=== PATIENT | female | born 1995 | race Two or more races ===

== ENCOUNTER 2025-01-10 20:08 | Emergency (ER) | payer MEDICAID, SELFPAY ==
[2025-01-10 20:09] VITALS: BMI 36.0
[2025-01-10 20:38] VITALS: BP 146/99; PULSE 91; RESP 18; TEMP 36.8; O2SAT 98
--- NOTE | 2025-01-10 20:55 | EDNOTE_ITS ---
ED Abdominal Pain RME/HPI General Chief Complaint: Abdominal Pain Stated complaint: abd pain 4 days Time seen by provider: 01/10/25 20:14 Arrival date/time: 01/10/25 20:08 Source: patient, RN notes reviewed and old records reviewed Mode of arrival: ambulatory Limitations: no limitations RME / HPI RME / HPI narrative: 29yof presents to ED for 4-day history of mid?pelvic pain. Patient reports nausea but no vomiting. No fever, diarrhea or urinary symptoms reported. No medications or treatments since onset. LMP 2 weeks ago. Related Data Home Medications ?Medication ?Instructions ?Recorded ?Confirmed empagliflozin 25 mg tablet 25 mg PO QAM 01/09/2301/09 (Jardiance) liraglutide 0.6 mg/0.1 mL (18 mg/3 1.2 mg subcut Q24H 01/09/23 01/09/23 mL) subcutaneous pen injector (Victoza 3-Earle) metformin 1,000 mg tablet 1,000 mg PO BIDWMEAL 3 01/09/23 Previous Rx's ?Medication ?Instructions ?Recorded ibuprofen 600 mg tablet 600 mg PO TID PRN pain #30 t abs 01/29/23 hydrocodone 5 mg-acetaminophen 325 1 tab PO Q8H PRN pa in #10 tabs 11/13/23 mg tablet ibuprofen 600 mg tablet 600 mg PO Q6H PRN pain #20 t abs 01/10/25 methocarbamol 500 mg tablet 1,000 mg (2 x 500 mg) PO Q 8H PRN 01/10/25 pain #20 tabs nitrofurantoin 100 mg PO BID 5 days #10 cap s 01/10/25 monohydrate/macrocrystals 100 mg capsule (Macrobid) ondansetron 4 mg disintegrating 4 mg PO Q6H PRN nausea and 01/10/25 tablet vomiting #10 tabs Allergies Allergy/AdvReac Type Severity Reaction Status Date / Time [place] And Derivatives Allergy Severe Rash Verified 01/10/25 20:15 Sulfa (Sulfonamide Allergy Severe Hives Verified 01/10/25 20:15 Antibiotics) Review of Systems Review of Systems Systems Reviewed: All systems reviewed, normal except as documented Constitutional Constitutional: Denies chills and Denies fever(s) Gastrointestinal Gastrointestinal: Reports abdominal pain, Denies loose stools, Reports nausea and Denies vomiting Genitourinary Genitourinary: Denies dysuria, Denies flank pain, Denies hematuria and Reports pelvic pain Past Medical History Past Medical History GASTROINTESTINAL: Positive Obesity ENDOCRINE: Positive Diabetes Mellitus Type 2 Surgical History SURGICAL: Positive Section Social History SMOKING STATUS: Never smoker SUBSTANCE USE: marijuana ALCOHOL: Current (Social) ED Exam General Limitations: Present no limitations General appearance: Present alert, in no apparent distress and obese Head Head exam: Present atraumatic and normocephalic Eye Eye exam: Present normal appearance, PERRL and EOMI ENT ENT exam: Present normal exam and mucous membranes moist Neck Neck exam: Present normal inspection and full ROM Chest Chest inspection: Present normal inspection and symmetric chest wall rise Respiratory Respiratory exam: Present normal lung sounds bilaterally; Absent respiratory distress Cardiovascular Cardiovascular exam: Present regular rate and normal rhythm Abdominal Exam Abdominal exam: Present soft and tenderness (Mild, suprapubic); Absent distention, guarding or rebound Extremities Exam Extremities exam: Present normal inspection and full ROM Back Exam Back exam: Absent CVA tenderness (R) or CVA tenderness (L) Neurological Exam Neurological exam: Present alert and oriented X3 Psychiatric Psychiatric exam: Present normal affect and normal mood Skin Skin exam: Present warm, dry, intact and normal color Course Quality Measures none Orders Category Date Time Status CBC Stat Lab 01/10/25 21:01 Completed CMP [Comprehensive Metabolic Panel] Stat Lab 01/10/25 21:01 Completed HCG Qualitative,Urine Stat Lab 01/10/25 22:02 Completed Lipase Stat Lab 01/10/25 21:01 Completed UA [Urinalysis] Stat Lab 01/10/25 22:02 Completed Acetaminophen Tab [Tylenol ES Tab] Med 01/10/25 21:04 Discontinued 1,000 mg PO X1 ONE CYCLObenzaPRINE [Flexeril] Med 01/10/25 21:04 Discontinued 5 mg PO X1 ONE Ondansetron Odt [Zofran Odt] Med 01/10/25 21:04 Discontinued 4 mg PO X1 ONE Vital Signs Vital signs: Vital Signs Temperature 98.3 F 01/10/25 20:38 Pulse Rate 91 01/10/25 20:38 Respiratory Rate 18 01/10/25 20:38 Blood Pressure 146/99 H 01/10/25 20:38 Pulse Oximetry (%) 98 01/10/25 20:38 Oxygen Delivery Method Room Air 01/10/25 20:38 Abdominal Pain MDM MDM Narrative MDM Narrative:: 29yof presents to ED for 4-day history of mid?pelvic pain. Patient reports nausea but no vomiting. No fever, diarrhea or urinary symptoms reported. No medications or treatments since onset. LMP 2 weeks ago. Patient reassessed. Symptoms improved after medications administered. Labs and exam reassuring. Will treat for UTI. Encourage adequate fluids, symptomatic treatment prn. Stable for dc, RTED precautions given. Patient data External records reviewed:: [facility] previous records (11/13/23 ED visit for cellulitis) Clinical information provided by:: patient Social determinants that could affect healthcare access:: other (specify) (poor access to healthcare) Patient has the following chronic illnesses:: DM, obesity How is presenting disease/condition affected by chronic disease/condition?: exacerbated by Evaluation data The following diagnostics were reviewed and interpreted by me:: lab results Lab and/or radiology exams considered but not ordered:: CT abd/pelvis: non-surgical abdomen on exam Interpretation Summary: wbc 13.3 hgb 13.8 lipase wnl UA +leuks Negative upreg Medications / Prescriptions Medications or Prescriptions considered but not ordered:: none Medication administrations:: Medication Administration History Discontinued Medications Acetaminophen (Acetaminophen 500 Mg Tablet) 1,000 mg PO X1 ONE Stop: 01/10/25 21:05 Last Admin: 01/10/25 21:17 Dose: 1,000 mg Documented By: CONNIE Cyclobenzaprine HCl (Cyclobenzaprine 5 Mg Tablet) 5 mg PO X1 ONE Stop: 01/10/25 21:05 Last Admin: 01/10/25 21:18 Dose: 5 mg Documented By: CONNIE Ondansetron HCl (Ondansetron Odt 4 Mg Tabrap) 4 mg PO X1 ONE; Protocol Stop: 01/10/25 21:05 Last Admin: 01/10/25 21:18 Dose: 4 mg Documented By: CONNIE Above medications administered in ED Consultations Consultation(s) initiated? (list below): No Diagnosis Differential diagnosis abdominal pain: abdominal pain, acute appendicitis, calculus of kidney and other (UTI, , ectopic ) Most likely diagnosis given after review of the tests above:: UTI Admission Indicated Admission indicated?: not indicated Admission Request Was there a request for admission?: No Disposition Plan Disposition Plan: Discharge Discharge Attestation Discharge Attestation: The patient and all family members were given an opportunity to ask questions and understood the discharge instructions. Discharge instructions specifically effects, indications for sooner follow up or return to the emergency department, and the expected course of current diagnosis. Patient condition: Stable Discharge Plan Plan Patient Disposition: HOME (Self Care) Patient condition on transfer: Stable Prescriptions/Referrals Prescriptions/Med Rec: New nitrofurantoin monohyd/m-cryst [Macrobid] 100 mg capsule 100 mg PO BID 5 Days Qty: 10 0RF Rx Instructions: must administer with a meal/food ibuprofen 600 mg tablet 600 mg PO Q6H PRN (Reason: pain) Qty: 20 0RF ondansetron 4 mg tablet,disintegrating 4 mg PO Q6H PRN (Reason: nausea and vomiting) Qty: 10 0RF methocarbamol 500 mg tablet 1,000 mg PO Q8H PRN (Reason: pain) Qty: 20 0RF No Action metformin 1,000 mg Tablet 1,000 mg PO BIDWMEAL Victoza 3-Earle 0.6 mg/0.1 mL (18 mg/3 mL) Pen Injector 1.2 mg SUBCUT Q24H Jardiance 25 mg Tablet 25 mg PO QAM ibuprofen 600 mg tablet 600 mg PO TID PRN (Reason: pain) Qty: 30 0RF hydrocodone-acetaminophen 5-325 mg tablet 1 tab PO Q8H MDD 3 tabs daily PRN (Reason: pain) Qty: 10 0RF Referrals: Xander Poe MD [Primary Care Provider] - In 1 week Problem List Clinical Impression: UTI (urinary tract infection), Nausea Patient/Caregiver Discharge Instructions Education Materials: ED CYSTITIS Female Adult Print Language: German Stand Alone Forms: Lynn Award Info., Patient Portal Info Letter PA/DIGITAL DESIGN ENGINEER Supervising Physician PA/DIGITAL DESIGN ENGINEER Supervising Physician: Debra
[2025-01-10] MEDS: ACETAMINOPHEN 500 MG TABLET 1000 MG PO (21:17)
[2025-01-10] MEDS: CYCLObenzaPRINE 5 MG TABLET PO (21:18)
[2025-01-10] MEDS: ONDANSETRON ODT 4 MG TABRAP PO (21:18)
[2025-01-10 21:37] LABS: Basophils # (Auto) 0.1 Thou/mm3 (0.0-0.2); Basophils % (Auto) 0 % (0-2.5); Eosinophils # (Auto) 0.2 Thou/mm3 (0.0-0.5); Eosinophils % (Auto) 1 % (0-10); Hematocrit 41.1 % (36.0-46.0); Hemoglobin 13.8 g/dL (12.0-16.0); Immature Granulocytes % (Auto) 0 % (0-0); Immature Granulocytes Auto 0.04 Thou/mm3 (0.00-0.00); Lymphocytes # (Auto) 4.2 Thou/mm3 (1.0-4.8); Lymphocytes % (Auto) 32 % (10-50); Mean Corpuscular HGB Conc 33.6 g/dl (31.0-37.0); Mean Corpuscular Hemoglobin 28.8 pg (25.0-35.0); Mean Corpuscular Volume 86 fL (80-100); Monocytes # (Auto) 0.9 Thou/mm3 (0.0-0.8); Monocytes % (Auto) 6 % (0-12); Neutrophils % (Auto) 60 % (37-80); Nucleated Red Blood Cell % 0 /100 WBC (0); Platelet Count 322 Thou/mm3 (140-440); RDW Standard Deviation 41.2 fL (36.4-46.3); Red Blood Count 4.79 Miln/mm3 (4.00-5.20); White Blood Count 13.3 Thou/mm3 (3.6-11.0)
[2025-01-10 21:51] LABS: Alanine Aminotransferase 37 U/L (10-49); Albumin, Serum 4.4 gm/dL (3.5-5.0); Albumin/Globulin Ratio 1.4 (1.2-2.2); Alkaline Phosphatase 128 U/L (46-116); Anion Gap 10 (7-16); Aspartate Amino Transferase 29 U/L (0-34); BUN/Creatinine Ratio 10 Ratio (12-20); Bilirubin,Total 0.4 mg/dL (0.3-1.2); Blood Urea Nitrogen 8 mg/dL (9-23); Calcium 10.1 mg/dL (8.3-10.6); Calcium (Corrected) 10.1 mg/dL (8.5-10.1); Carbon Dioxide 24.8 mMol/L (20.0-31.0); Chloride 101 mMol/L (98-107); Creatinine (Component) 0.8 mg/dL (0.6-1.3); Estimated Creatinine Clearance 130.1 mL/min (>60); Globulin 3.2 gm/dL (2.3-3.5); Glucose 96 mg/dL (74-106); Lipase 24 U/L (12-53); Osmolality,Calculated 270 (275-295); Sodium 136 mMol/L (136-145); Total Protein 7.6 gm/dL (5.7-8.2); eGFR > 60 See Note
[2025-01-10 22:32] LABS: Collection Type, Urine Clean Catch; RBC,Urine 0 /hpf (0-3)
[2025-01-10 23:00] LABS: Bacteria,Urine Rare; Bilirubin,Urine Negative (Negative); Blood,Urine Negative (Negative); Clarity,Urine Turbid (Clear/Hazy); Color,Urine Yellow (Lt Yel-Yel); Glucose, Urine Negative (Negative); Ketones,Urine Negative (Negative); Leukocyte Esterase,Urine Positive (Negative); Nitrite,Urine Negative (Negative); Protein,Urine Negative (Neg - Trace); Specific Gravity,Urine 1.023 (1.001-1.035); Squamous Epithelial Cell,Urine 47 /hpf (0-5); Urobilinogen,Urine Negative mg/dL (0.0-1.0); WBC,Urine 23 /hpf (0-5)
[2025-01-10 23:26] LABS: HCG Qualitative,Urine Negative
== END 2025-01-10 23:53 | disposition home or self-care (01) ==
PROVIDERS: Physician Assistant; Emergency Provider Emergency Medicine; PCP Family Medicine
DX: N39.0 Urinary tract infection, site not specified (principal); R11.0 Nausea
CPT/HCPCS: 36415; 80053; 81001; 81025; 83690; 85025; 99284; Q0162; A9270

== ENCOUNTER 2025-02-07 11:34 | Emergency (ER) | payer MEDICAID, SELFPAY ==
[2025-02-07 12:02] VITALS: BP 144/100; PULSE 75; RESP 18; TEMP 37.1; O2SAT 98; BMI 38.8
--- NOTE | 2025-02-07 12:14 | XR_ITS ---
Examination: Complete OB ultrasound, less than 14 weeks, transabdominal Date and time of exam: February 07, 2025 1350 hrs. Indications: Nausea and vaginal bleeding beginning one week ago Technique: Obstetrical ultrasound images less than 14 weeks performed via transabdominal imaging Findings: Uterus 8.5 cm intrauterine gestational sac 1.45 cm corresponding to 6 weeks 2 days gestational age No pole, no cardiac activity Right ovary 2.3 cm arterial flow Left ovary 3.5 cm arterial flow 19 mm follicular cyst Impression: Empty intrauterine gestational sac corresponding to 6 weeks 2 days gestational age Recommend short-term follow-up pelvic sonography to document viability
--- NOTE | 2025-02-07 12:15 | PD.EDABDPN ---
ED Abdominal Pain RME/HPI General Chief Complaint: Abdominal Pain Stated complaint: W/ABD PAIN Time seen by provider: 02/07/25 11:41 Arrival date/time: 02/07/25 11:34 RME / HPI RME / HPI narrative: 29-year-old female patient 4 para 3, came in for evaluation regarding pelvic pain. Patient just learned that she is few weeks ago and now coming here wants the baby check. Patient is complaining of pelvic discomfort, severity mild. Denies any vomiting denies any dysuria denies any vaginal bleeding or spotting. Patient is worried about her baby because she cannot see an SPEECH THERAPIST EARLY INTERVENTION pretty soon. Related Data Home Medications ?Medication ?Instructions ?Recorded ?Confirmed empagliflozin 25 mg tablet 25 mg PO QAM 01/09/23 01/09/23 (Jardiance) liraglutide 0.6 mg/0.1 mL (18 mg/3 1.2 mg subcut Q24H 01/09/23 01/09/23 mL) subcutaneous pen injector (Victoza 3-Earle) metformin 1,000 mg tablet 1,000 mg PO BIDWMEAL 01/09/23 01/09/23 Previous Rx's ?Medication ?Instructions ?Recorded ibuprofen 600 mg tablet 600 mg PO TID PRN pain #30 tabs 01/29/23 hydrocodone 5 mg-acetaminophen 325 1 tab PO Q8H PRN pain #10 tabs 11/13/23 mg tablet ibuprofen 600 mg tablet 600 mg PO Q6H PRN pain #20 tabs 01/10/25 methocarbamol 500 mg tablet 1,000 mg (2 x 500 mg) PO Q8H PRN 01/10/25 pain #20 tabs ondansetron 4 mg disintegrating 4 mg PO Q6H PRN nausea and 01/10/25 tablet vomiting #10 tabs Allergies Allergy/AdvReac Type Severity Reaction Status Date / Time [place] And Derivatives Allergy Severe Rash Verified 02/07/25 11:38 Sulfa (Sulfonamide Allergy Severe Hives Verified 02/07/25 11:38 Antibiotics) Review of Systems Review of Systems Narrative Review of Systems: Review of system reviewed and within normal limits except mentioned in HPI ED Exam Narrative Physical exam: VITAL SIGNS: Reviewed. GENERAL APPEARANCE: Alert and interactive, follows commands, no acute distress, HEAD AND FACE: Non-traumatic. ENT: PERRL, pink conjunctivitis, eyelid no trauma, Mucous membrane moist. NECK: Supple, nontender, no nuchal rigidity. CHEST: No tenderness, no crepitus, no paradoxical movement, no retractions. LUNGS: Clear, well ventilated, symmetric, no rales, no wheezing, no ronchi, no stridor, good breath sounds bilaterally. HEART: Regular rate, regular rhythm, no murmur, no gallops. ABDOMEN: Soft, positive bowel sounds, nondistended, no guarding, nontender, no rebound, no masses, RECTAL: Deferred. GENITAL: Deferred. NEUROLOGICAL: Gross motor function intact sensory function intact, Appropriate for age. MUSCULOSKELETAL: low back nontender, full range of motion. EXTREMITIES: Nontender, full range of motion. SKIN: Color pink, dry, no rash, no lacerations, no abrasions, no contusions. LYMPHATICS: Deferred. Course Quality Measures none Orders Category Date Time Status US OB <= 14 weeks fetus Stat Exams 02/07/25 12:14 Completed ABO/RH Type Stat Lab 02/07/25 12:34 Completed Basic Metabolic Panel Stat Lab 02/07/25 12:34 Completed Beta HCG,Quantitative Stat Lab 02/07/25 12:34 Completed CBC Stat Lab 02/07/25 12:34 Completed Urinalysis Stat Lab 02/07/25 12:27 Completed Vital Signs Vital signs: Vital Signs Temperature 98.7 F 02/07/25 12:02 Pulse Rate 75 02/07/25 12:02 Respiratory Rate 18 02/07/25 12:02 Blood Pressure 144/100 H 02/07/25 12:02 Pulse Oximetry (%) 98 02/07/25 12:02 Oxygen Delivery Method Room Air 02/07/25 12:02 Abdominal Pain MDM MDM Narrative MDM Narrative:: 29-year-old female patient 4 para 3, came in for evaluation regarding pelvic pain. Patient just learned that she is few weeks ago and now coming here wants the baby check. Patient is complaining of pelvic discomfort, severity mild. Denies any vomiting denies any dysuria denies any vaginal bleeding or spotting. Patient is worried about her baby because she cannot see an SPEECH THERAPIST EARLY INTERVENTION pretty soon. Laboratory workup all came back unremarkable. No UTI. No anemia noted. Ultrasound of shows gestational sac no pole or cardiac activity noted at this time could be too early . Patient results discussed with her. I asked her to follow-up closely with SPEECH THERAPIST EARLY INTERVENTION and or return to emergency room for worsening of symptoms vaginal bleeding or spotting. And worsening pelvic pain Patient data External records reviewed:: None Clinical information provided by:: patient Social determinants that could affect healthcare access:: none Patient has the following chronic illnesses:: None How is presenting disease/condition affected by chronic disease/condition?: exacerbated by Evaluation data The following diagnostics were reviewed and interpreted by me:: lab results and radiology exam(s) Lab and/or radiology exams considered but not ordered:: None Interpretation Summary: See results in MDM Medications / Prescriptions Medications or Prescriptions considered but not ordered:: None Medication administrations:: None Consultations Consultation(s) initiated? (list below): No Diagnosis Differential diagnosis abdominal pain: abdominal pain and other ( uti, pelvic pain, ) Most likely diagnosis given after review of the tests above:: Pelvic pain, Admission Indicated Admission indicated?: not indicated Admission Request Was there a request for admission?: No Disposition Plan Disposition Plan: Discharge Discharge Attestation Discharge Attestation: The patient was given an opportunity to ask questions and understood the discharge instructions. Discharge instructions specifically effects, indications for sooner follow up or return to the emergency department, and the expected course of current diagnosis. Patient condition: Stable Discharge Plan Plan Patient Disposition: HOME (Self Care) Discharge Disposition comment: Stable Prescriptions/Referrals Prescriptions/Med Rec: No Action ibuprofen 600 mg tablet 600 mg PO Q6H PRN (Reason: pain) Qty: 20 0RF ondansetron 4 mg tablet,disintegrating 4 mg PO Q6H PRN (Reason: nausea and vomiting) Qty: 10 0RF methocarbamol 500 mg tablet 1,000 mg PO Q8H PRN (Reason: pain) Qty: 20 0RF metformin 1,000 mg Tablet 1,000 mg PO BIDWMEAL Victoza 3-Earle 0.6 mg/0.1 mL (18 mg/3 mL) Pen Injector 1.2 mg SUBCUT Q24H Jardiance 25 mg Tablet 25 mg PO QAM ibuprofen 600 mg tablet 600 mg PO TID PRN (Reason: pain) Qty: 30 0RF hydrocodone-acetaminophen 5-325 mg tablet 1 tab PO Q8H MDD 3 tabs daily PRN (Reason: pain) Qty: 10 0RF Referrals: Diamond Stanford FNP-C [Primary Care Provider] - In 1 week Problem List Clinical Impression: Pelvic pain, Patient/Caregiver Discharge Instructions Discharge Activity: activity as tolerated Education Materials: First Trimester Additional Instructions: Thank you for the opportunity for serving you today. You are stable for discharged . You are advised to: Follow-up with your SPEECH THERAPIST EARLY INTERVENTION in 1 to 2 days Return to ED for worsening of symptoms Return to emergency room for evaluation for bleeding, worsening pelvic pain, or spotting. Print Language: Malay Stand Alone Forms: Lynn Award Info., Patient Portal Info Letter RADHA/GARETH Supervising Physician RADHA/GARETH Supervising Physician: MD Kelly
[2025-02-07 12:50] LABS: Basophils % (Auto) 0 % (0-2.5); Eosinophils # (Auto) 0.1 Thou/mm3 (0.0-0.5); Eosinophils % (Auto) 1 % (0-10); Hematocrit 40.2 % (36.0-46.0); Hemoglobin 14.1 g/dL (12.0-16.0); Immature Granulocytes % (Auto) 0 % (0-0); Immature Granulocytes Auto 0.04 Thou/mm3 (0.00-0.00); Lymphocytes # (Auto) 2.9 Thou/mm3 (1.0-4.8); Lymphocytes % (Auto) 27 % (10-50); Mean Corpuscular HGB Conc 35.1 g/dl (31.0-37.0); Mean Corpuscular Hemoglobin 29.1 pg (25.0-35.0); Mean Corpuscular Volume 83 fL (80-100); Monocytes # (Auto) 0.6 Thou/mm3 (0.0-0.8); Monocytes % (Auto) 6 % (0-12); Neutrophils # (Auto) 7.1 Thou/mm3 (1.8-7.7); Neutrophils % (Auto) 66 % (37-80); Nucleated Red Blood Cell % 0 /100 WBC (0); Platelet Count 270 Thou/mm3 (140-440); RDW Standard Deviation 40.2 fL (36.4-46.3); Red Blood Count 4.84 Miln/mm3 (4.00-5.20); White Blood Count 10.8 Thou/mm3 (3.6-11.0)
[2025-02-07 12:50] LABS: Collection Type, Urine Clean Catch; RBC,Urine 0 /hpf (0-3)
[2025-02-07 13:19] LABS: Amorphous Crystals,Urine Present (Absent); Bilirubin,Urine Negative (Negative); Blood,Urine Negative (Negative); Color,Urine Yellow (Lt Yel-Yel); Glucose, Urine Negative (Negative); Ketones,Urine 1+ (Negative); Leukocyte Esterase,Urine Positive (Negative); Nitrite,Urine Negative (Negative); Protein,Urine Trace (Neg - Trace); Specific Gravity,Urine 1.027 (1.001-1.035); Squamous Epithelial Cell,Urine 12 /hpf (0-5); Urobilinogen,Urine Negative mg/dL (0.0-1.0); WBC,Urine 5 /hpf (0-5)
[2025-02-07 13:21] LABS: Clarity,Urine Hazy (Clear/Hazy)
[2025-02-07 13:37] LABS: Anion Gap 12 (7-16); BUN/Creatinine Ratio 9 Ratio (12-20); Blood Urea Nitrogen 7 mg/dL (9-23); Calcium 9.6 mg/dL (8.3-10.6); Carbon Dioxide 23.5 mMol/L (20.0-31.0); Chloride 101 mMol/L (98-107); Creatinine (Component) 0.8 mg/dL (0.6-1.3); Estimated Creatinine Clearance 139.9 mL/min (>60); Glucose 142 mg/dL (74-106); Osmolality,Calculated 271 (275-295); Potassium 3.6 mMol/L (3.4-5.1); Sodium 136 mMol/L (136-145); eGFR > 60 See Note
[2025-02-07 13:45] LABS: Beta HCG,Quantitative 13895 mIU/mL (<5.0)
[2025-02-07 15:57] VITALS: BP 134/91; PULSE 70; RESP 18; TEMP 36.7; O2SAT 97
== END 2025-02-07 16:00 | disposition home or self-care (01) ==
PROVIDERS: Nurse Practitioner Family; Emergency Provider Family Medicine
DX: O26.891 Other specified pregnancy related conditions, first trimester (principal); Z3A.01 Less than 8 weeks gestation of pregnancy; R10.2 Pelvic and perineal pain
CPT/HCPCS: 36415; 76801; 80048; 81001; 84702; 85025; 86900; 86901; 99284

== ENCOUNTER 2025-02-14 12:33 | Emergency (ER) | payer MEDICAID, SELFPAY ==
[2025-02-14 13:27] VITALS: BP 143/89; PULSE 86; RESP 18; TEMP 36.8; O2SAT 99; BMI 37.6
--- NOTE | 2025-02-14 13:47 | XR_ITS ---
Examination: OB Transvaginal ultrasound of the pelvis, complete Technique: Transvaginal sonographic images pelvis performed using torre scale imaging Exam date and time: February 14, 2025 1358 hrs. Indications: Pelvic cramping beginning one week ago Findings: Uterus 9.2 cm, pole 0.8 cm corresponds to 6 weeks 5 day gestational age Cardiac motion 132 BPM Subchorionic hemorrhage 20 x 20 mm Right ovary 2.3 cm arterial flow small follicles Left ovary 3.4 cm arterial flow small follicles Impression: Viable intrauterine gestation 6 weeks 5 days Given the subchorionic hemorrhage, recommend short-term follow-up pelvic sonography.
--- NOTE | 2025-02-14 13:48 | PD.EDRME ---
Rapid Medical Screening Exam RME Arrival date/time: 02/14/25 12:33 This is a 29-year-old female that comes in with complaints of lower abdominal/pain Cramping and nausea. Patient states she is . Patient states her blood sugars are uncontrolled at home. Patient states it has been greater than 400. I have greeted and performed a focused initial assessment of this patient. Initial appropriate labs ordered at this time. A comprehensive ED assessment and evaluation of the patient and analysis of all test and completion of medical decision making process will be conducted by additional ED provider. Chief Complaint: General Adult/Misc Complain Time Seen by Provider: 02/14/25 12:47 Vital signs: Vital Signs Temperature 98.2 F 02/14/25 13:27 Pulse Rate 86 02/14/25 13:27 Respiratory Rate 18 02/14/25 13:27 Blood Pressure 143/89 H 02/14/25 13:27 Pulse Oximetry (%) 99 02/14/25 13:27 Oxygen Delivery Method Room Air 02/14/25 13:27
[2025-02-14 14:54] LABS: Basophils % (Auto) 0 % (0-2.5); Eosinophils # (Auto) 0.2 Thou/mm3 (0.0-0.5); Eosinophils % (Auto) 2 % (0-10); Hematocrit 40.1 % (36.0-46.0); Immature Granulocytes % (Auto) 0 % (0-0); Immature Granulocytes Auto 0.03 Thou/mm3 (0.00-0.00); Lymphocytes # (Auto) 3.6 Thou/mm3 (1.0-4.8); Lymphocytes % (Auto) 30 % (10-50); Mean Corpuscular HGB Conc 34.9 g/dl (31.0-37.0); Mean Corpuscular Hemoglobin 29.1 pg (25.0-35.0); Mean Corpuscular Volume 83 fL (80-100); Monocytes # (Auto) 0.7 Thou/mm3 (0.0-0.8); Monocytes % (Auto) 6 % (0-12); Neutrophils # (Auto) 7.5 Thou/mm3 (1.8-7.7); Neutrophils % (Auto) 62 % (37-80); Nucleated Red Blood Cell % 0 /100 WBC (0); Platelet Count 262 Thou/mm3 (140-440); RDW Standard Deviation 39.8 fL (36.4-46.3); Red Blood Count 4.81 Miln/mm3 (4.00-5.20)
[2025-02-14 15:15] LABS: Alanine Aminotransferase 32 U/L (10-49); Albumin, Serum 4.5 gm/dL (3.5-5.0); Albumin/Globulin Ratio 1.7 (1.2-2.2); Alkaline Phosphatase 101 U/L (46-116); Anion Gap 9 (7-16); Aspartate Amino Transferase 27 U/L (0-34); BUN/Creatinine Ratio 6 Ratio (12-20); Bilirubin,Total 0.3 mg/dL (0.3-1.2); Blood Urea Nitrogen 5 mg/dL (9-23); Calcium 9.3 mg/dL (8.3-10.6); Calcium (Corrected) 9.3 mg/dL (8.5-10.1); Carbon Dioxide 27.3 mMol/L (20.0-31.0); Chloride 104 mMol/L (98-107); Creatinine (Component) 0.8 mg/dL (0.6-1.3); Estimated Creatinine Clearance 142.1 mL/min (>60); Globulin 2.7 gm/dL (2.3-3.5); Glucose 100 mg/dL (74-106); Lipase 32 U/L (12-53); Osmolality,Calculated 276 (275-295); Potassium 4.6 mMol/L (3.4-5.1); Sodium 140 mMol/L (136-145); Total Protein 7.2 gm/dL (5.7-8.2); eGFR > 60 See Note
[2025-02-14 15:50] LABS: Beta HCG,Quantitative 47903 mIU/mL (<5.0)
[2025-02-14 17:35] VITALS: BP 153/100; PULSE 87; RESP 18; O2SAT 100
--- NOTE | 2025-02-14 17:39 | PC.NURSE ---
pt refusing to wait for urine results and wants to go home. Cindi n/p to discharge pt
--- NOTE | 2025-02-14 17:41 | EDNOTE_ITS ---
<Statement entered by Angelique Orlando MD - 02/24/25 00:59> As co-signing physician, I was present and available for consult prn. I concur with the plan and care as documented by the midlevel provider. ED OB Contraction Preg RMI/HPI General Chief complaint: General Adult/Misc Complain Stated complaint: High blood sugar (400s) Time Seen by Provider: 02/14/25 12:47 Arrival date/time: 02/14/25 12:33 RME / HPI RME / HPI Narrative: 29-year-old female that comes in with complaints of lower abdominal/pain. Onset of symptoms earlier today. Patient denies any spotting, bleeding, or other complaints. Except for blood sugar over greater than 400. Patient states she is . Patient states her blood sugars are uncontrolled at home. Patient is taking Jardiance., She also taking Victoza. Denies any vomiting denies any fever denies any other complaints. Related Data Home Medications ?Medication ?Instructions ?Recorded ?Confirmed empagliflozin 25 mg tablet 25 mg PO QAM 01/09/2301/09 (Jardiance) liraglutide 0.6 mg/0.1 mL (18 mg/3 1.2 mg subcut Q24H 01/09/23 01/09/23 mL) subcutaneous pen injector (Victoza 3-Earle) metformin 1,000 mg tablet 1,000 mg PO BIDWMEAL 3 01/09/23 Previous Rx's ?Medication ?Instructions ?Recorded ibuprofen 600 mg tablet 600 mg PO TID PRN pain #30 t abs 01/29/23 hydrocodone 5 mg-acetaminophen 325 1 tab PO Q8H PRN pa in #10 tabs 11/13/23 mg tablet ibuprofen 600 mg tablet 600 mg PO Q6H PRN pain #20 t abs 01/10/25 methocarbamol 500 mg tablet 1,000 mg (2 x 500 mg) PO Q 8H PRN 01/10/25 pain #20 tabs ondansetron 4 mg disintegrating 4 mg PO Q6H PRN nausea and 01/10/25 tablet vomiting #10 tabs Allergies Allergy/AdvReac Type Severity Reaction Status Date / Time [place] And Derivatives Allergy Severe Rash Verified 02/14/25 12:37 Sulfa (Sulfonamide Allergy Severe Hives Verified 02/14/25 12:37 Antibiotics) Review of Systems Review of Systems Narrative Review of Systems: Review of system reviewed and within normal limits except mentioned in HPI ED Exam Narrative Physical exam: VITAL SIGNS: Reviewed. GENERAL APPEARANCE: Alert and interactive, follows commands, no acute distress, HEAD AND FACE: Non-traumatic. ENT: PERRL, pink conjunctivitis, eyelid no trauma, Mucous membrane moist. NECK: Supple, nontender, no nuchal rigidity. CHEST: No tenderness, no crepitus, no paradoxical movement, no retractions. LUNGS: Clear, well ventilated, symmetric, no rales, no wheezing, no ronchi, no stridor, good breath sounds bilaterally. HEART: Regular rate, regular rhythm, no murmur, no gallops. ABDOMEN: Soft, positive bowel sounds, nondistended, no guarding, nontender, no rebound, no masses, RECTAL: Deferred. GENITAL: Deferred. NEUROLOGICAL: Gross motor function intact sensory function intact, Appropriate for age. MUSCULOSKELETAL: low back nontender, full range of motion. EXTREMITIES: Nontender, full range of motion. SKIN: Color pink, dry, no rash, no lacerations, no abrasions, no contusions. LYMPHATICS: Deferred. Course Quality Measures none Orders Category Date Time Status US OB transvaginal Stat Exams 02/14/25 13:47 Completed Beta HCG,Quantitative Stat Lab 02/14/25 14:16 Completed CBC Stat Lab 02/14/25 14:16 Completed Comprehensive Metabolic Panel Stat Lab 02/14/25 14:16 Completed Lipase Stat Lab 02/14/25 14:16 Completed Urinalysis, C/S if Indicated Stat Lab 02/14/25 13:47 Ordered Vital Signs Vital signs: Vital Signs Temperature 98.2 F 02/14/25 13:27 Pulse Rate 86 02/14/25 13:27 Respiratory Rate 18 02/14/25 13:27 Blood Pressure 143/89 H 02/14/25 13:27 Pulse Oximetry (%) 99 02/14/25 13:27 Oxygen Delivery Method Room Air 02/14/25 13:27 Vaginal Bleeding MDM Narrative MDM Narrative: 29-year-old female that comes in with complaints of lower abdominal/pain. Onset of symptoms earlier today. Patient denies any spotting, bleeding, or other complaints. Except for blood sugar over greater than 400. Patient states she is . Patient states her blood sugars are uncontrolled at home. Patient is taking Jardiance., She also taking Victoza. Denies any vomiting denies any fever denies any other complaints. Patient's workup today all came back unremarkable. Patient's blood sugar was noted to be 100 with no sign of diabetic ketoacidosis. Pelvic ultrasound showed single live intrauterine gestation about 6 weeks and 5 days old with small subchorionic hemorrhage. Results discussed with the patient. Patient is not giving me urine she does not want to wait any longer. She wants to go home. Patient data External records reviewed:: None Clinical information provided by:: patient Social determinants that could affect healthcare access:: none Patient has the following chronic illnesses:: Diabetes mellitus How is presenting disease/condition affected by chronic disease/condition?: exacerbated by Evaluation data The following diagnostics were reviewed and interpreted by me:: lab results and radiology exam(s) Lab and/or radiology exams considered but not ordered:: None Interpretation Summary: See results MDM Medications / Prescriptions Medications or Prescriptions considered but not ordered:: None Medication administrations:: None Consultations Consultation(s) initiated? (list below): No Diagnosis Vaginal Bleeding Differential Diagnosis: threatened , incomplete and other (Hyperglycemia) Most likely diagnosis given after review of the tests above:: History of diabetes mellitus, , subchorionic hemorrhage Admission Indicated Admission indicated?: not indicated Admission Request Was there a request for admission?: No Disposition Plan Disposition Plan: Discharge Discharge Attestation Discharge Attestation: The patient was given an opportunity to ask questions and understood the discharge instructions. Discharge instructions specifically effects, indications for sooner follow up or return to the emergency department, and the expected course of current diagnosis. Patient condition: Stable Discharge Plan Plan Patient Disposition: HOME (Self Care) Discharge Disposition comment: Stable Prescriptions/Referrals Prescriptions/Med Rec: No Action ibuprofen 600 mg tablet 600 mg PO Q6H PRN (Reason: pain) Qty: 20 0RF ondansetron 4 mg tablet,disintegrating 4 mg PO Q6H PRN (Reason: nausea and vomiting) Qty: 10 0RF methocarbamol 500 mg tablet 1,000 mg PO Q8H PRN (Reason: pain) Qty: 20 0RF metformin 1,000 mg Tablet 1,000 mg PO BIDWMEAL Victoza 3-Earle 0.6 mg/0.1 mL (18 mg/3 mL) Pen Injector 1.2 mg SUBCUT Q24H Jardiance 25 mg Tablet 25 mg PO QAM ibuprofen 600 mg tablet 600 mg PO TID PRN (Reason: pain) Qty: 30 0RF hydrocodone-acetaminophen 5-325 mg tablet 1 tab PO Q8H MDD 3 tabs daily PRN (Reason: pain) Qty: 10 0RF Referrals: No Primary/Family,Physician [Primary Care Provider] - In 1 week Problem List Clinical Impression: Hyperglycemia, , Subchorionic hemorrhage Patient/Caregiver Discharge Instructions Education Materials: First Trimester Additional Instructions: Thank you for the opportunity for serving you today. You are stable for discharged . You are advised to: Follow-up with your FIELD OPERATIONS SUPERVISOR in 1 to 2 days Return to ED for worsening of symptoms Increase oral fluids Pelvic rest no sex for 1 week currently cleared by FIELD OPERATIONS SUPERVISOR May take Tylenol as needed for pain Print Language: Iraqi Stand Alone Forms: Lynn Award Info., Patient Portal Info Letter PA/GARETH Supervising Physician PA/GARETH Supervising Physician: MD Kimberlyn
== END 2025-02-14 17:44 | disposition home or self-care (01) ==
PROVIDERS: Nurse Practitioner Family; Emergency Provider Emergency Medicine
DX: O20.8 Other hemorrhage in early pregnancy (principal); Z3A.01 Less than 8 weeks gestation of pregnancy; R73.9 Hyperglycemia, unspecified
CPT/HCPCS: 36415; 76817; 80053; 81001; 83690; 84702; 85025; 99284

== ENCOUNTER 2025-03-09 08:57 | Emergency (ER) | payer MEDICAID, SELFPAY ==
[2025-03-09 09:18] VITALS: BP 139/85; PULSE 87; RESP 18; TEMP 36.9; O2SAT 99; BMI 39.2
--- NOTE | 2025-03-09 09:28 | XR_ITS ---
Examination: Complete OB ultrasound, less than 14 weeks, transabdominal Date and time of exam: March 09, 2025 1020 hours INDICATIONS: Pelvic cramping beginning today Technique: Obstetrical ultrasound images less than 14 weeks performed via transabdominal imaging Findings: A normal shaped single intrauterine gestation is present in the uterus. CRL 3.4 cm corresponds to 10 weeks 2 days gestational age Cardiac motion 158 BPM Ultrasonographic survey of visible and placental structures unremarkable. Amniotic fluid volume appears appropriate for this estimated gestational age. Right ovary 2.2 cm arterial flow Left ovary 2.9 cm arterial flow 17 mm cyst IMPRESSION: Viable 8 uterine gestation 10 weeks 2 days.
--- NOTE | 2025-03-09 10:43 | PD.EDPREG ---
ED OB Contraction Preg RMI/HPI General Chief complaint: OB/Uterine Contractions Stated complaint: PREG 10 WKS, CRAMPING, DIABETIC MOM Time Seen by Provider: 03/09/25 09:10 Arrival date/time: 03/09/25 08:57 29-year-old diabetic female presents to the emergency department today stating she approximately 10 weeks she reports mild cramping without bleeding. Limitations: no limitations Related Data Home Medications ?Medication ?Instructions ?Recorded ?Confirmed empagliflozin 25 mg tablet 25 mg PO QAM 01/09/23 01/09/23 (Jardiance) liraglutide 0.6 mg/0.1 mL (18 mg/3 1.2 mg subcut Q24H 01/09/23 01/09/23 mL) subcutaneous pen injector (Victoza 3-Earle) metformin 1,000 mg tablet 1,000 mg PO BIDWMEAL 01/09/23 01/09/23 Previous Rx's ?Medication ?Instructions ?Recorded ibuprofen 600 mg tablet 600 mg PO TID PRN pain #30 tabs 01/29/23 hydrocodone 5 mg-acetaminophen 325 1 tab PO Q8H PRN pain #10 tabs 11/13/23 mg tablet ibuprofen 600 mg tablet 600 mg PO Q6H PRN pain #20 tabs 01/10/25 methocarbamol 500 mg tablet 1,000 mg (2 x 500 mg) PO Q8H PRN 01/10/25 pain #20 tabs ondansetron 4 mg disintegrating 4 mg PO Q6H PRN nausea and 01/10/25 tablet vomiting #10 tabs Allergies Allergy/AdvReac Type Severity Reaction Status Date / Time [place] And Derivatives Allergy Severe Rash Verified 03/09/25 09:02 Sulfa (Sulfonamide Allergy Severe Hives Verified 03/09/25 09:02 Antibiotics) Review of Systems Review of Systems Systems Reviewed: All systems reviewed, normal except as documented Constitutional Constitutional: Reports system reviewed and no additional complaints, except as documented, Denies fever(s) and Denies headache(s) Eyes Eyes: Reports system reviewed and no additional complaints, except as documented and Denies blurry vision ENT Ears, Nose, Mouth, and Throat: Reports system reviewed and no additional complaints, except as documented, Denies headache(s), Denies nasal congestion and Denies nasal discharge Cardiovascular Cardiovascular: Reports system reviewed and no additional complaints, except as documented, Denies chest pain and Denies dyspnea Respiratory Respiratory: Reports system reviewed and no additional complaints, except as documented, Denies chest congestion, Denies cough and Denies dyspnea Gastrointestinal Gastrointestinal: Reports system reviewed and no additional complaints, except as documented and Denies abdominal pain Genitourinary Genitourinary: Reports system reviewed and no additional complaints, except as documented, Denies abnormal vaginal bleeding, Denies light periods, Denies menorrhagia, Denies urinary hesitancy, Denies urinary urgency, Denies vaginal discharge and Denies vaginal dryness Integumentary/Breasts Skin/Breast: Reports system reviewed and no additional complaints, except as documented and Denies rash Neurologic Neurologic: Reports system reviewed and no additional complaints, except as documented, Reports as per HPI and Denies headache(s) Past Medical History Past Medical History NEUROLOGIC: Negative Neurological Disorders or Seizures CARDIAC: Negative Cardiac Disorders or Congestive Heart Failure RESPIRATORY: Positive Asthma; Negative Chronic Obstructive Pulmonary Disease (COPD) GASTROINTESTINAL: Positive Gastrointestinal Disorders, Gastrointestinal Bleed and Obesity; Negative Hepatitis or Colorectal Cancer GENITOURINARY: Negative Genitourinary Disorders or Renal Disease REPRODUCTIVE: Positive Previous Pregnancies; Negative Breast Cancer MUSCULOSKELETAL: Negative Musculoskeletal Disorders or Bone Cancer ENDOCRINE: Positive Endocrine Disorders and Diabetes Mellitus Type 2; Negative Diabetes Mellitus Type 1 HEMATOLOGIC: Negative Blood Disorders or Sickle Cell Disease PSYCHO/SOCIAL: Positive Depression and Anxiety OTHER HISTORY: Positive Hospitalization; Negative Autoimmune Disease, Down Syndrome, Developmental Delay, Falls, Blood Transfusions, Blood Transfusion Reaction, Anesthesia Reactions, Organ Transplant, Chemotherapy, Radiation Therapy, Hyperbaric Therapy, MRSA, Vancomycin-Resistant Enterococci, Human Immunodeficiency Virus (HIV), Chicken Pox, Measles, Mumps, Rubella ([place] Measles), Pertussis, Clostridium Difficile, Cancer, Breast Cancer, Cervical Cancer, Colorectal Cancer, Lung Cancer or Ovarian Cancer Family History FAMILY HISTORY: Positive Family Cardiac Disorders and Family Surgery; Negative Family Psychiatric Problems, Family Respiratory Disorders, Family Gastrointestinal Problems, Family Cancer or Family Anesthesia Reaction Surgical History SURGICAL: Positive Section; Negative Organ Transplant Social History SMOKING STATUS: Never smoker SUBSTANCE USE: marijuana ED Exam General Limitations: Present no limitations General appearance: Present alert and in no apparent distress Head Head exam: Present atraumatic, normocephalic and normal inspection Eye Eye exam: Present normal appearance, PERRL and EOMI; Absent conjunctival injection ENT ENT exam: Present normal exam, normal oropharynx and mucous membranes moist Neck Neck exam: Present normal inspection, full ROM and trachea midline Chest Chest inspection: Present normal inspection and symmetric chest wall rise Respiratory Respiratory exam: Present normal lung sounds bilaterally; Absent respiratory distress Cardiovascular Cardiovascular exam: Present regular rate, normal rhythm and normal heart sounds Abdominal Exam Abdominal exam: Present soft and normal bowel sounds; Absent distention, tenderness, guarding, rebound, rigidity or tenderness at McBurney's Point Abdominal tenderness: Absent RUQ or RLQ Extremities Exam Extremities exam: Present normal inspection and full ROM Back Exam Back exam: Present normal inspection and full ROM Neurological Exam Neurological exam: Present alert, oriented X3 and CN II-XII intact Psychiatric Psychiatric exam: Present normal affect and normal mood Skin Skin exam: Present warm, dry, intact and normal color Course Quality Measures none Orders Category Date Time Status US OB <= 14 weeks fetus Stat Exams 03/09/25 09:28 Completed Vital Signs Vital signs: Vital Signs Temperature 98.5 F 03/09/25 09:18 Pulse Rate 87 03/09/25 09:18 Respiratory Rate 18 03/09/25 09:18 Blood Pressure 139/85 H 03/09/25 09:18 Pulse Oximetry (%) 99 03/09/25 09:18 Oxygen Delivery Method Room Air 03/09/25 09:18 o2 sat 99% r.a wnl OB/Uterine Contractions MDM Narrative MDM Narrative:: 29-year-old diabetic female presents to the emergency department today stating she approximately 10 weeks she reports mild cramping without bleeding. Imaging obtained patient appears to have viable patient happy with her results Patient instructed to keep her appoint with her SURFACE HYDROLOGIST as discussed for worsening symptoms return immediately Patient data External records reviewed:: [facility] previous records Clinical information provided by:: patient Social determinants that could affect healthcare access:: none Patient has the following chronic illnesses:: See history How is presenting disease/condition affected by chronic disease/condition?: uneffected by Evaluation data The following diagnostics were reviewed and interpreted by me:: radiology exam(s) Lab and/or radiology exams considered but not ordered:: Radiology obtain Interpretation Summary: Reviewed by me Medications / Prescriptions Medications or Prescriptions considered but not ordered:: Given Medication administrations:: Given Consultations Consultation(s) initiated? (list below): No Diagnosis OB Contractions Differential Diagnosis: other (Pelvic pain ) Most likely diagnosis given after review of the tests above:: Viable Admission Indicated Admission indicated?: not indicated Explain why admission is indicated or not indicated:: No criteria Admission Request Was there a request for admission?: No Disposition Plan Disposition Plan: Discharge Discharge Attestation Discharge Attestation: The patient and all family members were given an opportunity to ask questions and understood the discharge instructions. Discharge instructions specifically effects, indications for sooner follow up or return to the emergency department, and the expected course of current diagnosis. Patient condition: Stable Discharge Plan Plan Patient Disposition: HOME (Self Care) Discharge Disposition comment: Stable Prescriptions/Referrals Prescriptions/Med Rec: No Action ibuprofen 600 mg tablet 600 mg PO Q6H PRN (Reason: pain) Qty: 20 0RF ondansetron 4 mg tablet,disintegrating 4 mg PO Q6H PRN (Reason: nausea and vomiting) Qty: 10 0RF methocarbamol 500 mg tablet 1,000 mg PO Q8H PRN (Reason: pain) Qty: 20 0RF metformin 1,000 mg Tablet 1,000 mg PO BIDWMEAL Victoza 3-Earle 0.6 mg/0.1 mL (18 mg/3 mL) Pen Injector 1.2 mg SUBCUT Q24H Jardiance 25 mg Tablet 25 mg PO QAM ibuprofen 600 mg tablet 600 mg PO TID PRN (Reason: pain) Qty: 30 0RF hydrocodone-acetaminophen 5-325 mg tablet 1 tab PO Q8H MDD 3 tabs daily PRN (Reason: pain) Qty: 10 0RF Referrals: Diamond Stanford FNP-C [Primary Care Provider] - In 1 week Problem List Clinical Impression: Abdominal cramping affecting Patient/Caregiver Discharge Instructions Education Materials: Measuring Your Pain Additional Instructions: Please follow up with your primary care doctor in the next 24-48hrs for any worsening symptoms return here immediately Print Language: Andorran Stand Alone Forms: Lynn Award Info., Patient Portal Info Letter PA/GARETH Supervising Physician RADHA/GARETH Supervising Physician: dr nichols
== END 2025-03-09 11:12 | disposition home or self-care (01) ==
PROVIDERS: Emergency Provider Family Medicine
DX: O99.891 Other specified diseases and conditions complicating pregnancy (principal); R10.2 Pelvic and perineal pain; Z3A.10 10 weeks gestation of pregnancy
CPT/HCPCS: 76801; 99284

== ENCOUNTER 2025-03-13 13:02 | Outpatient (AMB) | payer MEDICAID, SELFPAY ==
[2025-03-13 13:25] VITALS: BP 122/72; PULSE 84; RESP 17; TEMP 36.9; O2SAT 98; BMI 39.8
--- NOTE | 2025-03-13 13:25 | OBCLNT_ITS ---
Vital Signs 03/13/25 13:25 Height 1.68 m Height Method Stated Weight 112.491 kg Weight Measurement Method Standing Scale BMI 39.8 BP 122/72 Blood Pressure Source Automatic Cuff Blood Pressure Location Right Upper Arm Position Sitting Respiration 17 Pulse 84 Pulse Source Monitor Temp 98.5 F Temp Source Temporal Artery Scan Pulse Oximetry (%) 98 Oxygen Delivery Method Room Air Allergies/Home Meds Allergies & Medications Allergies [place] And Derivatives Allergy (Severe, Verified 03/13/25 13:26) Rash Sulfa (Sulfonamide Antibiotics) Allergy (Severe, Verified 03/13/25 13:26) Hives Medication Reconciliation ondansetron 4 mg disintegrating tablet 4 mg PO Q6H PRN nausea and vomiting #10 tabs 01/10/25 [Rx Confirmed 03/13/25] blood sugar diagnostic (Blood Glucose Test strips) #100 ea 03/13/25 [Rx] insulin glargine 100 unit/mL (3 mL) subcutaneous pen 40 unit (0.4 mL) subcut QPM 30 days #12 mL 03/13/25 [Rx] insulin lispro 100 unit/mL subcutaneous pen (Humalog KwikPen (U-100) Insulin) 8 unit (0.08 mL) subcut TID 30 days #7.2 mL 03/13/25 [Rx] lancets 21 gauge #100 ea 03/13/25 [Rx] pen needle, diabetic 29 gauge x 1/2 #100 ea 03/13/25 [Rx] vitamin with calcium no.72-iron 27 mg-folic acid 1 mg tablet ( Vitamins Plus Low Iron) 1 tab PO QDAY 90 days #90 tabs 03/13/25 [Rx] Intake Visit Data Collection New Patient or Established: Established Patient (seen at [facility] within 3 years) Reason for Visit:: OBI TRANSFER Seen by Clinical Staff ONLY (RN/MA): No Culture Media Laboratory Assistant Required: No Do You Feel Safe at Home: Yes Authorities Contacted: N/A PCP or OBGYN visit in last 3 months: Yes Date of Last PCP or OBGYN visit: 03/09/25 Hx Now: Yes Are you currently on any form of Control: No Pain Present Currently: Yes Pain Location: Head Pain scale:: 8 Smoking Status Smoking Status: Never smoker Questionnaires Covid-19 Vaccine Questionnaire Has patient been vacinated for Covid-19 Have you been vacinated for Covid-19: No PHQ-9 PHQ-2 Over the last 2 weeks, how often have you been bothered by any of the following problems? 1. Little interest or pleasure in doing things: not at all 2. Feeling down, depressed, or hopeless: not at all Total score: 0 PHQ-9 3. Trouble falling or staying asleep, or sleeping too much: Not at all 4. Feeling tired or having little energy: Not at all 5. Poor appetite or overeating: Not at all 6. Feeling bad about yourself - or that you are a failure or have let yourself or your family down: Not at all 7. Trouble concentrating on things, such as reading the newspaper or watching television: Not at all 8. Moving or speaking so slowly that other people could have noticed? - Or the opposite - being so fidgety or restless that you have been moving around a lot more than usual: not at all 9. Thoughts that you would be better off or of hurting yourself in some way: Not at all Total score: 0 If you checked off any problems, how difficult have these problems made it for you to do your work, take care of things at home, or get along with other people?: not difficult at all Source: Developed by Drs. Omer Forbes, Edith Quintanilla, Bharat Mantilla and colleagues, with an educational ferny from [employer]. Depression screen completed yes Social History Living Situation History Marital Status: Lives With: Family Housing: House Tobacco History Smoking Status: Never smoker Alcohol History Alcohol Intake: Current (Social) Domestic Abuse History Do You Feel Safe at Home: Yes History of Present Illness HPI Narrative Juana Lindsey is a 29-year-old female presenting for an initial visit with a history of type 2 diabetes mellitus, hyperglycemia, and infertility. She is currently experiencing a headache and has a history of recent cramping. The patient was seen in the ER on 03/09/2025 with an estimated gestational age of 10 weeks and 2 days. She reported cramping at that time, which has since improved. However, she has been experiencing a headache for the past 4 days. Juana's blood sugar levels have been high, reaching up to 330-340. She is currently taking metformin 500 mg twice a day for her diabetes, which was diagnosed after her first . Juana's obstetrical history includes two previous pregnancies. Her first son was born vaginally at 35 weeks and 4 days. Her second son was delivered via C- section at 35 weeks, weighing 8 pounds 14.5 ounces. The patient reports a history of infertility, though no specific details were provided about its duration or any previous treatments. Obstetric History - GTPAL: L2 - Current : - Gestational age: 11 weeks - Estimated due date: October 01, 2025 (calculated based on current date and gestational age) - history: - Second : Delivered a male at 35 weeks via . weight 8 pounds 14.5 ounces. - First : Delivered a male at 35 weeks and 4 days via sp ontaneous vaginal delivery. Medical History - Type 2 diabetes mellitus with hyperglycemia - History of infertility - Emergency room visit on 03/09/2025 Surgical History - section for second child at 35 weeks gestation Medications and Supplements - Metformin 500 mg by mouth twice daily - Blood sugar levels have been high, reaching up to 330-340 - Tylenol - Can take for headaches Social History - Children: Has two sons Immunizations - Rubella: Patient is non-immune Review of Systems General: Negative for fever, chills, fatigue, muscle aches, appetite or weight change. HEENT: Positive for headache. Gastrointestinal: Positive for cramping (improved). Laboratory, Imaging, and Diagnostic Test Results - Date: 03/04/2025 (Sara) - Hemoglobin: 12.7 - Platelets: 287 - Random urine protein creatinine ratio: 193 - Blood group: O-positive - RPR: Non-reactive - Hemoglobin A1C: 7.0 - Rubella: Non-immune - HIV: Negative - Antibody screen: Negative - Hepatitis B surface antigen: Negative - Urine culture: <10,000 cfu of bacteria - Date: 03/09/2025 (ER visit) - Ultrasound: Cardiac motion 158 bpm, estimated gestational age 10 weeks and 2 days - Date: 03/13/2025 (Current visit) - Ultrasound: Heartbeat 159 bpm, measuring [address] APPRAISER: Past Medical History Past Medical History: No Hx Neurological Disorders, No Hx Breast Cancer, No Hx Cardiac Disorders, No Hx Cancer, No Hx Blood Disorders, Yes Hx Gastrointestinal Disorders, No Hx Renal Disease, No Hx Diabetes Mellitus Type 1 and Yes Hx Joie betes Mellitus Type 2 OB Initial Visit Menstrual History Menstrual reliability: definite Flow: normal Menstrual regularity: regular Monthly: Yes Age at menarche: 12 On control pills at conception: No OB History : 3 Para: 2 Hx # Pregnancies: 2 Hx Total # of Abortions (Spontaneous & Elective): 0 # of Living Children: 0 Delivery History 1st : Child's name: YAN CAMACHO date: 12/10/16 sex: male Gestational age at delivery (weeks): 35 Delivery type: vaginal weight (lbs): 2267.962 g weight (oz): 396.893 g History of depression before or after : No 2nd : date: 01/20/21 sex: male Gestational age at delivery (weeks): 35 Delivery type: weight (lbs): 3628.739 g weight (oz): 396.893 g History of depression before or after : Yes Infection History & Risk Evaluation History of STDs: none HIV risk evaluation: low risk Hepatitis B risk evaluation: low risk Patient or partner has history of Genital Herpes: No Varicella/chicken pox status: unknown Genetic Screening & History Genetic Screening/Teratology Counseling - Includes patient, baby's father, or anyone in either family with: 1. Patient's age 35 years or older as of estimated date of delivery: No 2. Thalassemia (M[place], Citizen Of [place], Mediterranean, or Background); MCV less than 80: No 3. Neural Tube Defect (Meningomyelocele, Spina Bifida, or Anencephaly): No 4. Congenital Heart Defect: No 5. Down Syndrome: No 6. Redd-Sachs (Ashkenazi Zoroastrian, Cajun, Pashto [place]): No 7. Gautam Disease (Ashkenazi Zoroastrian): No 8. Familial Dysautonomia (Ashkenazi Zoroastrian): No 9. Sickle Cell Disease or Trait (): No 10. Hemophilia or other blood disorders: No 11. Muscular Dystrophy: No 12. Cystic Fibrosis: No 13. Christopher's Chorea: No 14. Mental Retardation/Autism: No 15. Other inherited genetic or chromosomal disorder: No 16. Maternal Metabolic Disorder (EG,TYPE 1 Diabetes, PKU): No 17. Patient or baby's father had a child with defects not listed above: No 18. Recurrent loss or a stillbirth: No 19. Medications (including supplements, vitamins, herbs or otc drugs)/illicit /recreational drugs/alcohol since last menstrual period: No 20. Any other: No Infection History 1. Live with someone with TB or exposed to TB: No 2. Rash or viral illness since last menstrual period: No 3. Hepatitis B,C: No Other (see comments) Source: [employer] Exam General General Appearance: alert, in no apparent distress and healthy appearing Head Head exam: atraumatic Neck Neck exam: Present normal inspection and trachea midline Chest Chest inspection: Present normal inspection and symmetric chest wall rise External exam: Present normal external exam; Absent tenderness Neuro Neurological exam: Present oriented X3 Psych Psychiatric exam: Present normal affect and normal mood Office Procedures OB Clinic LOC & Office Proc's Nursing/Assessment Patient Status: Established Patient OB Clinic Nursing Assessment: Medication Reconciliation, Update PMH in EMR and Vital Signs OB Clinic Coordination of Care: Complex Care and Chronic Disease 1-5, Consent,records obtained, informed consent, Education Simp Pt/Fam and Staff clarify orders Special Needs: Heart tones Established Patient Charge Established Patient Point Assignment: 115 Established Patient Point Charge: EP Level 3 (80-115) Assessment & Plan Diagnosis / Problem List (1) Gestational diabetes mellitus, class A2: Status: Acute (2) Chronic hypertension: Status: Acute (3) Supervision of high risk , unspecified, first trimester: Status: Acute Plan Juana Lindsey, 29-year-old female, , with type 2 diabetes mellitus and history of infertility, presenting for initial visit at 11 weeks gestation with recent cramping and ongoing headache. Assessment: Intrauterine at 11 weeks gestation confirmed by ultrasound today showing cardiac activity at 159 bpm. Patient was initially seen in the ER on 03/09/2025 at estimated gestational age of 10 weeks and 2 days with cardiac motion at 158 bpm. Current is complicated by type 2 diabetes mellitus and history of infertility. Plan: - Genetic testing to be performed - Consult with high-[facility] OB doctors at [facility] - Weekly appointments for blood sugar monitoring and adjustment - Follow-up ultrasound as clinically indicated Type 2 Diabetes Mellitus with Hyperglycemia Assessment: Patient has poorly controlled type 2 diabetes mellitus, diagnosed after her first . Currently on metformin 500 mg twice daily, with recent blood glucose readings up to 330-340 mg/dL. Recent hemoglobin A1C of 7.0% indicates suboptimal glycemic control. Plan: - Discontinue metformin - Initiate insulin therapy based on body weight (112 kg): - Total Daily Insulin: 56-67 units - Conservative Starting Dose: * Lantus (basal insulin): 37 units at bedtime * Humalog (bolus insulin): 6 units three times daily with meals - Titration approach: * Adjust insulin dosage weekly based on glucose monitoring * 2/3 basal (Lantus) and 1/3 bolus (Humalog) insulin split - Provide prescription for blood glucose test strips and lancets - Weekly follow-up appointments for blood sugar monitoring and insulin adjustment - Laboratory tests to be performed at [facility] Headache Assessment: Patient reports headache for the past 4 days. No red flag symptoms mentioned. Plan: - Recommend Tylenol for headache management History of Delivery Assessment: Patient has a history of two deliveries at 35 weeks gestation. The second delivery was via with a weight of 8 pounds 14.5 ounces, suggesting possible macrosomia. Plan: - Monitor growth closely throughout - Discuss potential risks and management strategies for labor Rubella Non-immunity Assessment: Recent laboratory results indicate patient is non-immune to rubella. Plan: - Educate patient on importance of avoiding exposure to rubella during - Plan for rubella vaccination
== END 2025-03-13 14:13 | disposition home or self-care (01) ==
LOC: HODSOBC 13:02
PROVIDERS: Supervising Provider Obstetrics & Gynecology; Visit Provider Obstetrics & Gynecology
DX: O09.891 Supervision of other high risk pregnancies, first trimester (principal); O09.01 Supervision of pregnancy with history of infertility, first trimester; O24.414 Gestational diabetes mellitus in pregnancy, insulin controlled; O09.211 Supervision of pregnancy with history of pre-term labor, first trimester; O09.291 Supervision of pregnancy with other poor reproductive or obstetric history, first trimester; O10.911 Unspecified pre-existing hypertension complicating pregnancy, first trimester; O34.219 Maternal care for unspecified type scar from previous cesarean delivery; O99.891 Other specified diseases and conditions complicating pregnancy; R51.9 Headache, unspecified; Z3A.11 11 weeks gestation of pregnancy; Z78.9 Other specified health status
CPT/HCPCS: 99213; G0463

== ENCOUNTER 2025-03-18 13:09 | Outpatient (AMB) | payer MEDICAID, SELFPAY ==
[2025-03-18 13:11] VITALS: BP 132/87; PULSE 95; RESP 18; TEMP 36.5; O2SAT 98; BMI 41.0
--- NOTE | 2025-03-18 13:11 | AMB.OBVISIT ---
Vital Signs 03/18/25 13:11 Height 1.68 m Height Method Stated Weight 115.779 kg Weight Measurement Method Standing Scale BMI 41.0 BP 132/87 H Blood Pressure Source Automatic Cuff Blood Pressure Location Right Upper Arm Position Sitting Respiration 18 Pulse 95 Pulse Source Monitor Temp 97.7 F Temp Source Oral Pulse Oximetry (%) 98 Oxygen Delivery Method Room Air Allergies/Home Meds Allergies & Medications Allergies [place]rill And Derivatives Allergy (Severe, Verified 04/08/25 13:31) Rash Sulfa (Sulfonamide Antibiotics) Allergy (Severe, Verified 04/08/25 13:31) Hives Medication Reconciliation blood sugar diagnostic (Blood Glucose Test strips) #100 ea 03/25/25 [Rx Confirmed 04/08/25] flash glucose sensor (FreeStyle Elbert 2 Sensor kit) #2 ea 03/25/25 [Rx Confirmed 04/08/25] lancets 21 gauge #100 ea 03/25/25 [Rx Confirmed 04/08/25] ondansetron 4 mg disintegrating tablet 4 mg PO Q6H PRN nausea and vomiting #10 tabs 03/25/25 [Rx Confirmed 04/08/25] pen needle, diabetic 29 gauge x 1/2 #100 ea 03/25/25 [Rx Confirmed 04/08/25] vitamins with calcium no.72-iron 27 mg-folic acid 1 mg tablet ( Vitamins Plus Low Iron) 1 tab PO QDAY 90 days #90 tabs 03/25/25 [Rx Confirmed 04/08/25] insulin glargine 100 unit/mL (3 mL) subcutaneous pen 30 unit (0.3 mL) subcut BID 30 days #18 mL 04/06/25 [Rx Confirmed 04/08/25] insulin lispro 100 unit/mL subcutaneous pen (Humalog KwikPen (U-100) Insulin) 16 unit (0.16 mL) subcut TID 30 days #15 mL 04/06/25 [Rx Confirmed 04/08/25] Intake Visit Data Collection New Patient or Established: Established Patient (seen at [facility] within 3 years) Reason for Visit:: CARE Seen by Clinical Staff ONLY (RN/MA): No Medical Device Assembler Required: No Do You Feel Safe at Home: Yes Authorities Contacted: N/A PCP or OBGYN visit in last 3 months: Yes Hx Now: Yes Are you currently on any form of Control: No Pain Present Currently: No Pain Scale Used: Hodgson-Kc/Numerical Pain scale:: 0 Smoking Status Smoking Status: Never smoker Questionnaires Covid-19 Vaccine Questionnaire Has patient been vacinated for Covid-19 Have you been vacinated for Covid-19: Yes PHQ-9 PHQ-2 Over the last 2 weeks, how often have you been bothered by any of the following problems? 1. Little interest or pleasure in doing things: not at all 2. Feeling down, depressed, or hopeless: not at all Total score: 0 PHQ-9 3. Trouble falling or staying asleep, or sleeping too much: Not at all 4. Feeling tired or having little energy: Not at all 5. Poor appetite or overeating: Not at all 6. Feeling bad about yourself - or that you are a failure or have let yourself or your family down: Not at all 7. Trouble concentrating on things, such as reading the newspaper or watching television: Not at all 8. Moving or speaking so slowly that other people could have noticed? - Or the opposite - being so fidgety or restless that you have been moving around a lot more than usual: not at all 9. Thoughts that you would be better off or of hurting yourself in some way: Not at all Total score: 0 Source: Developed by Drs. Omer Forbes, Edith Quintanilla, Bharat Mantilla and colleagues, with an educational ferny from [employer]. 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 Initial visit. Cramping improved, WHALEN x4 days. T2DM poorly controlled (A1C 7.0, BG up to 330-340). Hx infertility, deliveries at 35w (both sons). FHR 159. Rubella non-immune. Plan: D/C metformin, start insulin (Lantus 37u qhs, Humalog 6u TID), weekly visits for BG monitoring, genetics, MFM consult at [facility], Tylenol for WHALEN, rubella vaccine. 03/18/25 <del>?</del> 11w 4d 115.779 kg 132/87 165 at 11w4d with GDM on Lantus 40u qAM and rapid-acting insulin 8u TID (? to 10u for high-carb meals); improved BG 80?90 fasting, peak 234. Plan: Continue insulin, educate on site rotation, order CGM to [facility], log BGs, f/u in 4w; NIPT negative, routine care continues. RUDY Calculator Estimated Delivery Date Method Current WG Current Estimate 10/03/25 Ultrasound #1 15w 2d Other Estimates 10/03/25 LMP (Certain) 15w 2d Specific Issue/Plans D/C metformin, start insulin (Lantus 37u qhs, Humalog 6u TID), weekly visits for BG monitoring, genetics, MFM consult at [facility], Tylenol for WHALEN, rubella vaccine. Office Procedures OB Clinic LOC & Office Proc's Nursing/Assessment Patient Status: Established Patient OB Clinic Nursing Assessment: Medication Reconciliation, Update PMH in EMR and Vital Signs OB Clinic Coordination of Care: Complex Care and Chronic Disease 1-5, Consent,records obtained, informed consent, Education Simp Pt/Fam, Lab and Imaging orders, Results/Orders obtained and Staff clarify orders Special Needs: Heart tones Established Patient Charge Established Patient Point Assignment: 135 Established Patient Point Charge: EP Level 4 (120-155) Assessment & Plan Diagnosis / Problem List (1) Supervision of high risk , unspecified, first trimester: Status: Acute (2) Insulin dependent type 2 diabetes mellitus: Status: Acute (3) Type 2 diabetes mellitus with unspecified complications: Status: Acute
== END 2025-03-18 14:03 | disposition home or self-care (01) ==
PROVIDERS: Supervising Provider Obstetrics & Gynecology; Visit Provider Obstetrics & Gynecology
DX: O09.891 Supervision of other high risk pregnancies, first trimester (principal); O24.111 Pre-existing type 2 diabetes mellitus, in pregnancy, first trimester; Z3A.11 11 weeks gestation of pregnancy; O09.01 Supervision of pregnancy with history of infertility, first trimester; O09.211 Supervision of pregnancy with history of pre-term labor, first trimester; Z79.4 Long term (current) use of insulin; Z78.9 Other specified health status; Z88.2 Allergy status to sulfonamides; Z91.018 Allergy to other foods
CPT/HCPCS: 99214; G0463

== ENCOUNTER 2025-03-23 20:53 | Emergency (ER) | payer MEDICAID, SELFPAY ==
[2025-03-23 21:39] VITALS: BP 142/88; PULSE 97; RESP 19; TEMP 36.9; O2SAT 98
--- NOTE | 2025-03-23 21:50 | PD.EDRME ---
Rapid Medical Screening Exam RME Arrival date/time: 03/23/25 20:53 This is a case of 39-year-old female who came into the emergency room due to high blood sugar nausea vomiting abdominal pain patient is 12 weeks no vaginal bleeding Chief Complaint: General Adult/Misc Complain Time Seen by Provider: 03/23/25 21:09 Vital signs: Vital Signs Temperature 98.4 F 03/23/25 21:39 Pulse Rate 97 03/23/25 21:39 Respiratory Rate 19 03/23/25 21:39 Blood Pressure 142/88 H 03/23/25 21:39 Pulse Oximetry (%) 98 03/23/25 21:39 Oxygen Delivery Method Room Air 03/23/25 21:39
--- NOTE | 2025-03-23 22:24 | PD.EDADDENDU ---
Emergency Room Addendum Addendum Narrative: When I looked for the patient to start my evaluation, I was told the patient eloped. Angel Sofia MD
== END 2025-03-23 22:20 | disposition left against medical advice (07) ==
PROVIDERS: Emergency Provider Emergency Medicine
DX: O99.891 Other specified diseases and conditions complicating pregnancy (principal); R73.9 Hyperglycemia, unspecified; R11.2 Nausea with vomiting, unspecified; R10.9 Unspecified abdominal pain; Z3A.12 12 weeks gestation of pregnancy
CPT/HCPCS: 99281

== ENCOUNTER 2025-03-25 08:13 | Outpatient (AMB) | payer MEDICAID, SELFPAY ==
[2025-03-25 08:19] VITALS: BP 125/81; PULSE 78; RESP 17; TEMP 36.7; O2SAT 97; BMI 41.0
--- NOTE | 2025-03-25 08:19 | OBCLNT_ITS ---
Vital Signs 03/25/25 08:19 Height 1.68 m Height Method Measured Weight 115.836 kg Weight Measurement Method Standing Scale BMI 41.0 BP 125/81 Blood Pressure Source Automatic Cuff Blood Pressure Location Right Upper Arm Position Sitting Respiration 17 Pulse 78 Pulse Source Monitor Temp 98.0 F Temp Source Temporal Artery Scan Pulse Oximetry (%) 97 Oxygen Delivery Method Room Air Allergies/Home Meds Allergies & Medications Allergies [place] And Derivatives Allergy (Severe, Verified 04/15/25 08:26) Rash Sulfa (Sulfonamide Antibiotics) Allergy (Severe, Verified 04/15/25 08:26) Hives Medication Reconciliation blood sugar diagnostic (Blood Glucose Test strips) #100 ea 03/25/25 [Rx Confirmed 04/15/25] flash glucose sensor (FreeStyle Elbert 2 Sensor kit) #2 ea 03/25/25 [Rx Confirmed 04/15/25] lancets 21 gauge #100 ea 03/25/25 [Rx Confirmed 04/15/25] ondansetron 4 mg disintegrating tablet 4 mg PO Q6H PRN nausea and vomiting #10 tabs 03/25/25 [Rx Confirmed 04/15/25] pen needle, diabetic 29 gauge x 1/2 #100 ea 03/25/25 [Rx Confirmed 04/15/25] vitamins with calcium no.72-iron 27 mg-folic acid 1 mg tablet ( Vitamins Plus Low Iron) 1 tab PO QDAY 90 days #90 tabs 03/25/25 [Rx Confirmed 04/15/25] insulin glargine 100 unit/mL (3 mL) subcutaneous pen 30 unit (0.3 mL) subcut BID 30 days #18 mL 04/06/25 [Rx Confirmed 04/15/25] insulin lispro 100 unit/mL subcutaneous pen (Humalog KwikPen (U-100) Insulin) 16 unit (0.16 mL) subcut TID 30 days #15 mL 04/06/25 [Rx Confirmed 04/15/25] Intake Visit Data Collection New Patient or Established: Established Patient (seen at [facility] within 3 years) Reason for Visit:: OBC-DM Consent obtained for Telemed Visit: No Seen by Clinical Staff ONLY (RN/MA): No Pl 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 1. Little interest or pleasure in doing things: not at all PHQ-9 8. Moving or speaking so slowly that other people could have noticed? - Or the opposite - being so fidgety or restless that you have been moving around a lot more than usual: not at all Source: Developed by Drs. Omer Forbes, Edith Quintanilla, Bharat Mantilla and colleagues, with an educational ferny from [employer]. 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 She reports that her blood sugar levels have been spiking to as high as 350 despite being prescribed insulin based on weight-based doses. The patient was advised to increase her insulin doses at the last visit to 30 units of Lantus twice daily and 16 units three times a day before meals. However, she has not been checking her fasting glucose levels as recommended. She mentions experiencing bruising at her insulin injection sites, which may be due to her injection technique. Juana has been having difficulties obtaining her prescribed medications and glucose monitoring supplies from her current pharmacy. She was given a printout of her prescriptions to show the pharmacy, as there seem to be issues with the electronic transmission of her prescriptions. The patient's genetic screening results have returned and are reported as normal. The gender of the fetus was revealed to be female, which Juana had already seen through her patient portal. She is a female patient with gestational diabetes, currently being managed with insulin. Her current is at 12 weeks and 4 days gestation, and the fetus is female. Her medications include Insulin Lantus 30 units subcutaneously twice daily and an unspecified type of insulin 16 units subcutaneously three times daily before meals. The patient uses [email or web address] at [facility]. Reports blood sugar spikes up to 350 and bruising at insulin injection sites. Physical Examination: - Abdomen: Fetus noted to be larger than previous examination. - Skin: Bruising observed, likely from insulin injections. Diagnostic Test Results and Labs: - Ultrasound (SunMar 25 2025): - Gestational age: 12 weeks and 5 days - heart rate: 153 bpm (normal) - sex: Female - Genetic screening (Date N/A): All results normal - Blood glucose (Date N/A): Reported spike up to 350 mg/dL Care OB Visit Log OB Flowsheet Initial Weight: Not Recorded Date -?-?-?-?-?-?-?-?-?-?-?-?- EGA Weight BP Alb Glu CTX Pres Fundal ht FHR Mov Dilation Station Effacement Hx Notes Visit Note 03/13/25 -?-?-?-?-?-?-?-?-?-?-?-?- 10w 6d 112.491 kg 122/72 159 at 11w, RUDY 10/01/25. Initial visit. Cramping improved, WHALEN x4 days. T2DM poorly controlled (A1C 7.0, BG up to 330-340). Hx infertility, deliveries at 35w (both sons). FHR 159. Rubella non-immune. Plan: D/C metformin, start insulin (Lantus 37u qhs, Humalog 6u TID), weekly visits for BG monitoring, genetics, [facility], rubella vaccine. 03/18/25 -?-?-?-?-?-?-?-?-?-?-?-?- 11w 4d 115.779 kg 132/87 165 at 11w4d with GDM on Lantus 40u qAM and rapid-acting insulin 8u TID (? to 10u for high-carb meals); improved BG 80?90 fasting, peak 234. Plan: C ontinue insulin, educate on site rotation, order CGM to [facility], log BGs, f/u in 4w; NIPT negative, routine care continues. 03/25/25 -?-?-?-?-?-?-?-?-?-?-?-?- 12w 4d 115.836 kg 125/81 absent 165 Patient presents for a routine visit at 12 weeks and 4 days gestation. She reports that her blood sugar levels have been spiking to as high as 350 despite being prescribed insulin based on weight-based doses. - Increase insulin doses: ? Lantus: 30 units subcutaneously twic e daily ? Rapid-acting insulin: 16 units subcu taneously three times daily before meals - Provide patient education on proper in sulin injection technique to minimize bruising. - Dispense continuous glucose monitor (C GM) and new glucometer. - Review glucose logs at next visit. RUDY Calculator Estimated Delivery Date Method Current WG Current Estimate 10/03/25 Ultrasound #1 15w 4d Other Estimates 10/03/25 LMP (Certain) 15w 4d Specific Issue/Plans D/C metformin, start insulin (Lantus 37u qhs, Humalog 6u TID), weekly visits for BG monitoring, genetics, MFM consult at [facility], Tylenol for WHALEN, rubella vaccine. Exam General General Appearance: alert, in no apparent distress and healthy appearing Head Head exam: atraumatic Neck Neck exam: Present normal inspection and trachea midline Chest Chest inspection: Present normal inspection and symmetric chest wall rise External exam: Present normal external exam; Absent tenderness Neuro Neurological exam: Present oriented X3 Psych Psychiatric exam: Present normal affect and normal mood Office Procedures OB Clinic LOC & Office Proc's Nursing/Assessment Patient Status: Established Patient OB Clinic Nursing Assessment: Medication Reconciliation, Update PMH in EMR and Vital Signs OB Clinic Coordination of Care: Complex Care and Chronic Disease 1-5, Consent,records obtained, informed consent, Education Simp Pt/Fam, 4+ Authorizations needed and Staff clarify orders Special Needs: Heart tones Established Patient Charge Established Patient Point Assignment: 140 Established Patient Point Charge: EP Level 4 (120-155) Assessment & Plan Diagnosis / Problem List (1) Insulin dependent type 2 diabetes mellitus: Status: Acute (2) Type 2 diabetes mellitus with unspecified complications: Status: Acute (3) Supervision of high risk , unspecified, first trimester: Status: Acute Plan Gestational Diabetes Mellitus - Insulin dose adjustment necessary due to blood glucose spikes up to 350 mg/dL. - Increase insulin doses: ? Lantus: 30 units subcutaneously twice daily ? Rapid-acting insulin: 16 units subcutaneously three times daily before meals - Provide patient education on proper insulin injection technique to minimize bruising. - Dispense continuous glucose monitor (CGM) and new glucometer. - Review glucose logs at next visit. - Follow up in 4 weeks. - Specialist consult at [facility] in approximately 1-1.5 months. Routine Care - Continue routine care. - Next visit scheduled for April 15. - ultrasound shows appropriate growth for gestational age with normal heart rate of 153 bpm. - Genetic screening results are normal. - sex is female. Patient Education - Proper insulin injection technique to minimize bruising. - Use of continuous glucose monitor (CGM) and new glucometer.
== END 2025-03-25 08:42 | disposition home or self-care (01) ==
LOC: HODSOBC 08:13
PROVIDERS: Supervising Provider Obstetrics & Gynecology; Visit Provider Obstetrics & Gynecology
DX: O09.891 Supervision of other high risk pregnancies, first trimester (principal); O24.111 Pre-existing type 2 diabetes mellitus, in pregnancy, first trimester; Z3A.12 12 weeks gestation of pregnancy; Z79.4 Long term (current) use of insulin; Z88.2 Allergy status to sulfonamides; Z91.018 Allergy to other foods
CPT/HCPCS: 99214; G0463

== ENCOUNTER 2025-03-31 10:50 | Emergency (ER) | payer MEDICAID, SELFPAY ==
[2025-03-31 10:51] VITALS: BMI 39.9
[2025-03-31 11:12] VITALS: BP 150/91; PULSE 90; RESP 18; TEMP 36.9; O2SAT 98
--- NOTE | 2025-03-31 11:18 | XR_ITS ---
Examination: Abdomen sonogram, Limited Date and time of exam: March 31, 2025 1248 hours INDICATIONS: Abdominal pain today Technique: Real-time torre scale transabdominal sonographic images of the upper abdomen obtained. Findings: Bladder. Normal common bile duct 0.4 cm Pancreatic head 3.1 cm Liver 18.5 cm fatty infiltration Normal hepatopedal portal venous flow Patent IVC IMPRESSION: Normal gallbladder Moderate hepatomegaly fatty infiltration no focal liver lesions
--- NOTE | 2025-03-31 11:18 | XR_ITS ---
Examination: Complete OB ultrasound, less than 14 weeks, transabdominal Date and time of exam: March 31, 2025 1233 hours INDICATIONS: Diagnosis preeclampsia of during the last Technique: Obstetrical ultrasound images less than 14 weeks performed via transabdominal imaging Findings: A normal shaped single intrauterine gestation is present in the uterus. CRL 7.0 cm corresponds to 13 weeks 1 day gestational age Cardiac motion 155 BPM Uterine area of fibroid degeneration 5.5 x 3.8 x 4.1 cm Ultrasonographic survey of visible and placental structures unremarkable. Amniotic fluid volume appears appropriate for this estimated gestational age. Right ovary 2.1 cm arterial flow Left ovary 2.7 cm arterial flow IMPRESSION: Viable intrauterine gestation 13 weeks 1 day.
--- NOTE | 2025-03-31 11:18 | XR_ITS ---
Examination: Duplex scan of the lower extremity, unilateral left Date and time of exam: March 31, 2025 1139 hours INDICATIONS: Left leg swelling 1 week Technique: Duplex scan of the extremity veins using B-mode/grayscale imaging and Doppler spectral analysis and color flow Attention is directed to internal echogenicity, compression and augmentation involving these veins, color flow assessment, spectral analysis Findings: Major deep venous structures in the extremity demonstrate normal course and caliber. There is no evidence of deep vein thrombosis. Normal color flow and spectral analysis Impression: Negative for DVT..
--- NOTE | 2025-03-31 11:19 | EDRME_ITS ---
Rapid Medical Screening Exam [facility] Arrival date/time: 03/31/25 10:50 29-year-old female approximate 13 weeks with history of hypertension, diabetes presents to the emergency department today for complaints of abdominal pain, headache and leg pain. Chief Complaint: Headache Vital signs: Vital Signs Temperature 98.5 F 03/31/25 11:12 Pulse Rate 90 03/31/25 11:12 Respiratory Rate 18 03/31/25 11:12 Blood Pressure 150/91 H 03/31/25 11:12 Pulse Oximetry (%) 98 03/31/25 11:12 Oxygen Delivery Method Room Air 03/31/25 11:12
[2025-03-31 11:23] VITALS: BP 133/84; BP 136/83; PULSE 100; RESP 19; TEMP 37; O2SAT 100
[2025-03-31 11:48] LABS: Basophils # (Auto) 0.0 Thou/mm3 (0.0-0.2); Basophils % (Auto) 0 % (0-2.5); Eosinophils # (Auto) 0.1 Thou/mm3 (0.0-0.5); Eosinophils % (Auto) 1 % (0-10); Hematocrit 33.2 % (36.0-46.0); Hemoglobin 11.5 g/dL (12.0-16.0); Immature Granulocytes Auto 0.10 Thou/mm3 (0.00-0.00); Lymphocytes # (Auto) 1.6 Thou/mm3 (1.0-4.8); Lymphocytes % (Auto) 19 % (10-50); Mean Corpuscular HGB Conc 34.6 g/dl (31.0-37.0); Mean Corpuscular Hemoglobin 28.7 pg (25.0-35.0); Mean Corpuscular Volume 83 fL (80-100); Monocytes # (Auto) 0.5 Thou/mm3 (0.0-0.8); Monocytes % (Auto) 6 % (0-12); Neutrophils # (Auto) 6.1 Thou/mm3 (1.8-7.7); Neutrophils % (Auto) 73 % (37-80); Nucleated Red Blood Cell # 0.00 Thou/mm3 (0.00-0.00); Nucleated Red Blood Cell % 0 /100 WBC (0); Platelet Count 241 Thou/mm3 (140-440); RDW Standard Deviation 37.2 fL (36.4-46.3); Red Blood Count 4.01 Miln/mm3 (4.00-5.20); White Blood Count 8.3 Thou/mm3 (3.6-11.0)
[2025-03-31 12:02] LABS: INR 1.0 (0.9-1.3); Partial Thromboplastin Time 26.3 Seconds (22.0-36.0); Prothrombin Time 10.9 Seconds (9.0-12.2)
[2025-03-31 12:12] LABS: Alanine Aminotransferase 24 U/L (10-49); Albumin, Serum 3.8 gm/dL (3.5-5.0); Albumin/Globulin Ratio 1.4 (1.2-2.2); Alkaline Phosphatase 70 U/L (46-116); Anion Gap 11 (7-16); Aspartate Amino Transferase 31 U/L (0-34); BUN/Creatinine Ratio 9 Ratio (12-20); Bilirubin,Total 0.3 mg/dL (0.3-1.2); Blood Urea Nitrogen 6 mg/dL (9-23); Calcium 8.9 mg/dL (8.3-10.6); Calcium (Corrected) 9.1 mg/dL (8.5-10.1); Carbon Dioxide 22.2 mMol/L (20.0-31.0); Chloride 104 mMol/L (98-107); Creatinine (Component) 0.7 mg/dL (0.6-1.3); Estimated Creatinine Clearance 157.2 mL/min (>60); Globulin 2.8 gm/dL (2.3-3.5); Glucose 160 mg/dL (74-106); Magnesium 1.3 mg/dL (1.6-2.6); Osmolality,Calculated 274 (275-295); Potassium 3.4 mMol/L (3.4-5.1); Sodium 137 mMol/L (136-145); Total Protein 6.6 gm/dL (5.7-8.2); eGFR > 60 See Note
[2025-03-31 12:42] LABS: Beta HCG,Quantitative 33146 mIU/mL (<5.0)
[2025-03-31 15:11] VITALS: BP 134/85; PULSE 87; RESP 17; TEMP 36.8; O2SAT 99
--- NOTE | 2025-03-31 15:14 | PD.EDHA ---
ED Headache RME/HPI General Chief Complaint: Headache Stated Complaint: PAIN IN ABD, HEADACHE X 2 DAYS, PREG 12W5D Arrival date/time: 03/31/25 10:50 RME / HPI RME / HPI Narrative: 03/31/25 10:50 29-year-old female approximate 13 weeks with history of hypertension, diabetes presents to the emergency department today for complaints of abdominal pain, headache and leg pain. Related Data Previous Rx's ?Medication ?Instructions ?Recorded insulin glargine 100 unit/mL (3 30 unit (0.3 mL) subcut BID 30 03/24/25 mL) subcutaneous pen days #18 mL insulin lispro 100 unit/mL 16 unit (0.16 mL) subcut TID 30 03/24/25 subcutaneous pen (Humalog KwikPen days #15 mL (U-100) Insulin) blood sugar diagnostic (Blood #100 ea 03/25/25 Glucose Test strips) flash glucose sensor (FreeStyle #2 ea 03/25/25 Elbert 2 Sensor kit) lancets 21 gauge #100 ea 03/25/25 ondansetron 4 mg disintegrating 4 mg PO Q6H PRN nausea and 03/25/25 tablet vomiting #10 tabs pen needle, diabetic 29 gauge x #100 ea 03/25/25 1/2 vitamin with calcium 1 tab PO QDAY 90 days #90 tabs 03/25/25 no.72-iron 27 mg-folic acid 1 mg tablet ( Vitamins Plus Low Iron) Allergies Allergy/AdvReac Type Severity Reaction Status Date / Time [place] And Derivatives Allergy Severe Rash Verified 03/31/25 10:54 Sulfa (Sulfonamide Allergy Severe Hives Verified 03/31/25 10:54 Antibiotics) Course Orders Category Date Time Status US OB <= 14 weeks fetus Stat Exams 03/31/25 11:18 Completed US gall bladder Stat Exams 03/31/25 11:18 Completed US venous doppler LE LT Stat Exams 03/31/25 11:18 Completed Beta HCG,Quantitative Stat Lab 03/31/25 11:26 Completed CBC Stat Lab 03/31/25 11:26 Completed Comprehensive Metabolic Panel Stat Lab 03/31/25 11:26 Completed Mag [Magnesium] Stat Lab 03/31/25 11:26 Completed Partial Thromboplastin Time Stat Lab 03/31/25 11:26 Completed Prothrombin Time with INR Stat Lab 03/31/25 11:26 Completed Vital Signs Vital signs: Vital Signs Temperature 98.5 F 03/31/25 11:12 Pulse Rate 90 03/31/25 11:12 Respiratory Rate 18 03/31/25 11:12 Blood Pressure 150/91 H 03/31/25 11:12 Pulse Oximetry (%) 98 03/31/25 11:12 Oxygen Delivery Method Room Air 03/31/25 11:12 Discharge Plan Prescriptions/Referrals Prescriptions/Med Rec: No Action (DME) Blood Glucose Test Strip See Rx Instructions .MEDSUPPLY Qty: 100 0RF Rx Instructions: As directed, 4 times a day (DME) FreeStyle Elbert 2 Sensor Kit See Rx Instructions .Route Qty: 2 6RF Rx Instructions: As directed, use for 14 days and replace (DME) lancets 21 gauge misc See Rx Instructions .MEDSUPPLY Qty: 100 0RF Rx Instructions: As directed, 4 times a day ondansetron 4 mg tablet,disintegrating 4 mg PO Q6H PRN (Reason: nausea and vomiting) Qty: 10 0RF (DME) pen needle, diabetic 29 gauge x 1/2 needle See Rx Instructions .MEDSUPPLY Qty: 100 2RF Rx Instructions: As directed, four times a day Vitamin Plus Low Iron 27 mg iron- 1 mg tablet 1 tab PO QDAY 90 Days Qty: 90 6RF insulin glargine 100 unit/mL (3 mL) insulin pen 30 unit subcut BID 30 Days Qty: 18 2RF insulin lispro [Humalog KwikPen Insulin] 100 unit/mL insulin pen 16 unit subcut TID 30 Days Qty: 15 0RF Referrals: Diamond Stanford, GARETH-C [Primary Care Provider] - In 1 week Patient/Caregiver Discharge Instructions Print Language: Hebrew
--- NOTE | 2025-03-31 15:19 | PD.EDABDPN ---
ED Abdominal Pain RME/HPI General Chief Complaint: Headache Stated complaint: PAIN IN ABD, HEADACHE X 2 DAYS, PREG 12W5D Arrival date/time: 03/31/25 10:50 RME / HPI RME / HPI narrative: 03/31/25 10:50 29-year-old female approximate 13 weeks with history of hypertension, diabetes presents to the emergency department today for complaints of abdominal pain, headache and leg pain. Patient denies any vaginal bleeding. She is 3 para 2. She did have preeclampsia with her second . She denies lower extremity swelling. No chest pain or shortness of breath. Patient's headache is bilateral frontal. Related Data Previous Rx's ?Medication ?Instructions ?Recorded insulin glargine 100 unit/mL (3 30 unit (0.3 mL) subcut BID 30 03/24/25 mL) subcutaneous pen days #18 mL insulin lispro 100 unit/mL 16 unit (0.16 mL) subcut TID 30 03/24/25 subcutaneous pen (Humalog KwikPen days #15 mL (U-100) Insulin) blood sugar diagnostic (Blood #100 ea 03/25/25 Glucose Test strips) flash glucose sensor (FreeStyle #2 ea 03/25/25 Elbert 2 Sensor kit) lancets 21 gauge #100 ea 03/25/25 ondansetron 4 mg disintegrating 4 mg PO Q6H PRN nausea and 03/25/25 tablet vomiting #10 tabs pen needle, diabetic 29 gauge x #100 ea 03/25/25 1/2 vitamin with calcium 1 tab PO QDAY 90 days #90 tabs 03/25/25 no.72-iron 27 mg-folic acid 1 mg tablet ( Vitamins Plus Low Iron) Allergies Allergy/AdvReac Type Severity Reaction Status Date / Time [place] And Derivatives Allergy Severe Rash Verified 03/31/25 10:54 Sulfa (Sulfonamide Allergy Severe Hives Verified 03/31/25 10:54 Antibiotics) Review of Systems Review of Systems Systems Reviewed: All systems reviewed, normal except as documented Past Medical History Past Medical History NEUROLOGIC: Negative Neurological Disorders or Seizures CARDIAC: Negative Cardiac Disorders or Congestive Heart Failure RESPIRATORY: Positive Asthma; Negative Chronic Obstructive Pulmonary Disease (COPD) GASTROINTESTINAL: Positive Gastrointestinal Disorders, Gastrointestinal Bleed and Obesity; Negative Hepatitis or Colorectal Cancer GENITOURINARY: Negative Genitourinary Disorders or Renal Disease REPRODUCTIVE: Positive Previous Pregnancies; Negative Breast Cancer MUSCULOSKELETAL: Negative Musculoskeletal Disorders or Bone Cancer ENDOCRINE: Positive Endocrine Disorders and Diabetes Mellitus Type 2; Negative Diabetes Mellitus Type 1 HEMATOLOGIC: Negative Blood Disorders or Sickle Cell Disease PSYCHO/SOCIAL: Positive Depression and Anxiety OTHER HISTORY: Positive Hospitalization; Negative Autoimmune Disease, Down Syndrome, Developmental Delay, Falls, Blood Transfusions, Blood Transfusion Reaction, Anesthesia Reactions, Organ Transplant, Chemotherapy, Radiation Therapy, Hyperbaric Therapy, MRSA, Vancomycin-Resistant Enterococci, Human Immunodeficiency Virus (HIV), Chicken Pox, Measles, Mumps, Rubella (Vietnamese Measles), Pertussis, Clostridium Difficile, Cancer, Breast Cancer, Cervical Cancer, Colorectal Cancer, Lung Cancer or Ovarian Cancer Family History FAMILY HISTORY: Positive Family Cardiac Disorders and Family Surgery; Negative Family Psychiatric Problems, Family Respiratory Disorders, Family Gastrointestinal Problems, Family Cancer or Family Anesthesia Reaction Surgical History SURGICAL: Positive Section; Negative Organ Transplant Social History SMOKING STATUS: Never smoker SUBSTANCE USE: marijuana ED Exam Narrative Physical exam: Generally patient is alert oriented x 3 in no obvious distress. Lower extremity showed no evidence of swelling or edema. Abdomen soft bowel sounds present nondistended nontender. Neurologic exam showed no focal motor or sensory deficits cranial nerves II through XII grossly intact without ataxia. Course Quality Measures none Orders Category Date Time Status US OB <= 14 weeks fetus Stat Exams 03/31/25 11:18 Completed US gall bladder Stat Exams 03/31/25 11:18 Completed US venous doppler LE LT Stat Exams 03/31/25 11:18 Completed Beta HCG,Quantitative Stat Lab 03/31/25 11:26 Completed CBC Stat Lab 03/31/25 11:26 Completed Comprehensive Metabolic Panel Stat Lab 03/31/25 11:26 Completed Mag [Magnesium] Stat Lab 03/31/25 11:26 Completed Partial Thromboplastin Time Stat Lab 03/31/25 11:26 Completed Prothrombin Time with INR Stat Lab 03/31/25 11:26 Completed Vital Signs Vital signs: Vital Signs Temperature 98.5 F 03/31/25 11:12 Pulse Rate 90 03/31/25 11:12 Respiratory Rate 18 03/31/25 11:12 Blood Pressure 150/91 H 03/31/25 11:12 Pulse Oximetry (%) 98 03/31/25 11:12 Oxygen Delivery Method Room Air 03/31/25 11:12 Abdominal Pain MDM MDM Narrative MDM Narrative:: Patient had workup originated in [facility]. Ultrasound of the left lower extremity showed no DVT. Ultrasound of the abdomen showed normal gallbladder. Pelvic ultrasound showed a live intrauterine fetus of 13 weeks and 1 day. I reviewed and interpreted all labs. I do not believe this patient to be suffering from a central venous sinus thrombosis. She is in no acute distress. She was worried that she may be in preeclampsia or have preeclampsia like she did with her second . Highest blood pressure here in the emergency room was 134/84. There is no reason to initiate treatment at this time. She may follow-up with her [facility] physician for further monitoring. Return to ER as needed or if condition worsens. Patient data External records reviewed:: [facility] previous records Clinical information provided by:: patient Social determinants that could affect healthcare access:: none Patient has the following chronic illnesses:: None How is presenting disease/condition affected by chronic disease/condition?: no chronic disease Evaluation data The following diagnostics were reviewed and interpreted by me:: other (specify) Lab and/or radiology exams considered but not ordered:: None Interpretation Summary: None Medications / Prescriptions Medications or Prescriptions considered but not ordered:: None Medication administrations:: None Consultations Consultation(s) initiated? (list below): No Diagnosis Differential diagnosis abdominal pain: other Most likely diagnosis given after review of the tests above:: None Admission Indicated Admission indicated?: not indicated Admission Request Was there a request for admission?: No Disposition Plan Disposition Plan: Discharge Discharge Attestation Discharge Attestation: The patient and all family members were given an opportunity to ask questions and understood the discharge instructions. Discharge instructions specifically effects, indications for sooner follow up or return to the emergency department, and the expected course of current diagnosis. Patient condition: Stable Discharge Plan Plan Patient Disposition: HOME (Self Care) Prescriptions/Referrals Prescriptions/Med Rec: No Action (DME) Blood Glucose Test Strip See Rx Instructions .MEDSUPPLY Qty: 100 0RF Rx Instructions: As directed, 4 times a day (DME) FreeStyle Elbert 2 Sensor Kit See Rx Instructions .Route Qty: 2 6RF Rx Instructions: As directed, use for 14 days and replace (DME) lancets 21 gauge misc See Rx Instructions .MEDSUPPLY Qty: 100 0RF Rx Instructions: As directed, 4 times a day ondansetron 4 mg tablet,disintegrating 4 mg PO Q6H PRN (Reason: nausea and vomiting) Qty: 10 0RF (DME) pen needle, diabetic 29 gauge x 1/2 needle See Rx Instructions .MEDSUPPLY Qty: 100 2RF Rx Instructions: As directed, four times a day Vitamin Plus Low Iron 27 mg iron- 1 mg tablet 1 tab PO QDAY 90 Days Qty: 90 6RF insulin glargine 100 unit/mL (3 mL) insulin pen 30 unit subcut BID 30 Days Qty: 18 2RF insulin lispro [Humalog KwikPen Insulin] 100 unit/mL insulin pen 16 unit subcut TID 30 Days Qty: 15 0RF Referrals: Diamond Stanford, GARETH-C [Primary Care Provider] - In 1 week Problem List Clinical Impression: Cephalalgia, Abdominal pain, Patient/Caregiver Discharge Instructions Additional Instructions: You may use Tylenol for pain. Follow-up with your [facility] physician. Return to ER as needed or if condition worsens. Print Language: Mongolian Stand Alone Forms: Lynn Award Info., Patient Portal Info Letter
== END 2025-03-31 15:30 | disposition home or self-care (01) ==
PROVIDERS: Nurse Practitioner Primary Care; Emergency Provider Emergency Medicine
DX: O26.891 Other specified pregnancy related conditions, first trimester (principal); R10.9 Unspecified abdominal pain; R51.9 Headache, unspecified; K76.0 Fatty (change of) liver, not elsewhere classified; M79.89 Other specified soft tissue disorders; Z3A.13 13 weeks gestation of pregnancy; O10.911 Unspecified pre-existing hypertension complicating pregnancy, first trimester; O24.111 Pre-existing type 2 diabetes mellitus, in pregnancy, first trimester
CPT/HCPCS: 36415; 76705; 76801; 80053; 83735; 84702; 85025; 85610; 85730; 93971; 99283

== ENCOUNTER 2025-04-08 13:19 | Outpatient (AMB) | payer MEDICAID, SELFPAY ==
[2025-04-08 13:30] VITALS: BP 127/77; PULSE 84; RESP 17; TEMP 37.2; O2SAT 97; BMI 40.5
--- NOTE | 2025-04-08 13:30 | OBCLNT_ITS ---
Vital Signs 04/08/25 13:30 Height 1.7 m Height Method Stated Weight 117.084 kg Weight Measurement Method Standing Scale BMI 40.5 BP 127/77 Blood Pressure Source Automatic Cuff Blood Pressure Location Right Upper Arm Position Sitting Respiration 17 Pulse 84 Pulse Source Monitor Temp 99.0 F Temp Source Temporal Artery Scan Pulse Oximetry (%) 97 Oxygen Delivery Method Room Air Allergies/Home Meds Allergies & Medications Allergies [place] And Derivatives Allergy (Severe, Verified 04/15/25 08:26) Rash Sulfa (Sulfonamide Antibiotics) Allergy (Severe, Verified 04/15/25 08:26) Hives Medication Reconciliation blood sugar diagnostic (Blood Glucose Test strips) #100 ea 03/25/25 [Rx Confirmed 04/15/25] flash glucose sensor (FreeStyle Elbert 2 Sensor kit) #2 ea 03/25/25 [Rx Confirmed 04/15/25] lancets 21 gauge #100 ea 03/25/25 [Rx Confirmed 04/15/25] ondansetron 4 mg disintegrating tablet 4 mg PO Q6H PRN nausea and vomiting #10 tabs 03/25/25 [Rx Confirmed 04/15/25] pen needle, diabetic 29 gauge x 1/2 #100 ea 03/25/25 [Rx Confirmed 04/15/25] vitamins with calcium no.72-iron 27 mg-folic acid 1 mg tablet ( Vitamins Plus Low Iron) 1 tab PO QDAY 90 days #90 tabs 03/25/25 [Rx Confirmed 04/15/25] insulin glargine 100 unit/mL (3 mL) subcutaneous pen 30 unit (0.3 mL) subcut BID 30 days #18 mL 04/06/25 [Rx Confirmed 04/15/25] insulin lispro 100 unit/mL subcutaneous pen (Humalog KwikPen (U-100) Insulin) 16 unit (0.16 mL) subcut TID 30 days #15 mL 04/06/25 [Rx Confirmed 04/15/25] Intake Visit Data Collection New Patient or Established: Established Patient (seen at [facility] within 3 years) Reason for Visit:: OBC / BLOOD SUGAR CONCERNS Seen by Clinical Staff ONLY (RN/MA): No Sticker Machine Operator Required: No Do You Feel Safe at Home: Yes Authorities Contacted: N/A PCP or OBGYN visit in last 3 months: Yes Date of Last PCP or OBGYN visit: 03/31/25 Hx Now: Yes Are you currently on any form of Control: No Pain Present Currently: Yes Pain Location: Abdomen (CRAMPING) Pain Scale Used: Hodgson-Kc/Numerical Pain scale:: 4 Smoking Status Smoking Status: Never smoker Questionnaires Covid-19 Vaccine Questionnaire Has patient been vacinated for Covid-19 Have you been vacinated for Covid-19: No PHQ-9 PHQ-2 Over the last 2 weeks, how often have you been bothered by any of the following problems? 1. Little interest or pleasure in doing things: not at all 2. Feeling down, depressed, or hopeless: not at all Total score: 0 PHQ-9 3. Trouble falling or staying asleep, or sleeping too much: Not at all 4. Feeling tired or having little energy: Not at all 5. Poor appetite or overeating: Not at all 6. Feeling bad about yourself - or that you are a failure or have let yourself or your family down: Not at all 7. Trouble concentrating on things, such as reading the newspaper or watching television: Not at all 8. Moving or speaking so slowly that other people could have noticed? - Or the opposite - being so fidgety or restless that you have been moving around a lot more than usual: not at all 9. Thoughts that you would be better off or of hurting yourself in some way: Not at all Total score: 0 If you checked off any problems, how difficult have these problems made it for you to do your work, take care of things at home, or get along with other people?: not difficult at all Source: Developed by Drs. Omer Forbes, Edith Quintanilla, Bharat Mantilla and colleagues, with an educational ferny from [employer]. 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 Initial visit. Cramping improved, WHALEN x4 days. T2DM poorly controlled (A1C 7.0, BG up to 330-340). Hx infertility, deliveries at 35w (both sons). FHR 159. Rubella non-immune. Plan: D/C metformin, start insulin (Lantus 37u qhs, Humalog 6u TID), weekly visits for BG monitoring, genetics, MFM consult at [facility], [place] for WHALEN, rubella vaccine. 03/18/25 -?-?-?-?-?-?-?-?-?-?-?-?- 11w 4d 115.779 kg 132/87 165 at 11w4d with GDM on Lantus 40u qAM and rapid-acting insulin 8u TID (? to 10u for high-carb meals); improved BG 80 ?90 fasting, peak 234. Plan: Con tinue insulin, educate on site rotation, order CGM to [facility], log BGs, f/u in 4w; NIPT negative, routine care continues. 03/25/25 -?--?-?-?-?-?-?-?-?-?-?-?- 12w 4d 115.836 kg 125/81 absent 165 Patient presents for a routine visit at 12 weeks and 4 days gestation. She reports that her blood sugar levels have been spiking to as high as 350 despite being prescribed insulin based on weight-based doses. - Increase insulin doses: ? Lantus: 30 units subcutaneously twic e daily ? Rapid-acting insulin: 16 units subcu taneously three times daily before meals - Provide patient education on proper in sulin injection technique to minimize bruising. - Dispense continuous glucose monitor (C GM) and new glucometer. - Review glucose logs at next visit. 04/08/25 -?-?-?-?-?-?-?-?-?-?-?-?- 14w 4d 117.084 kg 127/77 145 absent No VB or LOF. No cramping Not reliable with checking sugars 04/15/25 -?-?-?-?-?-?-?-?-?-?-?-?- 15w 4d 117.594 kg 119/77 absent 168 - Patient reports her blood sugar control has been pretty good recently: - Denies dry mouth, which she associat es with high blood sugar - Reports constant urination, which sh e attributes to - Patient is experiencing difficulty obt aining diabetic supplies: - Using her diabetic father's supplies sparingly - Awaiting a call from a service to as sist with obtaining supplies - movement: - Patient inquires about not feeling f etal movement yet - Denies cramping, nausea, or vomiting - Await call from diabetes management service on (tomorrow) for assistance with supplies and potential insulin adjustments - Continue current diabetes management r alan RUDY Calculator Estimated Delivery Date Method Current WG Current Estimate 10/03/25 Ultrasound #1 16w 3d Other Estimates 10/03/25 LMP (Certain) 16w 3d Expected Delivery Route/Plan Hx CS x 1, hx PTVD at 35-36 weeks first Macrosomic with last delivery (CS at 35 weeks 8 lbs 14 oz) Poorly controlled diabetes on oral meds prior to with frequent trips into the ER HgBA1C 7.0 first trimester Morbid Obesity Starting BMI 41: Baby ASA Needs Level II US/ echo/ and co-management with M PN labs: 0+/Ab-/Rubella Nonimmune/RPR NR/HIV-/HepBSag-/ Specific Issue/Plans For Repeat CS D/C metformin, start insulin (Lantus 37u qhs, Humalog 6u TID), weekly visits for BG monitoring, genetics, MFM consult at [facility], Tylen[place] for WHALEN, rubella vaccine. Notes Visit Date: 04/08/25 Last Updated by: Fabby Moya (OB Clinic), Pt states she sometimes checks her sugars on her dad's machine and her insurance will not cover one for her. She states if she doesn't feel right she goes to the ER where her BS can be as high as the 300s. Will authorize for diabetic management and counseling. Surprisingly, her first trimester HgB A1c is only 7. Stressed tight glycemic control during and afterwars to avoid care home complications of DM including loss of limbs and blindness. Office Procedures OB Clinic LOC & Office Proc's Nursing/Assessment Patient Status: Established Patient OB Clinic Nursing Assessment: Medication Reconciliation, Update PMH in EMR and Vital Signs OB Clinic Coordination of Care: Complex Care and Chronic Disease 1-5, Consent,records obtained, informed consent, Education Simp Pt/Fam and Staff clarify orders Special Needs: Heart tones Established Patient Charge Established Patient Point Assignment: 115 Established Patient Point Charge: EP Level 3 (80-115) Assessment & Plan Diagnosis / Problem List (1) Supervision of high risk , unspecified, first trimester: Status: Acute (2) Insulin dependent type 2 diabetes mellitus: Status: Acute (3) Previous delivery affecting : Status: Acute Assessment and Plan: For repeat CS at 38-39 weeks (4) Morbid obesity with BMI of 40.0-44.9, adult: Status: Acute
== END 2025-04-08 14:15 | disposition home or self-care (01) ==
LOC: HODSOBC 13:19
PROVIDERS: Supervising Provider Obstetrics & Gynecology; Visit Provider Obstetrics & Gynecology
DX: O09.892 Supervision of other high risk pregnancies, second trimester (principal); O24.112 Pre-existing type 2 diabetes mellitus, in pregnancy, second trimester; E11.65 Type 2 diabetes mellitus with hyperglycemia; O09.292 Supervision of pregnancy with other poor reproductive or obstetric history, second trimester; O34.219 Maternal care for unspecified type scar from previous cesarean delivery; O99.212 Obesity complicating pregnancy, second trimester; E66.01 Morbid (severe) obesity due to excess calories; Z87.59 Personal history of other complications of pregnancy, childbirth and the puerperium; Z79.4 Long term (current) use of insulin; Z3A.14 14 weeks gestation of pregnancy; Z88.2 Allergy status to sulfonamides; Z91.018 Allergy to other foods
CPT/HCPCS: 99213; G0463

== ENCOUNTER 2025-04-15 08:13 | Outpatient (AMB) | payer MEDICAID, SELFPAY ==
[2025-04-15 08:25] VITALS: BP 119/77; PULSE 85; RESP 16; TEMP 36.4; O2SAT 98; BMI 40.6
--- NOTE | 2025-04-15 08:25 | OBCLNT_ITS ---
Vital Signs 04/15/25 08:25 Height 1.7 m Height Method Stated Weight 117.594 kg Weight Measurement Method Standing Scale BMI 40.6 BP 119/77 Blood Pressure Source Automatic Cuff Blood Pressure Location Left Upper Arm Position Sitting Respiration 16 Pulse 85 Pulse Source Monitor Temp 97.6 F Temp Source Oral Pulse Oximetry (%) 98 Oxygen Delivery Method Room Air Allergies/Home Meds Allergies & Medications Allergies [place] And Derivatives Allergy (Severe, Verified 04/15/25 08:26) Rash Sulfa (Sulfonamide Antibiotics) Allergy (Severe, Verified 04/15/25 08:26) Hives Medication Reconciliation blood sugar diagnostic (Blood Glucose Test strips) #100 ea 03/25/25 [Rx Confirmed 04/15/25] flash glucose sensor (FreeStyle Elbert 2 Sensor kit) #2 ea 03/25/25 [Rx Confirmed 04/15/25] lancets 21 gauge #100 ea 03/25/25 [Rx Confirmed 04/15/25] ondansetron 4 mg disintegrating tablet 4 mg PO Q6H PRN nausea and vomiting #10 tabs 03/25/25 [Rx Confirmed 04/15/25] pen needle, diabetic 29 gauge x 1/2 #100 ea 03/25/25 [Rx Confirmed 04/15/25] vitamins with calcium no.72-iron 27 mg-folic acid 1 mg tablet ( Vitamins Plus Low Iron) 1 tab PO QDAY 90 days #90 tabs 03/25/25 [Rx Confirmed ] insulin glargine 100 unit/mL (3 mL) subcutaneous pen 30 unit (0.3 mL) subcut BID 30 days #18 mL 04/06/25 [Rx Confirmed 04/15/25] insulin lispro 100 unit/mL subcutaneous pen (Humalog KwikPen (U-100) Insulin) 16 unit (0.16 mL) subcut TID 30 days #15 mL 04/06/25 [Rx Confirmed 04/15/25] Intake Visit Data Collection New Patient or Established: Established Patient (seen at [facility] within 3 years) Reason for Visit:: CARE Seen by Clinical Staff ONLY (RN/MA): No Eating Disorder Specialist Required: No Do You Feel Safe at Home: Yes Authorities Contacted: N/A PCP or OBGYN visit in last 3 months: Yes Hx Now: Yes Are you currently on any form of Control: No Pain Present Currently: No Pain Scale Used: Hodgson-Kc/Numerical Pain scale:: 0 Smoking Status Smoking Status: Never smoker Questionnaires Covid-19 Vaccine Questionnaire Has patient been vacinated for Covid-19 Have you been vacinated for Covid-19: Yes PHQ-9 PHQ-2 Over the last 2 weeks, how often have you been bothered by any of the following problems? 1. Little interest or pleasure in doing things: not at all 2. Feeling down, depressed, or hopeless: not at all Total score: 0 PHQ-9 3. Trouble falling or staying asleep, or sleeping too much: Not at all 4. Feeling tired or having little energy: Not at all 5. Poor appetite or overeating: Not at all 6. Feeling bad about yourself - or that you are a failure or have let yourself or your family down: Not at all 7. Trouble concentrating on things, such as reading the newspaper or watching television: Not at all 8. Moving or speaking so slowly that other people could have noticed? - Or the opposite - being so fidgety or restless that you have been moving around a lot more than usual: not at all 9. Thoughts that you would be better off or of hurting yourself in some way: Not at all Total score: 0 Source: Developed by Drs. Omer Forbes, Edith Quintanilla, Bharat Mantilla and colleagues, with an educational fenry from [employer]. Depression screen completed yes Social History Living Situation History Lives With: Family Housing: House Tobacco History Smoking Status: Never smoker Second Hand Smoke Exposure: No Alcohol History Alcohol Intake: Current (Social) Alcohol Intake Frequency: holidays/special occasions only Domestic Abuse History Do You Feel Safe at Home: Yes [employer]: Past Medical History Past Medical History: No Hx Neurological Disorders, No Hx Breast Cancer, No Hx Cardiac Disorders, No Hx Cancer, No Hx Blood Disorders, Yes Hx Gastrointestinal Disorders, No Hx Renal Disease, No Hx Diabetes Mellitus Type 1 and Yes Hx Diabetes Mellitus Type 2 Care OB Visit Log OB Flowsheet Initial Weight: Not Recorded Date -?-?-?-?-?-?-?-?-?-?-?-?- EGA Weight BP Alb Glu CTX Pres Fundal ht FHR Mov Dilation Station Effacement Hx Notes Visit Note 03/13/25 -?-?-?-?-?-?-?-?-?-?-?-?- 10w 6d 112.491 kg 122/72 159 at 11w, RUDY 10/01/25. Initial visit. Cramping improved, WHALEN x4 days. T2DM poorly controlled (A1C 7.0, BG up to 330-340). Hx infertility, deliveries at 35w (both sons). FHR 159. Rubella non-immune. Plan: D/C metformin, start insulin (Lantus 37u qhs, Humalog 6u TID), weekly visits for BG monitoring, genetics, MFM consult at [facility], [place] for WHALEN, rubella vaccine. 03/18/25 -?-?-?-?-?-?-?-?-?-?-?-?- 11w 4d 115.779 kg 132/87 165 at 11w4d with GDM on Lantus 40u qAM and rapid-acting insulin 8u TID (? to 10u for high-carb meals); improved BG 80?90 fasting, peak 234. Plan: C ontinue insulin, educate on site rotation, order CGM to [facility], log BGs, f/u in 4w; NIPT negative, routine care continues. 03/25/25 -?-?-?-?-?-?-?-?-?-?-?-?- 12w 4d 115.836 kg 125/81 absent 165 Patient presents for a routine visit at 12 weeks and 4 days gestation. She reports that her blood suga r levels have been spiking to as high as 350 despite being prescribed insulin based on weight-based doses. - I ncrease insulin doses: ? Lantus: 30 units subcutaneously twic e daily ? Rapid-acting insulin: 16 units subcu taneously three times daily before meals - Provide patient education on proper in sulin injection technique to minimize bruising. - Dispense continuous glucose monitor (C GM) and new glucometer. - Review glucose logs at next visit. 04/15/25 -?-?-?-?-?-?-?-?-?-?-?-?- 15w 4d 117.594 kg 119/77 absent 168 - Patient reports her blood sugar control has been pretty good recently: - Denies dry mouth, which she associat es with high blood sugar - Reports constant urination, which sh e attributes to - Patient is experiencing difficulty obt aining diabetic supplies: - Using her diabetic father's supplies sparingly - Awaiting a call from a service to as sist with obtaining supplies - movement: - Patient inquires about not feeling f etal movement yet - Denies cramping, nausea, or vomiting - Await call from diabetes management service on (tomorrow) for assistance with supplies and potential insulin adjustments - Continue current diabetes management r egimen RUDY Calculator Estimated Delivery Date Method Current WG Current Estimate 10/03/25 Ultrasound #1 15w 4d Other Estimates 10/03/25 LMP (Certain) 15w 4d Specific Issue/Plans D/C metformin, start insulin (Lantus 37u qhs, Humalog 6u TID), weekly visits for BG monitoring, genetics, MFM consult at [facility], Tylenol for WHALEN, rubella vaccine. Office Procedures OB Clinic LOC & Office Proc's Nursing/Assessment Patient Status: Established Patient OB Clinic Nursing Assessment: Medication Reconciliation, Update PMH in EMR and Vital Signs OB Clinic Coordination of Care: Complex Care and Chronic Disease 1-5, Consent,records obtained, informed consent, Education Simp Pt/Fam, Lab and Imaging orders, Results/Orders obtained and Staff clarify orders Special Needs: Heart tones Established Patient Charge Established Patient Point Assignment: 135 Established Patient Point Charge: EP Level 4 (120-155) Assessment & Plan Diagnosis / Problem List (1) Insulin dependent type 2 diabetes mellitus: Status: Acute (2) Type 2 diabetes mellitus with unspecified complications: Status: Acute (3) Supervision of high risk , unspecified, first trimester: Status: Acute
== END 2025-04-15 08:44 | disposition home or self-care (01) ==
LOC: HODSOBC 08:13
PROVIDERS: Supervising Provider Internal Medicine; Visit Provider Obstetrics & Gynecology
DX: O09.892 Supervision of other high risk pregnancies, second trimester (principal); O24.112 Pre-existing type 2 diabetes mellitus, in pregnancy, second trimester; Z3A.15 15 weeks gestation of pregnancy; Z79.4 Long term (current) use of insulin; Z88.2 Allergy status to sulfonamides; Z91.018 Allergy to other foods
CPT/HCPCS: 99214; G0463

== ENCOUNTER 2025-04-24 11:17 | Emergency (ER) | payer MEDICAID, SELFPAY ==
[2025-04-24 11:30] VITALS: BP 133/85; PULSE 98; RESP 18; TEMP 37.2; O2SAT 98; BMI 39.9
--- NOTE | 2025-04-24 11:41 | EDNOTE_ITS ---
<Statement entered by Angelique Orlando MD - 04/24/25 15:15> As co-signing physician, I was present and available for consult prn. I concur with the plan and care as documented by the midlevel provider. ED OB Contraction Preg RMI/HPI General Chief complaint: OB/Uterine Contractions Stated complaint: 17 weeks OB, no movement, heart burn Time Seen by Provider: 04/24/25 11:25 Source: patient Arrival date/time: 04/24/25 11:17 29-year-old female with history of type 2 diabetes presents to the emergency room with a chief complaint of abdominal cramping, heartburn, and now feeling any movement. Patient is currently 17 weeks . She is a G3, P2. Mode of arrival: ambulatory Limitations: no limitations Related Data Previous Rx's ?Medication ?Instructions ?Recorded blood sugar diagnostic (Blood #100 ea 03/25/25 Glucose Test strips) flash glucose sensor (FreeStyle #2 ea 03/25/25 Elbert 2 Sensor kit) lancets 21 gauge #100 ea 03/25/25 ondansetron 4 mg disintegrating 4 mg PO Q6H PRN nausea and 03/25/25 tablet vomiting #10 tabs pen needle, diabetic 29 gauge x #100 ea 03/25/25 1/2 vitamins with calcium 1 tab PO QDAY 90 days # 90 tabs 03/25/25 no.72-iron 27 mg-folic acid 1 mg tablet ( Vitamins Plus Low Iron) insulin glargine 100 unit/mL (3 30 unit (0.3 mL) subcu t BID 04/06/25 mL) subcutaneous pen days #18 mL insulin lispro 100 unit/mL 16 unit (0.16 mL) subcut TI D 30 04/06/25 subcutaneous pen (Humalog KwikPen days #15 mL (U-100) Insulin) Allergies Allergy/AdvReac Type Severity Reaction Status Date / Time [place] And Derivatives Allergy Severe Rash Verified 04/24/25 11:24 Sulfa (Sulfonamide Allergy Severe Hives Verified 04/24/25 11:24 Antibiotics) Review of Systems Review of Systems Systems Reviewed: All systems reviewed, normal except as documented Constitutional Constitutional: Reports system reviewed and no additional complaints, except as documented, Denies fatigue, Denies fever(s), Denies headache(s) and Denies weakness Eyes Eyes: Reports system reviewed and no additional complaints, except as documen lia, Denies blurry vision and Denies change in vision ENT Ears, Nose, Mouth, and Throat: Reports system reviewed and no additional complaints, except as documented, Denies otalgia, Denies headache(s), Denies nasal congestion, Denies throat swelling and Denies vertigo Cardiovascular Cardiovascular: Reports system reviewed and no additional complaints, except as documented, Denies chest pain, Denies dyspnea and Denies dyspnea on exertion Respiratory Respiratory: Reports system reviewed and no additional complaints, except as documented, Denies chest congestion, Denies cough, Denies dyspnea, Denies dyspnea on exertion and Denies wheezing Gastrointestinal Gastrointestinal: Reports system reviewed and no additional complaints, except as documented, Denies abdominal pain, Denies cramping, Denies nausea and Denies vomiting Genitourinary Genitourinary: Reports system reviewed and no additional complaints, except as documented, Reports abnormal menses and Reports pelvic pain Musculoskeletal Musculoskeletal: Reports system reviewed and no additional complaints, except as documented and Denies back pain Integumentary/Breasts Skin/Breast: Reports system reviewed and no additional complaints, except as documented and Denies wounds Neurologic Neurologic: Reports system reviewed and no additional complaints, except as documented, Denies confusion, Denies headache(s), Denies lack of coordination, Denies vertigo and Denies weakness Psychiatric Psychiatric: Reports system reviewed and no additional complaints, except as documented, Denies anxiety, Denies confusion, Denies depression, Denies paranoia, Denies suicidal ideation and Denies tactile hallucinations Endocrine Endocrine: Reports system reviewed and no additional complaints, except as documented and Denies fatigue Hematologic/Lymphatic Hematologic/Lymphatic: Reports system reviewed and no additional complaints, except as documented and Denies lymphadenopathy Allergic/Immunologic Allergic/Immunologic: Reports system reviewed and no additional complaints, except as documented, Denies throat swelling, Denies urticaria and Denies wheezing Past Medical History Past Medical History NEUROLOGIC: Negative Neurological Disorders or Seizures CARDIAC: Negative Cardiac Disorders or Congestive Heart Failure RESPIRATORY: Positive Asthma; Negative Chronic Obstructive Pulmonary Disease (COPD) GASTROINTESTINAL: Positive Gastrointestinal Disorders, Gastrointestinal Bleed and Obesity; Negative Hepatitis or Colorectal Cancer GENITOURINARY: Negative Genitourinary Disorders or Renal Disease REPRODUCTIVE: Positive Previous Pregnancies; Negative Breast Cancer MUSCULOSKELETAL: Negative Musculoskeletal Disorders or Bone Cancer ENDOCRINE: Positive Endocrine Disorders and Diabetes Mellitus Type 2; Negative Diabetes Mellitus Type 1 HEMATOLOGIC: Negative Blood Disorders or Sickle Cell Disease PSYCHO/SOCIAL: Positive Depression and Anxiety OTHER HISTORY: Positive Hospitalization; Negative Autoimmune Disease, Down Syndrome, Developmental Delay, Falls, Blood Transfusions, Blood Transfusion Reaction, Anesthesia Reactions, Organ Transplant, Chemotherapy, Radiation Therapy, Hyperbaric Therapy, MRSA, Vancomycin-Resistant Enterococci, Human Immunodeficiency Virus (HIV), Chicken Pox, Measles, Mumps, Rubella ([place] Measles), Pertussis, Clostridium Difficile, Cancer, Breast Cancer, Cervical Cancer, Colorectal Cancer, Lung Cancer or Ovarian Cancer Family History FAMILY HISTORY: Positive Family Cardiac Disorders and Family Surgery; Negative Family Psychiatric Problems, Family Respiratory Disorders, Family Gastrointestinal Problems, Family Cancer or Family Anesthesia Reaction Surgical History SURGICAL: Positive Section; Negative Organ Transplant Social History SMOKING STATUS: Never smoker SECOND HAND EXPOSURE: No SUBSTANCE USE: marijuana ED Exam General Limitations: Present no limitations General appearance: Present alert and in no apparent distress Head Head exam: Present atraumatic Eye Eye exam: Present normal appearance, PERRL and EOMI ENT ENT exam: Present normal exam, normal oropharynx and mucous membranes moist Neck Neck exam: Present normal inspection, full ROM and trachea midline Chest Chest inspection: Present normal inspection and symmetric chest wall rise Respiratory Respiratory exam: Present normal lung sounds bilaterally Cardiovascular Cardiovascular exam: Present regular rate, normal rhythm and normal heart sounds Abdominal Exam Abdominal exam: Present soft, tenderness and normal bowel sounds; Absent tenderness at McBurney's Point Abdominal tenderness: Present suprapubic and mild; Absent RUQ or RLQ Extremities Exam Extremities exam: Present normal inspection and full ROM Back Exam Back exam: Present normal inspection and full ROM Neurological Exam Neurological exam: Present alert, oriented X3 and CN II-XII intact Psychiatric Psychiatric exam: Present normal affect and normal mood Skin Skin exam: Present warm, dry, intact and normal color Course Quality Measures none Orders Category Date Time Status US OB >= 14 weeks Fetus Stat Exams 04/24/25 11:41 Completed ABO/RH Type Stat Lab 04/24/25 11:56 Completed Beta HCG,Quantitative Stat Lab 04/24/25 11:56 Completed CBC Stat Lab 04/24/25 11:56 Completed CMP [Comprehensive Metabolic Panel] Stat Lab 04/24/25 11:56 Completed Magnesium Stat Lab 04/24/25 11:56 Completed UA [Urinalysis] Stat Lab 04/24/25 11:47 Completed Vital Signs Vital signs: Vital Signs Temperature 99.0 F 04/24/25 11:30 Pulse Rate 98 04/24/25 11:30 Respiratory Rate 18 04/24/25 11:30 Blood Pressure 133/85 H 04/24/25 11:30 Pulse Oximetry (%) 98 04/24/25 11:30 Oxygen Delivery Method Room Air 04/24/25 11:30 OB/Uterine Contractions MDM Narrative MDM Narrative:: 29-year-old female with history of type 2 diabetes presents to the emergency room with a chief complaint of abdominal cramping, heartburn, and now feeling any movement. Patient is currently 17 weeks . She is a G3, P2. Patient is hemodynamically stable and in no apparent distress Physical examination shows some bilateral lower pelvic cramping. Patient states she has been unable to feel any movement all morning. An ultrasound OB was completed and shows a in good standing at 16 weeks and 2 days. The ultrasound shows cardiac motion at 138 bpm and a viable intrauterine gestation with cephalic presentation. hCG levels are at 13,379. CBC CMP and urinalysis were all within normal limits. Patient has an appointment with her DEPOT AGENT this Sunday. Patient was discharged and educated to follow-up with primary care provider in the next 24 to 48 hours and return to the emergency room for any evidence of worsening signs or symptoms Patient data External records reviewed:: [facility] previous records Clinical information provided by:: patient Social determinants that could affect healthcare access:: none Patient has the following chronic illnesses:: No chronic illness How is presenting disease/condition affected by chronic disease/condition?: no chronic disease Evaluation data The following diagnostics were reviewed and interpreted by me:: lab results and radiology exam(s) Lab and/or radiology exams considered but not ordered:: Labs and radiology exams considered in order Interpretation Summary: OB ultrasound-Findings: Viable intrauterine single fetus with single amniotic sac presentation cephalic Cardiac motion 138 BPM Placenta anterior grade 0 Umbilical cord insertion 3 vessel seen Amniotic fluid index 7.4 cm Cervix 3.7 cm. Composite estimated gestational age based on BPD, head circumference, abdominal circumference, femur length is 16 weeks 2 days Estimated weight 148.4 g Ovaries obscured by bowel gas. Survey of intracranial anatomy, spinal anatomy, abdominal anatomy, four-chamber heart performed with no abnormalities identified. Impression: Viable intrauterine gestation cephalic presentation. Medications / Prescriptions Medications or Prescriptions considered but not ordered:: No medication given Medication administrations:: No medication given Consultations Consultation(s) initiated? (list below): No Diagnosis OB Contractions Differential Diagnosis: pre-eclampsia, eclampsia and other (Pelvic pain/ demise/threatened /) Most likely diagnosis given after review of the tests above:: Pelvic pain Admission Indicated Admission indicated?: not indicated Explain why admission is indicated or not indicated:: N/A Admission Request Was there a request for admission?: No Disposition Plan Disposition Plan: Discharge Discharge Attestation Discharge Attestation: The patient and all family members were given an opportunity to ask questions and understood the discharge instructions. Discharge instructions specifically effects, indications for sooner follow up or return to the emergency department, and the expected course of current diagnosis. Patient condition: Stable Discharge Plan Plan Patient Disposition: HOME (Self Care) Discharge Disposition comment: Stable Prescriptions/Referrals Prescriptions/Med Rec: No Action (DME) Blood Glucose Test Strip See Rx Instructions .MEDSUPPLY Qty: 100 0RF Rx Instructions: As directed, 4 times a day (DME) FreeStyle Elbert 2 Sensor Kit See Rx Instructions .Route Qty: 2 6RF Rx Instructions: As directed, use for 14 days and replace (DME) lancets 21 gauge misc See Rx Instructions .MEDSUPPLY Qty: 100 0RF Rx Instructions: As directed, 4 times a day ondansetron 4 mg tablet,disintegrating 4 mg PO Q6H PRN (Reason: nausea and vomiting) Qty: 10 0RF (DME) pen needle, diabetic 29 gauge x 1/2 needle See Rx Instructions .MEDSUPPLY Qty: 100 2RF Rx Instructions: As directed, four times a day Vitamin Plus Low Iron 27 mg iron- 1 mg tablet 1 tab PO QDAY 90 Days Qty: 90 6RF insulin glargine 100 unit/mL (3 mL) insulin pen 30 unit subcut BID 30 Days Qty: 18 2RF insulin lispro [Humalog KwikPen Insulin] 100 unit/mL insulin pen 16 unit subcut TID 30 Days Qty: 15 0RF Referrals: Diamond Stanford FNP-C [Primary Care Provider] - In 1 week Problem List Clinical Impression: Pelvic pain during Patient/Caregiver Discharge Instructions Discharge Activity: activity as tolerated Education Materials: ED Abdominal Pain, Early Additional Instructions: Please follow-up with your DEPOT AGENT in the next 24 to 48 hours At this point your is in good standing at 16 weeks and 2 days. You cardiac motion is 138 bpm. Your hCG levels are at 13,379 Please follow-up with your DEPOT AGENT. For any evidence of worsening signs or symptoms return to the emergency room immediately Print Language: B[place]udian Stand Alone Forms: Lynn Award Info., Work/School Release, Patient Portal Info Letter PA/GARETH Supervising Physician PA/GARETH Supervising Physician: Dr. ORLANDO
--- NOTE | 2025-04-24 11:41 | XR_ITS ---
Examination: Complete OB ultrasound greater than 14 weeks Date and time of exam: April 24, 2025 1203 hours INDICATIONS: Decreased movement pelvic pain beginning 2 days ago Findings: Viable intrauterine single fetus with single amniotic sac presentation cephalic Cardiac motion 138 BPM Placenta anterior grade 0 Umbilical cord insertion 3 vessel seen Amniotic fluid index 7.4 cm Cervix 3.7 cm. Composite estimated gestational age based on BPD, head circumference, abdominal circumference, femur length is 16 weeks 2 days Estimated weight 148.4 g Ovaries obscured by bowel gas. Survey of intracranial anatomy, spinal anatomy, abdominal anatomy, four-chamber heart performed with no abnormalities identified. Impression: Viable intrauterine gestation cephalic presentation.
[2025-04-24 11:51] LABS: Collection Type, Urine Clean Catch
[2025-04-24 12:01] LABS: Bacteria,Urine Rare; Bilirubin,Urine Negative (Negative); Blood,Urine Negative (Negative); Color,Urine Lt-Yellow (Lt Yel-Yel); Glucose, Urine 3+ (Negative); Ketones,Urine Negative (Negative); Leukocyte Esterase,Urine Positive (Negative); Nitrite,Urine Negative (Negative); PH,Urine 7.0 (5.0-7.0); Protein,Urine Negative (Neg - Trace); RBC,Urine 2 /hpf (0-3); Specific Gravity,Urine 1.019 (1.001-1.035); Squamous Epithelial Cell,Urine 13 /hpf (0-5); Urobilinogen,Urine Negative mg/dL (0.0-1.0); WBC,Urine 6 /hpf (0-5)
[2025-04-24 12:04] LABS: Clarity,Urine Hazy (Clear/Hazy)
[2025-04-24 12:23] LABS: Basophils # (Auto) 0.0 Thou/mm3 (0.0-0.2); Basophils % (Auto) 0 % (0-2.5); Eosinophils # (Auto) 0.1 Thou/mm3 (0.0-0.5); Eosinophils % (Auto) 1 % (0-10); Hematocrit 33.9 % (36.0-46.0); Hemoglobin 11.3 g/dL (12.0-16.0); Immature Granulocytes Auto 0.11 Thou/mm3 (0.00-0.00); Lymphocytes # (Auto) 2.3 Thou/mm3 (1.0-4.8); Lymphocytes % (Auto) 21 % (10-50); Mean Corpuscular HGB Conc 33.3 g/dl (31.0-37.0); Mean Corpuscular Hemoglobin 28.1 pg (25.0-35.0); Mean Corpuscular Volume 84 fL (80-100); Monocytes # (Auto) 0.6 Thou/mm3 (0.0-0.8); Monocytes % (Auto) 5 % (0-12); Neutrophils # (Auto) 8.0 Thou/mm3 (1.8-7.7); Neutrophils % (Auto) 72 % (37-80); Nucleated Red Blood Cell # 0.00 Thou/mm3 (0.00-0.00); Nucleated Red Blood Cell % 0 /100 WBC (0); Platelet Count 256 Thou/mm3 (140-440); RDW Standard Deviation 39.4 fL (36.4-46.3); Red Blood Count 4.02 Miln/mm3 (4.00-5.20); White Blood Count 11.2 Thou/mm3 (3.6-11.0)
[2025-04-24 13:05] LABS: Alanine Aminotransferase 17 U/L (10-49); Albumin, Serum 3.7 gm/dL (3.5-5.0); Albumin/Globulin Ratio 1.5 (1.2-2.2); Alkaline Phosphatase 75 U/L (46-116); Anion Gap 11 (7-16); Aspartate Amino Transferase 18 U/L (0-34); BUN/Creatinine Ratio 12 Ratio (12-20); Bilirubin,Total 0.2 mg/dL (0.3-1.2); Blood Urea Nitrogen 7 mg/dL (9-23); Calcium 8.6 mg/dL (8.3-10.6); Calcium (Corrected) 8.8 mg/dL (8.5-10.1); Carbon Dioxide 21.9 mMol/L (20.0-31.0); Chloride 106 mMol/L (98-107); Creatinine (Component) 0.6 mg/dL (0.6-1.3); Estimated Creatinine Clearance 183.4 mL/min (>60); Globulin 2.4 gm/dL (2.3-3.5); Glucose 138 mg/dL (74-106); Magnesium 1.7 mg/dL (1.6-2.6); Osmolality,Calculated 277 (275-295); Potassium 3.8 mMol/L (3.4-5.1); Sodium 139 mMol/L (136-145); Total Protein 6.1 gm/dL (5.7-8.2); eGFR > 60 See Note
[2025-04-24 13:20] LABS: Beta HCG,Quantitative 13379 mIU/mL (<5.0)
== END 2025-04-24 15:00 | disposition home or self-care (01) ==
PROVIDERS: Emergency Provider Nurse Practitioner Family
DX: O99.891 Other specified diseases and conditions complicating pregnancy (principal); R10.2 Pelvic and perineal pain; Z3A.16 16 weeks gestation of pregnancy
CPT/HCPCS: 36415; 76805; 80053; 81001; 83735; 84702; 85025; 86900; 86901; 99283

== ENCOUNTER 2025-04-27 11:01 | Outpatient (AMB) | payer MEDICAID, SELFPAY ==
[2025-04-27 11:33] VITALS: BP 130/80; PULSE 90; RESP 17; TEMP 36.9; O2SAT 97; BMI 41.8
--- NOTE | 2025-04-27 11:33 | OBCLNT_ITS ---
Vital Signs 04/27/25 11:33 Height 1.7 m Height Method Measured Weight 120.882 kg Weight Measurement Method Standing Scale BMI 41.8 BP 130/80 Blood Pressure Source Automatic Cuff Blood Pressure Location Right Upper Arm Position Sitting Respiration 17 Pulse 90 Pulse Source Monitor Temp 98.5 F Temp Source Temporal Artery Scan Pulse Oximetry (%) 97 Oxygen Delivery Method Room Air Allergies/Home Meds Allergies & Medications Allergies [place] And Derivatives Allergy (Severe, Verified 04/27/25 11:34) Rash Sulfa (Sulfonamide Antibiotics) Allergy (Severe, Verified 04/27/25 11:34) Hives Medication Reconciliation blood sugar diagnostic (Blood Glucose Test strips) #100 ea 03/25/25 [Rx Confirmed 04/27/25] flash glucose sensor (FreeStyle Elbert 2 Sensor kit) #2 ea 03/25/25 [Rx Confirmed 04/27/25] lancets 21 gauge #100 ea 03/25/25 [Rx Confirmed 04/27/25] ondansetron 4 mg disintegrating tablet 4 mg PO Q6H PRN nausea and vomiting #10 tabs 03/25/25 [Rx Confirmed 04/27/25] pen needle, diabetic 29 gauge x 1/2 #100 ea 03/25/25 [Rx Confirmed 04/27/25] vitamins with calcium no.72-iron 27 mg-folic acid 1 mg tablet ( Vitamins Plus Low Iron) 1 tab PO QDAY 90 days #90 tabs 03/25/25 [Rx Confirmed 04/27/25] insulin glargine U-300 conc 300 unit/mL (1.5 mL) subcutaneous pen 35 unit (0.1167 mL) subcut BID 30 days #7.5 mL 04/27/25 [Rx] insulin lispro 100 unit/mL subcutaneous pen (Humalog KwikPen (U-100) Insulin) 18 unit (0.18 mL) subcut TID 30 days #16.2 mL 04/27/25 [Rx] Intake Visit Data Collection New Patient or Established: Established Patient (seen at [facility] within 3 years) Reason for Visit:: OBC Consent obtained for Telemed Visit: No Seen by Clinical Staff ONLY (RN/MA): No Fuel Cell Technician Required: No Do You Feel Safe at Home: Yes Authorities Contacted: N/A PCP or OBGYN visit in last 3 months: Yes Date of Last PCP or OBGYN visit: 04/24/25 Hx Now: Yes Are you currently on any form of Control: No Pain Present Currently: Yes Pain Location: Head Pain scale:: 7 Smoking Status Smoking Status: Never smoker Questionnaires Covid-19 Vaccine Questionnaire Has patient been vacinated for Covid-19 Have you been vacinated for Covid-19: Yes PHQ-9 PHQ-2 Over the last 2 weeks, how often have you been bothered by any of the following problems? 1. Little interest or pleasure in doing things: not at all PHQ-9 8. Moving or speaking so slowly that other people could have noticed? - Or the opposite - being so fidgety or restless that you have been moving around a lot more than usual: not at all Source: Developed by Drs. Omer Forbes, Edith Quintanilla, Bharat Mantilla and colleagues, with an educational ferny from [employer]. 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 Initial visit. Cramping improved, WHALEN x4 days. T2DM poorly controlled (A1C 7.0, BG up to 330-340). Hx infertility, deliveries at 35w (both sons). FHR 159. Rubella non-immune. Plan: D/C metformin, start insulin (Lantus 37u qhs, Humalog 6u TID), weekly visits for BG monitoring, genetics, MFM consult at [facility], [place] for WHALEN, rubella vaccine. 03/18/25 -?-?-?-?-?-?-?-?-?-?-?-?- 11w 4d 115.779 kg 132/87 165 at 11w4d with GDM on Lantus 40u qAM and rapid-acting insulin 8u TID (? to 10u for high-carb meals); improved BG 80?90 fasting, peak 234. Plan: C ontinue insulin, educate on site rotation, order CGM to [facility], log BGs, f/u in 4w; NIPT negative, routine care continues. 03/25/25 -?-?-?-?-?-?-?-?-?-?-?-?- 12w 4d 115.836 kg 125/81 absent 165 [facility] at 12 weeks and 4 days gestation. She reports that her blood sugar levels have been spiking to as high as 350 despite being prescribed insulin based on weight-based doses. - I ncrease insulin doses: ? Lantus: 30 units subcutaneously twic e daily ? Rapid-acting insulin: 16 units subcu taneously three times daily before meals - Provide patient education on proper in sulin injection technique to minimize bruising. - Dispense continuous glucose monitor (C GM) and new glucometer. - Review glucose logs at next visit. 04/08/25 -?-?-?-?-?-?-?-?-?-?-?-?- 14w 4d 117.084 kg 127/77 145 absent No VB or LOF. No cramping Not reliable with checking sugars 04/15/25 -?-?-?-?-?-?-?-?-?-?-?-?- 15w 4d 117.594 kg 119/77 absent 168 - Patient reports her blood sugar control has been pretty good recently: - Denies dry mouth, which she associat es with high blood sugar - Reports constant urination, which sh e attributes to - Patient is experiencing difficulty obt aining diabetic supplies: - Using her diabetic father's supplies sparingly - Awaiting a call from a service to as sist with obtaining supplies - movement: - Patient inquires about not feeling f etal movement yet - Denies cramping, nausea, or vomiting - Await call from diabetes management service on (tomorrow) for assistance with supplies and potential insulin adjustments - Continue current diabetes management r alan 04/27/25 -?-?-?-?-?-?-?-?-?-?-?-?- 17w 2d 120.882 kg 130/80 absent 147 acti ve 23-year-old at 17 weeks and 2 days gestation with poorly controlled gestational diabetes mellitus. Blood glucose readings range from 90-240 mg/dL, with most readings between 180-230 mg/dL. Current insulin regimen includes NPH 30 units in the morning and evening, with 16 units of rapid-acting insulin with meals. Plan - Increase morning insulin dose from 30 units to 35 units - Increase mealtime insulin dose from 16 units to 18 units - Continue evening insulin dose at 30 un its - Follow up in two weeks - Awaiting insurance approval for specia list ultrasound at [facility] - Resend insulin prescription RUDY Calculator Estimated Delivery Date Method Current WG Current Estimate 10/03/25 Ultrasound #1 17w 2d Other Estimates 10/03/25 LMP (Certain) 17w 2d Expected Delivery Route/Plan Hx CS x 1, hx PTVD at 35-36 weeks first Macrosomic with last delivery (CS at 35 weeks 8 lbs 14 oz) Poorly controlled diabetes on oral meds prior to with frequent trips into the ER HgBA1C 7.0 first trimester Morbid Obesity Starting BMI 41: Baby ASA Needs Level II US/ echo/ and co-management with M PNC labs: 0+/Ab-/Rubella Nonimmune/RPR NR/HIV-/HepBSag-/ Specific Issue/Plans For Repeat CS D/C metformin, start insulin (Lantus 37u qhs, Humalog 6u TID), weekly visits for BG monitoring, genetics, MFM consult at [facility], Tylenol for WHALEN, rubella vaccine. Notes Visit Date: 04/08/25 Last Updated by: Fabby Moya (OB Clinic), Pt states she sometimes checks her sugars on her dad's machine and her insurance will not cover one for her. She states if she doesn't feel right she goes to the ER where her BS can be as high as the 300s. Will authorize for diabetic management and counseling. Surprisingly, her first trimester HgB A1c is only 7. 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 Office Procedures OB Clinic LOC & Office Proc's Nursing/Assessment Patient Status: Established Patient OB Clinic Nursing Assessment: Medication Reconciliation, Update PMH in EMR and Vital Signs OB Clinic Coordination of Care: Complex Care and Chronic Disease 1-5, Consent,records obtained, informed consent, Education Simp Pt/Fam, 4+ Authorizations needed and Lab and Imaging orders Special Needs: Heart tones Established Patient Charge Established Patient Point Assignment: 145 Established Patient Point Charge: EP Level 4 (120-155) Assessment & Plan Diagnosis / Problem List (1) Type 2 diabetes mellitus with unspecified complications: Status: Acute (2) Insulin dependent type 2 diabetes mellitus: Status: Acute
== END 2025-04-27 12:02 | disposition home or self-care (01) ==
PROVIDERS: Supervising Provider Obstetrics & Gynecology; Visit Provider Obstetrics & Gynecology
DX: O09.892 Supervision of other high risk pregnancies, second trimester (principal); O24.112 Pre-existing type 2 diabetes mellitus, in pregnancy, second trimester; O99.212 Obesity complicating pregnancy, second trimester; E66.01 Morbid (severe) obesity due to excess calories; E11.65 Type 2 diabetes mellitus with hyperglycemia; O09.292 Supervision of pregnancy with other poor reproductive or obstetric history, second trimester; O34.219 Maternal care for unspecified type scar from previous cesarean delivery; Z79.4 Long term (current) use of insulin; Z3A.17 17 weeks gestation of pregnancy; Z87.59 Personal history of other complications of pregnancy, childbirth and the puerperium; Z88.2 Allergy status to sulfonamides; Z91.018 Allergy to other foods
CPT/HCPCS: 99213; 99214; G0463

== ENCOUNTER 2025-05-13 09:01 | Outpatient (AMB) | payer MEDICAID, SELFPAY ==
[2025-05-13 09:26] VITALS: BP 130/83; PULSE 90; RESP 18; TEMP 36.8; O2SAT 98; BMI 42.5
--- NOTE | 2025-05-13 09:26 | AMB.OBVISIT ---
Vital Signs 05/13/25 09:26 Height 1.7 m Height Method Stated Weight 123.037 kg Weight Measurement Method Standing Scale BMI 42.5 BP 130/83 Blood Pressure Source Automatic Cuff Blood Pressure Location Left Upper Arm Position Sitting Respiration 18 Pulse 90 Pulse Source Monitor Temp 98.2 F Temp Source Oral Pulse Oximetry (%) 98 Oxygen Delivery Method Room Air Allergies/Home Meds Allergies & Medications Allergies [facility] Derivatives Allergy (Severe, Verified 05/13/25 09:27) Rash Sulfa (Sulfonamide Antibiotics) Allergy (Severe, Verified 05/13/25 09:27) Hives Medication Reconciliation blood sugar diagnostic (Blood Glucose Test strips) #100 ea 03/25/25 [Rx Confirmed 05/13/25] flash glucose sensor (FreeStyle Elbert 2 Sensor kit) #2 ea 03/25/25 [Rx Confirmed 05/13/25] lancets 21 gauge #100 ea 03/25/25 [Rx Confirmed 05/13/25] ondansetron 4 mg disintegrating tablet 4 mg PO Q6H PRN nausea and vomiting #10 tabs 03/25/25 [Rx Confirmed 05/13/25] pen needle, diabetic 29 gauge x 1/2 #100 ea 03/25/25 [Rx Confirmed 05/13/25] vitamins with calcium no.72-iron 27 mg-folic acid 1 mg tablet ( Vitamins Plus Low Iron) 1 tab PO QDAY 90 days #90 tabs 03/25/25 [Rx Confirmed 05/13/25] insulin glargine U-300 conc 300 unit/mL (1.5 mL) subcutaneous pen 35 unit (0.1167 mL) subcut BID 30 days #7.5 mL 04/27/25 [Rx Confirmed 05/13/25] insulin lispro 100 unit/mL subcutaneous pen (Humalog KwikPen (U-100) Insulin) 18 unit (0.18 mL) subcut TID 30 days #16.2 mL 04/27/25 [Rx Confirmed 05/13/25] Intake Visit Data Collection New Patient or Established: Established Patient (seen at [facility] within 3 years) Reason for Visit:: CARE Seen by Clinical Staff ONLY (RN/MA): No Preschool Paraprofessional Required: No Do You Feel Safe at Home: Yes Authorities Contacted: N/A PCP or OBGYN visit in last 3 months: Yes Hx Now: Yes Are you currently on any form of Control: No Pain Present Currently: No Pain Scale Used: Hodgson-Kc/Numerical Pain scale:: 0 Smoking Status Smoking Status: Never smoker Questionnaires Covid-19 Vaccine Questionnaire Has patient been vacinated for Covid-19 Have you been vacinated for Covid-19: Yes PHQ-9 PHQ-2 Over the last 2 weeks, how often have you been bothered by any of the following problems? 1. Little interest or pleasure in doing things: not at all 2. Feeling down, depressed, or hopeless: not at all Total score: 0 PHQ-9 3. Trouble falling or staying asleep, or sleeping too much: Not at all 4. Feeling tired or having little energy: Not at all 5. Poor appetite or overeating: Not at all 6. Feeling bad about yourself - or that you are a failure or have let yourself or your family down: Not at all 7. Trouble concentrating on things, such as reading the newspaper or watching television: Not at all 8. Moving or speaking so slowly that other people could have noticed? - Or the opposite - being so fidgety or restless that you have been moving around a lot more than usual: not at all 9. Thoughts that you would be better off or of hurting yourself in some way: Not at all Total score: 0 Source: Developed by Drs. Omer Forbes, Edith Quintanilla, Bharat Mantilla and colleagues, with an educational ferny from [employer]. 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 Initial visit. Cramping improved, WHALEN x4 days. T2DM poorly controlled (A1C 7.0, BG up to 330-340). Hx infertility, deliveries at 35w (both sons). FHR 159. Rubella non-immune. Plan: D/C metformin, start insulin (Lantus 37u qhs, Humalog 6u TID), weekly visits for BG monitoring, genetics, MFM consult at [facility], Tylenol for WHALEN, rubella vaccine. 03/18/25 <del>?</del> 11w 4d 115.779 kg 132/87 165 at 11w4d with GDM on Lantus 40u qAM and rapid-acting insulin 8u TID (? to 10u for high-carb meals); improved BG 80?90 fasting, peak 234. Plan: Continue insulin, educate on site rotation, order CGM to [facility], log BGs, f/u in 4w; NIPT negative, routine care continues. 03/25/25 <del>?</del> 12w 4d 115.836 kg 125/81 absent 165 Patient presents for a routine visit at 12 weeks and 4 days gestation. She reports that her blood sugar levels have been spiking to as high as 350 despite being prescribed insulin based on weight-based doses. - Increase insulin doses: ? Lantus: 30 units subcutaneously twice daily ? Rapid-acting insulin: 16 units subcutaneously three times daily before meals - Provide patient education on proper insulin injection technique to minimize bruising. - Dispense continuous glucose monitor (CGM) and new glucometer. - Review glucose logs at next visit. 04/08/25 <del>?</del> 14w 4d 117.084 kg 127/77 145 absent No VB or LOF. No cramping Not reliable with checking sugars 04/15/25 <del>?</del> 15w 4d 117.594 kg 119/77 absent 168 - Patient reports her blood sugar control has been pretty good recently: - Denies dry mouth, which she associates with high blood sugar - Reports constant urination, which she attributes to - Patient is experiencing difficulty obtaining diabetic supplies: - Using her diabetic father's supplies sparingly - Awaiting a call from a service to assist with obtaining supplies - movement: - Patient inquires about not feeling movement yet - Denies cramping, nausea, or vomiting - Await call from diabetes management service on (tomorrow) for assistance with supplies and potential insulin adjustments - Continue current diabetes management regimen 04/27/25 <del>?</del> 17w 2d 120.882 kg 130/80 absent 147 active 23-year-old at 17 weeks and 2 days gestation with poorly controlled gestational diabetes mellitus. Blood glucose readings range from 90-240 mg/dL, with most readings between 180-230 mg/dL. Current insulin regimen includes NPH 30 units in the morning and evening, with 16 units of rapid-acting insulin with meals. Plan - Increase morning insulin dose from 30 units to 35 units - Increase mealtime insulin dose from 16 units to 18 units - Continue evening insulin dose at 30 units - Follow up in two weeks - Awaiting insurance approval for specialist ultrasound at [facility] - Resend insulin prescription 05/13/25 <del>?</del> 19w 4d 123.037 kg 130/83 absent 150 active 19w4d with poorly controlled T2DM on insulin; FBG 130?140, occasional PPG up to 180. No FM yet. FHR 150 bpm, limited facial views on US, otherwise normal anatomy. Plan: Continue glucose monitoring, repeat anatomy US =24wks, follow up next visit, verify referral and [employer] coverage for [facility] specialty scan. RUDY Calculator Estimated Delivery Date Method Current WG Current Estimate 10/03/25 Ultrasound #1 19w 4d Other Estimates 10/03/25 LMP (Certain) 19w 4d Expected Delivery Route/Plan Hx CS x 1, hx PTVD at 35-36 weeks first Macrosomic with last delivery (CS at 35 weeks 8 lbs 14 oz) Poorly controlled diabetes on oral meds prior to with frequent trips into the ER HgBA1C 7.0 first trimester Morbid Obesity Starting BMI 41: Baby ASA Needs Level II US/ echo/ and co-management with MFM PNC labs: 0+/Ab-/Rubella Nonimmune/RPR NR/HIV-/HepBSag-/ Specific Issue/Plans For Repeat CS D/C metformin, start insulin (Lantus 37u qhs, Humalog 6u TID), weekly visits for BG monitoring, genetics, MFM consult at [facility], Tylenol for WHALEN, rubella vaccine. Notes Visit Date: 04/08/25 Last Updated by: Fabby Moya (OB Clinic)MD Pt states she sometimes checks her sugars on her dad's machine and her insurance will not cover one for her. She states if she doesn't feel right she goes to the ER where her BS can be as high as the 300s. Will authorize for diabetic management and counseling. Surprisingly, her first trimester HgB A1c is only 7. Stressed tight glycemic control during and afterwars to avoid joint terminal attack controller complications of DM including loss of limbs and blindness. Office Procedures OB Clinic LOC & Office Proc's Nursing/Assessment Patient Status: Established Patient OB Clinic Nursing Assessment: Medication Reconciliation, Update PMH in EMR and Vital Signs OB Clinic Coordination of Care: Complex Care and Chronic Disease 1-5, Consent,records obtained, informed consent, Education Simp Pt/Fam, 1 Ins Authorization, Lab and Imaging orders, Results/Orders obtained and Staff clarify orders Special Needs: Heart tones Established Patient Charge Established Patient Point Assignment: 150 Established Patient Point Charge: EP Level 4 (120-155) Assessment & Plan Diagnosis / Problem List (1) Uterine size date discrepancy: Status: Acute (2) Morbid obesity with BMI of 40.0-44.9, adult: Status: Acute (3) Insulin dependent type 2 diabetes mellitus: Status: Acute
== END 2025-05-13 09:57 | disposition home or self-care (01) ==
LOC: HODSOBC 09:01
PROVIDERS: Supervising Provider Obstetrics & Gynecology; Visit Provider Obstetrics & Gynecology
DX: O09.892 Supervision of other high risk pregnancies, second trimester (principal); O26.842 Uterine size-date discrepancy, second trimester; O99.212 Obesity complicating pregnancy, second trimester; E66.01 Morbid (severe) obesity due to excess calories; O24.112 Pre-existing type 2 diabetes mellitus, in pregnancy, second trimester; E11.65 Type 2 diabetes mellitus with hyperglycemia; O09.292 Supervision of pregnancy with other poor reproductive or obstetric history, second trimester; O34.219 Maternal care for unspecified type scar from previous cesarean delivery; Z3A.19 19 weeks gestation of pregnancy; Z79.4 Long term (current) use of insulin; Z88.2 Allergy status to sulfonamides; Z91.018 Allergy to other foods
CPT/HCPCS: 99214; G0463

== ENCOUNTER 2025-05-25 15:15 | Outpatient (CLI) | payer MEDICAID, SELFPAY ==
[2025-05-25 15:20] VITALS: BP 121/59; PULSE 106; RESP 18; RESP 97; TEMP 37; BMI 43.1
[2025-05-25 15:24] VITALS: BP 121/59; PULSE 106
--- NOTE | 2025-05-25 15:51 | XR_ITS ---
Examination: Complete OB ultrasound greater than 14 weeks Date and time of exam: May 25, 2025, 1556 hrs. Indications: Decreased movement today Findings: Viable intrauterine single fetus with single amniotic sac presentation cephalic. Cardiac motion 147 BPM. Placenta anterior grade 2. Umbilical cord insertion seen. Amniotic fluid adequate. spine maternal right. Cervix 4.1 cm Right ovary 2.4 cm arterial flow. Left ovary 2.3 cm arterial flow. Composite estimated gestational age based on BPD, head circumference, abdominal circumference, femur length is 20 weeks 4 days gestational age Estimated weight 369 g. Survey of intracranial anatomy, spinal anatomy, abdominal anatomy, four-chamber heart performed with no abnormalities identified. Impression: Viable intrauterine gestation cephalic presentation.
== END 2025-05-25 17:25 | disposition home or self-care (01) ==
LOC: S4S1 15:18 → S4SX 15:18
PROVIDERS: Referring Provider Obstetrics & Gynecology; Visit Provider Obstetrics & Gynecology
DX: O36.8120 Decreased fetal movements, second trimester, not applicable or unspecified (principal); O26.892 Other specified pregnancy related conditions, second trimester; R51.9 Headache, unspecified; R25.2 Cramp and spasm; Z3A.20 20 weeks gestation of pregnancy
CPT/HCPCS: 76805

== ENCOUNTER → 2025-05-26 | Outpatient (CLI) | payer MEDICAID, SELFPAY ==
--- NOTE | 2025-05-26 11:57 | XR_ITS ---
Examination: Complete OB ultrasound greater than 14 weeks Date and time of exam: May 26, 2025 1202 hours INDICATIONS: Diagnosis diabetes, diagnosis of morbid obesity Findings: Viable intrauterine single fetus with single amniotic sac presentation breech Cardiac motion 158 BPM Placenta anterior grade 1 Umbilical cord insertion seen. Amniotic fluid index 9.3 cm Cervix 5 cm Right ovary obscured by bowel gas Left ovary 2.7 cm arterial flow. Composite estimated gestational age based on BPD, head circumference, abdominal circumference, femur length is 21 weeks 0 days Estimated weight 412.5 g. Survey of intracranial anatomy, spinal anatomy, abdominal anatomy, four-chamber heart performed with no abnormalities identified. Impression: Viable intrauterine gestation breech presentation.
== END | disposition home or self-care (01) ==
PROVIDERS: Referring Provider Obstetrics & Gynecology; Visit Provider Obstetrics & Gynecology
DX: O32.1XX0 Maternal care for breech presentation, not applicable or unspecified (principal); Z3A.21 21 weeks gestation of pregnancy
CPT/HCPCS: 76805

== ENCOUNTER 2025-06-09 08:11 | Outpatient (AMB) | payer MEDICAID, SELFPAY ==
[2025-06-09 08:22] VITALS: BP 99/63; PULSE 90; RESP 16; TEMP 36.2; O2SAT 98; BMI 43.9
--- NOTE | 2025-06-09 08:22 | OBCLNT_ITS ---
Vital Signs 06/09/25 08:22 Height 1.7 m Height Method Stated Weight 127.063 kg Weight Measurement Method Standing Scale BMI 43.9 BP 99/63 Blood Pressure Source Automatic Cuff Blood Pressure Location Left Upper Arm Position Sitting Respiration 16 Pulse 90 Pulse Source Monitor Temp 97.2 F Temp Source Oral Pulse Oximetry (%) 98 Oxygen Delivery Method Room Air Allergies/Home Meds Allergies & Medications Allergies Sonterra And Derivatives Allergy (Severe, Verified 06/09/25 08:23) Rash Sulfa (Sulfonamide Antibiotics) Allergy (Severe, Verified 06/09/25 08:23) Hives Medication Reconciliation blood sugar diagnostic (Blood Glucose Test strips) #100 ea 03/25/25 [Rx Confirmed 06/09/25] flash glucose sensor (FreeStyle Elbert 2 Sensor kit) #2 ea 03/25/25 [Rx Confirmed 06/09/25] lancets 21 gauge #100 ea 03/25/25 [Rx Confirmed 06/09/25] ondansetron 4 mg disintegrating tablet 4 mg PO Q6H PRN nausea and vomiting #10 tabs 03/25/25 [Rx Confirmed 06/09/25] pen needle, diabetic 29 gauge x 1/2 #100 ea 03/25/25 [Rx Confirmed 06/09/25] vitamins with calcium no.72-iron 27 mg-folic acid 1 mg tablet ( Vitamins Plus Low Iron) 1 tab PO QDAY 90 days #90 tabs 03/25/25 [Rx Confirmed 06/09/25] insulin glargine U-300 conc 300 unit/mL (1.5 mL) subcutaneous pen 35 unit (0.1167 mL) subcut BID 30 days #7.5 mL 04/27/25 [Rx Confirmed 06/09/25] cetirizine 10 mg tablet 10 mg PO QDAY PRN allergy symptoms 30 days #30 tabs 05/19/25 [Rx Confirmed 06/09/25] Intake Visit Data Collection New Patient or Established: Established Patient (seen at [facility] within 3 years) Reason for Visit:: OBC Seen by Clinical Staff ONLY (RN/MA): No Meat Scrubber Required: No Do You Feel Safe at Home: Yes Authorities Contacted: N/A PCP or OBGYN visit in last 3 months: Yes Date of Last PCP or OBGYN visit: 05/25/25 Hx Now: Yes Are you currently on any form of Control: No Pain Present Currently: No Pain Scale Used: Hodgson-Kc/Numerical Pain scale:: 0 Smoking Status Smoking Status: Never smoker Questionnaires Covid-19 Vaccine Questionnaire Has patient been vacinated for Covid-19 Have you been vacinated for Covid-19: No PHQ-9 PHQ-2 Over the last 2 weeks, how often have you been bothered by any of the following problems? 1. Little interest or pleasure in doing things: not at all 2. Feeling down, depressed, or hopeless: not at all Total score: 0 PHQ-9 3. Trouble falling or staying asleep, or sleeping too much: Not at all 4. Feeling tired or having little energy: Not at all 5. Poor appetite or overeating: Not at all 6. Feeling bad about yourself - or that you are a failure or have let yourself or your family down: Not at all 7. Trouble concentrating on things, such as reading the newspaper or watching television: Not at all 8. Moving or speaking so slowly that other people could have noticed? - Or the opposite - being so fidgety or restless that you have been moving around a lot more than usual: not at all 9. Thoughts that you would be better off or of hurting yourself in some way: Not at all Total score: 0 If you checked off any problems, how difficult have these problems made it for you to do your work, take care of things at home, or get along with other people?: not difficult at all Source: Developed by Drs. Omer Forbes, Edith Quintanilla, Bharat Mantilla and colleagues, with an educational ferny from [employer]. 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 Initial visit. Cramping improved, WHALEN x4 days. T2DM poorly controlled (A1C 7.0, BG up to 330-340). Hx infertility, deliveries at 35w (both sons). FHR 159. Rubella non-immune. Plan: D/C metformin, start insulin (Lantus 37u qhs, Humalog 6u TID), weekly visits for BG monitoring, genetics, MFM consult at [facility], [place] for WHALEN, rubella vaccine. 03/18/25 -?-?-?-?-?-?-?-?-?-?-?-?- 11w 4d 115.779 kg 132/87 165 at 11w4d with GDM on Lantus 40u qAM and rapid-acting insulin 8u TID (? to 10u for high-carb meals); improved BG 80?90 fasting, peak 234. Plan: C ontinue insulin, educate on site rotation, order CGM to [facility], log BGs, f/u in 4w; NIPT negative, routine care continues. 03/25/25 -?-?-?-?-?-?-?-?-?-?-?-?- 12w 4d 115.836 kg 125/81 absent 165 Patient presents for a routine visit at 12 weeks and 4 days gestation. She reports that her blood sugar levels have been spiking to as high as 350 despite being prescribed insulin based on weight-based doses. - Increase insulin doses: ? Lantus: 30 units subcutaneously twic e daily ? Rapid-acting insulin: 16 units subcu taneously three times daily before meals - Provide patient education on proper in sulin injection technique to minimize bruising. - Dispense continuous glucose monitor (C GM) and new glucometer. - Review glucose logs at next visit. 04/08/25 -?-?-?-?-?-?-?-?-?-?-?-?- 14w 4d 117.084 kg 127/77 145 absent No VB or LOF. No cramping Not reliable with checking sugars 04/15/25 -?-?-?-?-?-?-?-?-?-?-?-?- 15w 4d 117.594 kg 119/77 absent 168 - Patient reports her blood sugar control has been pretty good recently: - Denies dry mouth, which she associat es with high blood sugar - Reports constant urination, which sh e attributes to - Patient is experiencing difficulty obt aining diabetic supplies: - Using her diabetic father's supplies sparingly - Awaiting a call from a service to as sist with obtaining supplies - movement: - Patient inquires about not feeling f etal movement yet - Denies cramping, nausea, or vomiting - Await call from diabetes management service on (tomorrow) for assistance with supplies and potential insulin adjustments - Continue current diabetes management r egimen 04/27/25 -?-?-?-?-?-?-?-?-?-?-?-?- 17w 2d 120.882 kg 130/80 absent 147 acti ve 23-year-old at 17 weeks and 2 days gestation with poorly controlled gestational diabetes mellitus. Blood glucose readings range from 90-240 mg/dL, with most readings between 180-230 mg/dL. Current insulin regimen includes NPH 30 units in the morning and evening, with 16 units of rapid-acting insulin with meals. Plan - Increase morning insulin dose from 30 units to 35 units - Increase mealtime insulin dose from 16 units to 18 units - Continue evening insulin dose at 30 un its - Follow up in two weeks - Awaiting insurance approval for [employer] list ultrasound at [facility] - Resend insulin prescription 05/13/25 -?-?-?-?-?-?-?-?-?-?-?-?- 19w 4d 123.037 kg 130/83 absent 150 acti ve 19w4d with poorly controlled T2DM on insulin; FBG 130?140, occasional PPG up to 180. No FM yet. FHR 150 bpm, limited facial views on US, otherwise normal anatomy. Plan: Continue glucose monitoring, repeat anatomy US =24wks, follow up next visit, verify referral and [employer] coverage for [facility] specialty scan. 06/09/25 -?-?-?-?-?-?-?-?-?-?-?-?- 23w 3d 127.063 kg 99/63 absent 169 activ e - She reports her blood sugars are doing well with diabetes management. - Patient continues to experience carpal tunnel symptoms in her hand. - She denies contractions, cramping, or other -related problems. - Patient reports feeling movement well, which is appropriate for her gestational age. - She is adherent to insulin therapy and will continue working with home health services for diabetes management. - Patient denies wanting to use an insul in pump, preferring to continue with pen/syringe method. - Continue c urrent insulin regimen; home health service to assist with insulin management - Schedule at 37 weeks (tomas fitzgerald around September 14-) - Follow up with [facility] o n June 17 for echocardiogram and growth scan - Return for visit in 4 weeks - Monitor for signs of preeclampsia (bernardo vated blood pressure with headache, visual disturbances, right upper quadrant pain) - Transition to biweekly visits after next appointment RUDY Calculator Estimated Delivery Date Method Current WG Current Estimate 10/03/25 Ultrasound #1 23w 3d Other Estimates 10/03/25 LMP (Certain) 23w 3d Expected Delivery Route/Plan Hx CS x 1, hx PTVD at 35-36 weeks first Macrosomic infant with last delivery (CS at 35 weeks 8 lbs 14 oz) Poorly controlled diabetes on oral meds prior to with frequent trips into the ER HgBA1C 7.0 first trimester Morbid Obesity Starting BMI 41: Baby ASA Needs Level II US/ echo/ and co-management with [facility] PN labs: 0+/Ab-/Rubella Nonimmune/RPR NR/HIV-/HepBSag-/ Specific Issue/Plans For Repeat CS D/C metformin, start insulin (Lantus 37u qhs, Humalog 6u TID), weekly visits for BG monitoring, genetics, MFM consult at [facility], Tylenol for WHALEN, rubella vaccine. Notes Visit Date: 06/09/25 Last Updated by: Fabian Ramos MD [facility] ultrasound report: - Single live fetus - Clinical gestational age: 22 weeks 4 days (consistent with LMP dates) - Composite age: 21 weeks 6 days - Estimated weight: 530 grams - Amniotic fluid: Normal - anatomy: Normal - Placenta: Anterior, no previa, no ultrasound evidence of accreta - Cervical length: 4.5 cm, closed cervix - No funneling Visit Date: 04/08/25 Last Updated by: Fabby Moya (OB Clinic)MD Pt states she sometimes checks her sugars on her dad's machine and her insurance will not cover one for her. She states if she doesn't feel right she goes to the ER where her BS can be as high as the 300s. Will authorize for diabetic management and counseling. Surprisingly, her first trimester HgB A1c is only 7. Stressed tight glycemic control during and afterwars to avoid long term care administrator complications of DM including loss of limbs and blindness. Office Procedures OB Clinic LOC & Office Proc's Nursing/Assessment Patient Status: Established Patient OB Clinic Nursing Assessment: Medication Reconciliation, Update PMH in EMR and Vital Signs OB Clinic Coordination of Care: Education Complex Pt/Fam, Consent,records obtained, informed consent, Lab and Imaging orders and Staff clarify orders Special Needs: Heart tones Established Patient Charge Established Patient Point Assignment: 110 Established Patient Point Charge: EP Level 3 (80-115) Assessment & Plan Diagnosis / Problem List (1) Uterine size date discrepancy: Status: Acute (2) Morbid obesity with BMI of 40.0-44.9, adult: Status: Acute (3) Previous delivery affecting : Status: Acute (4) Insulin dependent type 2 diabetes mellitus: Status: Acute (5) Type 2 diabetes mellitus with unspecified complications: Status: Acute Plan Problem List - Gestational diabetes mellitus - Carpal tunnel syndrome - High risk Assessment 3 para 2 at 23 weeks and 3 days gestation with mi . ultrasound shows normal growth parameters, normal amniotic fluid, and normal anatomy. Anterior placenta without previa or evidence of accreta. Cervical length 4.5 cm with closed cervix. Patient has gestational diabetes, currently managed with insulin. Reports carpal tunnel symptoms. History of preeclampsia in previous , but currently normotensive without signs of preeclampsia. heart rate 169 bpm, within normal range. Patient reports good movement. Plan - Continue current insulin regimen; home health service to assist with insulin management - Schedule at 37 weeks (estimated around September 14-) - Follow up with [facility] on June 17 for echocardiogram and growth scan - Return for visit in 4 weeks - Monitor for signs of preeclampsia (elevated blood pressure with headache, visual disturbances, right upper quadrant pain) - Transition to biweekly visits after next appointment 1. Progress Reviewed gestational age (23 weeks 3 days), growth (consistent with dates, estimated weight 530 grams), and heart rate (169 bpm, normal). Planned frequent visits (every 4 weeks, then every 2 weeks after next appointment). 2. Instructed patient to monitor movements and report decreases immediately. 3. Testing Counseled on routine third-trimester labs per guidelines. Discussed potential need for ultrasound or monitoring based on risk factors ( echocardiogram scheduled for June 17 due to cardiac concerns). 4. Preeclampsia Precaution Educated on preeclampsia signs: severe headache that doesn't resolve, vision changes (flashes, floaters), right upper quadrant pain, sudden swelling. Advised urgent reporting of symptoms and discussed blood pressure monitoring if high risk (patient has history of preeclampsia requiring early delivery at 35 weeks). 5. Labor Precautions Reviewed labor signs: regular contractions, pelvic pressure, back pain, bleeding, or fluid leakage. Instructed to seek immediate care for these symptoms. 6. Lifestyle and Delivery Preparation Reinforced vitamins, nutrition, and safe activity. Discussed plan (planned section at 37 weeks), pain management, and . Advised on labor preparation (e.g., hospital bag) and expectations. 7. Psychosocial Support Assessed emotional well-being and offered resources for mental health or parenting support.
== END 2025-06-09 10:02 | disposition home or self-care (01) ==
LOC: HODSOBC 08:11
PROVIDERS: PCP Obstetrics & Gynecology; Referring Provider Obstetrics & Gynecology; Supervising Provider Obstetrics & Gynecology; Visit Provider Obstetrics & Gynecology
DX: O09.292 Supervision of pregnancy with other poor reproductive or obstetric history, second trimester (principal); O34.219 Maternal care for unspecified type scar from previous cesarean delivery; O09.892 Supervision of other high risk pregnancies, second trimester; O26.842 Uterine size-date discrepancy, second trimester; O99.212 Obesity complicating pregnancy, second trimester; E66.01 Morbid (severe) obesity due to excess calories; O24.112 Pre-existing type 2 diabetes mellitus, in pregnancy, second trimester; Z3A.23 23 weeks gestation of pregnancy; O99.352 Diseases of the nervous system complicating pregnancy, second trimester; G56.00 Carpal tunnel syndrome, unspecified upper limb; Z87.59 Personal history of other complications of pregnancy, childbirth and the puerperium; Z79.4 Long term (current) use of insulin; Z88.2 Allergy status to sulfonamides
CPT/HCPCS: 99213; G0463

== ENCOUNTER 2025-06-11 16:58 | Observation (INO) | payer MEDICAID, SELFPAY ==
[2025-06-11] VITALS (11 sets, daily range): BP systolic 131–176; BP diastolic 66–84; PULSE 93–98; RESP 18–98; TEMP 36.7; BMI 44.3
[2025-06-11 18:38] LABS: Collection Type, Urine Clean Catch
[2025-06-11 18:51] LABS: Basophils # (Auto) 0.0 Thou/mm3 (0.0-0.2); Basophils % (Auto) 0 % (0-2.5); Eosinophils # (Auto) 0.2 Thou/mm3 (0.0-0.5); Eosinophils % (Auto) 1 % (0-10); Hematocrit 30.3 % (36.0-46.0); Hemoglobin 10.0 g/dL (12.0-16.0); Immature Granulocytes Auto 0.11 Thou/mm3 (0.00-0.00); Lymphocytes # (Auto) 2.1 Thou/mm3 (1.0-4.8); Lymphocytes % (Auto) 20 % (10-50); Mean Corpuscular HGB Conc 33.0 g/dl (31.0-37.0); Mean Corpuscular Hemoglobin 27.2 pg (25.0-35.0); Mean Corpuscular Volume 83 fL (80-100); Monocytes # (Auto) 0.6 Thou/mm3 (0.0-0.8); Monocytes % (Auto) 5 % (0-12); Neutrophils # (Auto) 7.7 Thou/mm3 (1.8-7.7); Neutrophils % (Auto) 72 % (37-80); Nucleated Red Blood Cell # 0.00 Thou/mm3 (0.00-0.00); Nucleated Red Blood Cell % 0 /100 WBC (0); Platelet Count 204 Thou/mm3 (140-440); RDW Standard Deviation 41.4 fL (36.4-46.3); Red Blood Count 3.67 Miln/mm3 (4.00-5.20); White Blood Count 10.6 Thou/mm3 (3.6-11.0)
[2025-06-11 18:59] LABS: Bacteria,Urine 1+; Bilirubin,Urine Negative (Negative); Blood,Urine Negative (Negative); Clarity,Urine Turbid (Clear/Hazy); Color,Urine Yellow (Lt Yel-Yel); Glucose, Urine Trace (Negative); Ketones,Urine Negative (Negative); Leukocyte Esterase,Urine Positive (Negative); Nitrite,Urine Negative (Negative); PH,Urine 5.5 (5.0-7.0); Protein,Urine Negative (Neg - Trace); RBC,Urine 6 /hpf (0-3); Specific Gravity,Urine 1.028 (1.001-1.035); Squamous Epithelial Cell,Urine 14 /hpf (0-5); Urobilinogen,Urine Negative mg/dL (0.0-1.0); WBC,Urine 10 /hpf (0-5)
[2025-06-11 19:01] LABS: Fibrinogen 568 mg/dL (175-375); INR 1.0 (0.9-1.3); Partial Thromboplastin Time 25.4 Seconds (22.0-36.0); Prothrombin Time 10.8 Seconds (9.0-12.2)
[2025-06-11 19:02] LABS: Creatinine,Random Urine 176 mg/dL (30-125); Protein Total, Random Urine 26 mg/dL (1-14)
[2025-06-11 19:06] LABS: Alanine Aminotransferase 12 U/L (10-49); Albumin, Serum 3.4 gm/dL (3.5-5.0); Albumin/Globulin Ratio 1.6 (1.2-2.2); Alkaline Phosphatase 72 U/L (46-116); Anion Gap 11 (7-16); Aspartate Amino Transferase < 8 U/L (0-34); BUN/Creatinine Ratio 10 Ratio (12-20); Bilirubin,Total 0.2 mg/dL (0.3-1.2); Blood Urea Nitrogen 6 mg/dL (9-23); Calcium 8.4 mg/dL (8.3-10.6); Calcium (Corrected) 8.9 mg/dL (8.5-10.1); Carbon Dioxide 23.8 mMol/L (20.0-31.0); Chloride 105 mMol/L (98-107); Creatinine (Component) 0.6 mg/dL (0.6-1.3); Estimated Creatinine Clearance 194.6 mL/min (>60); Globulin 2.1 gm/dL (2.3-3.5); Glucose 237 mg/dL (74-106); LDH (Lactate Dehydrogenase) 116 U/L (120-246); Osmolality,Calculated 285 (275-295); Potassium 3.4 mMol/L (3.4-5.1); Sodium 140 mMol/L (136-145); Total Protein 5.5 gm/dL (5.7-8.2); Uric Acid 3.4 mg/dL (3.1-7.8); eGFR > 60 See Note
== END 2025-06-11 19:42 | disposition home or self-care (01) ==
PROVIDERS: Admitting Provider Obstetrics & Gynecology; Visit Provider Obstetrics & Gynecology
DX: Z34.82 Encounter for supervision of other normal pregnancy, second trimester (principal); Z3A.23 23 weeks gestation of pregnancy
CPT/HCPCS: 36415; 59899; 80053; 81001; 82570; 83615; 84156; 84550; 85025; 85384; 85610; 85730

== ENCOUNTER 2025-06-23 12:02 | Observation (INO) | payer MEDICAID, SELFPAY ==
[2025-06-23] VITALS (10 sets, daily range): BP systolic 105–121; BP diastolic 50–73; PULSE 96–107; RESP 16–98; TEMP 36.9; BMI 44.3
--- NOTE | 2025-06-23 12:39 | XR_ITS ---
Examination: Complete OB ultrasound greater than 14 weeks Date and time of exam: June 23, 2025, 12:55 p.m. INDICATIONS: Decreased movement today, headaches beginning 2 days ago Findings: Viable intrauterine single fetus with single amniotic sac presentation breech Cardiac motion 160 bpm Placenta anterior grade 2 Medical cord insertion and 3 vessel seen. Amniotic fluid adequate spine maternal left Cervix 3.6 cm Ovaries obscured by bowel gas. Composite estimated gestational age based on BPD, head circumference, abdominal circumference, femur length is 25 weeks 2 days Estimated weight 816 g. Survey of intracranial anatomy, spinal anatomy, abdominal anatomy, four-chamber heart performed with no abnormalities identified. Impression: Viable intrauterine gestation in breech presentation.
[2025-06-23 13:23] LABS: Collection Type, Urine Clean Catch
[2025-06-23 13:24] LABS: Basophils # (Auto) 0.0 Thou/mm3 (0.0-0.2); Basophils % (Auto) 0 % (0-2.5); Eosinophils # (Auto) 0.1 Thou/mm3 (0.0-0.5); Eosinophils % (Auto) 1 % (0-10); Hematocrit 30.5 % (36.0-46.0); Hemoglobin 10.1 g/dL (12.0-16.0); Immature Granulocytes Auto 0.08 Thou/mm3 (0.00-0.00); Lymphocytes # (Auto) 2.1 Thou/mm3 (1.0-4.8); Lymphocytes % (Auto) 20 % (10-50); Mean Corpuscular HGB Conc 33.1 g/dl (31.0-37.0); Mean Corpuscular Hemoglobin 26.9 pg (25.0-35.0); Mean Corpuscular Volume 81 fL (80-100); Monocytes # (Auto) 0.6 Thou/mm3 (0.0-0.8); Monocytes % (Auto) 6 % (0-12); Neutrophils # (Auto) 7.3 Thou/mm3 (1.8-7.7); Neutrophils % (Auto) 72 % (37-80); Nucleated Red Blood Cell # 0.00 Thou/mm3 (0.00-0.00); Nucleated Red Blood Cell % 0 /100 WBC (0); Platelet Count 226 Thou/mm3 (140-440); RDW Standard Deviation 40.5 fL (36.4-46.3); Red Blood Count 3.75 Miln/mm3 (4.00-5.20); White Blood Count 10.2 Thou/mm3 (3.6-11.0)
[2025-06-23 13:43] LABS: Bilirubin,Urine Negative (Negative); Blood,Urine Negative (Negative); Clarity,Urine Clear (Clear/Hazy); Color,Urine Lt-Yellow (Lt Yel-Yel); Glucose, Urine 4+ (Negative); Ketones,Urine Negative (Negative); Leukocyte Esterase,Urine Negative (Negative); Nitrite,Urine Negative (Negative); PH,Urine 7.0 (5.0-7.0); Protein,Urine Negative (Neg - Trace); RBC,Urine < 1 /hpf (0-3); Specific Gravity,Urine 1.017 (1.001-1.035); Squamous Epithelial Cell,Urine 9 /hpf (0-5); Urobilinogen,Urine Negative mg/dL (0.0-1.0); WBC,Urine 1 /hpf (0-5)
[2025-06-23 13:44] LABS: Fibrinogen 560 mg/dL (175-375); INR 1.0 (0.9-1.3); Partial Thromboplastin Time 24.8 Seconds (22.0-36.0); Prothrombin Time 10.3 Seconds (9.0-12.2)
[2025-06-23 13:52] LABS: Alanine Aminotransferase 13 U/L (10-49); Albumin, Serum 3.3 gm/dL (3.5-5.0); Albumin/Globulin Ratio 1.4 (1.2-2.2); Alkaline Phosphatase 73 U/L (46-116); Anion Gap 8 (7-16); Aspartate Amino Transferase 19 U/L (0-34); BUN/Creatinine Ratio 8 Ratio (12-20); Bilirubin,Total 0.2 mg/dL (0.3-1.2); Blood Urea Nitrogen 5 mg/dL (9-23); Calcium 8.5 mg/dL (8.3-10.6); Calcium (Corrected) 9.1 mg/dL (8.5-10.1); Carbon Dioxide 22.7 mMol/L (20.0-31.0); Chloride 106 mMol/L (98-107); Creatinine (Component) 0.6 mg/dL (0.6-1.3); Estimated Creatinine Clearance 194.6 mL/min (>60); Globulin 2.4 gm/dL (2.3-3.5); Glucose 212 mg/dL (74-106); LDH (Lactate Dehydrogenase) 128 U/L (120-246); Osmolality,Calculated 277 (275-295); Potassium 3.7 mMol/L (3.4-5.1); Sodium 137 mMol/L (136-145); Total Protein 5.7 gm/dL (5.7-8.2); Uric Acid 3.1 mg/dL (3.1-7.8); eGFR > 60 See Note
[2025-06-23 13:54] LABS: Creatinine,Random Urine 61 mg/dL (30-125); Protein Total, Random Urine 11 mg/dL (1-14)
== END 2025-06-23 14:40 | disposition home or self-care (01) ==
PROVIDERS: Admitting Provider Obstetrics & Gynecology; Visit Provider Obstetrics & Gynecology
DX: O36.8120 Decreased fetal movements, second trimester, not applicable or unspecified (principal); Z3A.25 25 weeks gestation of pregnancy; O26.892 Other specified pregnancy related conditions, second trimester; R51.9 Headache, unspecified; R22.41 Localized swelling, mass and lump, right lower limb; O32.1XX0 Maternal care for breech presentation, not applicable or unspecified
CPT/HCPCS: 36415; 59025; 59899; 76805; 80053; 81001; 82570; 83615; 84156; 84550; 85025; 85384; 85610; 85730

== ENCOUNTER 2025-06-26 08:12 | Outpatient (AMB) | payer MEDICAID, SELFPAY ==
--- NOTE | 2025-06-26 08:17 | AMB.OBVISIT ---
Vital Signs 06/26/25 08:18 Height 1.7 m Height Method Stated Weight 128.083 kg Weight Measurement Method Standing Scale BMI 44.2 BP 134/83 H Blood Pressure Source Automatic Cuff Blood Pressure Location Right Upper Arm Position Sitting Respiration 17 Pulse 91 Pulse Source Monitor Temp 98.6 F Temp Source Temporal Artery Scan Pulse Oximetry (%) 98 Oxygen Delivery Method Room Air Allergies/Home Meds Allergies & Medications Allergies Tompkins And Derivatives Allergy (Severe, Verified 07/30/25 13:15) Rash Sulfa (Sulfonamide Antibiotics) Allergy (Severe, Verified 07/30/25 13:15) Hives Medication Reconciliation blood sugar diagnostic (Blood Glucose Test strips) #100 ea 03/25/25 [Rx Confirmed 07/30/25] lancets 21 gauge #100 ea 03/25/25 [Rx Confirmed 07/30/25] ondansetron 4 mg disintegrating tablet 4 mg PO Q6H PRN nausea and vomiting #10 tabs 03/25/25 [Rx Confirmed 07/30/25] pen needle, diabetic 29 gauge x 1/2 #100 ea 03/25/25 [Rx Confirmed 07/30/25] vitamins with calcium no.72-iron 27 mg-folic acid 1 mg tablet ( Vitamins Plus Low Iron) 1 tab PO QDAY 90 days #90 tabs 03/25/25 [Rx Confirmed 07/30/25] folic acid 1 mg tablet 4 mg (4 x 1 mg) PO QDAY 90 days #360 tabs 06/15/25 [Rx Confirmed 07/30/25] insulin glargine 100 unit/mL (3 mL) subcutaneous pen (Lantus Solostar U-100 Insulin) See Rx Instructions subcut BID 30 days #30 mL 07/29/25 [Rx Confirmed 07/30/25] insulin lispro 100 unit/mL subcutaneous pen (Humalog KwikPen (U-100) Insulin) See Rx Instructions subcut TID #41 mL 07/29/25 [Rx Confirmed 07/30/25] sfgqfowywg-mpoaxdvjttpsu-gugirzsc 50 mg-300 mg-40 mg capsule (Fioricet) 1 cap PO Q6H PRN pain 5 days #10 caps 07/30/25 [Rx] Intake Visit Data Collection New Patient or Established: Established Patient (seen at [facility] within 3 years) Reason for Visit:: OBC / HEADACHES Seen by Clinical Staff ONLY (RN/MA): No Mobile Sales Technician Required: No Do You Feel Safe at Home: Yes Authorities Contacted: N/A PCP or OBGYN visit in last 3 months: Yes Date of Last PCP or OBGYN visit: 06/23/25 Hx Now: Yes Are you currently on any form of Control: No Pain Present Currently: No Pain Scale Used: Hodgson-Kc/Numerical Pain scale:: 0 Smoking Status Smoking Status: Never smoker Questionnaires Covid-19 Vaccine Questionnaire Has patient been vacinated for Covid-19 Have you been vacinated for Covid-19: No PHQ-9 PHQ-2 Over the last 2 weeks, how often have you been bothered by any of the following problems? 1. Little interest or pleasure in doing things: not at all 2. Feeling down, depressed, or hopeless: not at all Total score: 0 PHQ-9 3. Trouble falling or staying asleep, or sleeping too much: Not at all 4. Feeling tired or having little energy: Not at all 5. Poor appetite or overeating: Not at all 6. Feeling bad about yourself - or that you are a failure or have let yourself or your family down: Not at all 7. Trouble concentrating on things, such as reading the newspaper or watching television: Not at all 8. Moving or speaking so slowly that other people could have noticed? - Or the opposite - being so fidgety or restless that you have been moving around a lot more than usual: not at all 9. Thoughts that you would be better off or of hurting yourself in some way: Not at all Total score: 0 If you checked off any problems, how difficult have these problems made it for you to do your work, take care of things at home, or get along with other people?: not difficult at all Source: Developed by Drs. Omer Forbes, Edith Quintanilla, Bharat Mantilla and colleagues, with an educational ferny from [employer]. 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 Initial visit. Cramping improved, WHALEN x4 days. T2DM poorly controlled (A1C 7.0, BG up to 330-340). Hx infertility, deliveries at 35w (both sons). FHR 159. Rubella non-immune. Plan: D/C metformin, start insulin (Lantus 37u qhs, Humalog 6u TID), weekly visits for BG monitoring, genetics, MFM consult at [facility], Tylenol for WHALEN, rubella vaccine. 03/18/25 <del>?</del> 11w 4d 115.779 kg 132/87 165 at 11w4d with GDM on Lantus 40u qAM and rapid-acting insulin 8u TID (? to 10u for high-carb meals); improved BG 80?90 fasting, peak 234. Plan: Continue insulin, educate on site rotation, order CGM to [facility], log BGs, f/u in 4w; NIPT negative, routine care continues. 03/25/25 <del>?</del> 12w 4d 115.836 kg 125/81 absent 165 Patient presents for a routine visit at 12 weeks and 4 days gestation. She reports that her blood sugar levels have been spiking to as high as 350 despite being prescribed insulin based on weight-based doses. - Increase insulin doses: ? Lantus: 30 units subcutaneously twice daily ? Rapid-acting insulin: 16 units subcutaneously three times daily before meals - Provide patient education on proper insulin injection technique to minimize bruising. - Dispense continuous glucose monitor (CGM) and new glucometer. - Review glucose logs at next visit. 04/08/25 <del>?</del> 14w 4d 117.084 kg 127/77 145 absent No VB or LOF. No cramping Not reliable with checking sugars 04/15/25 <del>?</del> 15w 4d 117.594 kg 119/77 absent 168 - Patient reports her blood sugar control has been pretty good recently: - Denies dry mouth, which she associates with high blood sugar - Reports constant urination, which she attributes to - Patient is experiencing difficulty obtaining diabetic supplies: - Using her diabetic father's supplies sparingly - Awaiting a call from a service to assist with obtaining supplies - movement: - Patient inquires about not feeling movement yet - Denies cramping, nausea, or vomiting - Await call from diabetes management service on (tomorrow) for assistance with supplies and potential insulin adjustments - Continue current diabetes management regimen 04/27/25 <del>?</del> 17w 2d 120.882 kg 130/80 absent 147 active 23-year-old at 17 weeks and 2 days gestation with poorly controlled gestational diabetes mellitus. Blood glucose readings range from 90-240 mg/dL, with most readings between 180-230 mg/dL. Current insulin regimen includes NPH 30 units in the morning and evening, with 16 units of rapid-acting insulin with meals. Plan - Increase morning insulin dose from 30 units to 35 units - Increase mealtime insulin dose from 16 units to 18 units - Continue evening insulin dose at 30 units - Follow up in two weeks - Awaiting insurance approval for specialist ultrasound at [facility] - Resend insulin prescription 05/13/25 <del>?</del> 19w 4d 123.037 kg 130/83 absent 150 active 19w4d with poorly controlled T2DM on insulin; FBG 130?140, occasional PPG up to 180. No FM yet. FHR 150 bpm, limited facial views on US, otherwise normal anatomy. Plan: Continue glucose monitoring, repeat anatomy US =24wks, follow up next visit, verify referral and [employer] coverage for [facility] specialty scan. 06/09/25 <del>?</del> 23w 3d 127.063 kg 99/63 absent 169 active - She reports her blood sugars are doing well with diabetes management. - Patient continues to experience carpal tunnel symptoms in her hand. - She denies contractions, cramping, or other -related problems. - Patient reports feeling movement well, which is appropriate for her gestational age. - She is adherent to insulin therapy and will continue working with home health services for diabetes management. - Patient denies wanting to use an insulin pump, preferring to continue with pen/syringe method. - Continue current insulin regimen; home health service to assist with insulin management - Schedule at 37 weeks (estimated around September 14-) - Follow up with [facility] on June 17 for echocardiogram and growth scan - Return for visit in 4 weeks - Monitor for signs of preeclampsia (elevated blood pressure with headache, visual disturbances, right upper quadrant pain) - Transition to biweekly visits after next appointment 06/26/25 <del>?</del> 25w 6d 128.083 kg 134/83 absent unknown 145 active - She has poorly controlled gestational diabetes requiring insulin management. - Lantus was recently increased to 35 units twice daily - Humalog was increased to 18 units before meals - Blood sugars have been elevated with readings nothing more than 180, 200 - She uses a continuous glucose monitor (CGM) - She declined an insulin pump - Patient reports developing early carpal tunnel syndrome. - She was recently hospitalized for ankle swelling. - Laboratory studies were performed and came back normal - This ruled out pre-eclampsia - Patient reports the baby is active and positioned riding high up here. - She may be developing cold symptoms as there is a flu going around. - She is taking aspirin as prescribed. - Patient has upcoming appointments at [facility] or [place] for both ultrasound and echocardiogram this coming week. 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 - She is currently managed on Lantus 35 units twice daily and Humalog insulin, with insulin management provided by the nursing team from [facility]. - Her continuous glucose monitor shows good numbers indicating improved glycemic control. - She reports the baby is active. - She experienced a pharmacy issue where only short-acting insulin was provided instead of the prescribed long-acting insulin. - Send prescription for long-acting insulin (Lantus); provide printout to patient to resolve pharmacy dispensing issue - Perform blood work including CBC, RPR, and A1c - Schedule for Sunday, September 14 at 12:30 p.m. - Prepare tubal ligation papers in early August, one month before - Begin monitoring at 30 weeks; patient will be contacted for appointment - Follow-up appointment in 2 weeks - Continue current insulin regimen with Lantus 35 BID and Humalog managed by [facility] nursing team - Next ultrasound scheduled at [facility] on August 17 07/30/25 <del>?</del> 30w 5d 130.408 kg 134/89 absent cephalic 31 145 active Reports WHALEN for 3 days, denies VC, and epigastric pain. - She is currently managed by a home healthcare service for diabetes monitoring via telephone consultations. - New insulin prescriptions with higher doses were sent yesterday due to poor glycemic control. - She reports headache for 3 days duration. - Has not tried Tylenol or other oyoc-hip-fgmcezo pain relievers. - She confirms movement and reports the baby is active. - She went to Labor and Delivery today for evaluation. - She continues home blood pressure monitoring as previously established. - Monitoring appointments are scheduled for Mondays and . - New insulin prescriptions sent yesterday with higher doses for poorly controlled gestational diabetes - Prescribe Fioricet for headache management - Continue home blood pressure monitoring - Schedule weekly visits going forward - Monitoring appointments on Mondays and - Plan delivery at 36-37 weeks depending on sugar control, not at 35 weeks unless preeclampsia develops RUDY Calculator Estimated Delivery Date Method Current WG Current Estimate 10/03/25 Ultrasound #1 31w 0d Other Estimates 10/03/25 LMP (Certain) 31w 0d Expected Delivery Route/Plan Hx CS x 1, hx PTVD at 35-36 weeks first Macrosomic with last delivery (CS at 35 weeks 8 lbs 14 oz) Poorly controlled diabetes on oral meds prior to with frequent trips into the ER HgBA1C 7.0 first trimester Morbid Obesity Starting BMI 41: Baby ASA Needs Level II US/ echo/ and co-management with [facility] labs: 0+/Ab-/Rubella Nonimmune/RPR NR/HIV-/HepBSag-/ Specific Issue/Plans For Repeat CS D/C metformin, start insulin (Lantus 37u qhs, Humalog 6u TID), weekly visits for BG monitoring, genetics, MFM consult at [facility], Tylenol for WHALEN, rubella vaccine. Notes Visit Date: 06/09/25 Last Updated by: Fabian Ramos MD [facility] ultrasound report: - Single live fetus - Clinical gestational age: 22 weeks 4 days (consistent with LMP dates) - Composite age: 21 weeks 6 days - Estimated weight: 530 grams - Amniotic fluid: Normal - anatomy: Normal - Placenta: Anterior, no previa, no ultrasound evidence of accreta - Cervical length: 4.5 cm, closed cervix - No funneling Visit Date: 04/08/25 Last Updated by: Fabby Moya (OB Clinic)MD Pt states she sometimes checks her sugars on her dad's machine and her insurance will not cover one for her. She states if she doesn't feel right she goes to the ER where her BS can be as high as the 300s. Will authorize for diabetic management and counseling. Surprisingly, her first trimester HgB A1c is only 7. 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 Office Procedures OBC Clinic LOC & Office Proc's Nursing/Assessment Patient Status: Established Patient OB Clinic Nursing Assessment: Medication Reconciliation, Update PMH in EMR and Vital Signs OB Clinic Coordination of Care: Complex Care and Chronic Disease 1-5, Education Complex Pt/Fam, Consent,records obtained, informed consent, Lab and Imaging orders and Staff clarify orders Special Needs: Heart tones Established Patient Charge Established Patient Point Assignment: 135 Established Patient Point Charge: EP Level 4 (120-155) Assessment & Plan Diagnosis / Problem List (1) Headache: Status: Acute (2) Uterine size date discrepancy: Status: Acute (3) Previous delivery affecting : Status: Acute (4) Insulin dependent type 2 diabetes mellitus: Status: Acute Plan Problem List - Gestational diabetes mellitus - Carpal tunnel syndrome - Ankylosing spondylitis Assessment 3 para 2 at 25 weeks and 6 days gestation with poorly controlled gestational diabetes mellitus. Patient is on insulin therapy with recent adjustments: Lantus increased to 35 units BID and Humalog increased to 18 units AC. Patient uses continuous glucose monitoring but declined insulin pump. Patient reports blood glucose levels not exceeding 180-200 mg/dL. Early carpal tunnel syndrome noted. Recent hospitalization for ankylosoline (likely anasarca) with normal lab results, ruling out preeclampsia. heart rate auscultated at 160 bpm, within normal limits. Patient reports active movement. 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 Progress Reviewed gestational age (25 weeks 6 days), growth, and heart rate (160 bpm, normal). Patient reports baby is active and riding high. Planned frequent visits (every 2 weeks until 36 weeks, then weekly). 2. Instructed patient to monitor movements and report decreases immediately. 3. Testing Counseled on routine third-trimester labs per guidelines. Discussed potential need for ultrasound or monitoring based on risk factors. Patient scheduled for ultrasound and echo this coming week at [facility]. 4. Preeclampsia Precaution Educated on preeclampsia signs: severe headache, vision changes, right upper quadrant pain, sudden swelling. Advised urgent reporting of symptoms and discussed blood pressure monitoring if high risk. Recent hospitalization ruled out preeclampsia with normal labs; current swelling attributed to insulin-related or fluid retention. 5. Labor Precautions Reviewed labor signs: regular contractions, pelvic pressure, back pain, bleeding, or fluid leakage. Instructed to seek immediate care for these symptoms. 6. Lifestyle and Delivery Preparation Reinforced vitamins, nutrition, and safe activity. Continue aspirin as prescribed. Discussed plan, pain management, and . Advised on labor preparation (e.g., hospital bag) and expectations. Consent form for delivery to be signed at 32 weeks (within 30 days of surgery). 7. Psychosocial Support Assessed emotional well-being and offered resources for mental health or parenting support.
[2025-06-26 08:18] VITALS: BP 134/83; PULSE 91; RESP 17; TEMP 37; O2SAT 98; BMI 44.2
== END 2025-06-26 10:09 | disposition home or self-care (01) ==
LOC: HODSOBC 08:12
PROVIDERS: Supervising Provider Obstetrics & Gynecology; Visit Provider Obstetrics & Gynecology
DX: O09.892 Supervision of other high risk pregnancies, second trimester (principal); O24.112 Pre-existing type 2 diabetes mellitus, in pregnancy, second trimester; O26.842 Uterine size-date discrepancy, second trimester; O09.292 Supervision of pregnancy with other poor reproductive or obstetric history, second trimester; O34.219 Maternal care for unspecified type scar from previous cesarean delivery; R51.9 Headache, unspecified; O99.891 Other specified diseases and conditions complicating pregnancy; Z3A.25 25 weeks gestation of pregnancy; O99.212 Obesity complicating pregnancy, second trimester; E66.01 Morbid (severe) obesity due to excess calories; O99.352 Diseases of the nervous system complicating pregnancy, second trimester; G56.00 Carpal tunnel syndrome, unspecified upper limb; Z87.59 Personal history of other complications of pregnancy, childbirth and the puerperium; Z79.4 Long term (current) use of insulin
CPT/HCPCS: 99214; G0463

== ENCOUNTER 2025-07-13 08:17 | Outpatient (AMB) | payer MEDICAID, SELFPAY ==
[2025-07-13 08:35] VITALS: BP 126/82; PULSE 95; RESP 18; TEMP 36.3; O2SAT 98; BMI 45.2
--- NOTE | 2025-07-13 08:35 | OBCLNT_ITS ---
Vital Signs 07/13/25 08:35 Height 1.7 m Height Method Stated Weight 130.748 kg Weight Measurement Method Standing Scale BMI 45.2 BP 126/82 Blood Pressure Source Automatic Cuff Blood Pressure Location Left Upper Arm Position Sitting Respiration 18 Pulse 95 Pulse Source Monitor Temp 97.4 F Temp Source Oral Pulse Oximetry (%) 98 Oxygen Delivery Method Room Air Allergies/Home Meds Allergies & Medications Allergies [place] And Derivatives Allergy (Severe, Verified 07/13/25 08:36) Rash Sulfa (Sulfonamide Antibiotics) Allergy (Severe, Verified 07/13/25 08:36) Hives Medication Reconciliation blood sugar diagnostic (Blood Glucose Test strips) #100 ea 03/25/25 [Rx Confirmed 07/13/25] flash glucose sensor (FreeStyle Elbert 2 Sensor kit) #2 ea 03/25/25 [Rx Confirmed 07/13/25] lancets 21 gauge #100 ea 03/25/25 [Rx Confirmed 07/13/25] ondansetron 4 mg disintegrating tablet 4 mg PO Q6H PRN nausea and vomiting #10 tabs 03/25/25 [Rx Confirmed 07/13/25] pen needle, diabetic 29 gauge x 1/2 #100 ea 03/25/25 [Rx Confirmed 07/13/25] vitamins with calcium no.72-iron 27 mg-folic acid 1 mg tablet ( Vitamins Plus Low Iron) 1 tab PO QDAY 90 days #90 tabs 03/25/25 [Rx Confirmed ] insulin glargine U-300 conc 300 unit/mL (1.5 mL) subcutaneous pen 35 unit (0.1167 mL) subcut BID 30 days #7.5 mL 04/27/25 [Rx Confirmed 07/13/25] cetirizine 10 mg tablet 10 mg PO QDAY PRN allergy symptoms 30 days #30 tabs 05/19/25 [Rx Confirmed 07/13/25] folic acid 1 mg tablet 4 mg (4 x 1 mg) PO QDAY 90 days #360 tabs 06/15/25 [Rx Confirmed 07/13/25] insulin lispro 100 unit/mL subcutaneous pen (Humalog KwikPen (U-100) Insulin) 18 unit (0.18 mL) subcut TID 30 days #16.2 mL 06/25/25 [Rx Confirmed 07/13/25] insulin glargine 100 unit/mL (3 mL) subcutaneous pen (Lantus Solostar U-100 Insulin) See Rx Instructions subcut BID 30 days #30 mL 07/09/25 [Rx Confirmed 07/13/25] insulin lispro 100 unit/mL subcutaneous pen (Humalog KwikPen (U-100) Insulin) See Rx Instructions subcut TID #36 mL 07/09/25 [Rx Confirmed 07/13/25] Intake Visit Data Collection New Patient or Established: Established Patient (seen at [facility] within 3 years) Reason for Visit:: CARE Seen by Clinical Staff ONLY (RN/MA): No Auto Body Technician Required: No Do You Feel Safe at Home: Yes Authorities Contacted: N/A PCP or OBGYN visit in last 3 months: Yes Hx Now: Yes Are you currently on any form of Control: No Pain Present Currently: No Pain Scale Used: Hodgson-Kc/Numerical Pain scale:: 0 Smoking Status Smoking Status: Never smoker Immunizations Flu Vaccine in the Last 12 Months: Yes Flu Vaccine Exclusion Criteria: Already Received Questionnaires Covid-19 Vaccine Questionnaire Has patient been vacinated for Covid-19 Have you been vacinated for Covid-19: Yes PHQ-9 PHQ-2 Over the last 2 weeks, how often have you been bothered by any of the following problems? 1. Little interest or pleasure in doing things: not at all 2. Feeling down, depressed, or hopeless: not at all Total score: 0 PHQ-9 3. Trouble falling or staying asleep, or sleeping too much: Not at all 4. Feeling tired or having little energy: Not at all 5. Poor appetite or overeating: Not at all 6. Feeling bad about yourself - or that you are a failure or have let yourself or your family down: Not at all 7. Trouble concentrating on things, such as reading the newspaper or watching television: Not at all 8. Moving or speaking so slowly that other people could have noticed? - Or the opposite - being so fidgety or restless that you have been moving around a lot more than usual: not at all 9. Thoughts that you would be better off or of hurting yourself in some way: Not at all Total score: 0 Source: Developed by Drs. Omer L. LeidyEdith elizondo, Bharat Mantilla and colleagues, with an educational ferny from [employer]. 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 Initial visit. Cramping improved, WHALEN x4 days. T2DM poorly controlled (A1C 7.0, BG up to 330-340). Hx infertility, deliveries at 35w (both sons). FHR 159. Rubella non-immune. Plan: D/C metformin, start insulin (Lantus 37u qhs, Humalog 6u TID), weekly visits for BG monitoring, genetics, [facility], rubella vaccine. 03/18/25 -?-?-?-?-?-?-?-?-?-?-?-?- 11w 4d 115.779 kg 132/87 165 at 11w4d with GDM on Lantus 40u qAM and rapid-acting insulin 8u TID (? to 10u for high-carb meals); improved BG 80?90 fasting, peak 234. Plan: C ontinue insulin, educate on site rotation, order CGM to [facility], log BGs, f/u in 4w; NIPT negative, routine care continues. 03/25/25 -?-?-?-?-?-?-?-?-?-?-?-?- 12w 4d 115.836 kg 125/81 absent 165 Patient presents for a routine visit at 12 weeks and 4 days gestation. She reports that her blood sugar levels have been spiking to as high as 350 despite being prescribed insulin based on weight-based doses. - Increase insulin doses: ? Lantus: 30 units subcutaneously twic e daily ? Rapid-acting insulin: 16 units subcu taneously three times daily before meals - Provide patient education on proper in sulin injection technique to minimize bruising. - Dispense continuous glucose monitor (C GM) and new glucometer. - Review glucose logs at next visit. 04/08/25 -?-?-?-?-?-?-?-?-?-?-?-?- 14w 4d 117.084 kg 127/77 145 absent No VB or LOF. No cramping Not reliable with checking sugars 04/15/25 -?-?-?-?-?-?--?-?-?-?-?-?- 15w 4d 117.594 kg 119/77 absent 168 - Patient reports her blood sugar control has been pretty good recently: - Denies dry mouth, which she associat es with high blood sugar - Reports constant urination, which sh e attributes to - Patient is experiencing difficulty obt aining diabetic supplies: - Using her diabetic father's supplies sparingly - Awaiting a call from a service to as sist with obtaining supplies - movement: - Patient inquires about not feeling f etal movement yet - Denies cramping, nausea, or vomiting - Await call from diabetes management service on (tomorrow) for assistance with supplies and potential insulin adjustments - Continue current diabetes management r alan 04/27/25 -?-?-?-?-?-?-?-?-?-?-?-?- 17w 2d 120.882 kg 130/80 absent 147 acti ve 23-year-old at 17 weeks and 2 days gestation with poorly controlled gestational diabetes mellitus. Blood glucose readings range from 90-240 mg/dL, with most readings between 180-230 mg/dL. Current insulin regimen includes NPH 30 units in the morning and evening, with 16 units of rapid-acting insulin with meals. Plan - Increase morning insulin dose from 30 units to 35 units - Increase mealtime insulin dose from 16 units to 18 units - Continue evening insulin dose at 30 un its - Follow up in two weeks - Awaiting insurance approval for specia list ultrasound at [facility] - Resend insulin prescription 05/13/25 -?-?-?-?-?-?--?-?-?-?-?-?- 19w 4d 123.037 kg 130/83 absent 150 acti ve 19w4d with poorly controlled T2DM on insulin; FBG 130?140, occasional PPG up to 180. No FM yet. FHR 150 bpm, limited facial views on US, otherwise normal anatomy. Plan: Continue glucose monitoring, repeat anatomy US =24wks, follow up next visit, verify referral and [employer] coverage for [facility] specialty scan. 06/09/25 -?-?-?-?-?-?-?-?-?-?-?-?- 23w 3d 127.063 kg 99/63 absent 169 activ e - She reports her blood sugars are doing well with diabetes management. - Patient continues to experience carpal tunnel symptoms in her hand. - She denies contractions, cramping, or other -related problems. - Patient reports feeling movement well, which is appropriate for her gestational age. - She is adherent to insulin therapy and will continue working with home health services for diabetes management. - Patient denies wanting to use an insul in pump, preferring to continue with pen/syringe method. - Continue c urrent insulin regimen; home health service to assist with insulin management - Schedule at 37 weeks (tomas fitzgerald around September 14-) - Follow up with [facility] o n June 17 for echocardiogram and growth scan - Return for visit in 4 weeks - Monitor for signs of preeclampsia (bernardo vated blood pressure with headache, visual disturbances, right upper quadrant pain) - Transition to biweekly visits after next appointment 07/13/25 -?-?-?-?-?-?-?-?-?-?-?-?- 28w 2d 130.748 kg 126/82 absent 155 acti ve presenting for routine visit with a history of poorly controlled gestational diabetes mellitus. - She is currently managed on Lantus 35 units twice daily and Humalog insulin, with insulin management provided by the nursing team from [facility]. - Her continuous glucose monitor shows g ood numbers indicating improved glycemic control. - She reports the baby is active. - She experienced a pharmacy issue where only short-acting insulin was provided instead of the prescribed long-acting insulin. - Send prescription for long- acting insulin (Lantus); provide printout to patient to resolve pharmacy dispensing issue - Perform blood work including CBC, RPR, and A1c - Schedule for at 12:30 p.m. - Prepare tubal ligation papers in early August, one month before - Begin monitoring at 30 weeks; annette amaro will be contacted for appointment - Follow-up appointment in 2 weeks - Continue current insulin regimen with Lantus 35 BID and Humalog managed by [facility] nursing team - Next ultrasound scheduled at [facility] on August 17 RUDY Calculator Estimated Delivery Date Method Current WG Current Estimate 10/03/25 Ultrasound #1 28w 2d Other Estimates 10/03/25 LMP (Certain) 28w 2d Expected Delivery Route/Plan Hx CS x 1, hx PTVD at 35-36 weeks first Macrosomic with last delivery (CS at 35 weeks 8 lbs 14 oz) Poorly controlled diabetes on oral meds prior to with frequent trips into the ER HgBA1C 7.0 first trimester Morbid Obesity Starting BMI 41: Baby ASA Needs Level II US/ echo/ and co-management with [facility] PN labs: 0+/Ab-/Rubella Nonimmune/RPR NR/HIV-/HepBSag-/ Specific Issue/Plans For Repeat CS D/C metformin, start insulin (Lantus 37u qhs, Humalog 6u TID), weekly visits for BG monitoring, genetics, MFM consult at [facility], Tylenol for WHALEN, rubella vaccine. Notes Visit Date: 06/09/25 Last Updated by: Fabian Ramos MD [facility] ultrasound report: - Single live fetus - Clinical gestational age: 22 weeks 4 days (consistent with LMP dates) - Composite age: 21 weeks 6 days - Estimated weight: 530 grams - Amniotic fluid: Normal - anatomy: Normal - Placenta: Anterior, no previa, no ultrasound evidence of accreta - Cervical length: 4.5 cm, closed cervix - No funneling Visit Date: 04/08/25 Last Updated by: Fabby Moya (OB Clinic), Pt states she sometimes checks her sugars on her dad's machine and her insurance will not cover one for her. She states if she doesn't feel right she goes to the ER where her BS can be as high as the 300s. Will authorize for diabetic management and counseling. Surprisingly, her first trimester HgB A1c is only 7. Stressed tight glycemic control during and afterwars to avoid senior living complications of DM including loss of limbs and blindness. Office Procedures [facility] LOC & Office Proc's Nursing/Assessment Patient Status: Established Patient OB Clinic Nursing Assessment: Medication Reconciliation, Update PMH in EMR and Vital Signs OB Clinic Coordination of Care: Complex Care and Chronic Disease 1-5, Consent,records obtained, informed consent, Education Simp Pt/Fam, 1 Ins Authorization, Lab and Imaging orders, Results/Orders obtained and Staff clarify orders Special Needs: Heart tones Established Patient Charge Established Patient Point Assignment: 150 Established Patient Point Charge: EP Level 4 (120-155) Assessment & Plan Diagnosis / Problem List (1) Uterine size date discrepancy: Status: Acute (2) Morbid obesity with BMI of 40.0-44.9, adult: Status: Acute (3) Previous delivery affecting : Status: Acute (4) Insulin dependent type 2 diabetes mellitus: Status: Acute Plan Problem List - Gestational diabetes mellitus - at 28 weeks and 2 days gestation Assessment 29-year-old 3 para 2 female at 28 weeks 2 days gestation with poorly controlled gestational diabetes mellitus currently managed on Lantus 35 units BID and Humalog with insulin management by [facility] nursing team. Troy nuous glucose monitor demonstrates good glycemic control. activity is reported as normal. Patient requires new prescription for long-acting insulin due to pharmacy dispensing error providing only short-acting insulin. Plan - Send prescription for long-acting insulin (Lantus); provide printout to patient to resolve pharmacy dispensing issue - Perform blood work including CBC, RPR, and A1c - Schedule for Sunday, September 14 at 12:30 p.m. - Prepare tubal ligation papers in early August, one month before - Begin monitoring at 30 weeks; patient will be contacted for appointment - Follow-up appointment in 2 weeks - Continue current insulin regimen with Lantus 35 BID and Humalog managed by [facility] nursing team - Next ultrasound scheduled at [facility] on August 17 1. Progress Reviewed gestational age (28 weeks 2 days), growth, and heart rate. Baby is active. Planned frequent visits (every 2 weeks until 36 weeks, then weekly). Patient will return in 2 weeks. 2. Instructed patient to monitor movements and report decreases immediately. 3. Testing Counseled on routine third-trimester labs per guidelines. CBC, RPR, and A1c ordered. Discussed potential need for ultrasound or monitoring based on risk factors. Next ultrasound scheduled at [facility] on August 17. Baby monitoring will start at 30-31 weeks. 4. Preeclampsia Precaution Educated on preeclampsia signs: severe headache, vision changes, right upper quadrant pain, sudden swelling. Advised urgent reporting of symptoms and discussed blood pressure monitoring if high risk. 5. Labor Precautions Reviewed labor signs: regular contractions, pelvic pressure, back pain, bleeding, or fluid leakage. Instructed to seek immediate care for these symptoms. 6. Lifestyle and Delivery Preparation Reinforced vitamins, nutrition, and safe activity. Discussed plan, pain management, and . scheduled for September 14 at 12:30 p.m. Advised on labor preparation (e.g., hospital bag) and expectations. Papers for tubal ligation will be prepared in early August. 7. Psychosocial Support Assessed emotional well-being and offered resources for mental health or parenting support.
== END 2025-07-13 09:34 | disposition home or self-care (01) ==
LOC: HODSOBC 08:17
PROVIDERS: Supervising Provider Obstetrics & Gynecology; Visit Provider Obstetrics & Gynecology
DX: O09.893 Supervision of other high risk pregnancies, third trimester (principal); O26.843 Uterine size-date discrepancy, third trimester; O99.213 Obesity complicating pregnancy, third trimester; E66.01 Morbid (severe) obesity due to excess calories; O24.113 Pre-existing type 2 diabetes mellitus, in pregnancy, third trimester; E11.65 Type 2 diabetes mellitus with hyperglycemia; O09.293 Supervision of pregnancy with other poor reproductive or obstetric history, third trimester; O34.219 Maternal care for unspecified type scar from previous cesarean delivery; Z79.4 Long term (current) use of insulin; Z3A.28 28 weeks gestation of pregnancy; Z88.2 Allergy status to sulfonamides; Z91.018 Allergy to other foods
CPT/HCPCS: 99214; G0463

== ENCOUNTER 2025-07-17 09:54 | Observation (INO) | payer MEDICAID, SELFPAY ==
[2025-07-17] VITALS (12 sets, daily range): BP systolic 138; BP diastolic 86; PULSE 90–102; RESP 18–97; TEMP 36.7; O2SAT 98–99; BMI 43.8
== END 2025-07-17 11:09 | disposition home or self-care (01) ==
PROVIDERS: Admitting Provider Obstetrics & Gynecology; Visit Provider Obstetrics & Gynecology
DX: O36.8130 Decreased fetal movements, third trimester, not applicable or unspecified (principal); Z3A.29 29 weeks gestation of pregnancy
CPT/HCPCS: 59899

== ENCOUNTER 2025-07-27 12:31 | Observation (INO) | payer MEDICAID, SELFPAY ==
[2025-07-27 12:40] VITALS: BP 129/60; PULSE 102; RESP 16; RESP 98; TEMP 36.9; BMI 45.3
[2025-07-27 12:45] VITALS: BP 129/60; PULSE 102
--- NOTE | 2025-07-27 12:50 | XR_ITS ---
EXAMINATION: age Limited TECHNIQUE: Limited transabdominal sonographic images pelvis Date and time: July 27, 2025, 1329 hours INDICATIONS: Onset vaginal bleeding today. FINDINGS: Placenta anterior grade 2, no abruption Cardiac motion 145 bpm IMPRESSION: Placenta anterior grade 2 no abruption
--- NOTE | 2025-07-27 12:51 | XR_ITS ---
Examination: OB Transvaginal ultrasound of the pelvis, limited Technique: Transvaginal sonographic images pelvis performed using torre scale imaging Exam date and time: July 27, 2025, 1333 hours INDICATIONS: Vaginal bleeding onset today. FINDINGS: Cervix 4.6 cm closed IMPRESSION: Cervix 4.6 cm closed.
== END 2025-07-27 14:10 | disposition home or self-care (01) ==
PROVIDERS: Admitting Provider Obstetrics & Gynecology; Visit Provider Obstetrics & Gynecology
DX: O46.93 Antepartum hemorrhage, unspecified, third trimester (principal); Z3A.30 30 weeks gestation of pregnancy
CPT/HCPCS: 59025; 59899; 76815; 76817

== ENCOUNTER 2025-07-30 13:03 | Outpatient (AMB) | payer MEDICAID, SELFPAY ==
--- NOTE | 2025-07-30 13:13 | OBCLNT_ITS ---
Vital Signs 07/30/25 13:14 Height 1.7 m Height Method Stated Weight 130.408 kg Weight Measurement Method Standing Scale BMI 45.1 BP 134/89 H Blood Pressure Source Automatic Cuff Blood Pressure Location Left Upper Arm Position Standing Respiration 18 Pulse 113 H Pulse Source Monitor Temp 97.2 F Temp Source Oral Pulse Oximetry (%) 98 Oxygen Delivery Method Room Air Allergies/Home Meds Allergies & Medications Allergies [place] And Derivatives Allergy (Severe, Verified 07/30/25 13:15) Rash Sulfa (Sulfonamide Antibiotics) Allergy (Severe, Verified 07/30/25 13:15) Hives Medication Reconciliation blood sugar diagnostic (Blood Glucose Test strips) #100 ea 03/25/25 [Rx Confirmed 07/30/25] lancets 21 gauge #100 ea 03/25/25 [Rx Confirmed 07/30/25] ondansetron 4 mg disintegrating tablet 4 mg PO Q6H PRN nausea and vomiting #10 tabs 03/25/25 [Rx Confirmed 07/30/25] pen needle, diabetic 29 gauge x 1/2 #100 ea 03/25/25 [Rx Confirmed 07/30/25] vitamins with calcium no.72-iron 27 mg-folic acid 1 mg tablet ( Vitamins Plus Low Iron) 1 tab PO QDAY 90 days #90 tabs 03/25/25 [Rx Confirmed 07/30/25] folic acid 1 mg tablet 4 mg (4 x 1 mg) PO QDAY 90 days #360 tabs 06/15/25 [Rx Confirmed 07/30/25] insulin glargine 100 unit/mL (3 mL) subcutaneous pen (Lantus Solostar U-100 Insulin) See Rx Instructions subcut BID 30 days #30 mL 07/29/25 [Rx Confirmed 07/30/25] insulin lispro 100 unit/mL subcutaneous pen (Humalog KwikPen (U-100) Insulin) See Rx Instructions subcut TID #41 mL 07/29/25 [Rx Confirmed 07/30/25] rqxxuinoyc-vrgfisdcesgtx-jgbbqypd 50 mg-300 mg-40 mg capsule (Fioricet) 1 cap PO Q6H PRN pain 5 days #10 caps 07/30/25 [Rx] Intake Visit Data Collection New Patient or Established: Established Patient (seen at [facility] within 3 years) Reason for Visit:: OBC Seen by Clinical Staff ONLY (RN/MA): No Activity Aide Required: No Do You Feel Safe at Home: Yes Authorities Contacted: N/A PCP or OBGYN visit in last 3 months: Yes Hx Now: Yes Are you currently on any form of Control: No Pain Present Currently: No Pain Scale Used: Hodgson-Kc/Numerical Pain scale:: 0 Smoking Status Smoking Status: Never smoker Immunizations Flu Vaccine in the Last 12 Months: No Flu Vaccine Exclusion Criteria: No Exclusion Criteria Questionnaires Covid-19 Vaccine Questionnaire Has patient been vacinated for Covid-19 Have you been vacinated for Covid-19: No PHQ-9 PHQ-2 Over the last 2 weeks, how often have you been bothered by any of the following problems? 1. Little interest or pleasure in doing things: not at all 2. Feeling down, depressed, or hopeless: not at all Total score: 0 PHQ-9 3. Trouble falling or staying asleep, or sleeping too much: Not at all 4. Feeling tired or having little energy: Not at all 5. Poor appetite or overeating: Not at all 6. Feeling bad about yourself - or that you are a failure or have let yourself or your family down: Not at all 7. Trouble concentrating on things, such as reading the newspaper or watching television: Not at all 8. Moving or speaking so slowly that other people could have noticed? - Or the opposite - being so fidgety or restless that you have been moving around a lot more than usual: not at all 9. Thoughts that you would be better off or of hurting yourself in some way: Not at all Total score: 0 If you checked off any problems, how difficult have these problems made it for you to do your work, take care of things at home, or get along with other people?: not difficult at all Source: Developed by Drs. Omer Forbes, Edith Quintanilla, Bharat Mantilla and colleagues, with an educational ferny from [employer]. 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 Initial visit. Cramping improved, WHALEN x4 days. T2DM poorly controlled (A1C 7.0, BG up to 330-340). Hx infertility, deliveries at 35w (both sons). FHR 159. Rubella non-immune. Plan: D/C metformin, start insulin (Lantus 37u qhs, Humalog 6u TID), weekly visits for BG monitoring, genetics, [facility], rubella vaccine. 03/18/25 -?-?-?-?-?-?-?-?-?-?-?-?- 11w 4d 115.779 kg 132/87 165 at 11w4d with GDM on Lantus 40u qAM and rapid-acting insulin 8u TID (? to 10u for high-carb meals); improved BG 80?90 fasting, peak 234. Plan: C ontinue insulin, educate on site rotation, order CGM to [facility], log BGs, f/u in 4w; NIPT negative, routine care continues. 03/25/25 -?-?-?-?-?-?-?-?-?-?-?-?- 12w 4d 115.836 kg 125/81 absent 165 Patient presents for a routine visit at 12 weeks and 4 days gestation. She reports that her blood sugar levels have been spiking to as high as 350 despite being prescribed insulin based on weight-based doses. - Increase insulin doses: ? Lantus: 30 units subcutaneously twic e daily ? Rapid-acting insulin: 16 units subcu taneously three times daily before meals - Provide patient education on proper in sulin injection technique to minimize bruising. - Dispense continuous glucose monitor (C GM) and new glucometer. - Review glucose logs at next visit. 04/08/25 -?-?-?-?-?-?-?-?-?-?-?-?- 14w 4d 117.084 kg 127/77 145 absent No VB or LOF. No cramping Not reliable with checking sugars 04/15/25 -?-?-?-?-?-?-?-?-?-?-?-?- 15w 4d 117.594 kg 119/77 absent 168 - Patient reports her blood sugar control has been pretty good recently: - Denies dry mouth, which she associat es with high blood sugar - Reports constant urination, which sh e attributes to - Patient is experiencing difficulty obt aining diabetic supplies: - Using her diabetic father's supplies sparingly - Awaiting a call from a service to as sist with obtaining supplies - movement: - Patient inquires about not feeling f etal movement yet - Denies cramping, nausea, or vomiting - Await call from diabetes management service on (tomorrow) for assistance with supplies and potential insulin adjustments - Continue current diabetes management r alan 04/27/25 -?-?-?-?-?-?-?-?-?-?-?-?- 17w 2d 120.882 kg 130/80 absent 147 acti ve 23-year-old at 17 weeks and 2 days gestation with poorly controlled gestational diabetes mellitus. Blood glucose readings range from 90-240 mg/dL, with most readings between 180-230 mg/dL. Current insulin regimen includes NPH 30 units in the morning and evening, with 16 units of rapid-acting insulin with meals. Plan - Increase morning insulin dose from 30 units to 35 units - Increase mealtime insulin dose from 16 units to 18 units - Continue evening insulin dose at 30 un its - Follow up in two weeks - Awaiting insurance approval for specia list ultrasound at [facility] - Resend insulin prescription 05/13/25 -?-?-?-?-?-?-?-?-?-?-?-?- 19w 4d 123.037 kg 130/83 absent 150 acti ve 19w4d with poorly controlled T2DM on insulin; FBG 130?140, occasional PPG up to 180. No FM yet. FHR 150 bpm, limited facial views on US, otherwise normal anatomy. Plan: Continue glucose monitoring, repeat anatomy US =24wks, follow up next visit, verify referral and [employer] coverage for [facility] specialty scan. 06/09/25 -?-?-?-?-?-?-?-?-?-?-?-?- 23w 3d 127.063 kg 99/63 absent 169 activ e - She reports her blood sugars are doing well with diabetes management. - Patient continues to experience carpal tunnel symptoms in her hand. - She denies contractions, cramping, or other -related problems. - Patient reports feeling movement well, which is appropriate for her gestational age. - She is adherent to insulin therapy and will continue working with home health services for diabetes management. - Patient denies wanting to use an insul in pump, preferring to continue with pen/syringe method. - Continue c urrent insulin regimen; home health service to assist with insulin management - Schedule at 37 weeks (tomas fitzgerald around September 14-) - Follow up with [facility] o n June 17 for echocardiogram and growth scan - Return for visit in 4 weeks - Monitor for signs of preeclampsia (bernardo vated blood pressure with headache, visual disturbances, right upper quadrant pain) - Transition to biweekly visits after next appointment 07/13/25 -?-?-?-?-?-?-?-?-?-?-?-?- 28w 2d 130.748 kg 126/82 absent 155 acti ve presenting for routine visit with a history of poorly controlled gestational diabetes mellitus. - She is currently managed on Lantus 35 units twice daily and Humalog insulin, with insulin management provided by the nursing team from [facility]. - Her continuous glucose monitor shows g ood numbers indicating improved glycemic control. - She reports the baby is active. - She experienced a pharmacy issue where only short-acting insulin was provided instead of the prescribed long-acting insulin. - Send prescription for long- acting insulin (Lantus); provide printout to patient to resolve pharmacy dispensing issue - Perform blood work including CBC, RPR, and A1c - Schedule for at 12:30 p.m. - Prepare tubal ligation papers in early August, one month before - Begin monitoring at 30 weeks; annette amaro will be contacted for appointment - Follow-up appointment in 2 weeks - Continue current insulin regimen with Lantus 35 BID and Humalog managed by [facility] nursing team - Next ultrasound scheduled at [facility] on August 17 07/30/25 -?-?-?-?-?-?-?-?-?-?-?-?- 30w 5d 130.408 kg 134/89 absent cephalic 31 14 5 active Reports WHALEN for 3 days, denies VC, and epigastric pain. - She is currently managed by a [facility] service for diabetes monitoring via telephone consultations. - New insulin prescriptions with higher doses were sent yesterday due to poor glycemic control. - She reports headache for 3 days durati on. - Has not tried Tylenol or other over- the-counter pain relievers. - She confirms movement and report s the baby is active. - She went to Labor and Delivery today f or evaluation. - She continues home blood pressure as previously established. - Monitoring appointments are scheduled for Mondays and . - New insulin prescriptions sent yesterday with higher doses for poorly controlled gestational diabetes - Prescribe Fioricet for headache manage ment - Continue home blood pressure monitorin g - Schedule weekly visits going forward - Monitoring appointments on Mondays and - Plan delivery at 36-37 weeks depending on sugar control, not at 35 weeks unless preeclampsia develops RUDY Calculator Estimated Delivery Date Method Current WG Current Estimate 10/03/25 Ultrasound #1 30w 6d Other Estimates 10/03/25 LMP (Certain) 30w 6d Expected Delivery Route/Plan Hx CS x 1, hx PTVD at 35-36 weeks first Macrosomic with last delivery (CS at 35 weeks 8 lbs 14 oz) Poorly controlled diabetes on oral meds prior to with frequent trips into the ER HgBA1C 7.0 first trimester Morbid Obesity Starting BMI 41: Baby ASA Needs Level II US/ echo/ and co-management with MFM PNC labs: 0+/Ab-/Rubella Nonimmune/RPR NR/HIV-/HepBSag-/ Specific Issue/Plans For Repeat CS D/C metformin, start insulin (Lantus 37u qhs, Humalog 6u TID), weekly visits for BG monitoring, genetics, MFM consult at [facility], Tylenol for WHALEN, rubella vaccine. Notes Visit Date: 06/09/25 Last Updated by: Fabian Ramos MD [facility] ultrasound report: - Single live fetus - Clinical gestational age: 22 weeks 4 days (consistent with LMP dates) - Composite age: 21 weeks 6 days - Estimated weight: 530 grams - Amniotic fluid: Normal - anatomy: Normal - Placenta: Anterior, no previa, no ultrasound evidence of accreta - Cervical length: 4.5 cm, closed cervix - No funneling Visit Date: 04/08/25 Last Updated by: Fabby Moya (OB Clinic)MD Pt states she sometimes checks her sugars on her dad's machine and her insurance will not cover one for her. She states if she doesn't feel right she goes to the ER where her BS can be as high as the 300s. Will authorize for diabetic management and counseling. Surprisingly, her first trimester HgB A1c is only 7. 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 Office Procedures OBC Clinic LOC & Office Proc's Nursing/Assessment Patient Status: Established Patient OB Clinic Nursing Assessment: Medication Reconciliation, Update PMH in EMR and Vital Signs OB Clinic Coordination of Care: Consent,records obtained, informed consent, Education Simp Pt/Fam, Lab and Imaging orders, Results/Orders obtained and Staff clarify orders Special Needs: Heart tones Established Patient Charge Established Patient Point Assignment: 110 Established Patient Point Charge: EP Level 3 (80-115) Assessment & Plan Diagnosis / Problem List (1) Headache: Status: Acute (2) Uterine size date discrepancy: Status: Acute (3) Previous delivery affecting : Status: Acute Plan Problem List - Gestational diabetes mellitus - Chronic hypertension - Headache Assessment 30-week 5-day patient with poorly controlled gestational diabetes requiring insulin management with home healthcare monitoring, chronic hypertension with current normal blood pressure readings, and 3-day history of headache. Patient reports blood sugar levels within acceptable range with recent insulin dose adjustments. heart rate is normal at 154 bpm with active movement. Blood pressure appears well-controlled at current visit. Plan - New insulin prescriptions sent yesterday with higher doses for poorly controlled gestational diabetes - Prescribe Fioricet for headache management - Continue home blood pressure monitoring - Schedule weekly visits going forward - Monitoring appointments on Mondays and - Plan delivery at 36-37 weeks depending on sugar control, not at 35 weeks unles s preeclampsia develops 1. Progress Reviewed gestational age (30 weeks 5 days), growth, and heart rate (154 bpm, normal). Planned frequent visits (weekly from now onwards). 2. Instructed patient to monitor movements and report decreases immediately. 3. Testing Counseled on routine third-trimester labs per guidelines. Discussed potential need for ultrasound or monitoring based on risk factors. 4. Preeclampsia Precaution Educated on preeclampsia signs: severe headache, vision changes, right upper quadrant pain, sudden swelling. Advised urgent reporting of symptoms and discussed blood pressure monitoring if high risk. 5. Labor Precautions Reviewed labor signs: regular contractions, pelvic pressure, back pain, bleeding, or fluid leakage. Instructed to seek immediate care for these symptoms. 6. Lifestyle and Delivery Preparation Reinforced vitamins, nutrition, and safe activity. Discussed plan, pain management, and . Advised on labor preparation (e.g., hospital bag) and expectations. 7. Psychosocial Support Assessed emotional well-being and offered resources for mental health or parenting support.
[2025-07-30 13:14] VITALS: BP 134/89; PULSE 113; RESP 18; TEMP 36.2; O2SAT 98; BMI 45.1
== END 2025-07-30 13:22 | disposition home or self-care (01) ==
LOC: HODSOBC 13:03
PROVIDERS: Supervising Provider Obstetrics & Gynecology; Visit Provider Obstetrics & Gynecology
DX: O09.893 Supervision of other high risk pregnancies, third trimester (principal); O26.843 Uterine size-date discrepancy, third trimester; O24.414 Gestational diabetes mellitus in pregnancy, insulin controlled; O99.891 Other specified diseases and conditions complicating pregnancy; R51.9 Headache, unspecified; O09.293 Supervision of pregnancy with other poor reproductive or obstetric history, third trimester; O34.219 Maternal care for unspecified type scar from previous cesarean delivery; O10.913 Unspecified pre-existing hypertension complicating pregnancy, third trimester; Z3A.30 30 weeks gestation of pregnancy; Z88.2 Allergy status to sulfonamides; Z91.018 Allergy to other foods
CPT/HCPCS: 99213; G0463

== ENCOUNTER 2025-08-02 13:39 | Observation (INO) | payer MEDICAID, SELFPAY ==
[2025-08-02] VITALS (15 sets, daily range): BP systolic 108–145; BP diastolic 55–75; PULSE 93–109; RESP 16–97; TEMP 36.8–37; BMI 47.3
--- NOTE | 2025-08-02 14:32 | XR_ITS ---
Examination: Biophysical profile, ultrasound Date and time of exam: August 02, 2025, 1517 hours INDICATIONS: Diagnosis high risk , diagnosis diabetes, decreased movement today Technique: Multiple transabdominal sonographic images of the pelvis abdomen obtained. Attention is directed to the breathing movement, gross body movement, amniotic fluid volume and tone. Findings: Amniotic fluid 17.7 cm Total biophysical profile is 8 of 8. breathing movement is 2. Gross body movement is 2. tone is 2. Qualitative amniotic fluid volume is 2 Impression: Biophysical profile is 8 of 8.
[2025-08-02] MEDS: SODIUM CHLORIDE 0.9% 1000 ML 1,000 ML 999 ML IV (15:25)
[2025-08-02 16:05] LABS: Beta Hydroxybutyrate 0.0 mmol/L (<0.6)
[2025-08-02 16:29] LABS: Alanine Aminotransferase 9 U/L (10-49); Albumin, Serum 3.6 gm/dL (3.5-5.0); Albumin/Globulin Ratio 1.7 (1.2-2.2); Alkaline Phosphatase 90 U/L (46-116); Anion Gap 11 (7-16); Aspartate Amino Transferase 13 U/L (0-34); BUN/Creatinine Ratio 10 Ratio (12-20); Bilirubin,Total 0.2 mg/dL (0.3-1.2); Blood Urea Nitrogen 6 mg/dL (9-23); Calcium 8.6 mg/dL (8.3-10.6); Calcium (Corrected) 8.9 mg/dL (8.5-10.1); Carbon Dioxide 20.0 mMol/L (20.0-31.0); Chloride 108 mMol/L (98-107); Creatinine (Component) 0.6 mg/dL (0.6-1.3); Estimated Creatinine Clearance 193.9 mL/min (>60); Globulin 2.1 gm/dL (2.3-3.5); Glucose 205 mg/dL (74-106); Osmolality,Calculated 281 (275-295); Potassium 3.8 mMol/L (3.4-5.1); Sodium 139 mMol/L (136-145); Total Protein 5.7 gm/dL (5.7-8.2); eGFR > 60 See Note
[2025-08-02 17:49] LABS: Basophils # (Auto) 0.0 Thou/mm3 (0.0-0.2); Basophils % (Auto) 0 % (0-2.5); Eosinophils # (Auto) 0.1 Thou/mm3 (0.0-0.5); Eosinophils % (Auto) 1 % (0-10); Hematocrit 30.3 % (36.0-46.0); Hemoglobin 9.9 g/dL (12.0-16.0); Immature Granulocytes Auto 0.09 Thou/mm3 (0.00-0.00); Lymphocytes # (Auto) 1.9 Thou/mm3 (1.0-4.8); Lymphocytes % (Auto) 21 % (10-50); Mean Corpuscular HGB Conc 32.7 g/dl (31.0-37.0); Mean Corpuscular Hemoglobin 26.6 pg (25.0-35.0); Mean Corpuscular Volume 82 fL (80-100); Monocytes # (Auto) 0.7 Thou/mm3 (0.0-0.8); Monocytes % (Auto) 7 % (0-12); Neutrophils # (Auto) 6.2 Thou/mm3 (1.8-7.7); Neutrophils % (Auto) 69 % (37-80); Nucleated Red Blood Cell # 0.00 Thou/mm3 (0.00-0.00); Nucleated Red Blood Cell % 0 /100 WBC (0); Platelet Count 232 Thou/mm3 (140-440); RDW Standard Deviation 42.7 fL (36.4-46.3); Red Blood Count 3.72 Miln/mm3 (4.00-5.20); White Blood Count 9.0 Thou/mm3 (3.6-11.0)
[2025-08-02] MEDS: INSULIN LISPRO (AdmeLOG) 1 UNIT/0.01 ML UNIT 60 UNIT SC (18:02)
[2025-08-02] MEDS: SODIUM CHLORIDE 0.9% 1000 ML 1,000 ML 125 ML IV (19:43)
[2025-08-02] MEDS: ACETAMINOPHEN IVPB 1,000 MG/100 ML VIAL 250 MG IV (19:44)
[2025-08-02] MEDS: INSULIN DEGLUDEC 5 UNIT/0.05 ML (PER 5 UNITS) 50 UNIT SC (21:25)
[2025-08-03 02:00] VITALS: RESP 16; TEMP 36.7
[2025-08-03 02:05] VITALS: BP 135/64; PULSE 84
--- NOTE | 2025-08-03 03:57 | PD.LDANTE ---
Documentation for date of: 08/03/25 OB Labor/Induct. HPI History of Present Illness Chief complaint: Headache, hyperglycemia : 3 Para: 2 Term pregnancies: 2 pregnancies: 0 Living children: 2 History of Abortions: Spontaneous and Elective: 0 History of Vaginal deliveries: 1 History of sections: Yes History of : No RUDY: 10/02/25 History of present illness: Jessica is a 30-year-old 3 para 2 at 31 weeks and 2 days with estimated due date of 10/03/2025 who has very poorly controlled type II DM and presented to labor and delivery triage with headache as well as persistent hyperglycemia at home and and decreased movements. On presentation patient denied any contractions, leakage of fluid or vaginal bleeding. She reported that she had persistent high blood glucose of 250 or above. Patient is on very high dose insulin and she is assisted by [facility] for diabetic management. History of Present Adequate Care: Yes Past Medical History Surgical History SURGICAL: Positive Section Meds Home Medications and Allergies Allergies Allergy/AdvReac Type Severity Reaction Status Date / Time [place] And Derivatives Allergy Severe Rash Verified 08/02/25 15:26 Sulfa (Sulfonamide Allergy Severe Hives Verified 08/02/25 15:26 Antibiotics) OB Exam Physical Exam Vital signs: Temp Pulse Resp BP O2 Del Method 98.2 F 84 16 135/64 H Room Air 08/02/25 19:20 08/03/25 02:05 08/02/25 19:20 08/03/25 02:05 08/02/25 16:30 Constitutional Constitutional: no acute distress Routine HEENT Exam Head: Present normocephalic and atraumatic Eye: Present EOMI and PERRL ENT: Present mucous membranes moist Routine Neck Exam Neck: Present supple and trachea midline Routine Cardiovascular Exam Cardiovascular: Present RRR Routine Abdominal Exam Abdominal: Present soft and normoactive bowel sounds Detailed Labor and Delivery Exam Baseline heart rate: 140 monitor accelerations: 15x15 monitor decelerations: None Routine Extremities Exam Extremities: Present full ROM Routine Skin Exam Skin: Present intact, dry and warm Routine Neurological Exam Neurological: Present alert, oriented X3 and CN II-XII intact Routine Psychiatric Exam Psychiatric: Present normal affect and normal thought process OB Results Labs 08/02/25 15:20 08/02/25 15:44 Labs: Short CBC 08/02/25 Range/Units 15:20 WBC 9.0 (3.6-11.0) Thou/mm3 Hgb 9.9 L (12.0-16.0) g/dL Hct 30.3 L (36.0-46.0) % Plt Count 232 (140-440) Thou/mm3 BMP 08/02/25 15:44 Sodium 139 Potassium 3.8 Chloride 108 H Carbon Dioxide 20.0 BUN 6 L Creatinine 0.6 Glucose 205 H Calcium 8.6 Liver Function 08/02/25 Range/Units 15:44 Total Bilirubin 0.2 L (0.3-1.2) mg/dL AST 13 (0-34) U/L ALT 9 L (10-49) U/L Alkaline Phosphatase 90 (46-116) U/L Albumin 3.6 (3.5-5.0) gm/dL OB Assessment & Plan Assessment and Plan (1) Previous delivery affecting : Status: Acute (2) Insulin dependent type 2 diabetes mellitus: Status: Acute Assessment and plan: Admit to observation status for prolonged monitoring as well as glycemic control Resume home insulin dose, I highly suspect the patient is either not administering the insulin properly or she is misrepresenting information. Fingerstick blood glucose 1 hour post meals Monitor blood glucose trends and possible discharge home tomorrow. Diabetic ketoacidosis panel is negative Headache resolved after IV Tylenol (3) Chronic hypertension: Status: Acute (4) Headache: Status: Acute (5) Decreased movements: Status: Acute
[2025-08-03 05:27] LABS: Basophils # (Auto) 0.0 Thou/mm3 (0.0-0.2); Basophils % (Auto) 0 % (0-2.5); Eosinophils # (Auto) 0.1 Thou/mm3 (0.0-0.5); Eosinophils % (Auto) 1 % (0-10); Hematocrit 29.9 % (36.0-46.0); Hemoglobin 9.8 g/dL (12.0-16.0); Immature Granulocytes Auto 0.08 Thou/mm3 (0.00-0.00); Lymphocytes # (Auto) 2.4 Thou/mm3 (1.0-4.8); Lymphocytes % (Auto) 23 % (10-50); Mean Corpuscular HGB Conc 32.8 g/dl (31.0-37.0); Mean Corpuscular Hemoglobin 26.8 pg (25.0-35.0); Mean Corpuscular Volume 82 fL (80-100); Monocytes # (Auto) 0.6 Thou/mm3 (0.0-0.8); Monocytes % (Auto) 6 % (0-12); Neutrophils # (Auto) 7.4 Thou/mm3 (1.8-7.7); Neutrophils % (Auto) 69 % (37-80); Nucleated Red Blood Cell # 0.00 Thou/mm3 (0.00-0.00); Nucleated Red Blood Cell % 0 /100 WBC (0); Platelet Count 224 Thou/mm3 (140-440); RDW Standard Deviation 43.7 fL (36.4-46.3); Red Blood Count 3.65 Miln/mm3 (4.00-5.20); White Blood Count 10.6 Thou/mm3 (3.6-11.0)
[2025-08-03 05:46] LABS: Glucose Estimated Average 131 mg/dL (80-131); Hemoglobin A1C 6.2 % Hgb (4.8-6.0)
[2025-08-03 06:03] LABS: Alanine Aminotransferase 8 U/L (10-49); Albumin, Serum 3.5 gm/dL (3.5-5.0); Albumin/Globulin Ratio 1.7 (1.2-2.2); Alkaline Phosphatase 80 U/L (46-116); Anion Gap 10 (7-16); Aspartate Amino Transferase 15 U/L (0-34); BUN/Creatinine Ratio 10 Ratio (12-20); Bilirubin,Total 0.3 mg/dL (0.3-1.2); Blood Urea Nitrogen 5 mg/dL (9-23); Calcium 8.7 mg/dL (8.3-10.6); Calcium (Corrected) 9.1 mg/dL (8.5-10.1); Carbon Dioxide 20.4 mMol/L (20.0-31.0); Chloride 108 mMol/L (98-107); Creatinine (Component) 0.5 mg/dL (0.6-1.3); Estimated Creatinine Clearance 232.7 mL/min (>60); Globulin 2.1 gm/dL (2.3-3.5); Glucose 101 mg/dL (74-106); Osmolality,Calculated 272 (275-295); Potassium 3.7 mMol/L (3.4-5.1); Sodium 138 mMol/L (136-145); Total Protein 5.6 gm/dL (5.7-8.2); eGFR > 60 See Note
[2025-08-03 06:37] VITALS: BP 132/64; PULSE 87
[2025-08-03 06:44] VITALS: RESP 14; TEMP 36.7
[2025-08-03] MEDS: INSULIN LISPRO (AdmeLOG) 1 UNIT/0.01 ML UNIT 34 UNIT SC (07:30)
[2025-08-03] MEDS: INSULIN DEGLUDEC 5 UNIT/0.05 ML (PER 5 UNITS) 48 UNIT SC (08:53)
--- NOTE | 2025-08-03 09:51 | XR_ITS ---
Examination: Complete OB ultrasound greater than 14 weeks Date and time of exam: July, 1211 hours INDICATIONS: Labor evaluation, diagnosis insulin dependent diabetic, history labor Findings: Viable intrauterine single fetus with single amniotic sac presentation cephalic spine maternal left Cardiac motion 147 bpm Placenta anterior grade 2 Medical cord insertion 3 vessel seen Amniotic fluid index 11.7 cm Cervix 3.4 cm Ovaries obscured by bowel gas. Composite estimated gestational age based on BPD, head circumference, abdominal circumference, femur length is 31 weeks 2 days Estimated weight 1725 g. Survey of intracranial anatomy, spinal anatomy, abdominal anatomy, four-chamber heart performed with no abnormalities identified. Impression: Viable intrauterine gestation in cephalic presentation.
--- NOTE | 2025-08-03 09:52 | ESPR_ITS ---
Subjective Subjective Interval history: The patient is a 30-year-old 3 para 0202 at 31 weeks and 2 days with estimated due date of 10/03/2025 who has very poorly controlled type II DM and presented to labor and delivery triage with headache as well as persistent hyperglycemia at home and and decreased movements. On presentation, the patient denied any contractions, leakage of fluid or vaginal bleeding. She reported that she had persistent high blood glucose of 250 or above. Patient is on a very high dose of insulin and she is assisted by [facility] for diabetic management. The patient was admitted by Dr. Ramos. Today, the patient is resting comfortably in bed. She still has a nagging headache for the last 4 days not relieved by Tylenol. She states her last eye exam was around a year ago. She does wear glasses. Patient is on large amounts of insulin: currently 48 units of Lantus in the morning and 50 units of Lantus at night. She is on 34 units of lispro at breakfast, 40 units of lispro at lunch, and 60 units of lispro at dinner. Patient has [facility] managing her blood sugars. Her hemoglobin A1c today is 6.2. The plan will be to give BMTZ as patient has delivered both her babies at 34 to 35 weeks. We will check an ultrasound for size and check a urine protein/creatinine ratio. Give IV iron as patient is anemic. Upon discussion with the patient, who has a scheduled C- section 09/14/[address] Ramos, she would like permanent sterilization. She states that she is at 100% sure. She is ready to sign tubal ligation papers now. Plan will be to sign tubal ligation papers, keep a copy here give a copy to the patient and also send one to medical records so scanned in the chart. Today the patient reports good movement. Her blood sugars are under good control here in the hospital. Exam Vital Signs Temp Pulse Resp BP O2 Del Method 98.0 F 87 14 132/64 H Room Air 08/03/25 06:44 08/03/25 06:37 08/03/25 06:44 08/03/25 06:37 08/02/25 16:30 Narrative Exam Patient is alert and oriented x 3 in no apparent distress Routine Abdominal Exam Abdominal: Present soft Comments: Abdomen obese fundus nontender Urinary Catheter Management Cath placed during this visit: no Assessment & Plan Problems (1) Previous delivery affecting : Problem details: Patient has scheduled repeat at approximately 36 to 37 weeks. She signed tubal ligation papers today. Status: Acute (2) Insulin dependent type 2 diabetes mellitus: Problem details: Hemoglobin A1c currently 6.2. Dietary consult ordered. BMTZ ordered repeat in 24 hours Status: Acute (3) Chronic hypertension: Problem details: Blood pressures under good control Status: Acute (4) Headache: Status: Acute (5) Decreased movements: Status: Acute Time Spent With Patient Time with patient: less than 15 minutes Objective Labs 08/03/25 05:00 08/03/25 05:00 Labs: Laboratory Results - last 24 hr 08/02/25 08/02/25 08/03/25 15:20 15:44 05:00 WBC 9.0 10.6 RBC 3.72 L 3.65 L Hgb 9.9 L 9.8 L Hct 30.3 L 29.9 L MCV 82 82 MCH 26.6 26.8 MCHC 32.7 32.8 RDW Std Deviation 42.7 43.7 Plt Count 232 224 Neut % (Auto) 69 69 Lymph % (Auto) 21 23 [place] % (Auto) 7 6 Eos % (Auto) 1 1 Baso % (Auto) 0 0 Neut # (Auto) 6.2 7.4 Lymph # (Auto) 1.9 2.4 [place] # (Auto) 0.7 0.6 Eos # (Auto) 0.1 0.1 Baso # (Auto) 0.0 0.0 Immature Gran # (Auto) 0.09 H 0.08 H Absolute Nucleated RBC 0.00 0.00 Immature Gran % 1 H 1 H Nucleated RBC % 0 0 Sodium 139 138 Potassium 3.8 3.7 Chloride 108 H 108 H Carbon Dioxide 20.0 20.4 Anion Gap 11 10 BUN 6 L 5 L Creatinine 0.6 0.5 L Estim Creat Clear Calc 193.9 232.7 eGFR > 60 > 60 BUN/Creatinine Ratio 10 L 10 L Glucose [address] Glu mg/dL 131 Hemoglobin A1c 6.2 H Calculated Osmolality 281 272 L Calcium 8.6 8.7 Corrected Calcium 8.9 9.1 Total Bilirubin 0.2 L 0.3 AST 13 15 ALT 9 L 8 L Alkaline Phosphatase 90 80 Total Protein 5.7 5.6 L Albumin 3.6 3.5 Globulin 2.1 L 2.1 L Albumin/Globulin Ratio 1.7 1.7 Beta-Hydroxybutyrate/Acetoacetate 0.0
[2025-08-03] MEDS: FERRIC SOD GLUC INJ 125 MG in SODIUM CHLORIDE 0.9% 100 ML 110 MG IV (10:17)
[2025-08-03] MEDS: BETAMET ACET/BETAMET NA PH (Celestone) 6 MG/ML VIAL 12 MG IM (10:26)
[2025-08-03] MEDS: HYDROcodone/APAP 5/325 TABLET 1 TAB PO (10:30)
[2025-08-03 10:42] LABS: Creatinine,Random Urine 40 mg/dL (30-125); Protein Total, Random Urine 9 mg/dL (1-14)
[2025-08-03 11:43] VITALS: BP 125/66; PULSE 87; RESP 17; TEMP 36.6
[2025-08-03] MEDS: INSULIN LISPRO (AdmeLOG) 1 UNIT/0.01 ML UNIT 40 UNIT SC (12:28)
--- NOTE | 2025-08-03 14:13 | ESDS_ITS ---
Planned Discharge Date 08/03/25 Antepartum Hosp Course Hospital Course : 3 Para: 2 Term pregnancies: 2 pregnancies: 0 Living children: 2 History of Abortions: Spontaneous and Elective: 0 History of Vaginal deliveries: 1 History of sections: Yes History of : No RUDY: 10/02/25 Visit History: The patient is a 30-year-old 3 para 0202 at 31 weeks and 2 days with estimated due date of 10/03/2025 who has very poorly controlled type II DM and presented to labor and delivery triage with headache as well as persistent hyperglycemia at home and and decreased movements. On presentation, the patient denied any contractions, leakage of fluid or vaginal bleeding. She reported that she had persistent high blood glucose of 250 or above. Patient is on a very high dose of insulin and she is assisted by [facility] for diabetic management. The patient was admitted by Dr. Ramos. Today, the patient is resting comfortably in bed. She still has a nagging headache for the last 4 days not relieved by Tylenol. She states her last eye exam was around a year ago. She does wear glasses. Patient is on large amounts of insulin: currently 48 units of Lantus in the morning and 50 units of Lantus at night. She is on 34 units of lispro at breakfast, 40 units of lispro at lunch, and 60 units of lispro at dinner. Patient has [facility] managing her blood sugars. Her hemoglobin A1c today is 6.2. The plan will be to give BMTZ as patient has delivered both her babies at 34 to 35 weeks. We will check an ultrasound for size and check a urine protein/creatinine ratio. Give IV iron as patient is anemic. Upon discussion with the patient, who has a scheduled C- section 09/14/[address] Ramos, she would like permanent sterilization. She states that she is at 100% sure. She is ready to sign tubal ligation papers now. Plan will be to sign tubal ligation papers, keep a copy here give a copy to the patient and also send one to medical records so scanned in the chart. Today the patient reports good movement. Her blood sugars are under good control here in the hospital. Her ultrasound was performed showing EFW within normal limits BREANNE within normal limits. Blood sugars were under much better control patient was discharged home after approximately 23 hours observation to follow-up close with NSTs clinic visits and biophysical profiles. She will follow-up with [facility] for her blood sugar control. History of Present Adequate Care: Yes Ultrasounds: normal mid trimester US Obstetrical complications: gestational diabetes Medical complications: other (Maternal morbid obesity) Labs Maternal Blood Type: O Pos Labs: Negative: RPR, Hepatitis B, Rubella Titre, HIV, Chlamydia and Gonorrhea and Unknown: Herpes Type 1, Herpes Type 2, Group Beta Strep and Covid- 19 Assessment EFM, activity, etc.: NST reactive for 31 weeks. Biophysical profile 8 out of 8. BREANNE 11.7. EFW within normal limits. Maternal Assessment Status at discharge: Stable Additional Discharge comments Follow-up in 24 hours for second betamethasone shot. Bring tubal ligation papers with you when you come in to deliver. Follow-up for weekly appointments at the clinic with Dr. Ramos. Follow-up for NSTs and biophysical profiles. Follow-up with [facility] for blood sugar control. Discharge Plan Plan Patient Disposition: HOME (Self Care) Patient condition on transfer: Stable Prescriptions/Referrals Prescriptions/Med Rec: No Action (DME) Blood Glucose Test Strip See Rx Instructions .MEDSUPPLY Qty: 100 0RF Rx Instructions: As directed, 4 times a day (DME) lancets 21 gauge misc See Rx Instructions .MEDSUPPLY Qty: 100 0RF Rx Instructions: As directed, 4 times a day (DME) pen needle, diabetic 29 gauge x 1/2 needle See Rx Instructions .MEDSUPPLY Qty: 100 2RF Rx Instructions: As directed, four times a day Vitamin Plus Low Iron 27 mg iron- 1 mg tablet 1 tab PO QDAY 90 Days Qty: 90 6RF folic acid 1 mg tablet 4 mg PO QDAY 90 Days Qty: 360 8RF insulin glargine [Lantus Solostar U-100 Insulin] 100 unit/mL (3 mL) insulin pen See Rx Instructions subcut BID 30 Days Qty: 30 4RF Rx Instructions: 48 units AM and 50 units PM subcutaneously twice a day; insulin lispro [Humalog KwikPen Insulin] 100 unit/mL insulin pen See Rx Instructions subcut TID Qty: 41 2RF Rx Instructions: 34 unirs BF 40 units lunch 63 units dinner subcutaneously three times a day; Referrals: No Primary/Family,Physician [Primary Care Provider] Patient/Caregiver Discharge Instructions Discharge Activity: activity as tolerated Other Discharge Diet Instructions: Diabetic diet Education Materials: Kick Counts, Antepartum Discharge, Blood Glucose Screening During ..., Anemia During , Diabetes Carbs Fats Protein Print Language: Sami Activity Restrictions/Additional Instructions: Moderate ambulation and exercise as tolerated Stand Alone Forms: Lynn Award Info., Patient Portal Info Letter, Work/Release Restrictions Providers Provider Date of admission: 08/02/25 13:39 Primary care physician: Physician No Primary/Family Admitting Provider: Fabian Ramos MD Attending Provider on Admission: Fabian Ramos MD Attending Provider on DC: [facility] ([facility]) Discharging Provider: Fabby Moya MD ([facility]) Anticipated date of discharge: 08/03/25 Diagnosis Discharge Diagnosis (1) Decreased movements: Status: Acute Qualifiers: Fetus number: single or unspecified fetus Trimester: third trimester Qualified Code(s): O36.8130 - Decreased movements, third trimester, not applicable or unspecified Assessment & Plan: NST reactive. Biophysical profile within normal limits. Complete OB ultrasound reviewed and within normal limits. BREANNE 11. (2) Morbid obesity with BMI of 40.0-44.9, adult: Status: Acute Assessment & Plan: Increase ambulation. (3) Previous delivery affecting : Status: Acute Assessment & Plan: Patient is scheduled September 14 for repeat . She signed tubal ligation papers today. She has a copy and 1 is placed in the scheduling folder and one will be scanned into the computer. (4) Insulin dependent type 2 diabetes mellitus: Status: Acute Assessment & Plan: Continue home insulin dosing.
[2025-08-03 16:17] VITALS: BMI 47.1
== END 2025-08-03 14:23 | disposition home or self-care (01) ==
PROVIDERS: Obstetrics & Gynecology; Admitting Provider Obstetrics & Gynecology; Visit Provider Obstetrics & Gynecology
DX: O36.8130 Decreased fetal movements, third trimester, not applicable or unspecified (principal); O24.113 Pre-existing type 2 diabetes mellitus, in pregnancy, third trimester; E11.65 Type 2 diabetes mellitus with hyperglycemia; O10.913 Unspecified pre-existing hypertension complicating pregnancy, third trimester; O34.219 Maternal care for unspecified type scar from previous cesarean delivery; Z79.4 Long term (current) use of insulin; Z3A.31 31 weeks gestation of pregnancy; O99.213 Obesity complicating pregnancy, third trimester; E66.01 Morbid (severe) obesity due to excess calories
CPT/HCPCS: 36415; 59025; 59899; 76805; 76819; 80053; 82010; 82570; 83036; 84156; 85025; 96372; J0131; J0702; J1815; J2916; J7030; J7050; A9270

== ENCOUNTER 2025-08-04 10:19 | Observation (INO) | payer MEDICAID, SELFPAY ==
[2025-08-04 10:17] VITALS: BP 108/53; PULSE 108
[2025-08-04 10:21] VITALS: BP 105/53; PULSE 100; RESP 18; RESP 99; TEMP 36.8; BMI 45.6
--- NOTE | 2025-08-04 10:21 | XR_ITS ---
Examination: Biophysical profile, ultrasound Date and time of exam: August 04, 2025, 1037 hours INDICATIONS: Labor evaluation, history of labor, insulin requiring diabetes diagnosis Technique: Multiple transabdominal sonographic images of the pelvis abdomen obtained. Attention is directed to the breathing movement, gross body movement, amniotic fluid volume and tone. Findings: Amniotic fluid index 10.4 cm Total biophysical profile is 8 of 8. breathing movement is 2. Gross body movement is 2. tone is 2. Qualitative amniotic fluid volume is 2 Impression: Biophysical profile is 8 of 8.
[2025-08-04] MEDS: BETAMET ACET/BETAMET NA PH (Celestone) 6 MG/ML VIAL 12 MG IM (11:43)
== END 2025-08-04 11:45 | disposition home or self-care (01) ==
LOC: S4S1 10:19 → S4SX 11:42
PROVIDERS: Admitting Provider Obstetrics & Gynecology; Referring Provider Obstetrics & Gynecology; Visit Provider Obstetrics & Gynecology
DX: O24.414 Gestational diabetes mellitus in pregnancy, insulin controlled (principal); Z3A.31 31 weeks gestation of pregnancy
CPT/HCPCS: 59025; 59899; 76819; 96372; G0378; J0702

== ENCOUNTER 2025-08-04 14:14 | Outpatient (AMB) | payer MEDICAID, SELFPAY ==
[2025-08-04 14:32] VITALS: BP 124/64; PULSE 115; RESP 18; TEMP 36.7; O2SAT 97; BMI 46.9
--- NOTE | 2025-08-04 14:32 | OBCLNT_ITS ---
Vital Signs 08/04/25 14:32 Height 1.68 m Height Method Stated Weight 132.449 kg Weight Measurement Method Standing Scale BMI 46.9 BP 124/64 Blood Pressure Source Automatic Cuff Blood Pressure Location Right Upper Arm Position Sitting Respiration 18 Pulse 115 H Pulse Source Monitor Temp 98.0 F Temp Source Temporal Artery Scan Pulse Oximetry (%) 97 Oxygen Delivery Method Room Air Allergies/Home Meds Allergies & Medications Allergies [place] And Derivatives Allergy (Severe, Verified 09/02/25 19:15) Rash Sulfa (Sulfonamide Antibiotics) Allergy (Severe, Verified 09/02/25 19:15) Hives Medication Reconciliation pen needle, diabetic 29 gauge x 1/2 #100 ea 03/25/25 [Rx Confirmed 08/31/25] vitamins with calcium no.72-iron 27 mg-folic acid 1 mg tablet ( Vitamins Plus Low Iron) 1 tab PO QDAY 90 days #90 tabs 03/25/25 [Rx Confirmed 08/31/25] blood sugar diagnostic (Blood Glucose Test strips) #100 ea 08/07/25 [Rx Confirmed 08/31/25] lancets 21 gauge #100 ea 08/07/25 [Rx Confirmed 08/31/25] sumatriptan succinate 50 mg tablet (Imitrex) See Rx Instructions PO .COMPLEX 7 days #20 tabs 08/07/25 [Rx Confirmed 08/31/25] docusate sodium 100 mg capsule (Stool Softener) 100 mg PO QDAY 30 days #30 caps 09/05/25 [Rx] hydralazine 10 mg tablet 10 mg PO BID 30 days #60 tabs 09/05/25 [Rx] ibuprofen 600 mg tablet 600 mg PO Q6H PRN fever or pain 10 days #40 tabs 09/05/25 [Rx] insulin glargine 100 unit/mL (3 mL) subcutaneous pen (Lantus Solostar U-100 Insulin) 25 unit (0.25 mL) subcut BID 30 days #15 mL 09/05/25 [Rx] insulin lispro 100 unit/mL subcutaneous pen (Humalog KwikPen (U-100) Insulin) 10 unit (0.1 mL) subcut TID 30 days #9 mL 09/05/25 [Rx] semaglutide 0.25 mg or 0.5 mg (2 mg/3 mL) subcutaneous pen injector (Ozempic) 0.5 mg (0.736 mL) subcut QWEEK 30 days #3 mL 09/05/25 [Rx] Immunizations Immunizations Flu Vaccine in the Last 12 Months: No Flu Vaccine Exclusion Criteria: No Exclusion Criteria Care OB Visit Log OB Flowsheet Initial Weight: Not Recorded Date -?-?-?-?-?-?-?-?-?-?-?-?- EGA Weight BP Alb Glu CTX Pres Fundal ht FHR Mov Dilation Station Effacement Hx Notes Visit Note 03/13/25 -?-?-?-?-?-?-?-?-?-?-?-?- 10w 6d 112.491 kg 122/72 159 at 11w, RUDY 10/01/25. Initial visit. Cramping improved, WHALEN x4 days. T2DM poorly controlled (A1C 7.0, BG up to 330-340). Hx infertility, deliveries at 35w (both sons). FHR 159. Rubella non-immune. Plan: D/C metformin, start insulin (Lantus 37u qhs, Humalog 6u TID), weekly visits for BG monitoring, genetics, [facility], rubella vaccine. 03/18/25 -?-?-?-?-?-?-?-?-?-?-?-?- 11w 4d 115.779 kg 132/87 165 at 11w4d with GDM on Lantus 40u qAM and rapid-acting insulin 8u TID (? to 10u for high-carb meals); improved BG 80?90 fasting, peak 234. Plan: C ontinue insulin, educate on site rotation, order CGM to [facility], log BGs, f/u in 4w; NIPT negative, routine care continues. 03/25/25 -?-?-?-?-?-?-?-?-?-?-?-?- 12w 4d 115.836 kg 125/81 absent 165 Patient presents for a routine visit at 12 weeks and 4 days gestation. She reports that her blood sugar levels have been spiking to as high as 350 despite being prescribed insulin based on weight-based doses. - Increase insulin doses: ? Lantus: 30 units subcutaneously twic e daily ? Rapid-acting insulin: 16 units subcu taneously three times daily before meals - Provide patient education on proper in sulin injection technique to minimize bruising. - Dispense continuous glucose monitor (C GM) and new glucometer. - Review glucose logs at next visit. 04/08/25 -?-?-?-?-?-?-?-?-?-?-?-?- 14w 4d 117.084 kg 127/77 145 absent No VB or LOF. No cramping Not reliable with checking sugars 04/15/25 -?-?-?-?-?-?-?-?-?-?-?-?- 15w 4d 117.594 kg 119/77 absent 168 - Patient reports her blood sugar control has been pretty good recently: - Denies dry mouth, which she associat es with high blood sugar - Reports constant urination, which sh e attributes to - Patient is experiencing difficulty obt aining diabetic supplies: - Using her diabetic father's supplies sparingly - Awaiting a call from a service to as sist with obtaining supplies - movement: - Patient inquires about not feeling f etal movement yet - Denies cramping, nausea, or vomiting - Await call from diabetes management service on (tomorrow) for assistance with supplies and potential insulin adjustments - Continue current diabetes management r alan 04/27/25 -?-?-?-?-?-?-?-?-?-?-?-?- 17w 2d 120.882 kg 130/80 absent 147 acti ve 23-year-old at 17 weeks and 2 days gestation with poorly controlled gestational diabetes mellitus. Blood glucose readings range from 90-240 mg/dL, with most readings between 180-230 mg/dL. Current insulin regimen includes NPH 30 units in the morning and evening, with 16 units of rapid-acting insulin with meals. Plan - Increase morning insulin dose from 30 units to 35 units - Increase mealtime insulin dose from 16 units to 18 units - Continue evening insulin dose at 30 un its - Follow up in two weeks - Awaiting insurance approval for specia list ultrasound at [facility] - Resend insulin prescription 05/13/25 -?-?-?-?-?-?-?-?-?-?-?-?- 19w 4d 123.037 kg 130/83 absent 150 acti ve 19w4d with poorly controlled T2DM on insulin; FBG 130?140, occasional PPG up to 180. No FM yet. FHR 150 bpm, limited facial views on US, otherwise normal anatomy. Plan: Continue glucose monitoring, repeat anatomy US =24wks, follow up next visit, verify referral and [employer] coverage for [facility] specialty scan. 06/09/25 -?-?-?-?-?-?-?-?-?-?-?-?- 23w 3d 127.063 kg 99/63 absent 169 activ e - She reports her blood sugars are doing well with diabetes management. - Patient continues to experience carpal tunnel symptoms in her hand. - She denies contractions, cramping, or other -related problems. - Patient reports feeling movement well, which is appropriate for her gestational age. - She is adherent to insulin therapy and will continue working with home health services for diabetes management. - Patient denies wanting to use an insul in pump, preferring to continue with pen/syringe method. - Continue c urrent insulin regimen; home health service to a [facility] with insulin management - Schedule at 37 weeks (estima lia around September 14-) - Follow up with [facility] o n June 17 for echocardiogram and growth scan - Return for visit in 4 weeks - Monitor for signs of preeclampsia (bernardo vated blood pressure with headache, visual disturbances, right upper quadrant pain) - Transition to biweekly visits after next appointment 06/26/25 -?-?-?-?-?-?-?-?-?-?-?-?- w 6d 128.083 kg 134/83 absent unknown 145 active - She has poorly controlled gestational diabetes requiring insulin management. - Lantus was recently increased to 35 units twice daily - Humalog was increased to 18 units be fore meals - Blood sugars have been elevated with readings nothing more than 180, 200 - She uses a continuous glucose monito r (CGM) - She declined an insulin pump - Patient reports developing early carpa l tunnel syndrome. - She was recently hospitalized for ankl e swelling. - Laboratory studies were performed an d came back normal - This ruled out pre-eclampsia - Patient reports the baby is active and positioned riding high up here. - She may be developing cold symptoms as there is a flu going around. - She is taking aspirin as prescribed. - Patient has upcoming appointments at [facility] or [place] for both ul trasound and echocardiogram this coming week. - Continue current insulin regimen: Lantus 35 units BID, Humalog 18 units AC - Continue aspirin - vp software support new insulin prescription from pharmacy - Attend upcoming ultrasound and e chocardiogram appointments - Follow up in 3-4 weeks to review ultra sound reports - Remind clinician at 32 weeks gestation to sign consent form for planned section 07/13/25 -?-?-?-?-?-?-?-?-?-?-?-?- 28w 2d 130.748 kg 126/82 absent 155 acti ve presenting for routine visit with a history of poorly controlled gestational diabetes mellitus. - She is currently managed on Lantus 35 units twice daily and Humalog insulin, with insulin management provided by the nursing team from [facility]. - Her continuous glucose monitor shows g ood numbers indicating improved glycemic control. - She reports the baby is active. - She experienced a pharmacy issue where only short-acting insulin was provided instead of the prescribed long-acting insulin. - Send prescription for long- acting insulin (Lantus); provide printout to patient to resolve pharmacy dispensing issue - Perform blood work including CBC, RPR, and A1c - Schedule for at 12:30 p.m. - Prepare tubal ligation papers in early August, one month before - Begin monitoring at 30 weeks; annette amaro will be contacted for appointment - Follow-up appointment in 2 weeks - Continue current insulin regimen with Lantus 35 BID and Humalog managed by [facility] nursing team - Next ultrasound scheduled at [facility] on August 17 07/30/25 -?-?-?-?-?-?-?-?-?-?-?-?- 30w 5d 130.408 kg 134/89 absent cephalic 31 14 5 active Reports WHALEN for 3 days, denies VC, and epigastric pain. - She is currently managed by a [facility] service for diabetes monitoring via telephone consultations. - New insulin prescriptions with higher doses were sent yesterday due to poor glycemic control. - She reports headache for 3 days durati on. - Has not tried Tylenol or other over- the-counter pain relievers. - She confirms movement and report s the baby is active. - She went to Labor and Delivery today f or evaluation. - She continues home blood pressure as previously established. - Monitoring appointments are scheduled for Mondays and . - New insulin prescriptions sent yesterday with higher doses for poorly controlled gestational diabetes - Prescribe Fioricet for headache manage ment - Continue home blood pressure monitorin g - Schedule weekly visits going forward - Monitoring appointments on Mondays and - Plan delivery at 36-37 weeks depending on sugar control, not at 35 weeks unless preeclampsia develops 08/04/25 -?-?-?-?-?-?-?-?-?-?-?-?- 31w 3d 132.449 kg 124/64 absent cephalic 32 17 0 active - She was recently hospitalized from Sunday to Sunday where her blood sugars were well-controlled in the 80s using the same insulin doses she takes at home. - At home, she has been experiencing con cerning blood sugar fluctuations with doses that appear too high. - Recent doses included 66, 58, 46, 34 , and 48 units, which resulted in dangerously low blood sugars dropping to 48 or 30 at night. - High doses of short-acting insulin ( 66 units of Humalog) and long-acting insulin (58 units) have been problematic. - Her blood sugar was 170 today, which m ay be related to recent steroid administration. - She reports previous insulin doses of 30, 40, and 60 units that worked better for her control. - A recent biophysical profile showed baby looks good, though the heart rate was initially in the 170s but improved with IV fluids. - She has been experiencing headaches an d was prescribed medication to take before bed. - Discontinue cu rrent high insulin doses (66, 58, 46, 34, and 48 units) and return to previous doses of 30, 40, and 60 units - Home nurse visits to be cancelled per patient preference - Follow-up visits every 3 days for gluc ose monitoring, starting Sunday and next Sunday - Patient to bring all insulin medicatio ns to Sunday appointment - Patient to record blood glucose values and bring log to next Sunday visit - Continue current delivery date of the th - Patient to take prescribed headache me dication before bedtime - If glucose control does not improve wi th outpatient management, consider inpatient admission for insulin management under nursing supervision 08/21/25 -?-?-?-?-?-?-?-?-?-?-?-?- 33w 6d 131.258 kg 138/89 absent cephalic 34 16 1 active - She reports elevated blood pressure with today's reading of 138/89 mmHg. - Blood pressures were similarly eleva lia yesterday at the hospital. - Current insulin regimen includes 60 un its in the morning, 55 units at night, and 45 units three times daily with meals. - Post-meal blood glucose levels rise to 200 mg/dL. - Fasting blood glucose ranges between 84-90 mg/dL. - Post-breakfast and post-lunch glucos e levels sometimes exceed 150-160 mg/dL depending on food intake. - She reports new onset blurry vision th at she has never experienced before. - She noticed blood when wiping after ur ination today. - She denies UTI symptoms but reports fe eling pressure. - She recently completed a course of ant ibiotics. - She had a recent hospital visit yester day where no laboratory tests were performed. - Send patient t o labor and delivery for immediate preeclampsia panel and UTI panel workup - Increase morning insulin from 60 units to 70 units - Increase mealtime insulin (breakfast, lunch, dinner) from 45 units to 48 units three times daily - Continue nighttime insulin at 55 units - Schedule follow-up appointment in one week 08/28/25 -?-?-?-?-?-?-?-?-?-?-?-?- 34w 6d 133.583 kg 128/86 absent cephalic 35 14 5 active - She reports ongoing bright red vaginal bleeding that began recently. - Initially noticed bleeding and took a picture of it - When she wiped, there was significan tly more blood present - Describes the blood as bright red in color - Patient reports feeling like she needs to urinate but is unable to void. - Returned to restroom due to urge to urinate but did not produce urine - When wiping, noted blood instead of urine - Complete ultrasound to rule out placental abruption - Possible 24-hour observation for monit oring - Potential delivery depending on findin gs 08/31/25 -?-?-?-?-?-?-?-?-?-?-?-?- 35w 2d 133.526 kg 130/75 absent cephalic 36 15 5 active - Juana Lindsey is a 35-year-old at 35 weeks and 2 days gestation with poorly controlled gestational diabetes mellitus, chronic hypertension, and history of prior sections presenting for follow-up after recent hospitalization for vaginal bleeding. - She recently presented with bright red vaginal bleeding and was kept for post- bleeding observation for 12 hours at the hospital. - The bleeding has resolved and has no t recurred since discharge last Sunday. - Patient reports significant difficulty with glycemic control at home despite being on very high dose insulin. - Blood sugars spike to the 300s, whic h she attempts to manage by drinking large amounts of water and not eating for periods of time. - Sugars come down to 280-260 range wi th these measures. - Notes that when hospitalized, the sa me insulin dose maintains better glucose control. - Admits to continuing to eat pasta an d rice at home despite dietary restrictions. - Reports proper insulin injection oumar hnique including pinching stomach, holding injection until medication is fully administered. - Has been experiencing easy bruising at injection sites. - Patient has chronic hypertension but i s not currently on medications with wide fluctuations in blood pressure. - She has not been compliant with diabet es management recommendations. - Scheduled for repeat section, initially planned for September 09 but confirmed for September 08 at 7:30 AM with 5:30 AM check-in. Plan - section scheduled for at 7:30 AM, check-in at 5:30 AM - NPO after 10 PM the night before surge ry (no food, drink, or insulin) - Change insulin injection sites from ab domen to thigh or back of arm to improve absorption - Continue NST monitoring with next appo intment on - If nausea or illness occurs night befo re surgery, present to hospital for IV fluids - Follow-up appointment scheduled for mn xt Sunday RUDY Calculator Estimated Delivery Date Method Current WG Current Estimate 10/03/25 LMP (Certain) 36w 5d Other Estimates 10/03/25 Ultrasound #1 36w 5d 10/05/25 Ultrasound #2 36w 3d Expected Delivery Route/Plan Hx CS x 1, hx PTVD at 35-36 weeks first Macrosomic infant with last delivery (CS at 35 weeks 8 lbs 14 oz) Poorly controlled diabetes on oral meds prior to with frequent trips into the ER HgBA1C 7.0 first trimester Morbid Obesity Starting BMI 41: Baby ASA Needs Level II US/ echo/ and co-management with MFM PNC labs: 0+/Ab-/Rubella Nonimmune/RPR NR/HIV-/HepBSag-/ Specific Issue/Plans For Repeat CS D/C metformin, start insulin (Lantus 37u qhs, Humalog 6u TID), weekly visits for BG monitoring, genetics, MFM consult at [facility], Tylenol for WHALEN, rubella vaccine. Notes Visit Date: 08/04/25 Last Updated by: Fabian Ramos MD - Hospital admission (Sunday to Sunday): Blood glucose levels in the 80s - Today: Blood glucose 170 mg/dL - Biophysical profile: Baby appears normal - heart rate: Initially in the 170s, decreased with IV fluid administration Visit Date: 06/09/25 Last Updated by: Fabian Ramos MD [facility] ultrasound report: - Single live fetus - Clinical gestational age: 22 weeks 4 days (consistent with LMP dates) - Composite age: 21 weeks 6 days - Estimated weight: 530 grams - Amniotic fluid: Normal - anatomy: Normal - Placenta: Anterior, no previa, no ultrasound evidence of accreta - Cervical length: 4.5 cm, closed cervix - No funneling Visit Date: 04/08/25 Last Updated by: Fabby Moya ([facility] Clinic)MD Pt states she sometimes checks her sugars on her dad's machine and her insurance will not cover one for her. She states if she doesn't feel right she goes to the ER where her BS can be as high as the 300s. Will authorize for diabetic management and counseling. Surprisingly, her first trimester HgB A1c is only 7. Stressed tight glycemic control during and afterwars to avoid lobsterman complications of DM including loss of limbs and blindness. Office Procedures [facility] LOC & Office Proc's Nursing/Assessment Patient Status: Established Patient OB Clinic Nursing Assessment: Medication Reconciliation, Update PMH in EMR and Vital Signs OB Clinic Coordination of Care: Complex Care and Chronic Disease 1-5, Education Complex Pt/Fam, Consent,records obtained, informed consent, Lab and Imaging orders, Results/Orders obtained and Staff clarify orders Special Needs: Heart tones Established Patient Charge Established Patient Point Assignment: 140 Established Patient Point Charge: EP Level 4 (120-155) Assessment & Plan Diagnosis / Problem List (1) Previous delivery affecting : Status: Acute (2) Insulin dependent type 2 diabetes mellitus: Status: Acute (3) Type 2 diabetes mellitus with unspecified complications: Status: Acute Plan Problem List - Diabetes Mellitus in - - tachycardia - Headache Assessment The patient presents with poorly controlled gestational diabetes with concerning insulin dosing issues, as evidenced by recent hospitalization where blood glucose levels were well-controlled in the 80s with home insulin regimen, but subsequent home management resulted in dangerously high insulin doses (66, 58, 46, 34, and 48 units) causing hypoglycemic episodes with blood glucose dropping to 48 and 30 mg/dL at night. Current blood glucose is elevated at 170 mg/dL, likely secondary to steroid administration. assessment via biophysical profile shows reassuring results with good appearance, though initial heart rate was elevated in the 170s but normalized with IV fluid administration. The patient is at 34 weeks gestation with delivery currently scheduled for the , though there is consideration for earlier delivery at 36 weeks pending glucose stabilization. Plan - Discontinue current high insulin doses (66, 58, 46, 34, and 48 units) and return to previous doses of 30, 40, and 60 units - Home nurse visits to be cancelled per patient preference - Follow-up visits every 3 days for glucose monitoring, starting Sunday and sunday - Patient to bring all insulin medications to Sunday appointment - Patient to record blood glucose values and bring log to next Sunday visit - Continue current delivery date of the - Patient to take prescribed headache medication before bedtime - If glucose control does not improve with outpatient management, consider inpatient admission for insulin management under nursing supervision 1. Progress Reviewed gestational age, growth, and heart rate. Biophysical profile performed showing baby looks good. heart rate was initially in the 170s but normalized with IV fluids. Planned frequent visits (Sunday and next Sunday visits until stable, then every 3 days for monitoring). 2. Instructed patient to monitor movements and report decreases immediately. 3. Testing Counseled on routine third-trimester labs per guidelines. Discussed potential need for ultrasound or monitoring based on risk factors. 4. Preeclampsia Precaution Educated on preeclampsia signs: severe headache, vision changes, right upper quadrant pain, sudden swelling. Advised urgent reporting of symptoms and discussed blood pressure monitoring if high risk. 5. Labor Precautions Reviewed labor signs: regular contractions, pelvic pressure, back pain, bleeding, or fluid leakage. Patient counseled that labor might occur but not before 34 weeks. If labor occurs after 34 weeks, delivery will be allowed to proceed. Delivery currently planned for the , with possible consideration of delivery at 36 weeks pending glucose control stabilization. Instructed to seek immediate care for these symptoms. 6. Lifestyle and Delivery Preparation Reinforced vitamins, nutrition, and safe activity. Discussed plan, pain management, and . Advised on labor preparation (e.g., hospital bag) and expectations. 7. Psychosocial Support Assessed emotional well-being and offered resources for mental health or parenting support.
== END 2025-08-04 14:55 | disposition home or self-care (01) ==
LOC: HODSOBC 14:14
PROVIDERS: Supervising Provider Obstetrics & Gynecology; Visit Provider Obstetrics & Gynecology
DX: O09.293 Supervision of pregnancy with other poor reproductive or obstetric history, third trimester (principal); O34.219 Maternal care for unspecified type scar from previous cesarean delivery; O09.893 Supervision of other high risk pregnancies, third trimester; O24.113 Pre-existing type 2 diabetes mellitus, in pregnancy, third trimester; E11.65 Type 2 diabetes mellitus with hyperglycemia; Z79.4 Long term (current) use of insulin; O99.213 Obesity complicating pregnancy, third trimester; E66.01 Morbid (severe) obesity due to excess calories; O76 Abnormality in fetal heart rate and rhythm complicating labor and delivery; O99.891 Other specified diseases and conditions complicating pregnancy; R51.9 Headache, unspecified; Z3A.31 31 weeks gestation of pregnancy; Z88.2 Allergy status to sulfonamides; Z91.018 Allergy to other foods
CPT/HCPCS: 99214; G0463

== ENCOUNTER 2025-08-05 15:38 | Observation (INO) | payer MEDICAID, SELFPAY ==
[2025-08-05] VITALS (12 sets, daily range): BP systolic 131–143; BP diastolic 62–87; PULSE 88–102; RESP 16–97; TEMP 36.9; O2SAT 98–100; BMI 20.6
--- NOTE | 2025-08-05 16:18 | XR_ITS ---
Examination: Biophysical profile, ultrasound Date and time of exam: August 05, 2025, 1604 hours INDICATIONS: Decreased movement beginning 3 days ago Technique: Multiple transabdominal sonographic images of the pelvis abdomen obtained. Attention is directed to the breathing movement, gross body movement, amniotic fluid volume and tone. Findings: Amniotic fluid index 11.3 cm Total biophysical profile is 8 of 8. breathing movement is 2. Gross body movement is 2. tone is 2. Qualitative amniotic fluid volume is 2 Impression: Biophysical profile is 8 of 8.
== END 2025-08-05 17:38 | disposition home or self-care (01) ==
PROVIDERS: Admitting Provider Obstetrics & Gynecology; Visit Provider Obstetrics & Gynecology
DX: O36.8130 Decreased fetal movements, third trimester, not applicable or unspecified (principal); Z3A.31 31 weeks gestation of pregnancy
CPT/HCPCS: 59025; 59899; 76819

== ENCOUNTER 2025-08-06 15:39 | Observation (INO) | payer MEDICAID, SELFPAY ==
[2025-08-06] MEDS: SODIUM CHLORIDE 0.9% 1000 ML 1,000 ML 999 ML IV (16:00)
[2025-08-06 16:06] VITALS: BP 116/57; PULSE 102; RESP 16; RESP 99; TEMP 36.7; O2SAT 99; BMI 45.6
[2025-08-06 17:10] LABS: Bacteria,Urine Rare; Bilirubin,Urine Negative (Negative); Blood,Urine Negative (Negative); Clarity,Urine Clear (Clear/Hazy); Collection Type, Urine Clean Catch; Color,Urine Lt-Yellow (Lt Yel-Yel); Glucose, Urine 4+ (Negative); Ketones,Urine Negative (Negative); Leukocyte Esterase,Urine Positive (Negative); Nitrite,Urine Negative (Negative); PH,Urine 6.5 (5.0-7.0); Protein,Urine Negative (Neg - Trace); RBC,Urine 2 /hpf (0-3); Specific Gravity,Urine 1.031 (1.001-1.035); Squamous Epithelial Cell,Urine 6 /hpf (0-5); Urobilinogen,Urine Negative mg/dL (0.0-1.0); WBC,Urine 9 /hpf (0-5)
[2025-08-06 17:11] LABS: Alanine Aminotransferase 10 U/L (10-49); Albumin, Serum 4.1 gm/dL (3.5-5.0); Albumin/Globulin Ratio 1.9 (1.2-2.2); Alkaline Phosphatase 92 U/L (46-116); Anion Gap 11 (7-16); Aspartate Amino Transferase 21 U/L (0-34); BUN/Creatinine Ratio 16 Ratio (12-20); Bilirubin,Total 0.2 mg/dL (0.3-1.2); Blood Urea Nitrogen 13 mg/dL (9-23); Calcium 8.8 mg/dL (8.3-10.6); Calcium (Corrected) 8.8 mg/dL (8.5-10.1); Carbon Dioxide 22.5 mMol/L (20.0-31.0); Chloride 105 mMol/L (98-107); Creatinine (Component) 0.8 mg/dL (0.6-1.3); Globulin 2.2 gm/dL (2.3-3.5); Glucose 303 mg/dL (74-106); Osmolality,Calculated 286 (275-295); Potassium 4.0 mMol/L (3.4-5.1); Sodium 138 mMol/L (136-145); Total Protein 6.3 gm/dL (5.7-8.2); eGFR > 60 See Note
[2025-08-06] MEDS: INSULIN HUM REGULAR 1 UNIT/0.01 ML (PER UNIT) 6 UNIT SC (17:56)
== END 2025-08-06 19:15 | disposition home or self-care (01) ==
PROVIDERS: Admitting Provider Obstetrics & Gynecology; Visit Provider Obstetrics & Gynecology
DX: Z34.90 Encounter for supervision of normal pregnancy, unspecified, unspecified trimester (principal); Z3A.00 Weeks of gestation of pregnancy not specified
CPT/HCPCS: 36415; 59025; 59899; 80053; 81001; 87086; J1815; J7030

== ENCOUNTER 2025-08-07 09:05 | Outpatient (AMB) | payer MEDICAID, SELFPAY ==
[2025-08-07 09:30] VITALS: BP 128/81; PULSE 93; RESP 18; TEMP 36.6; O2SAT 96; BMI 45.1
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
== END 2025-08-07 09:47 | disposition home or self-care (01) ==
LOC: HODSOBC 09:05
PROVIDERS: Supervising Provider Obstetrics & Gynecology; Visit Provider Obstetrics & Gynecology
DX: O09.893 Supervision of other high risk pregnancies, third trimester (principal); O99.213 Obesity complicating pregnancy, third trimester; E66.01 Morbid (severe) obesity due to excess calories; O24.113 Pre-existing type 2 diabetes mellitus, in pregnancy, third trimester; O09.293 Supervision of pregnancy with other poor reproductive or obstetric history, third trimester; O34.219 Maternal care for unspecified type scar from previous cesarean delivery; O99.891 Other specified diseases and conditions complicating pregnancy; R51.9 Headache, unspecified; Z3A.31 31 weeks gestation of pregnancy; Z23 Encounter for immunization; Z79.4 Long term (current) use of insulin
CPT/HCPCS: 90471; 90686; 96372; 99214; G0463; J9060

== ENCOUNTER 2025-08-08 17:41 | Observation (INO) | payer MEDICAID, SELFPAY ==
[2025-08-08] VITALS (23 sets, daily range): BP systolic 118; BP diastolic 64; PULSE 109–126; RESP 18–97; TEMP 36.6; O2SAT 96–98; BMI 44.6
--- NOTE | 2025-08-08 17:57 | XR_ITS ---
Examination: Complete OB ultrasound greater than 14 weeks Date and time of exam: August 08, 2025, 1821 hours INDICATIONS: Vaginal bleeding today, comparison August 05, 2025 Findings: Viable intrauterine single fetus with single amniotic sac presentation cephalic Cardiac motion 153 bpm Placenta anterior grade 2 Umbilical cord insertion 3 vessel seen Amniotic fluid index 14.4 cm Umbilical cord insertion seen Cervix 3.9 cm Ovaries obscured by the fetus. Composite estimated gestational age based on BPD, head circumference, abdominal circumference, femur length is 31 weeks 0 days Estimated weight 1658.6 g. Survey of intracranial anatomy, spinal anatomy, abdominal anatomy, four-chamber heart performed with no abnormalities identified. Impression: Viable intrauterine gestation cephalic presentation.
--- NOTE | 2025-08-08 17:58 | XR_ITS ---
Examination: Biophysical profile, ultrasound Date and time of exam: August 08, 2025, 1829 hours INDICATIONS: Vaginal bleeding today Technique: Multiple transabdominal sonographic images of the pelvis abdomen obtained. Attention is directed to the breathing movement, gross body movement, amniotic fluid volume and tone. Findings: Amniotic fluid index 14.2 cm Total biophysical profile is 8 of 8. breathing movement is 2. Gross body movement is 2. tone is 2. Qualitative amniotic fluid volume is 2 Impression: Biophysical profile is 8 of 8.
[2025-08-08 18:22] LABS: Collection Type, Urine Clean Catch
[2025-08-08 18:33] LABS: Bacteria,Urine Rare; Bilirubin,Urine Negative (Negative); Blood,Urine 2+ (Negative); Clarity,Urine Turbid (Clear/Hazy); Color,Urine Yellow (Lt Yel-Yel); Glucose, Urine 4+ (Negative); Ketones,Urine Trace (Negative); Leukocyte Esterase,Urine Positive (Negative); Nitrite,Urine Negative (Negative); PH,Urine 5.5 (5.0-7.0); Protein,Urine 1+ (Neg - Trace); RBC,Urine 170 /hpf (0-3); Specific Gravity,Urine 1.036 (1.001-1.035); Squamous Epithelial Cell,Urine 37 /hpf (0-5); Urobilinogen,Urine Negative mg/dL (0.0-1.0); WBC,Urine 208 /hpf (0-5)
--- NOTE | 2025-08-08 20:02 | EVENTNT_ITS ---
Documentation for date of: 08/08/25 Event Note Event Note: The patient is a 30-year-old -2-0-2 at 32 weeks who presented to triage reporting some spotting and pressure. There were no contractions on the monitor. The ultrasound was normal biophysical 8 out of 8 baby is measuring ab out 32-1/2 weeks. NST reactive. She is a scheduled repeat with tubal ligation with Dr. Ramos 09/08/2025. Her urinalysis revealed a large amount of white cells, leukocyte esterase and red blood cells. The urine will be cultured. The patient states one of her deliveries was after a bladder or kidney infection. Her she is diabetic on large amounts of insulin and her blood sugars are not well-controlled. I will err on the side of caution and treat her with Keflex now and Keflex 500mg 3 times daily for 7 days. He will follow-up with her urine culture. This was called into the patient's pharmacy. If patient develops fevers, chills , or back pain she needs to come back immediately and be admitted for a possible kidney infection. This was explained to the patient in detail. Also she has a copy of her tubal ligation papers and desires tubal ligation during her section. She will follow-up in the clinic in 1 week and here for NSTs/BPPS as scheduled.
== END 2025-08-08 20:18 | disposition home or self-care (01) ==
PROVIDERS: Admitting Provider Obstetrics & Gynecology; Visit Provider Obstetrics & Gynecology
DX: O46.93 Antepartum hemorrhage, unspecified, third trimester (principal); Z3A.32 32 weeks gestation of pregnancy; O24.313 Unspecified pre-existing diabetes mellitus in pregnancy, third trimester; E11.9 Type 2 diabetes mellitus without complications; Z79.4 Long term (current) use of insulin
CPT/HCPCS: 59025; 59899; 76805; 76819; 81001; 87086; A9270

== ENCOUNTER 2025-08-11 09:05 | Outpatient (AMB) | payer MEDICAID, SELFPAY ==
[2025-08-11 09:49] VITALS: BP 135/83; PULSE 90; RESP 18; TEMP 36.7; O2SAT 97; BMI 45.2
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
== END 2025-08-11 09:56 | disposition home or self-care (01) ==
LOC: HODSOBC 09:05
PROVIDERS: Supervising Provider Obstetrics & Gynecology; Visit Provider Obstetrics & Gynecology
DX: O09.893 Supervision of other high risk pregnancies, third trimester (principal); O24.113 Pre-existing type 2 diabetes mellitus, in pregnancy, third trimester; O99.213 Obesity complicating pregnancy, third trimester; E66.01 Morbid (severe) obesity due to excess calories; O09.293 Supervision of pregnancy with other poor reproductive or obstetric history, third trimester; O34.219 Maternal care for unspecified type scar from previous cesarean delivery; Z3A.32 32 weeks gestation of pregnancy; Z79.4 Long term (current) use of insulin; Z88.2 Allergy status to sulfonamides; Z91.018 Allergy to other foods
CPT/HCPCS: 99214; G0463

== ENCOUNTER 2025-08-14 09:38 | Outpatient (CLI) | payer MEDICAID, SELFPAY ==
[2025-08-14 09:55] VITALS: BMI 45.6
--- NOTE | 2025-08-14 09:57 | XR_ITS ---
Examination: Biophysical profile, ultrasound Date and time of exam: August 06, 2025, 1004 hours INDICATION: Epigastric pressure 3 days, diagnosis uncontrolled diabetes Technique: Multiple transabdominal sonographic images of the pelvis abdomen obtained. Attention is directed to the breathing movement, gross body movement, amniotic fluid volume and tone. Findings: Amniotic fluid index 8.3 cm Total biophysical profile is 8 of 8. breathing movement is 2. Gross body movement is 2. tone is 2. Qualitative amniotic fluid volume is 2 Impression: Biophysical profile is 8 of 8.
[2025-08-14 10:25] VITALS: BP 134/60; PULSE 110
[2025-08-14 10:28] VITALS: BP 134/60; PULSE 110; RESP 18; RESP 98; TEMP 36.9
== END 2025-08-14 11:10 | disposition home or self-care (01) ==
LOC: CNST 09:42 → S4SX 09:55
PROVIDERS: Referring Provider Obstetrics & Gynecology; Visit Provider Obstetrics & Gynecology
DX: O24.913 Unspecified diabetes mellitus in pregnancy, third trimester (principal); Z3A.33 33 weeks gestation of pregnancy
CPT/HCPCS: 59025; 76819

== ENCOUNTER 2025-08-18 11:39 | Observation (INO) | payer MEDICAID, SELFPAY ==
[2025-08-18] VITALS (19 sets, daily range): BP systolic 120; BP diastolic 77; PULSE 92–101; RESP 18–99; TEMP 36.8; O2SAT 98–99
--- NOTE | 2025-08-18 11:55 | XR_ITS ---
Examination: Biophysical profile, ultrasound Date and time of exam: August 18, 2025, 12:16 p.m. INDICATIONS: Pelvic pressure today Technique: Multiple transabdominal sonographic images of the pelvis abdomen obtained. Attention is directed to the breathing movement, gross body movement, amniotic fluid volume and tone. Findings: Amniotic fluid index 9.5 cm Total biophysical profile is 8 of 8. breathing movement is 2. Gross body movement is 2. tone is 2. Qualitative amniotic fluid volume is 2 Impression: Biophysical profile is 8 of 8.
[2025-08-18 12:25] LABS: Collection Type, Urine Clean Catch
[2025-08-18 12:37] LABS: Bacteria,Urine Rare; Bilirubin,Urine Negative (Negative); Blood,Urine Negative (Negative); Clarity,Urine Clear (Clear/Hazy); Color,Urine Lt-Yellow (Lt Yel-Yel); Culture Indicated,Urine Not Indicated; Glucose, Urine 4+ (Negative); Ketones,Urine Trace (Negative); Leukocyte Esterase,Urine Positive (Negative); Nitrite,Urine Negative (Negative); PH,Urine 7.0 (5.0-7.0); Protein,Urine Negative (Neg - Trace); RBC,Urine 4 /hpf (0-3); Specific Gravity,Urine 1.034 (1.001-1.035); Squamous Epithelial Cell,Urine 10 /hpf (0-5); Urobilinogen,Urine Negative mg/dL (0.0-1.0); WBC,Urine 2 /hpf (0-5)
--- NOTE | 2025-08-18 13:28 | PD.LDPN ---
Documentation for date of: 08/18/25 OB Labor Progress Note Contractions Monitor mode: External Contraction frequency: none Status status: Category l Assessment and Plan Comments: Triage Note Juana is a 30yo with SIUP at 33&3wk presenting to L&D for decreased movement and right back pain. She notes no ctx, no lof, no vaginal bleeding. No fevers/chills. No urinary frequency/dysuria/urgency. Of note, she was seen in triage on 08/08 and diagnosed with possible UTI based on UA, treated with course of keflex. Urine cx showed 30k mixed kevin, likely contamination. PMhx/PNC significant for: Hx CS x 1, hx PTVD at 35-36 weeks first . Has scheduled RLTCS with Dr. Ramos. Macrosomic with last delivery (CS at 35 weeks 8 lbs 14 oz) Poorly controlled diabetes on oral meds prior to with frequent trips into the ER, managed now with insulin HgbA1c 7.0 first trimester Morbid Obesity, starting BMI 41, taking Baby ASA ROS negative other than what was described above. Vitals wnl, afebrile General: well developed, well nourished, no acute distress, conversant Cardiac: normal heart rate Lungs: breathing without distress Abdomen: soft, obese, gravid, non-tender, no rebound or guarding Extremities: trace edema BLE SCE per RN: closed/thick/high NST: Reactive with 15x15 accels, no decels, mod medardo [place]: no ctx pattern Labs: UA: 10 squam, 2 WBC, 4 RBC, 4+ glucose Radiology: Examination: Biophysical profile, ultrasound Date and time of exam: August 18, 2025, 12:16 p.m. INDICATIONS: Pelvic pressure today Technique: Multiple transabdominal sonographic images of the pelvis abdomen obtained. Attention is directed to the breathing movement, gross body movement, amniotic fluid volume and tone. Findings: Amniotic fluid index 9.5 cm Total biophysical profile is 8 of 8. breathing movement is 2. Gross body movement is 2. tone is 2. Qualitative amniotic fluid volume is 2 Impression: Biophysical profile is 8 of 8. Assessment: Juana is a 30yo with SIUP at 33&3wk with reassuring status based on NST and BPP. No evidence of UTI or pyelo. Likely back discomfort related to musculoskeletal etiology. Vitals wnl, benign exam. Plan: -Provided reassurance regarding findings -Tylenol and warm compress vs warm bath prn discomfort -Continue routine follow up with OBGYN -Return precautions discussed Dr. Felix
== END 2025-08-18 13:26 | disposition home or self-care (01) ==
PROVIDERS: Admitting Provider Obstetrics & Gynecology; Visit Provider Obstetrics & Gynecology
DX: O36.8130 Decreased fetal movements, third trimester, not applicable or unspecified (principal); Z3A.33 33 weeks gestation of pregnancy; O26.893 Other specified pregnancy related conditions, third trimester; M54.9 Dorsalgia, unspecified; R06.02 Shortness of breath
CPT/HCPCS: 59025; 59899; 76819; 81001

== ENCOUNTER 2025-08-21 08:45 | Outpatient (AMB) | payer MEDICAID, SELFPAY ==
[2025-08-21 08:56] VITALS: BP 138/89; PULSE 103; RESP 20; TEMP 36.6; O2SAT 97; BMI 45.3
--- NOTE | 2025-08-21 08:56 | OBCLNT_ITS ---
Vital Signs 08/21/25 08:56 Height 1.7 m Height Method Stated Weight 131.258 kg Weight Measurement Method Standing Scale BMI 45.3 BP 138/89 H Blood Pressure Source Automatic Cuff Blood Pressure Location Left Upper Arm Position Sitting Respiration 20 Pulse 103 H Pulse Source Monitor Temp 97.8 F Temp Source Oral Pulse Oximetry (%) 97 Oxygen Delivery Method Room Air Allergies/Home Meds Allergies & Medications Allergies [place] And Derivatives Allergy (Severe, Verified 08/21/25 11:09) Rash Sulfa (Sulfonamide Antibiotics) Allergy (Severe, Verified 08/21/25 11:09) Hives Medication Reconciliation pen needle, diabetic 29 gauge x 1/2 #100 ea 03/25/25 [Rx Confirmed 08/21/25] vitamins with calcium no.72-iron 27 mg-folic acid 1 mg tablet ( Vitamins Plus Low Iron) 1 tab PO QDAY 90 days #90 tabs 03/25/25 [Rx Confirmed 08/21/25] blood sugar diagnostic (Blood Glucose Test strips) #100 ea 08/07/25 [Rx Confirmed 08/21/25] folic acid 1 mg tablet 4 mg (4 x 1 mg) PO QDAY 90 days #360 tabs 08/07/25 [Rx Confirmed 08/21/25] lancets 21 gauge #100 ea 08/07/25 [Rx Confirmed 08/21/25] sumatriptan succinate 50 mg tablet (Imitrex) See Rx Instructions PO .COMPLEX 7 days #20 tabs 08/07/25 [Rx Confirmed 08/21/25] insulin glargine 100 unit/mL (3 mL) subcutaneous pen (Lantus Solostar U-100 Insulin) 70 unit subcut .am 08/08/25 [History Confirmed 08/21/25] insulin lispro 100 unit/mL subcutaneous pen (Humalog KwikPen (U-100) Insulin) 55 unit subcut .pm 08/08/25 [History Confirmed 08/21/25] amoxicillin 500 mg capsule 500 mg PO TID 7 days #21 caps 08/21/25 [Rx] cephalexin 500 mg capsule 500 mg PO TID 08/21/25 [History Confirmed 08/21/25] Immunizations Immunizations Flu Vaccine in the Last 12 Months: Yes Flu Vaccine Exclusion Criteria: Already Received Care OB Visit Log OB Flowsheet Initial Weight: Not Recorded Date -?-?-?-?-?-?-?-?-?-?-?-?- EGA Weight BP Alb Glu CTX Pres Fundal ht FHR Mov Dilation Station Effacement Hx Notes Visit Note 03/13/25 -?-?-?-?-?-?-?-?-?-?-?-?- 10w 6d 112.491 kg 122/72 159 at 11w, RUDY 10/01/25. Initial visit. Cramping improved, WHALEN x4 days. T2DM poorly controlled (A1C 7.0, BG up to 330-340). Hx infertility, deliveries at 35w (both sons). FHR 159. Rubella non-immune. Plan: D/C metformin, start insulin (Lantus 37u qhs, Humalog 6u TID), weekly visits for BG monitoring, genetics, MFM consult at [facility], [place] for WHALEN, rubella vaccine. 03/18/25 -?-?-?-?-?-?-?-?-?-?-?-?- 11w 4d 115.779 kg 132/87 165 at 11w4d with GDM on Lantus 40u qAM and rapid-acting insulin 8u TID (? to 10u for high-carb meals); improved BG 80?90 fasting, peak 234. Plan: C ontinue insulin, educate on site rotation, order CGM to [facility], log BGs, f/u in 4w; NIPT negative, routine care continues. 03/25/25 -?-?-?-?-?-?-?-?--?-?-?-?- 12w 4d 115.836 kg 125/81 absent 165 Patient presents for a routine visit at 12 weeks and 4 days gestation. She reports that her blood sugar levels have been spiking to as high as 350 despite being prescribed insulin based on weight-based doses. - Increase insulin doses: ? Lantus: 30 units subcutaneously twic e daily ? Rapid-acting insulin: 16 units subcu taneously three times daily before meals - Provide patient education on proper in sulin injection technique to minimize bruising. - Dispense continuous glucose monitor (C GM) and new glucometer. - Review glucose logs at next visit. 04/08/25 -?-?-?-?-?-?-?-?-?-?-?-?- 14w 4d 117.084 kg 127/77 145 absent No VB or LOF. No cramping Not reliable with checking sugars 04/15/25 -?-?-?-?-?-?-?-?-?-?-?-?- 15w 4d 117.594 kg 119/77 absent 168 - Patient reports her blood sugar control has been pretty good recently: - Denies dry mouth, which she associat es with high blood sugar - Reports constant urination, which sh e attributes to - Patient is experiencing difficulty obt aining diabetic supplies: - Using her diabetic father's supplies sparingly - Awaiting a call from a service to as sist with obtaining supplies - movement: - Patient inquires about not feeling f etal movement yet - Denies cramping, nausea, or vomiting - Await call from diabetes management service on (tomorrow) for assistance with supplies and potential insulin adjustments - Continue current diabetes management r egimen 04/27/25 -?-?-?-?-?-?-?-?-?-?-?-?- 17w 2d 120.882 kg 130/80 absent 147 acti ve 23-year-old at 17 weeks and 2 days gestation with poorly controlled gestational diabetes mellitus. Blood glucose readings range from 90-240 mg/dL, with most readings between 180-230 mg/dL. Current insulin regimen includes NPH 30 units in the morning and evening, with 16 units of rapid-acting insulin with meals. Plan - Increase morning insulin dose from 30 units to 35 units - Increase mealtime insulin dose from 16 units to 18 units - Continue evening insulin dose at 30 un its - Follow up in two weeks - Awaiting insurance approval for specia list ultrasound at [facility] - Resend insulin prescription 05/13/25 -?-?-?-?-?-?-?-?-?-?-?-?- 19w 4d 123.037 kg 130/83 absent 150 acti ve 19w4d with poorly controlled T2DM on insulin; FBG 130?140, occasional PPG up to 180. No FM yet. FHR 150 bpm, limited facial views on US, otherwise normal anatomy. Plan: Continue glucose monitoring, repeat anatomy US =24wks, follow up next visit, verify referral and [employer] coverage for [facility] specialty scan. 06/09/25 -?-?-?-?-?-?-?-?-?-?-?-?- 23w 3d 127.063 kg 99/63 absent 169 activ e - She reports her blood sugars are doing well with diabetes management. - Patient continues to experience carpal tunnel symptoms in her hand. - She denies contractions, cramping, or other -related problems. - Patient reports feeling movement well, which is appropriate for her gestational age. - She is adherent to insulin therapy and will continue working with home health services for diabetes management. - Patient denies wanting to use an insul in pump, preferring to continue with pen/syringe method. - Continue c urrent insulin regimen; home health service to assist with insulin management - Schedule at 37 weeks (tomas fitzgerald around September 14-) - Follow up with [facility] o n June 17 for echocardiogram and growth scan - Return for visit in 4 weeks - Monitor for signs of preeclampsia (bernardo vated blood pressure with headache, visual disturbances, right upper quadrant pain) - Transition to biweekly visits after next appointment 06/26/25 -?-?-?-?-?-?-?-?-?-?-?-?- 25w 6d 128.083 kg 134/83 absent unknown 145 active - She has poorly controlled gestational diabetes requiring insulin management. - Lantus was recently increased to 35 units twice daily - Humalog was increased to 18 units be fore meals - Blood sugars have been elevated with readings nothing more than 180, 200 - She uses a continuous glucose monito r (CGM) - She declined an insulin pump - Patient reports developing early carpa l tunnel syndrome. - She was recently hospitalized for ankl e swelling. - Laboratory studies were performed an d came back normal - This ruled out pre-eclampsia - Patient reports the baby is active and positioned riding high up here. - She may be developing cold symptoms as there is a flu going around. - She is taking aspirin as prescribed. - Patient has upcoming appointments at [facility] or [place] for both ultrasound and echocardiogram this coming week. 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 - She is currently managed on Lantus 35 units twice daily and Humalog insulin, with insulin management provided by the nursing team from [facility]. - Her continuous glucose monitor shows g ood numbers indicating improved glycemic control. - She reports the baby is active. - She experienced a pharmacy issue where only short-acting insulin was provided instead of the prescribed long-acting insulin. - Send prescription for long- acting insulin (Lantus); provide printout to patient to resolve pharmacy dispensing issue - Perform blood work including CBC, RPR, and A1c - Schedule for at 12:30 p.m. - Prepare tubal ligation papers in early August, one month before - Begin monitoring at 30 weeks; annette amaro will be contacted for appointment - Follow-up appointment in 2 weeks - Continue current insulin regimen with Lantus 35 BID and Humalog managed by [facility] nursing team - Next ultrasound scheduled at [facility] on August 17 07/30/25 -?-?-?-?-?-?-?-?-?-?-?-?- 30w 5d 130.408 kg 134/89 absent cephalic 31 14 5 active Reports WHALEN for 3 days, denies VC, and epigastric pain. - She is currently managed by a [facility] service for diabetes monitoring via telephone consultations. - New insulin prescriptions with higher doses were sent yesterday due to poor glycemic control. - She reports headache for 3 days durati on. - Has not tried Tylenol or other over- the-counter pain relievers. - She confirms movement and report s the baby is active. - She went to Labor and Delivery today f or evaluation. - She continues home blood pressure ing as previously established. - Monitoring appointments are scheduled for Mondays and . - New insulin prescriptions sent yesterday with higher doses for poorly controlled gestational diabetes - Prescribe Fioricet for headache manage ment - Continue home blood pressure monitorin g - Schedule weekly visits going forward - Monitoring appointments on Mondays and - Plan delivery at 36-37 weeks depending on sugar control, not at 35 weeks unless preeclampsia develops 08/21/25 -?-?-?-?-?-?-?-?-?-?-?-?- 33w 6d 131.258 kg 138/89 absent cephalic 34 16 1 active - She reports elevated blood pressure with today's reading of 138/89 mmHg. - Blood pressures were similarly eleva lia yesterday at the hospital. - Current insulin regimen includes 60 un its in the morning, 55 units at night, and 45 units three times daily with meals. - Post-meal blood glucose levels rise to 200 mg/dL. - Fasting blood glucose ranges between 84-90 mg/dL. - Post-breakfast and post-lunch glucos e levels sometimes exceed 150-160 mg/dL depending on food intake. - She reports new onset blurry vision th at she has never experienced before. - She noticed blood when wiping after ur ination today. - She denies UTI symptoms but reports fe eling pressure. - She recently completed a course of ant ibiotics. - She had a recent hospital visit yester day where no laboratory tests were performed. - Send patient t o labor and delivery for immediate preeclampsia panel and UTI panel workup - Increase morning insulin from 60 units to 70 units - Increase mealtime insulin (breakfast, lunch, dinner) from 45 units to 48 units three times daily - Continue nighttime insulin at 55 units - Schedule follow-up appointment in one week RUDY Calculator Estimated Delivery Date Method Current WG Current Estimate 10/03/25 LMP (Certain) 34w 1d Other Estimates 10/03/25 Ultrasound #1 34w 1d 10/05/25 Ultrasound #2 33w 6d Expected Delivery Route/Plan Hx CS x 1, hx PTVD at 35-36 weeks first Macrosomic with last delivery (CS at 35 weeks 8 lbs 14 oz) Poorly controlled diabetes on oral meds prior to with frequent trips into the ER HgBA1C 7.0 first trimester Morbid Obesity Starting BMI 41: Baby ASA Needs Level II US/ echo/ and co-management with [facility] PN labs: 0+/Ab-/Rubella Nonimmune/RPR NR/HIV-/HepBSag-/ Specific Issue/Plans For Repeat CS D/C metformin, start insulin (Lantus 37u qhs, Humalog 6u TID), weekly visits for BG monitoring, genetics, [facility] consult at [facility], Tylenol for WHALEN, rubella vaccine. Notes Visit Date: 06/09/25 Last Updated by: Fabian Ramos MD [facility] ultrasound report: - Single live fetus - Clinical gestational age: 22 weeks 4 days (consistent with LMP dates) - Composite age: 21 weeks 6 days - Estimated weight: 530 grams - Amniotic fluid: Normal - anatomy: Normal - Placenta: Anterior, no previa, no ultrasound evidence of accreta - Cervical length: 4.5 cm, closed cervix - No funneling Visit Date: 04/08/25 Last Updated by: Fabby Moya (OB Clinic)MD Pt states she sometimes checks her sugars on her dad's machine and her insurance will not cover one for her. She states if she doesn't feel right she goes to the ER where her BS can be as high as the 300s. Will authorize for diabetic management and counseling. Surprisingly, her first trimester HgB A1c is only 7. Stressed tight glycemic control during and afterwars to avoid tank terminal gauger complications of DM including loss of limbs and blindness. Office Procedures [facility] LOC & Office Proc's Nursing/Assessment Patient Status: Established Patient OB Clinic Nursing Assessment: Medication Reconciliation, Update PMH in EMR and Vital Signs OB Clinic Coordination of Care: Complex Care and Chronic Disease 1-5, Consent,records obtained, informed consent, Education Simp Pt/Fam, 1 Ins Authorization, Lab and Imaging orders, Results/Orders obtained and Staff clarify orders Special Needs: Heart tones Miscellaneous Interventions: Blood/Urine Collection Established Patient Charge Established Patient Point Assignment: 180 Established Patient Point Charge: EP Level 5 (160-above) Assessment & Plan Diagnosis / Problem List (1) Decreased movements: Status: Acute Qualifiers: Fetus number: single or unspecified fetus Trimester: third trimester Qualified Code(s): O36.8130 - Decreased movements, third trimester, not applicable or unspecified (2) Headache: Status: Acute (3) Uterine size date discrepancy: Status: Acute (4) Previous delivery affecting : Status: Acute (5) Insulin dependent type 2 diabetes mellitus: Status: Acute (6) Type 2 diabetes mellitus with unspecified complications: Status: Acute Plan Problem List - Diabetes mellitus in , poorly controlled - Chronic hypertension in - Hematuria - Blurred vision Assessment 33-week 6-day patient with poorly controlled gestational diabetes requiring insulin adjustment, with current regimen of 60 units morning, 55 units nighttime, and 45 units three times daily, experiencing postprandial glucose elevations to 200 mg/dL while maintaining acceptable fasting glucose of 84-90 mg/dL. Chronic hypertension with current elevated blood pressure of 138/89 mmHg. New onset visual symptoms with reported blurry vision that was not previously present. Hematuria noted on urination. heart rate of 161 bpm within normal limits. Plan - Send patient to labor and delivery for immediate preeclampsia panel and UTI panel workup - Increase morning insulin from 60 units to 70 units - Increase mealtime insulin (breakfast, lunch, dinner) from 45 units to 48 units three times daily - Continue nighttime insulin at 55 units - Schedule follow-up appointment in one week 1. Progress Reviewed gestational age at 33 weeks and 6 days, growth, and heart rate of 161 bpm which is normal. Planned frequent visits (every 2 weeks until 36 weeks, then weekly). 2. Instructed patient to monitor movements and report decreases immediately. 3. Testing Counseled on routine third-trimester labs per guidelines. Discussed potential need for ultrasound or monitoring based on risk factors. 4. Preeclampsia Precaution Educated on preeclampsia signs: severe headache, vision changes, right upper quadrant pain, sudden swelling. Advised urgent reporting of symptoms and discussed blood pressure monitoring if high risk. 5. Labor Precautions Reviewed labor signs: regular contractions, pelvic pressure, back pain, bleeding, or fluid leakage. Instructed to seek immediate care for these symptoms. 6. Lifestyle and Delivery Preparation Reinforced vitamins, nutrition, and safe activity. Discussed plan, pain management, and . Advised on labor preparation (e.g., hospital bag) and expectations. 7. Psychosocial Support Assessed emotional well-being and offered resources for mental health or parenting support.
== END 2025-08-21 09:51 | disposition home or self-care (01) ==
LOC: HODSOBC 08:45
PROVIDERS: Supervising Provider Obstetrics & Gynecology; Visit Provider Obstetrics & Gynecology
DX: O09.893 Supervision of other high risk pregnancies, third trimester (principal); O36.8130 Decreased fetal movements, third trimester, not applicable or unspecified; O26.843 Uterine size-date discrepancy, third trimester; O24.113 Pre-existing type 2 diabetes mellitus, in pregnancy, third trimester; O10.913 Unspecified pre-existing hypertension complicating pregnancy, third trimester; O99.891 Other specified diseases and conditions complicating pregnancy; H53.8 Other visual disturbances; R31.9 Hematuria, unspecified; R51.9 Headache, unspecified; O09.293 Supervision of pregnancy with other poor reproductive or obstetric history, third trimester; O34.219 Maternal care for unspecified type scar from previous cesarean delivery; Z3A.33 33 weeks gestation of pregnancy; Z88.2 Allergy status to sulfonamides; Z91.018 Allergy to other foods; Z79.4 Long term (current) use of insulin
CPT/HCPCS: 99215; G0463

== ENCOUNTER 2025-08-21 10:36 | Observation (INO) | payer MEDICAID, SELFPAY ==
[2025-08-21] VITALS (25 sets, daily range): BP systolic 105–129; BP diastolic 58–72; PULSE 98–111; RESP 17–98; TEMP 36.9; O2SAT 97–98; BMI 43.8
[2025-08-21 11:56] LABS: Collection Type, Urine Clean Catch
[2025-08-21 12:10] LABS: Basophils # (Auto) 0.0 Thou/mm3 (0.0-0.2); Basophils % (Auto) 0 % (0-2.5); Eosinophils # (Auto) 0.1 Thou/mm3 (0.0-0.5); Eosinophils % (Auto) 1 % (0-10); Hematocrit 32.6 % (36.0-46.0); Hemoglobin 10.8 g/dL (12.0-16.0); Immature Granulocytes Auto 0.05 Thou/mm3 (0.00-0.00); Lymphocytes # (Auto) 1.9 Thou/mm3 (1.0-4.8); Lymphocytes % (Auto) 20 % (10-50); Mean Corpuscular HGB Conc 33.1 g/dl (31.0-37.0); Mean Corpuscular Hemoglobin 26.6 pg (25.0-35.0); Mean Corpuscular Volume 80 fL (80-100); Monocytes # (Auto) 0.5 Thou/mm3 (0.0-0.8); Monocytes % (Auto) 6 % (0-12); Neutrophils # (Auto) 6.8 Thou/mm3 (1.8-7.7); Neutrophils % (Auto) 73 % (37-80); Nucleated Red Blood Cell # 0.00 Thou/mm3 (0.00-0.00); Nucleated Red Blood Cell % 0 /100 WBC (0); Platelet Count 198 Thou/mm3 (140-440); RDW Standard Deviation 43.7 fL (36.4-46.3); Red Blood Count 4.06 Miln/mm3 (4.00-5.20); White Blood Count 9.4 Thou/mm3 (3.6-11.0)
[2025-08-21 12:24] LABS: Creatinine,Random Urine 96 mg/dL (30-125); Protein Total, Random Urine 20 mg/dL (1-14)
[2025-08-21 12:30] LABS: Bacteria,Urine 2+; Bilirubin,Urine Negative (Negative); Blood,Urine 1+ (Negative); Color,Urine Yellow (Lt Yel-Yel); Glucose, Urine 4+ (Negative); Ketones,Urine 1+ (Negative); Leukocyte Esterase,Urine Positive (Negative); Nitrite,Urine Negative (Negative); PH,Urine 6.0 (5.0-7.0); Protein,Urine Negative (Neg - Trace); RBC,Urine 6 /hpf (0-3); Specific Gravity,Urine 1.037 (1.001-1.035); Squamous Epithelial Cell,Urine 20 /hpf (0-5); Urobilinogen,Urine Negative mg/dL (0.0-1.0); WBC,Urine 14 /hpf (0-5)
[2025-08-21 12:32] LABS: Clarity,Urine Hazy (Clear/Hazy)
[2025-08-21 12:38] LABS: INR 1.0 (0.9-1.3); Partial Thromboplastin Time 25.3 Seconds (22.0-36.0); Prothrombin Time 10.2 Seconds (9.0-12.2)
[2025-08-21 12:41] LABS: Alanine Aminotransferase 10 U/L (10-49); Albumin, Serum 3.8 gm/dL (3.5-5.0); Albumin/Globulin Ratio 1.4 (1.2-2.2); Alkaline Phosphatase 104 U/L (46-116); Anion Gap 11 (7-16); Aspartate Amino Transferase 13 U/L (0-34); BUN/Creatinine Ratio 11 Ratio (12-20); Bilirubin,Total 0.3 mg/dL (0.3-1.2); Blood Urea Nitrogen 9 mg/dL (9-23); Calcium 8.9 mg/dL (8.3-10.6); Calcium (Corrected) 9.1 mg/dL (8.5-10.1); Carbon Dioxide 21.3 mMol/L (20.0-31.0); Chloride 106 mMol/L (98-107); Creatinine (Component) 0.8 mg/dL (0.6-1.3); Estimated Creatinine Clearance 143.8 mL/min (>60); Globulin 2.7 gm/dL (2.3-3.5); Glucose 266 mg/dL (74-106); LDH (Lactate Dehydrogenase) 138 U/L (120-246); Osmolality,Calculated 283 (275-295); Potassium 4.0 mMol/L (3.4-5.1); Sodium 138 mMol/L (136-145); Total Protein 6.5 gm/dL (5.7-8.2); Uric Acid 2.8 mg/dL (3.1-7.8); eGFR > 60 See Note
[2025-08-21 12:43] LABS: Fibrinogen 637 mg/dL (175-375)
== END 2025-08-21 13:00 | disposition home or self-care (01) ==
PROVIDERS: Admitting Provider Obstetrics & Gynecology; Visit Provider Obstetrics & Gynecology
DX: Z34.83 Encounter for supervision of other normal pregnancy, third trimester (principal); Z36.9 Encounter for antenatal screening, unspecified; Z3A.33 33 weeks gestation of pregnancy
CPT/HCPCS: 36415; 59025; 59899; 80053; 81001; 82570; 83615; 84156; 84550; 85025; 85384; 85610; 85730

== ENCOUNTER 2025-08-26 14:04 | Observation (INO) | payer MEDICAID, SELFPAY ==
[2025-08-26 14:08] VITALS: BP 135/62; PULSE 100; RESP 18; TEMP 37.2; BMI 45.8
[2025-08-26] MEDS: SODIUM CHLORIDE 0.9% 1000 ML 2,000 ML 999 ML IV (14:55)
[2025-08-26 15:31] LABS: ROM Kit Exp Date# 04/11/28; ROM Kit Lot # 58106258; ROM Swab Mixed By: LOPEC2; Rupture of Fetal Membranes Negative (Negative); Swb Mxed in Solvent 1 min? Yes
[2025-08-26] MEDS: SODIUM CHLORIDE 0.9% 1000 ML 1,000 ML 250 ML IV (16:10)
[2025-08-26 16:27] LABS: Basophils # (Auto) 0.0 Thou/mm3 (0.0-0.2); Basophils % (Auto) 0 % (0-2.5); Eosinophils # (Auto) 0.1 Thou/mm3 (0.0-0.5); Eosinophils % (Auto) 1 % (0-10); Hematocrit 32.5 % (36.0-46.0); Hemoglobin 10.8 g/dL (12.0-16.0); Immature Granulocytes Auto 0.06 Thou/mm3 (0.00-0.00); Lymphocytes # (Auto) 1.8 Thou/mm3 (1.0-4.8); Lymphocytes % (Auto) 21 % (10-50); Mean Corpuscular HGB Conc 33.2 g/dl (31.0-37.0); Mean Corpuscular Hemoglobin 26.3 pg (25.0-35.0); Mean Corpuscular Volume 79 fL (80-100); Monocytes # (Auto) 0.5 Thou/mm3 (0.0-0.8); Monocytes % (Auto) 6 % (0-12); Neutrophils # (Auto) 6.0 Thou/mm3 (1.8-7.7); Neutrophils % (Auto) 70 % (37-80); Nucleated Red Blood Cell # 0.00 Thou/mm3 (0.00-0.00); Nucleated Red Blood Cell % 0 /100 WBC (0); Platelet Count 211 Thou/mm3 (140-440); RDW Standard Deviation 43.6 fL (36.4-46.3); Red Blood Count 4.10 Miln/mm3 (4.00-5.20); White Blood Count 8.5 Thou/mm3 (3.6-11.0)
[2025-08-26 16:42] LABS: Collection Type, Urine Clean Catch
[2025-08-26 16:51] LABS: Glucose Estimated Average 154 mg/dL (80-131); Hemoglobin A1C 7.0 % Hgb (4.8-6.0)
--- NOTE | 2025-08-26 16:52 | XR_ITS ---
Examination: Biophysical profile, ultrasound Date and time of exam: August 26, 2025, 1703 hours INDICATIONS: Low blood sugar today Technique: Multiple transabdominal sonographic images of the pelvis abdomen obtained. Attention is directed to the breathing movement, gross body movement, amniotic fluid volume and tone. Findings: Amniotic fluid index 11.2 cm Total biophysical profile is 8 of 8. breathing movement is 2. Gross body movement is 2. tone is 2. Qualitative amniotic fluid volume is 2 Impression: Biophysical profile is 8 of 8.
[2025-08-26 16:56] LABS: Bacteria,Urine 1+; Bilirubin,Urine Negative (Negative); Blood,Urine Negative (Negative); Color,Urine Lt-Yellow (Lt Yel-Yel); Glucose, Urine 4+ (Negative); Ketones,Urine Negative (Negative); Leukocyte Esterase,Urine Positive (Negative); Nitrite,Urine Negative (Negative); PH,Urine 6.0 (5.0-7.0); Protein,Urine Negative (Neg - Trace); RBC,Urine 6 /hpf (0-3); Specific Gravity,Urine 1.033 (1.001-1.035); Squamous Epithelial Cell,Urine 11 /hpf (0-5); Urobilinogen,Urine Negative mg/dL (0.0-1.0); WBC,Urine 26 /hpf (0-5)
[2025-08-26 17:00] LABS: Clarity,Urine Hazy (Clear/Hazy)
[2025-08-26 17:00] LABS: Alanine Aminotransferase 11 U/L (10-49); Albumin, Serum 3.6 gm/dL (3.5-5.0); Albumin/Globulin Ratio 1.2 (1.2-2.2); Alkaline Phosphatase 109 U/L (46-116); Anion Gap 12 (7-16); Aspartate Amino Transferase 13 U/L (0-34); BUN/Creatinine Ratio 11 Ratio (12-20); Bilirubin,Total 0.2 mg/dL (0.3-1.2); Blood Urea Nitrogen 8 mg/dL (9-23); Calcium 9.5 mg/dL (8.3-10.6); Calcium (Corrected) 9.8 mg/dL (8.5-10.1); Carbon Dioxide 21.2 mMol/L (20.0-31.0); Chloride 105 mMol/L (98-107); Creatinine (Component) 0.7 mg/dL (0.6-1.3); Estimated Creatinine Clearance 168.7 mL/min (>60); Globulin 2.9 gm/dL (2.3-3.5); Glucose 251 mg/dL (74-106); Osmolality,Calculated 281 (275-295); Potassium 3.7 mMol/L (3.4-5.1); Sodium 138 mMol/L (136-145); Total Protein 6.5 gm/dL (5.7-8.2); eGFR > 60 See Note
[2025-08-26] MEDS: cefTRIAXone 2 GM in SODIUM CHLORIDE 0.9% (Popper) 50 ML IV (17:01)
== END 2025-08-26 17:59 | disposition home or self-care (01) ==
PROVIDERS: Admitting Provider Obstetrics & Gynecology; Visit Provider Obstetrics & Gynecology
DX: O26.893 Other specified pregnancy related conditions, third trimester (principal); Z3A.34 34 weeks gestation of pregnancy; R73.9 Hyperglycemia, unspecified
CPT/HCPCS: 36415; 59025; 59899; 76819; 80053; 81001; 83036; 84112; 85025; 87086; J0696; J7030; J7050

== ENCOUNTER 2025-08-28 10:30 | Outpatient (AMB) | payer MEDICAID, SELFPAY ==
[2025-08-28 10:37] VITALS: BP 128/86; PULSE 95; RESP 18; TEMP 36.8; O2SAT 96; BMI 46.2
--- NOTE | 2025-08-28 10:37 | OBCLNT_ITS ---
Vital Signs 08/28/25 10:37 Height 1.7 m Height Method Stated Weight 133.583 kg Weight Measurement Method Standing Scale BMI 46.2 BP 128/86 H Blood Pressure Source Automatic Cuff Blood Pressure Location Left Upper Arm Position Sitting Respiration 18 Pulse 95 Pulse Source Monitor Temp 98.2 F Temp Source Oral Pulse Oximetry (%) 96 Oxygen Delivery Method Room Air Allergies/Home Meds Allergies & Medications Allergies [place] And Derivatives Allergy (Severe, Verified 08/28/25 11:54) Rash Sulfa (Sulfonamide Antibiotics) Allergy (Severe, Verified 08/28/25 11:54) Hives Medication Reconciliation pen needle, diabetic 29 gauge x 1/2 #100 ea 03/25/25 [Rx Confirmed 08/28/25] vitamins with calcium no.72-iron 27 mg-folic acid 1 mg tablet ( Vitamins Plus Low Iron) 1 tab PO QDAY 90 days #90 tabs 03/25/25 [Rx Confirmed 08/28/25] blood sugar diagnostic (Blood Glucose Test strips) #100 ea 08/07/25 [Rx Confirmed 08/28/25] folic acid 1 mg tablet 4 mg (4 x 1 mg) PO QDAY 90 days #360 tabs 08/07/25 [Rx Confirmed 08/28/25] lancets 21 gauge #100 ea 08/07/25 [Rx Confirmed 08/28/25] sumatriptan succinate 50 mg tablet (Imitrex) See Rx Instructions PO .COMPLEX 7 days #20 tabs 08/07/25 [Rx Confirmed 08/28/25] insulin glargine 100 unit/mL (3 mL) subcutaneous pen (Lantus Solostar U-100 Insulin) 70 unit subcut .am 08/08/25 [History Confirmed 08/28/25] insulin lispro 100 unit/mL subcutaneous pen (Humalog KwikPen (U-100) Insulin) 55 unit subcut .pm 08/08/25 [History Confirmed 08/28/25] amoxicillin 500 mg capsule 500 mg PO TID 7 days #21 caps 08/21/25 [Rx Confirmed 08/28/25] cephalexin 500 mg capsule 500 mg PO TID 08/21/25 [History Confirmed 08/28/25] insulin glargine-yfgn 100 unit/mL (3 mL) subcutaneous pen 55 unit subcut HS 08/28/25 [History Confirmed 08/28/25] Immunizations Immunizations Flu Vaccine in the Last 12 Months: Yes Flu Vaccine Exclusion Criteria: Already Received Care OB Visit Log OB Flowsheet Initial Weight: Not Recorded Date -?-?-?-?-?-?-?-?-?-?-?-?- EGA Weight BP Alb Glu CTX Pres Fundal ht FHR Mov Dilation Station Effacement Hx Notes Visit Note 03/13/25 -?-?-?-?-?-?-?-?-?-?-?-?- 10w 6d 112.491 kg 122/72 159 at 11w, RUDY 10/01/25. Initial visit. Cramping improved, WHALEN x4 days. T2DM poorly controlled (A1C 7.0, BG up to 330-340). Hx infertility, deliveries at 35w (both sons). FHR 159. Rubella non-immune. Plan: D/C metformin, start insulin (Lantus 37u qhs, Humalog 6u TID), weekly visits for BG monitoring, genetics, [facility] for WHALEN, rubella vaccine. 03/18/25 -?-?-?-?-?-?-?-?-?-?-?-?- 11w 4d 115.779 kg 132/87 165 at 11w4d with GDM on Lantus 40u qAM and rapid-acting insulin 8u TID (? to 10u for high-carb meals); improved BG 80?90 fasting, peak 234. Plan: C ontinue insulin, educate on site rotation, order CGM to [facility], log BGs, f/u in 4w; NIPT negative, routine care continues. 03/25/25 -?-?-?-?-?-?-?-?-?-?-?-?- 12w 4d 115.836 kg 125/81 absent 165 Patient presents for a routine visit at 12 weeks and 4 days gestation. She reports that her blood sugar levels have been spiking to as high as 350 despite being prescribed insulin based on weight-based doses. - Increase insulin doses: ? Lantus: 30 units subcutaneously twic e daily ? Rapid-acting insulin: 16 units subcu taneously three times daily before meals - Provide patient education on proper in sulin injection technique to minimize bruising. - Dispense continuous glucose monitor (C GM) and new glucometer. - Review glucose logs at next visit. 04/08/25 -?-?-?-?-?-?-?-?-?-?-?-?- 14w 4d 117.084 kg 127/77 145 absent No VB or LOF. No cramping Not reliable with checking sugars 04/15/25 -?-?-?-?-?-?-?-?-?-?-?-?- 15w 4d 117.594 kg 119/77 absent 168 - Patient reports her blood sugar control has been pretty good recently: - Denies dry mouth, which she associat es with high blood sugar - Reports constant urination, which sh e attributes to - Patient is experiencing difficulty obt aining diabetic supplies: - Using her diabetic father's supplies sparingly - Awaiting a call from a service to as sist with obtaining supplies - movement: - Patient inquires about not feeling f etal movement yet - Denies cramping, nausea, or vomiting - Await call from diabetes management service on (tomorrow) for assistance with supplies and potential insulin adjustments - Continue current diabetes management r cliffimen 04/27/25 -?-?-?-?-?-?-?-?-?-?-?-?- 17w 2d 120.882 kg 130/80 absent 147 acti ve 23-year-old at 17 weeks and 2 days gestation with poorly controlled gestational diabetes mellitus. Blood glucose readings range from 90-240 mg/dL, with most readings between 180-230 mg/dL. Current insulin regimen includes NPH 30 units in the morning and evening, with 16 units of rapid-acting insulin with meals. Plan - Increase morning insulin dose from 30 units to 35 units - Increase mealtime insulin dose from 16 units to 18 units - Continue evening insulin dose at 30 un its - Follow up in two weeks - Awaiting insurance approval for specia list ultrasound at [facility] - Resend insulin prescription 05/13/25 -?-?-?-?-?-?-?-?-?-?-?-?- 19w 4d 123.037 kg 130/83 absent 150 acti ve 19w4d with poorly controlled T2DM on insulin; FBG 130?140, occasional PPG up to 180. No FM yet. FHR 150 bpm, limited facial views on US, otherwise normal anatomy. Plan: Continue glucose monitoring, repeat anatomy US =24wks, follow up next visit, verify referral and [employer] coverage for [facility] specialty scan. 06/09/25 -?-?-?-?-?-?-?-?-?-?-?-?- 23w 3d 127.063 kg 99/63 absent 169 activ e - She reports her blood sugars are doing well with diabetes management. - Patient continues to experience carpal tunnel symptoms in her hand. - She denies contractions, cramping, or other -related problems. - Patient reports feeling movement well, which is appropriate for her gestational age. - She is adherent to insulin therapy and will continue working with home health services for diabetes management. - Patient denies wanting to use an insul in pump, preferring to continue with pen/syringe method. - Continue c urrent insulin regimen; home health service to assist with insulin management - Schedule at 37 weeks (tomas fitzgerald around September 14-) - Follow up with [facility] o n June 17 for echocardiogram and growth scan - Return for visit in 4 weeks - Monitor for signs of preeclampsia (bernardo vated blood pressure with headache, visual disturbances, right upper quadrant pain) - Transition to biweekly visits after next appointment 06/26/25 -?-?-?-?-?-?-?-?-?-?-?-?- 25w 6d 128.083 kg 134/83 absent unknown 145 active - She has poorly controlled gestational diabetes requiring insulin management. - Lantus was recently increased to 35 units twice daily - Humalog was increased to 18 units be fore meals - Blood sugars have been elevated with readings nothing more than 180, 200 - She uses a continuous glucose monito r (CGM) - She declined an insulin pump - Patient reports developing early carpa l tunnel syndrome. - She was recently hospitalized for ankl e swelling. - Laboratory studies were performed an d came back normal - This ruled out pre-eclampsia - Patient reports the baby is active and positioned riding high up here. - She may be developing cold symptoms as there is a flu going around. - She is taking aspirin as prescribed. - Patient has upcoming appointments at [facility] or [place] for both ultrasound and echocardiogram this coming week. 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 - She is currently managed on Lantus 35 units twice daily and Humalog insulin, with insulin management provided by the nursing team from [facility]. - Her continuous glucose monitor shows g ood numbers indicating improved glycemic control. - She reports the baby is active. - She experienced a pharmacy issue where only short-acting insulin was provided instead of the prescribed long-acting insulin. - Send prescription for long- acting insulin (Lantus); provide printout to patient to resolve pharmacy dispensing issue - Perform blood work including CBC, RPR, and A1c - Schedule for at 12:30 p.m. - Prepare tubal ligation papers in early August, one month before - Begin monitoring at 30 weeks; annette amaro will be contacted for appointment - Follow-up appointment in 2 weeks - Continue current insulin regimen with Lantus 35 BID and Humalog managed by [facility] nursing team - Next ultrasound scheduled at [facility] on August 17 07/30/25 -?-?-?-?-?-?-?-?-?-?-?-?- 30w 5d 130.408 kg 134/89 absent cephalic 31 14 5 active Reports WHALEN for 3 days, denies VC, and epigastric pain. - She is currently managed by a [facility] service for diabetes monitoring via telephone consultations. - New insulin prescriptions with higher doses were sent yesterday due to poor glycemic control. - She reports headache for 3 days durati on. - Has not tried Tylenol or other over- the-counter pain relievers. - She confirms movement and report s the baby is active. - She went to Labor and Delivery today f or evaluation. - She continues home blood pressure as previously established. - Monitoring appointments are scheduled for Mondays and . - New insulin prescriptions sent yesterday with higher doses for poorly controlled gestational diabetes - Prescribe Fioricet for headache manage ment - Continue home blood pressure monitorin g - Schedule weekly visits going forward - Monitoring appointments on Mondays and - Plan delivery at 36-37 weeks depending on sugar control, not at 35 weeks unless preeclampsia develops 08/21/25 -?-?-?-?-?-?-?-?-?-?-?-?- 33w 6d 131.258 kg 138/89 absent cephalic 34 16 1 active - She reports eleva lia blood pressure with today's reading of 138/89 mmHg. - Blood pressures were similarly eleva lia yesterday at the hospital. - Current insulin regimen includes 60 un its in the morning, 55 units at night, and 45 units three times daily with meals. - Post-meal blood glucose levels rise to 200 mg/dL. - Fasting blood glucose ranges between 84-90 mg/dL. - Post-breakfast and post-lunch glucos e levels sometimes exceed 150-160 mg/dL depending on food intake. - She reports new onset blurry vision th at she has never experienced before. - She noticed blood when wiping after ur ination today. - She denies UTI symptoms but reports fe eling pressure. - She recently completed a course of ant ibiotics. - She had a recent hospital visit yester day where no laboratory tests were performed. - Send patient t o labor and delivery for immediate preeclampsia panel and UTI panel workup - Increase morning insulin from 60 units to 70 units - Increase mealtime insulin (breakfast, lunch, dinner) from 45 units to 48 units three times daily - Continue nighttime insulin at 55 units - Schedule follow-up appointment in one week 08/28/25 -?-?-?-?-?-?-?-?-?-?-?-?- 34w 6d 133.583 kg 128/86 absent cephalic 35 14 5 active - She reports ongoing bright red vaginal bleeding that began recently. - Initially noticed bleeding and took a picture of it - When she wiped, there was significan tly more blood present - Describes the blood as bright red in color - Patient reports feeling like she needs to urinate but is unable to void. - Returned to restroom due to urge to urinate but did not produce urine - When wiping, noted blood instead of urine - Complete ultrasound to rule out placental abruption - Possible 24-hour observation for monit oring - Potential delivery depending on findin gs RUDY Calculator Estimated Delivery Date Method Current WG Current Estimate 10/03/25 LMP (Certain) 34w 6d Other Estimates 10/03/25 Ultrasound #1 34w 6d 10/05/25 Ultrasound #2 34w 4d Expected Delivery Route/Plan Hx CS x 1, hx PTVD at 35-36 weeks first Macrosomic infant with last delivery (CS at 35 weeks 8 lbs 14 oz) Poorly controlled diabetes on oral meds prior to with frequent trips into the ER HgBA1C 7.0 first trimester Morbid Obesity Starting BMI 41: Baby ASA Needs Level II US/ echo/ and co-management with [facility] PN labs: 0+/Ab-/Rubella Nonimmune/RPR NR/HIV-/HepBSag-/ Specific Issue/Plans For Repeat CS D/C metformin, start insulin (Lantus 37u qhs, Humalog 6u TID), weekly visits for BG monitoring, genetics, MFM consult at [facility], Tylenol for WHALEN, rubella vaccine. Notes Visit Date: 06/09/25 Last Updated by: Fabian Ramos MD [facility] ultrasound report: - Single live fetus - Clinical gestational age: 22 weeks 4 days (consistent with LMP dates) - Composite age: 21 weeks 6 days - Estimated weight: 530 grams - Amniotic fluid: Normal - anatomy: Normal - Placenta: Anterior, no previa, no ultrasound evidence of accreta - Cervical length: 4.5 cm, closed cervix - No funneling Visit Date: 04/08/25 Last Updated by: Fabby Moya (OB Clinic)MD Pt states she sometimes checks her sugars on her dad's machine and her insurance will not cover one for her. She states if she doesn't feel right she goes to the ER where her BS can be as high as the 300s. Will authorize for diabetic management and counseling. Surprisingly, her first trimester HgB A1c is only 7. Stressed tight glycemic control during and afterwars to avoid terminal manager complications of DM including loss of limbs and blindness. Office Procedures [facility] Clinic LOC & Office Proc's Nursing/Assessment Patient Status: Established Patient OB Clinic Nursing Assessment: Medication Reconciliation, Update PMH in EMR and Vital Signs OB Clinic Coordination of Care: Complex Care and Chronic Disease 1-5, Consent,records obtained, informed consent, Education Simp Pt/Fam, 1 Ins Authorization, Lab and Imaging orders, Results/Orders obtained and Staff clarify orders Special Needs: Heart tones Established Patient Charge Established Patient Point Assignment: 150 Established Patient Point Charge: EP Level 4 (120-155) Assessment & Plan Diagnosis / Problem List (1) Decreased movements: Status: Acute Qualifiers: Fetus number: single or unspecified fetus Trimester: third trimester Qualified Code(s): O36.8130 - Decreased movements, third trimester, not applicable or unspecified (2) Previous delivery affecting : Status: Acute (3) Insulin dependent type 2 diabetes mellitus: Status: Acute Plan Problem List - Gestational diabetes mellitus, poorly controlled - Previous delivery - Antepartum hemorrhage Assessment 35-year-old female at 34 weeks and 6 days gestation with poorly controlled gestational diabetes mellitus and history of previous section presenting with acute onset bright red vaginal bleeding. Patient reports ongoing bleeding with associated pelvic pressure and urinary urgency without actual urination. Given the combination of third trimester bleeding in the setting of poorly controlled GDM and previous uterine surgery, placental abruption must be ruled out as this represents a potential obstetric emergency that could necessitate immediate delivery. Plan - Complete ultrasound to rule out placental abruption - Possible 24-hour observation for monitoring - Potential delivery depending on findings
== END 2025-08-28 11:02 | disposition home or self-care (01) ==
LOC: HODSOBC 10:30
PROVIDERS: Supervising Provider Obstetrics & Gynecology; Visit Provider Obstetrics & Gynecology
DX: O09.893 Supervision of other high risk pregnancies, third trimester (principal); O24.113 Pre-existing type 2 diabetes mellitus, in pregnancy, third trimester; O36.8130 Decreased fetal movements, third trimester, not applicable or unspecified; O46.93 Antepartum hemorrhage, unspecified, third trimester; O09.293 Supervision of pregnancy with other poor reproductive or obstetric history, third trimester; O34.219 Maternal care for unspecified type scar from previous cesarean delivery; O99.213 Obesity complicating pregnancy, third trimester; E66.01 Morbid (severe) obesity due to excess calories; Z3A.34 34 weeks gestation of pregnancy; Z79.4 Long term (current) use of insulin; Z88.2 Allergy status to sulfonamides; Z91.018 Allergy to other foods
CPT/HCPCS: 99214; G0463

== ENCOUNTER 2025-08-28 11:26 | Observation (INO) | payer MEDICAID, SELFPAY ==
[2025-08-28] VITALS (29 sets, daily range): BP systolic 0–141; BP diastolic 0–75; PULSE 90–119; RESP 16–98; TEMP 36.7–36.9; O2SAT 97–99; BMI 46.0
--- NOTE | 2025-08-28 11:36 | XR_ITS ---
Examination: Complete OB ultrasound greater than 14 weeks Date and time of exam: August 28, 2025, 1236 hours INDICATIONS: Onset vaginal bleeding today Findings: Viable intrauterine single fetus with single amniotic sac presentation Vertex Cardiac motion 155 bpm Placenta anterior grade 2 Umbilical cord insertion 3 vessel seen Amniotic fluid index 10.2 cm Cervix 3.5 cm Ovaries obscured by bowel gas. Composite estimated gestational age based on BPD, head circumference, abdominal circumference, femur length is 35 weeks 3 days Estimated weight 2688 g. Survey of intracranial anatomy, spinal anatomy, abdominal anatomy, four-chamber heart performed with no abnormalities identified. Impression: Viable intrauterine gestation in vertex presentation.
[2025-08-28 14:15] LABS: Basophils # (Auto) 0.0 Thou/mm3 (0.0-0.2); Basophils % (Auto) 0 % (0-2.5); Eosinophils # (Auto) 0.1 Thou/mm3 (0.0-0.5); Eosinophils % (Auto) 1 % (0-10); Hematocrit 34.3 % (36.0-46.0); Hemoglobin 11.4 g/dL (12.0-16.0); Immature Granulocytes Auto 0.05 Thou/mm3 (0.00-0.00); Lymphocytes # (Auto) 2.1 Thou/mm3 (1.0-4.8); Lymphocytes % (Auto) 22 % (10-50); Mean Corpuscular HGB Conc 33.2 g/dl (31.0-37.0); Mean Corpuscular Hemoglobin 26.5 pg (25.0-35.0); Mean Corpuscular Volume 80 fL (80-100); Monocytes # (Auto) 0.6 Thou/mm3 (0.0-0.8); Monocytes % (Auto) 6 % (0-12); Neutrophils # (Auto) 6.8 Thou/mm3 (1.8-7.7); Neutrophils % (Auto) 71 % (37-80); Nucleated Red Blood Cell # 0.00 Thou/mm3 (0.00-0.00); Nucleated Red Blood Cell % 0 /100 WBC (0); Platelet Count 226 Thou/mm3 (140-440); RDW Standard Deviation 43.7 fL (36.4-46.3); Red Blood Count 4.31 Miln/mm3 (4.00-5.20); White Blood Count 9.6 Thou/mm3 (3.6-11.0)
[2025-08-28] MEDS: AMOXICILLIN 250 MG CAPSULE 500 MG PO (14:19)
[2025-08-28 14:49] LABS: Glucose Estimated Average 160 mg/dL (80-131); Hemoglobin A1C 7.2 % Hgb (4.8-6.0)
[2025-08-28 14:57] LABS: Alanine Aminotransferase 13 U/L (10-49); Albumin, Serum 3.9 gm/dL (3.5-5.0); Albumin/Globulin Ratio 1.3 (1.2-2.2); Alkaline Phosphatase 115 U/L (46-116); Anion Gap 12 (7-16); Aspartate Amino Transferase 18 U/L (0-34); BUN/Creatinine Ratio 13 Ratio (12-20); Bilirubin,Total 0.3 mg/dL (0.3-1.2); Blood Urea Nitrogen 9 mg/dL (9-23); Calcium 9.2 mg/dL (8.3-10.6); Calcium (Corrected) 9.3 mg/dL (8.5-10.1); Carbon Dioxide 22.2 mMol/L (20.0-31.0); Chloride 105 mMol/L (98-107); Creatinine (Component) 0.7 mg/dL (0.6-1.3); Estimated Creatinine Clearance 169.0 mL/min (>60); Globulin 3.0 gm/dL (2.3-3.5); Glucose 118 mg/dL (74-106); LDH (Lactate Dehydrogenase) 165 U/L (120-246); Osmolality,Calculated 277 (275-295); Potassium 3.9 mMol/L (3.4-5.1); Sodium 139 mMol/L (136-145); Total Protein 6.9 gm/dL (5.7-8.2); Uric Acid 3.1 mg/dL (3.1-7.8); eGFR > 60 See Note
[2025-08-28 15:15] LABS: INR 1.0 (0.9-1.3); Partial Thromboplastin Time 24.5 Seconds (22.0-36.0); Prothrombin Time 10.2 Seconds (9.0-12.2)
[2025-08-28 15:24] LABS: Fibrinogen 714 mg/dL (175-375)
[2025-08-28 15:52] LABS: Creatinine,Random Urine 151 mg/dL (30-125); Protein Total, Random Urine 35 mg/dL (1-14)
[2025-08-28] MEDS: INSULIN LISPRO (AdmeLOG) 1 UNIT/0.01 ML UNIT 48 UNIT SC (17:25)
== END 2025-08-28 19:50 | disposition home or self-care (01) ==
PROVIDERS: Admitting Provider Obstetrics & Gynecology; Visit Provider Obstetrics & Gynecology
DX: O46.93 Antepartum hemorrhage, unspecified, third trimester (principal); Z3A.35 35 weeks gestation of pregnancy
CPT/HCPCS: 36415; 59025; 59899; 76805; 80053; 82570; 83036; 83615; 84156; 84550; 85025; 85384; 85610; 85730; J1815; A9270

== ENCOUNTER 2025-08-31 08:16 | Outpatient (RCR) | payer MEDICAID, SELFPAY ==
--- NOTE | 2025-07-23 08:32 | XR_ITS ---
Examination: Biophysical profile, ultrasound Date and time of exam: 07/23/2025 at 8:43 a.m. INDICATION: Biweekly NST and BPP due to high risk COMPARISON: OB ultrasound 06/23/2025 Technique: Multiple transabdominal sonographic images of the pelvis abdomen obtained. Attention is directed to the breathing movement, gross body movement, amniotic fluid volume and tone. Findings: Single live IUP in cephalic presentation. Total biophysical profile is 8 of 8. breathing movement is 2. Gross body movement is 2. tone is 2. Qualitative amniotic fluid volume is 2 BREANNE: 12.7 cm. FHR: 143 bpm. Impression: Biophysical profile is 8 of 8.
[2025-07-23 09:16] VITALS: BP 120/63; PULSE 104; RESP 16; TEMP 36.8
--- NOTE | 2025-07-27 08:11 | XR_ITS ---
Examination: Biophysical profile, ultrasound Date and time of exam: July 27, 2025, 0834 hours INDICATIONS: Diagnosis high risk Technique: Multiple transabdominal sonographic images of the pelvis abdomen obtained. Attention is directed to the breathing movement, gross body movement, amniotic fluid volume and tone. Findings: Amniotic fluid index 13.5 cm Total biophysical profile is 8 of 8. breathing movement is 2. Gross body movement is 2. tone is 2. Qualitative amniotic fluid volume is 2 Impression: Biophysical profile is 8 of 8.
[2025-07-27 09:00] VITALS: BP 132/74; PULSE 100; RESP 16; TEMP 36.8
--- NOTE | 2025-07-30 08:26 | XR_ITS ---
Examination: Biophysical profile, ultrasound Date and time of exam: July 30 2025, 0839 hours INDICATIONS: Diagnosis high risk , diagnosis diabetes Technique: Multiple transabdominal sonographic images of the pelvis abdomen obtained. Attention is directed to the breathing movement, gross body movement, amniotic fluid volume and tone. Findings: Amniotic fluid index 7.9 cm Total biophysical profile is 8 of 8. breathing movement is 2. Gross body movement is 2. tone is 2. Qualitative amniotic fluid volume is 2 Impression: Biophysical profile is 8 of 8.
[2025-07-30 09:01] VITALS: BP 134/77; PULSE 99; RESP 16; TEMP 36.7
[2025-08-06 09:10] VITALS: BP 148/66; PULSE 98; RESP 16; TEMP 37.1
[2025-08-06 10:25] LABS: Creatinine,Random Urine 79 mg/dL (30-125); Protein Total, Random Urine 22 mg/dL (1-14)
[2025-08-06 10:27] LABS: Basophils # (Auto) 0.0 Thou/mm3 (0.0-0.2); Basophils % (Auto) 0 % (0-2.5); Eosinophils # (Auto) 0.1 Thou/mm3 (0.0-0.5); Eosinophils % (Auto) 1 % (0-10); Hematocrit 31.3 % (36.0-46.0); Hemoglobin 10.3 g/dL (12.0-16.0); Immature Granulocytes Auto 0.38 Thou/mm3 (0.00-0.00); Lymphocytes # (Auto) 2.7 Thou/mm3 (1.0-4.8); Lymphocytes % (Auto) 20 % (10-50); Mean Corpuscular HGB Conc 32.9 g/dl (31.0-37.0); Mean Corpuscular Hemoglobin 26.9 pg (25.0-35.0); Mean Corpuscular Volume 82 fL (80-100); Monocytes # (Auto) 1.1 Thou/mm3 (0.0-0.8); Monocytes % (Auto) 8 % (0-12); Neutrophils # (Auto) 9.2 Thou/mm3 (1.8-7.7); Neutrophils % (Auto) 68 % (37-80); Nucleated Red Blood Cell # 0.02 Thou/mm3 (0.00-0.00); Nucleated Red Blood Cell % 0 /100 WBC (0); Platelet Count 245 Thou/mm3 (140-440); RDW Standard Deviation 43.6 fL (36.4-46.3); Red Blood Count 3.83 Miln/mm3 (4.00-5.20); White Blood Count 13.5 Thou/mm3 (3.6-11.0)
[2025-08-06 10:51] LABS: Alanine Aminotransferase 8 U/L (10-49); Albumin, Serum 3.9 gm/dL (3.5-5.0); Albumin/Globulin Ratio 2.0 (1.2-2.2); Alkaline Phosphatase 81 U/L (46-116); Anion Gap 10 (7-16); Aspartate Amino Transferase 13 U/L (0-34); BUN/Creatinine Ratio 14 Ratio (12-20); Bilirubin,Total 0.3 mg/dL (0.3-1.2); Blood Urea Nitrogen 10 mg/dL (9-23); Calcium 8.7 mg/dL (8.3-10.6); Calcium (Corrected) 8.8 mg/dL (8.5-10.1); Carbon Dioxide 23.2 mMol/L (20.0-31.0); Chloride 105 mMol/L (98-107); Creatinine (Component) 0.7 mg/dL (0.6-1.3); Globulin 2.0 gm/dL (2.3-3.5); Glucose 172 mg/dL (74-106); Osmolality,Calculated 278 (275-295); Potassium 3.8 mMol/L (3.4-5.1); Sodium 138 mMol/L (136-145); Total Protein 5.9 gm/dL (5.7-8.2); eGFR > 60 See Note
--- NOTE | 2025-08-10 08:42 | XR_ITS ---
Examination: Biophysical profile, ultrasound Date and time of exam: August 10, 2025, 0823 hours INDICATIONS: Diagnosis high risk , history vaginal bleeding Technique: Multiple transabdominal sonographic images of the pelvis abdomen obtained. Attention is directed to the breathing movement, gross body movement, amniotic fluid volume and tone. Findings: Amniotic fluid index 11.0 cm Total biophysical profile is 8 of 8. breathing movement is 2. Gross body movement is 2. tone is 2. Qualitative amniotic fluid volume is 2 Impression: Biophysical profile is 8 of 8.
[2025-08-10 09:08] VITALS: BP 133/68; PULSE 102; RESP 16; TEMP 36.7
--- NOTE | 2025-08-20 08:36 | XR_ITS ---
Examination: Biophysical profile, ultrasound Date and time of exam: August 20, 2025, 0843 hours INDICATIONS: Diagnosis supervision of high risk , history pelvic fracture Technique: Multiple transabdominal sonographic images of the pelvis abdomen obtained. Attention is directed to the breathing movement, gross body movement, amniotic fluid volume and tone. Findings: Amniotic fluid index 8.3 cm Total biophysical profile is 8 of 8. breathing movement is 2. Gross body movement is 2. tone is 2. Qualitative amniotic fluid volume is 2 Impression: Biophysical profile is 8 of 8.
[2025-08-20 09:09] VITALS: BP 138/69; PULSE 106; RESP 16; TEMP 36.8
--- NOTE | 2025-08-24 08:25 | XR_ITS ---
Examination: Biophysical profile, ultrasound Date and time of exam: August 24, 2025, 0840 hours INDICATIONS: Diagnosis supervision of high risk , history pelvic fracture Technique: Multiple transabdominal sonographic images of the pelvis abdomen obtained. Attention is directed to the breathing movement, gross body movement, amniotic fluid volume and tone. Findings: Amniotic fluid index 16.6 cm Total biophysical profile is 8 of 8. breathing movement is 2. Gross body movement is 2. tone is 2. Qualitative amniotic fluid volume is 2 Impression: Biophysical profile is 8 of 8.
[2025-08-24 09:28] VITALS: BP 132/62; PULSE 97; RESP 16; TEMP 36.7
--- NOTE | 2025-08-31 08:21 | XR_ITS ---
Examination: Biophysical profile, ultrasound Date and time of exam: August 31, 2025, 0848 hours INDICATIONS: Supervision of high risk , onset vaginal bleeding August 28, 2025 Technique: Multiple transabdominal sonographic images of the pelvis abdomen obtained. Attention is directed to the breathing movement, gross body movement, amniotic fluid volume and tone. Findings: Amniotic fluid index 10.3 cm Total biophysical profile is 8 of 8. breathing movement is 2. Gross body movement is 2. tone is 2. Qualitative amniotic fluid volume is 2 Impression: Biophysical profile is 8 of 8.
[2025-08-31 09:38] VITALS: BP 132/73; PULSE 102; RESP 16; TEMP 36.7
== END 2025-08-31 23:59 | disposition home or self-care (01) ==
LOC: S4S1 08:16
PROVIDERS: Internal Medicine Gastroenterology; Referring Provider Obstetrics & Gynecology; Visit Provider Obstetrics & Gynecology
DX: O09.93 Supervision of high risk pregnancy, unspecified, third trimester (principal); Z3A.35 35 weeks gestation of pregnancy
CPT/HCPCS: 36415; 59025; 76819; 80053; 82570; 84156; 85025

== ENCOUNTER 2025-08-31 13:07 | Outpatient (AMB) | payer MEDICAID, SELFPAY ==
[2025-08-31 13:34] VITALS: BP 130/75; PULSE 96; RESP 18; TEMP 37.1; O2SAT 98
--- NOTE | 2025-08-31 13:34 | OBCLNT_ITS ---
Vital Signs 08/31/25 13:34 Weight 133.526 kg Weight Measurement Method Standing Scale BP 130/75 Blood Pressure Source Automatic Cuff Blood Pressure Location Left Upper Arm Position Sitting Respiration 18 Pulse 96 Pulse Source Monitor Temp 98.8 F Temp Source Oral Pulse Oximetry (%) 98 Oxygen Delivery Method Room Air Allergies/Home Meds Allergies & Medications Allergies [place] And Derivatives Allergy (Severe, Verified 08/31/25 13:35) Rash Sulfa (Sulfonamide Antibiotics) Allergy (Severe, Verified 08/31/25 13:35) Hives Medication Reconciliation pen needle, diabetic 29 gauge x 1/2 #100 ea 03/25/25 [Rx Confirmed 08/31/25] vitamins with calcium no.72-iron 27 mg-folic acid 1 mg tablet ( Vitamins Plus Low Iron) 1 tab PO QDAY 90 days #90 tabs 03/25/25 [Rx Confirmed 08/31/25] blood sugar diagnostic (Blood Glucose Test strips) #100 ea 08/07/25 [Rx Confi rmed 08/31/25] folic acid 1 mg tablet 4 mg (4 x 1 mg) PO QDAY 90 days #360 tabs 08/07/25 [Rx Confirmed 08/31/25] lancets 21 gauge #100 ea 08/07/25 [Rx Confirmed 08/31/25] sumatriptan succinate 50 mg tablet (Imitrex) See Rx Instructions PO .COMPLEX 7 days #20 tabs 08/07/25 [Rx Confirmed 08/31/25] insulin glargine 100 unit/mL (3 mL) subcutaneous pen (Lantus Solostar U-100 Insulin) 70 unit subcut .am 08/08/25 [History Confirmed 08/31/25] insulin lispro 100 unit/mL subcutaneous pen (Humalog KwikPen (U-100) Insulin) 55 unit subcut .pm 08/08/25 [History Confirmed 08/31/25] amoxicillin 500 mg capsule 500 mg PO TID 7 days #21 caps 08/21/25 [Rx Confirmed 08/31/25] cephalexin 500 mg capsule 500 mg PO TID 08/21/25 [History Confirmed 08/31/25] insulin glargine-yfgn 100 unit/mL (3 mL) subcutaneous pen 55 unit subcut HS 08/28/25 [History Confirmed 08/31/25] Immunizations Immunizations Flu Vaccine in the Last 12 Months: No Flu Vaccine Exclusion Criteria: No Exclusion Criteria Care OB Visit Log OB Flowsheet Initial Weight: Not Recorded Date -?-?-?-?-?-?-?-?-?-?-?-?- EGA Weight BP Alb Glu CTX Pres Fundal ht FHR Mov Dilation Station Effacement Hx Notes Visit Note 03/13/25 -?-?-?-?-?-?-?-?-?-?-?-?- 10w 6d 112.491 kg 122/72 159 at 11w, RUDY 10/01/25. Initial visit. Cramping improved, WHALEN x4 days. T2DM poorly controlled (A1C 7.0, BG up to 330-340). Hx infertility, deliveries at 35w (both sons). FHR 159. Rubella non-immune. Plan: D/C metformin, start insulin (Lantus 37u qhs, Humalog 6u TID), weekly visits for BG monitoring, genetics, [facility] WHALEN, rubella vaccine. 03/18/25 -?-?-?-?-?-?-?-?-?-?-?-?- 11w 4d 115.779 kg 132/87 165 at 11w4d with GDM on Lantus 40u qAM and rapid-acting insulin 8u TID (? to 10u for high-carb meals); improved BG 80?9 0 fasting, peak 234. Plan: [place] nue insulin, educate on site rotation, order CGM to [facility], log BGs, f/u in 4w; NIPT negative, routine care continues. 03/25/25 -?-?-?--?-?-?-?-?-?-?-?-?- 12w 4d 115.836 kg 125/81 absent 165 Patient presents for a routine visit at 12 weeks and 4 days gestation. She reports that her blood sugar levels have been spiking to as high as 350 despite being prescribed insulin based on weight-based doses. - Increase insulin doses: ? Lantus: 30 units subcutaneously twic e daily ? Rapid-acting insulin: 16 units subcu taneously three times daily before meals - Provide patient education on proper in sulin injection technique to minimize bruising. - Dispense continuous glucose monitor (C GM) and new glucometer. - Review glucose logs at next visit. 04/08/25 -?-?-?-?-?-?-?-?-?-?-?-?- 14w 4d 117.084 kg 127/77 145 absent No VB or LOF. No cramping Not reliable with checking sugars 04/15/25 -?-?-?-?-?-?-?-?-?-?-?-?- 15w 4d 117.594 kg 119/77 absent 168 - Patient reports her blood sugar control has been pretty good recently: - Denies dry mouth, which she associat es with high blood sugar - Reports constant urination, which sh e attributes to - Patient is experiencing difficulty obt aining diabetic supplies: - Using her diabetic father's supplies sparingly - Awaiting a call from a service to as sist with obtaining supplies - movement: - Patient inquires about not feeling f etal movement yet - Denies cramping, nausea, or vomiting - Await call from diabetes management service on (tomorrow) for assistance with supplies and potential insulin adjustments - Continue current diabetes management r egimen 04/27/25 -?-?-?-?-?-?-?-?-?-?-?-?- 17w 2d 120.882 kg 130/80 absent 147 acti ve 23-year-old at 17 weeks and 2 days gestation with poorly controlled gestational diabetes mellitus. Blood glucose readings range from 90-240 mg/dL, with most readings between 180-230 mg/dL. Current insulin regimen includes NPH 30 units in the morning and evening, with 16 units of rapid-acting insulin with meals. Plan - Increase morning insulin dose from 30 units to 35 units - Increase mealtime insulin dose from 16 units to 18 units - Continue evening insulin dose at 30 un its - Follow up in two weeks - Awaiting insurance approval for specia list ultrasound at [facility] - Resend insulin prescription 05/13/25 -?-?-?-?-?-?-?-?-?-?-?-?- 19w 4d 123.037 kg 130/83 absent 150 acti ve 19w4d with poorly controlled T2DM on insulin; FBG 130?140, occasional PPG up to 180. No FM yet. FHR 150 bpm, limited facial views on US, otherwise normal anatomy. Plan: Continue glucose monitoring, repeat anatomy US =24wks, follow up next visit, verify referral and [employer] coverage for [facility] specialty scan. 06/09/25 -?-?-?-?-?-?-?-?-?-?-?-?- 23w 3d 127.063 kg 99/63 absent 169 activ e - She reports her blood sugars are doing well with diabetes management. - Patient continues to experience carpal tunnel symptoms in her hand. - She denies contractions, cramping, or other -related problems. - Patient reports feeling movement well, which is appropriate for her gestational age. - She is adherent to insulin therapy and will continue working with home health services for diabetes management. - Patient denies wanting to use an insul in pump, preferring to continue with pen/syringe method. - Continue c urrent insulin regimen; home health service to assist with insulin management - Schedule at 37 weeks (tomas fitzgerald around September 14-) - Follow up with [facility] n June 17 for echocardiogram and growth scan - Return for visit in 4 weeks - Monitor for signs of preeclampsia (bernardo vated blood pressure with headache, visual disturbances, right upper quadrant pain) - Transition to biweekly visits after next appointment 06/26/25 -?-?-?-?-?-?-?-?-?-?-?-?- 25w 6d 128.083 kg 134/83 absent unknown 145 active - She has poorly controlled gestational diabetes requiring insulin management. - Lantus was recently increased to 35 units twice daily - Humalog was increased to 18 units be fore meals - Blood sugars have been elevated with readings nothing more than 180, 200 - She uses a continuous glucose monito r (CGM) - She declined an insulin pump - Patient reports developing early carpa l tunnel syndrome. - She was recently hospitalized for ankl e swelling. - Laboratory studies were performed an d came back normal - This ruled out pre-eclampsia - Patient reports the baby is active and positioned riding high up here. - She may be developing cold symptoms as there is a flu going around. - She is taking aspirin as prescribed. - Patient has upcoming appointments at [facility] or [place] for both ultrasound and echocardiogram this coming week. - Continue current insulin regimen: Lantus 35 units BID, Humalog 18 units AC - Continue aspirin - client support manager new insulin prescription from pharmacy - Attend upcoming ultrasound and e chocardiogram appointments - Follow up in 3-4 weeks to review ultra sound reports - Remind clinician at 32 weeks gestation to sign consent form for planned section 07/13/25 -?-?-?-?-?-?-?-?-?-?-?-?- 28w 2d 130.748 kg 126/82 absent 155 acti ve presenting for routine visit with a history of poorly controlled gestational diabetes mellitus. - She is currently managed on Lantus 35 units twice daily and Humalog insulin, with insulin management provided by the nursing team from [facility]. - Her continuous glucose monitor shows g ood numbers indicating improved glycemic control. - She reports the baby is active. - She experienced a pharmacy issue where only short-acting insulin was provided instead of the prescribed long-acting insulin. - Send prescription for long- acting insulin (Lantus); provide printout to patient to resolve pharmacy dispensing issue - Perform blood work including CBC, RPR, and A1c - Schedule for at 12:30 p.m. - Prepare tubal ligation papers in early August, one month before - Begin monitoring at 30 weeks; annette amaro will be contacted for appointment - Follow-up appointment in 2 weeks - Continue current insulin regimen with Lantus 35 BID and Humalog managed by [facility] nursing team - Next ultrasound scheduled at [facility] on August 17 07/30/25 -?-?-?-?-?-?-?-?-?-?-?-?- 30w 5d 130.408 kg 134/89 absent cephalic 31 14 5 active Reports WHALEN for 3 days, denies VC, and epigastric pain. - She is currently managed [facility] for diabetes monitoring via telephone consultations. - New insulin prescriptions with higher doses were sent yesterday due to poor glycemic control. - She reports headache for 3 days durati on. - Has not tried Tylenol or other over- the-counter pain relievers. - She confirms movement and report s the baby is active. - She went to Labor and Delivery today f or evaluation. - She continues home blood pressure trisha as previously established. - Monitoring appointments are scheduled for Mondays and . - New insulin prescriptions sent yesterday with higher doses for poorly controlled gestational diabetes - Prescribe Fioricet for headache manage ment - Continue home blood pressure monitorin g - Schedule weekly visits going forward - Monitoring appointments on Mondays and - Plan delivery at 36-37 weeks depending on sugar control, not at 35 weeks unless preeclampsia develops 08/21/25 -?-?-?-?-?-?-?-?-?-?-?-?- 33w 6d 131.258 kg 138/89 absent cephalic 34 16 1 active - She reports elevated blood pressure with today's reading of 138/89 mmHg. - Blood pressures were similarly eleva lia yesterday at the hospital. - Current insulin regimen includes 60 un its in the morning, 55 units at night, and 45 units three times daily with meals. - Post-meal blood glucose levels rise to 200 mg/dL. - Fasting blood glucose ranges between 84-90 mg/dL. - Post-breakfast and post-lunch glucos e levels sometimes exceed 150-160 mg/dL depending on food intake. - She reports new onset blurry vision th at she has never experienced before. - She noticed blood when wiping after ur ination today. - She denies UTI symptoms but reports fe eling pressure. - She recently completed a course of ant ibiotics. - She had a recent hospital visit yester day where no laboratory tests were performed. - Send patient t o labor and delivery for immediate preeclampsia panel and UTI panel workup - Increase morning insulin from 60 units to 70 units - Increase mealtime insulin (breakfast, lunch, dinner) from 45 units to 48 units three times daily - Continue nighttime insulin at 55 units - Schedule follow-up appointment in one week 08/28/25 -?-?-?-?-?-?-?-?-?-?-?-?- 34w 6d 133.583 kg 128/86 absent cephalic 35 14 5 active - She reports ongoing bright red vaginal bleeding that began recently. - Initially noticed bleeding and took a picture of it - When she wiped, there was significan tly more blood present - Describes the blood as bright red in color - Patient reports feeling like she needs to urinate but is unable to void. - Returned to restroom due to urge to urinate but did not produce urine - When wiping, noted blood instead of urine - Complete ultrasound to rule out placental abruption - Possible 24-hour observation for monit oring - Potential delivery depending on findin gs 08/31/25 -?-?-?-?-?-?-?-?-?-?-?-?- 35w 2d 133.526 kg 130/75 absent cephalic 36 15 5 active - Juana Lindsey is a 35-year-old at 35 weeks and 2 days gestation with poorly controlled gestational diabetes mellitus, chronic hypertension, and history of prior sections presenting for follow-up after recent hospitalization for vaginal bleeding. - She recently presented with bright red vaginal bleeding and was kept for post- bleeding observation for 12 hours at the hospital. - The bleeding has resolved and has no t recurred since discharge last Sunday. - Patient reports significant difficulty with glycemic control at home despite being on very high dose insulin. - Blood sugars spike to the 300s, whic h she attempts to manage by drinking large amounts of water and not eating for periods of time. - Sugars come down to 280-260 range wi th these measures. - Notes that when hospitalized, the sa me insulin dose maintains better glucose control. - Admits to continuing to eat pasta an d rice at home despite dietary restrictions. - Reports proper insulin injection oumar hnique including pinching stomach, holding injection until medication is fully administered. - Has been experiencing easy bruising at injection sites. - Patient has chronic hypertension but i s not currently on medications with wide fluctuations in blood pressure. - She has not been compliant with diabet es management recommendations. - Scheduled for repeat section, initially planned for September 09 but confirmed for September 08 at 7:30 AM with 5:30 AM check-in. Plan - section scheduled for at 7:30 AM, check-in at 5:30 AM - NPO after 10 PM the night before surge ry (no food, drink, or insulin) - Change insulin injection sites from ab domen to thigh or back of arm to improve absorption - Continue NST monitoring with next appo intment on - If nausea or illness occurs night befo re surgery, present to hospital for IV fluids - Follow-up appointment scheduled for ne xt Sunday RUDY Calculator Estimated Delivery Date Method Current WG Current Estimate 10/03/25 LMP (Certain) 35w 2d Other Estimates 10/03/25 Ultrasound #1 35w 2d 10/05/25 Ultrasound #2 35w 0d Expected Delivery Route/Plan Hx CS x 1, hx PTVD at 35-36 weeks first Macrosomic with last delivery (CS at 35 weeks 8 lbs 14 oz) Poorly controlled diabetes on oral meds prior to with frequent trips into the ER HgBA1C 7.0 first trimester Morbid Obesity Starting BMI 41: Baby ASA Needs Level II US/ echo/ and co-management with M PN labs: 0+/Ab-/Rubella Nonimmune/RPR NR/HIV-/HepBSag-/ Specific Issue/Plans For Repeat CS D/C metformin, start insulin (Lantus 37u qhs, Humalog 6u TID), weekly visits for BG monitoring, genetics, MFM consult at [facility], Tylenol for WHALEN, rubella vaccine. Notes Visit Date: 06/09/25 Last Updated by: Fabian Ramos MD [facility] ultrasound report: - Single live fetus - Clinical gestational age: 22 weeks 4 days (consistent with LMP dates) - Composite age: 21 weeks 6 days - Estimated weight: 530 grams - Amniotic fluid: Normal - anatomy: Normal - Placenta: Anterior, no previa, no ultrasound evidence of accreta - Cervical length: 4.5 cm, closed cervix - No funneling Visit Date: 04/08/25 Last Updated by: Fabby Moya (OB Clinic)MD Pt states she sometimes checks her sugars on her dad's machine and her insurance will not cover one for her. She states if she doesn't feel right she goes to the ER where her BS can be as high as the 300s. Will authorize for diabetic management and counseling. Surprisingly, her first trimester HgB A1c is only 7. Stressed tight glycemic control during and afterwars to avoid rn long term care complications of DM including loss of limbs and blindness. Office Procedures [facility] LOC & Office Proc's Nursing/Assessment Patient Status: Established Patient OB Clinic Nursing Assessment: Medication Reconciliation, Update PMH in EMR and Vital Signs OB Clinic Coordination of Care: Consent,records obtained, informed consent, Education Simp Pt/Fam, Lab and Imaging orders, Results/Orders obtained and Staff clarify orders Special Needs: Heart tones Established Patient Charge Established Patient Point Assignment: 110 Established Patient Point Charge: EP Level 3 (80-115) Assessment & Plan Diagnosis / Problem List (1) Decreased movements: Status: Acute Qualifiers: Fetus number: single or unspecified fetus Trimester: third trimester Qualified Code(s): O36.8130 - Decreased movements, third trimester, not applicable or unspecified (2) Uterine size date discrepancy: Status: Acute (3) Previous delivery affecting : Status: Acute (4) Insulin dependent type 2 diabetes mellitus: Status: Acute (5) Type 2 diabetes mellitus with unspecified complications: Status: Acute Plan Problem List - Gestational diabetes mellitus - Chronic hypertension - History of delivery - Antepartum hemorrhage Assessment 35-year-old at 35 weeks 2 days gestation with poorly controlled gestational diabetes mellitus on high-dose insulin with blood glucose levels reaching 300s at home, dropping to 260-280 range with patient's self-management attempts. Patient has chronic hypertension, currently not on medications. Recent episode of bright red vaginal bleeding has resolved after 12-hour hospital observation. History of prior sections with repeat section scheduled. Patient reports easy bruising and acknowledges continued consumption of pasta and rice at home despite dietary restrictions. heart rate documented at 169 bpm, which is within normal range. Plan - section scheduled for September 08 at 7:30 AM, check-in at 5:30 AM - NPO after 10 PM the night before surgery (no food, drink, or insulin) - Change insulin injection sites from abdomen to thigh or back of arm to improve absorption - Continue NST monitoring with next appointment on - If nausea or illness occurs night before surgery, present to hospital for IV fluids - Follow-up appointment scheduled for next Sunday 1. Progress Reviewed gestational age (35 weeks and 2 days), growth, and heart rate (169, normal heartbeat). Planned frequent visits (every 2 weeks until 36 weeks, then weekly). 2. Instructed patient to monitor movements and report decreases immediately. 3. Testing Counseled on routine third-trimester labs per guidelines. Discussed potential need for ultrasound or monitoring based on risk factors. 4. Preeclampsia Precaution Educated on preeclampsia signs: severe headache, vision changes, right upper quadrant pain, sudden swelling. Advised urgent reporting of symptoms and discussed blood pressure monitoring if high risk. 5. Labor Precautions Reviewed labor signs: regular contractions, pelvic pressure, back pain, bleeding, or fluid leakage. Instructed to seek immediate care for these symptoms. 6. Lifestyle and Delivery Preparation Reinforced vitamins, nutrition, and safe activity. Discussed plan, pain management, and . Advised on labor preparation (e.g., hospital bag) and expectations. 7. Psychosocial Support Assessed emotional well-being and offered resources for mental health or parenting support.
== END 2025-08-31 13:54 | disposition home or self-care (01) ==
LOC: HODSOBC 13:07
PROVIDERS: Supervising Provider Obstetrics & Gynecology; Visit Provider Obstetrics & Gynecology
DX: O09.893 Supervision of other high risk pregnancies, third trimester (principal); O36.8130 Decreased fetal movements, third trimester, not applicable or unspecified; O26.843 Uterine size-date discrepancy, third trimester; O09.293 Supervision of pregnancy with other poor reproductive or obstetric history, third trimester; O34.219 Maternal care for unspecified type scar from previous cesarean delivery; O24.113 Pre-existing type 2 diabetes mellitus, in pregnancy, third trimester; O10.913 Unspecified pre-existing hypertension complicating pregnancy, third trimester; O99.213 Obesity complicating pregnancy, third trimester; E66.01 Morbid (severe) obesity due to excess calories; Z3A.35 35 weeks gestation of pregnancy; Z79.4 Long term (current) use of insulin; Z88.2 Allergy status to sulfonamides; Z91.018 Allergy to other foods; Z91.148 Patient's other noncompliance with medication regimen for other reason
CPT/HCPCS: 99213; G0463

== ENCOUNTER 2025-09-02 16:23 | Inpatient (IN) | payer MEDICAID, SELFPAY ==
[2025-09-02] VITALS (32 sets, daily range): BP systolic 102–190; BP diastolic 56–91; PULSE 86–113; RESP 16–98; TEMP 37.1; O2SAT 95–98; BMI 46.4
--- NOTE | 2025-09-02 17:10 | XR_ITS ---
Examination: Biophysical profile, ultrasound Date and time of exam: September 02, 2025, 1741 hours INDICATIONS: Decreased movement today Technique: Multiple transabdominal sonographic images of the pelvis abdomen obtained. Attention is directed to the breathing movement, gross body movement, amniotic fluid volume and tone. Findings: Amniotic fluid index 13.1 cm Total biophysical profile is 8 of 8. breathing movement is 2. Gross body movement is 2. tone is 2. Qualitative amniotic fluid volume is 2 Impression: Biophysical profile is 8 of 8.
[2025-09-02 17:31] LABS: Collection Type, Urine Clean Catch
[2025-09-02 17:39] LABS: Bacteria,Urine 2+; Bilirubin,Urine Negative (Negative); Blood,Urine Negative (Negative); Color,Urine Lt-Yellow (Lt Yel-Yel); Glucose, Urine 4+ (Negative); Hyaline Casts,Urine < 1 /hpf (0-1); Ketones,Urine Trace (Negative); Leukocyte Esterase,Urine Positive (Negative); Nitrite,Urine Negative (Negative); PH,Urine 6.5 (5.0-7.0); Protein,Urine Trace (Neg - Trace); RBC,Urine 9 /hpf (0-3); Specific Gravity,Urine 1.033 (1.001-1.035); Squamous Epithelial Cell,Urine 32 /hpf (0-5); Urobilinogen,Urine Negative mg/dL (0.0-1.0); WBC,Urine 49 /hpf (0-5)
[2025-09-02 17:47] LABS: Clarity,Urine Hazy (Clear/Hazy)
[2025-09-02 19:01] LABS: Collection Type, Urine Clean Catch
[2025-09-02 19:15] LABS: Bacteria,Urine 4+; Bilirubin,Urine Negative (Negative); Blood,Urine Negative (Negative); Clarity,Urine Turbid (Clear/Hazy); Color,Urine Lt-Yellow (Lt Yel-Yel); Glucose, Urine 4+ (Negative); Ketones,Urine Negative (Negative); Leukocyte Esterase,Urine Positive (Negative); Nitrite,Urine Negative (Negative); PH,Urine 6.5 (5.0-7.0); Protein,Urine Negative (Neg - Trace); RBC,Urine 3 /hpf (0-3); Specific Gravity,Urine 1.026 (1.001-1.035); Squamous Epithelial Cell,Urine 28 /hpf (0-5); Urobilinogen,Urine Negative mg/dL (0.0-1.0); WBC,Urine 25 /hpf (0-5)
[2025-09-02 19:49] LABS: Basophils # (Auto) 0.0 Thou/mm3 (0.0-0.2); Basophils % (Auto) 0 % (0-2.5); Eosinophils # (Auto) 0.1 Thou/mm3 (0.0-0.5); Eosinophils % (Auto) 1 % (0-10); Hematocrit 32.6 % (36.0-46.0); Hemoglobin 10.8 g/dL (12.0-16.0); Immature Granulocytes Auto 0.05 Thou/mm3 (0.00-0.00); Lymphocytes # (Auto) 2.5 Thou/mm3 (1.0-4.8); Lymphocytes % (Auto) 25 % (10-50); Mean Corpuscular HGB Conc 33.1 g/dl (31.0-37.0); Mean Corpuscular Hemoglobin 26.6 pg (25.0-35.0); Mean Corpuscular Volume 80 fL (80-100); Monocytes # (Auto) 0.8 Thou/mm3 (0.0-0.8); Monocytes % (Auto) 8 % (0-12); Neutrophils # (Auto) 6.5 Thou/mm3 (1.8-7.7); Neutrophils % (Auto) 66 % (37-80); Nucleated Red Blood Cell # 0.00 Thou/mm3 (0.00-0.00); Nucleated Red Blood Cell % 0 /100 WBC (0); Platelet Count 207 Thou/mm3 (140-440); RDW Standard Deviation 43.7 fL (36.4-46.3); Red Blood Count 4.06 Miln/mm3 (4.00-5.20); White Blood Count 9.9 Thou/mm3 (3.6-11.0)
[2025-09-02 20:06] LABS: Alanine Aminotransferase 9 U/L (10-49); Albumin, Serum 3.3 gm/dL (3.5-5.0); Albumin/Globulin Ratio 1.2 (1.2-2.2); Alkaline Phosphatase 105 U/L (46-116); Anion Gap 10 (7-16); Aspartate Amino Transferase 15 U/L (0-34); BUN/Creatinine Ratio 13 Ratio (12-20); Bilirubin,Total 0.3 mg/dL (0.3-1.2); Blood Urea Nitrogen 8 mg/dL (9-23); Calcium 8.4 mg/dL (8.3-10.6); Calcium (Corrected) 9.0 mg/dL (8.5-10.1); Carbon Dioxide 20.4 mMol/L (20.0-31.0); Chloride 107 mMol/L (98-107); Creatinine (Component) 0.6 mg/dL (0.6-1.3); Estimated Creatinine Clearance 198.3 mL/min (>60); Globulin 2.8 gm/dL (2.3-3.5); Glucose 193 mg/dL (74-106); Osmolality,Calculated 277 (275-295); Potassium 3.9 mMol/L (3.4-5.1); Sodium 137 mMol/L (136-145); Total Protein 6.1 gm/dL (5.7-8.2); Uric Acid 3.0 mg/dL (3.1-7.8); eGFR > 60 See Note
[2025-09-02 20:08] LABS: Fibrinogen 600 mg/dL (175-375); INR 1.0 (0.9-1.3); Partial Thromboplastin Time 23.4 Seconds (22.0-36.0); Prothrombin Time 10.3 Seconds (9.0-12.2)
[2025-09-02] MEDS: INSULIN LISPRO (AdmeLOG) 1 UNIT/0.01 ML UNIT 48 UNIT SC (20:29)
[2025-09-02] MEDS: ACETAMINOPHEN 500 MG TABLET 1000 MG PO (20:29)
[2025-09-02 20:49] LABS: Creatinine,Random Urine 49 mg/dL (30-125); Protein Total, Random Urine 18 mg/dL (1-14)
[2025-09-02] MEDS: AMOXICILLIN 250 MG CAPSULE 500 MG PO (22:15)
[2025-09-02] MEDS: SODIUM CHLORIDE 0.9% 1000 ML 1,000 ML 100 ML IV (22:37)
[2025-09-02] MEDS: INSULIN GLARGINE (Lantus) 5 UNIT/0.05 ML (PER 5 UNITS) 55 UNIT SC (22:58)
--- NOTE | 2025-09-02 23:57 | PD.LDANTE ---
Documentation for date of: 09/02/25 OB Labor/Induct. HPI History of Present Illness Chief complaint: elevated uncontrolled Blood sugars on insulin and 36 weeks /?BP : 3 Para: 2 Term pregnancies: 0 pregnancies: 2 Living children: 2 History of Abortions: Spontaneous and Elective: 0 History of Vaginal deliveries: 1 History of sections: Yes (x1 2020) History of : No Date of last menstrual period: 12/27/24 RUDY: 10/02/25 Gestational Age (weeks): 36 Gestational Age (days): 0 Gestational age based on last menstrual period: 35 History of present illness: 30 years old at 36 weeks admitted for 23 hour observation due to poor glycemic sugar control on high doses of insulin. Patient also needed iv labetalol due to elevated BP x 2 and since then her BP has been contrlled . PIH labs were done and reviewed. Patient states she has been on antibiotics for a UTI . urine protein/ creatinine ratio is 18/49 and is equal to 0.36 She is on high doses of insulin and is taking lantus 70 units am and 55 units pm and 48 regular with meals H/o chronic hypertension but not on meds . Her glycemic control has been a challenge / Plan to monitor Blood sugars and adjust / change insulin accordingly / BPP is 8 History of Present Dating criteria: LMP confirmed by 2nd trimester US Adequate Care: Yes Labs Labs: Negative: RPR, Hepatitis B, Rubella Titre, HIV, Chlamydia and Gonorrhea and Unknown: Herpes Type 1, Herpes Type 2, Group Beta Strep and Covid-19 Review of Systems Review of Systems Systems Reviewed: All systems reviewed, normal except as documented Past Medical History Past Medical History CARDIAC: Positive Hypertension GASTROINTESTINAL: Positive Obesity ENDOCRINE: Positive Diabetes Mellitus Type 2 Surgical History SURGICAL: Positive Section (x1 2020) OTHER SURGICAL HX: prior c section Meds Home Medications and Allergies Home Medications ?Medication ?Instructions ?Recorded ?Confirmed ?Type insulin glargine 100 unit/mL (3 70 unit subcut .am 08/08/25 09/02/25 History mL) subcutaneous pen (Lantus Solostar U-100 Insulin) insulin lispro 100 unit/mL 55 unit subcut .pm 08/08/25 09/02/25 History subcutaneous pen (Humalog KwikPen (U-100) Insulin) cephalexin 500 mg capsule 500 mg PO TID 08/21/25 08/31/25 History insulin glargine-yfgn 100 unit/mL 55 unit subcut HS 08/28/25 08/31/25 History (3 mL) subcutaneous pen Allergies Allergy/AdvReac Type Severity Reaction Status Date / Time [place] And Derivatives Allergy Severe Rash Verified 09/02/25 19:15 Sulfa (Sulfonamide Allergy Severe Hives Verified 09/02/25 19:15 Antibiotics) OB Exam Physical Exam Vital signs: Temp Pulse Resp BP Pulse Ox 98.7 F 92 18 141/65 H 98 09/02/25 16:52 09/02/25 21:53 09/02/25 16:52 09/02/25 21:53 09/02/25 16:56 Narrative: [facility] [address] [place] [address] [place] [facility] Report Signed Patient: DUSTY SOLANO Record#: [id number] Birthdate: 1995 Age/Sex: 30 / F Location: [facility] S946-A Attending Dr: Natalie Adan MD Ordering Physician: NATALIE ADAN MD Date of Service: 09/02/25 Procedure(s): US OB biophysical profile Accession Number(s): [id number] cc: NATALIE ADAN MD; John La MD; NO PRIMARY/FAMILY,PHYSICIAN~ Examination: Biophysical profile, ultrasound Date and time of exam: September 02, 2025, 1741 hours INDICATIONS: Decreased movement today Technique: Multiple transabdominal sonographic images of the pelvis abdomen obtained. Attention is directed to the breathing movement, gross body movement, amniotic fluid volume and tone. Findings: Amniotic fluid index 13.1 cm Total biophysical profile is 8 of 8. breathing movement is 2. Gross body movement is 2. tone is 2. Qualitative amniotic fluid volume is 2 Impression: Biophysical profile is 8 of 8. Dictated By: John La MD Signed By: <Electronically signed by John La MD in OV> 09/02/251837 DD/ 36 TD/TT: 09/02/251836 Press Tender Long Goods: TATUM Detailed Labor and Delivery Exam Presentation: Vertex Membranes: intact monitor accelerations: 15x15 monitor decelerations: None [facility] variability: Average (6-10) Tachysystole: No OB Results Labs 09/02/25 19:35 09/02/25 19:35 Labs: Short CBC 09/02/25 Range/Units 19:35 WBC 9.9 (3.6-11.0) Thou/mm3 Hgb 10.8 L (12.0-16.0) g/dL Hct 32.6 L (36.0-46.0) % Plt Count 207 (140-440) Thou/mm3 BMP 09/02/25 19:35 Sodium 137 Potassium 3.9 Chloride 107 Carbon Dioxide 20.4 BUN 8 L Creatinine 0.6 Glucose 193 H Calcium 8.4 Liver Function 09/02/25 Range/Units 19:35 Total Bilirubin 0.3 (0.3-1.2) mg/dL AST 15 (0-34) U/L ALT 9 L (10-49) U/L Alkaline Phosphatase 105 (46-116) U/L Albumin 3.3 L (3.5-5.0) gm/dL Urine 09/02/25 09/02/25 Range/Units 17:20 18:40 Urine Color Lt-Yellow Lt-Yellow (Lt Yel-Yel) Urine Clarity Hazy Turbid A (Clear/Hazy) Urine pH 6.5 6.5 (5.0-7.0) Ur Specific [place] 1.033 1.026 (1.001-1.035) Urine Protein Trace Negative (Neg - Trace) Urine Glucose (UA) 4+ A 4+ A (Negative) OB Assessment & Plan Assessment and Plan (1) Decreased movements: Status: Acute (2) Morbid obesity with BMI of 40.0-44.9, adult: Status: Acute (3) Previous delivery affecting : Status: Acute (4) Insulin dependent type 2 diabetes mellitus: Status: Acute (5) Chronic hypertension: Status: Acute Additional Plan Induction method: none Plan: other (monitor blood pressure and sugars . BPP is 8/8 ) Additional Plan Comment: aim is to acheive a good glycemic control as that has been a challenge for this patient and monitor her Blood pressures (1) Decreased movements Qualifiers: Fetus number: single or unspecified fetus Trimester: third trimester Qualified Code(s): O36.8130 - Decreased movements, third trimester, not applicable or unspecified
[2025-09-03] VITALS (33 sets, daily range): BP systolic 96–144; BP diastolic 56–84; PULSE 78–98; RESP 12–20; TEMP 36.5–37.1; O2SAT 96–100
[2025-09-03 00:06] LABS: Syphilis Nonreactive (Nonreactive)
[2025-09-03] MEDS: ceFAZolin/D5W 2 GM IV 2 GM/100 ML BAG IV ×2 (02:11→11:07)
[2025-09-03] MEDS: ACETAMINOPHEN 325 MG TABLET 650 MG PO (02:17)
[2025-09-03] MEDS: AMOXICILLIN 250 MG CAPSULE 500 MG PO (07:07)
--- NOTE | 2025-09-03 09:54 | ESPR_ITS ---
Documentation for date of: 09/03/25 OB Labor Progress Note Pelvic Exam Amniotic membrane status: Intact Contractions Monitor mode: External Contraction frequency: rare Contraction intensity: Mild Status status: Category l History of Present Illness HPI Taken over care from overnight on-call physician. Patient had severe range blood pressures requiring IV push and is complaining of a intractable headache. She meets criteria for superimposed preeclampsia with severe features. Reviewed all the findings with the patient and she was recommended to proceed with delivery by . Patient consented and agrees with plan. She was given opportunity to ask questions. All questions were answered to her apparent satisfaction. team notified and telephone betting clerk aware of delivery.
[2025-09-03] MEDS: RINGERS LACTATED 1000 ML 1,000 ML 100 ML IV (10:49)
--- NOTE | 2025-09-03 11:05 | PD.LDHP ---
Documentation for date of: 09/03/25 OB Labor/Induct. HPI History of Present Illness Chief complaint: Admit for repeat and BTL : 3 Para: 2 Term pregnancies: 0 pregnancies: 2 Living children: 2 History of Abortions: Spontaneous and Elective: 0 History of Vaginal deliveries: 1 History of sections: Yes (x1 2020) History of : No Date of last menstrual period: 12/27/24 RUDY: 10/02/25 Gestational Age (weeks): 36 Gestational Age (days): 0 Gestational age based on last menstrual period: 35 History of present illness: Patient was admitted by the overnight on-call physician for headache and elevated blood pressures requiring IV labetalol. 30 years old at 36 weeks admitted for 23 hour observation due to poor glycemic sugar control on high doses of insulin. Patient also needed iv labetalol due to elevated BP x 2 and since then her BP has been contrlled . PIH labs were done and reviewed. Patient states she has been on antibiotics for a UTI . urine protein/ creatinine ratio is 18/49 and is equal to 0.36 She is on high doses of insulin and is taking lantus 70 units am and 55 units pm and 48 regular with meals H/o chronic hypertension but not on meds . Her glycemic control has been a challenge / Plan to monitor Blood sugars and adjust / change insulin accordingly / BPP is 04/24 History of Present Dating criteria: LMP confirmed by 2nd trimester US Adequate Care: Yes Labs Labs: Negative: RPR, Hepatitis B, Rubella Titre, HIV, Chlamydia and Gonorrhea and Unknown: Herpes Type 1, Herpes Type 2, Group Beta Strep and Covid-19 Past Medical History Surgical History SURGICAL: Positive Section (x1 2020) Meds Home Medications and Allergies Home Medications ?Medication ?Instructions ?Recorded ?Confirmed ?Type insulin glargine 100 unit/mL (3 70 unit subcut .am 08/08/25 09/02/25 History mL) subcutaneous pen (Lantus Solostar U-100 Insulin) insulin lispro 100 unit/mL 55 unit subcut .pm 08/08/25 09/02/25 History subcutaneous pen (Humalog KwikPen (U-100) Insulin) cephalexin 500 mg capsule 500 mg PO TID 08/21/25 08/31/25 History insulin glargine-yfgn 100 unit/mL 55 unit subcut HS 08/28/25 08/31/25 History (3 mL) subcutaneous pen Allergies Allergy/AdvReac Type Severity Reaction Status Date / Time [place] And Derivatives Allergy Severe Rash Verified 09/02/25 19:15 Sulfa (Sulfonamide Allergy Severe Hives Verified 09/02/25 19:15 Antibiotics) OB Exam Physical Exam Vital signs: Temp Pulse Resp BP Pulse Ox O2 Del Method 98.0 F 95 18 133/81 H 99 Room Air 09/03/25 10:50 09/03/25 10:50 09/03/25 10:50 09/03/25 10:50 09/03/25 10:50 09/03/25 10:50 Constitutional Constitutional: no acute distress Routine HEENT Exam Head: Present normocephalic and atraumatic Eye: Present EOMI and PERRL ENT: Present mucous membranes moist Routine Neck Exam Neck: Present supple and trachea midline Routine Cardiovascular Exam Cardiovascular: Present RRR Routine Abdominal Exam Abdominal: Present soft and normoactive bowel sounds Detailed Labor and Delivery Exam Dilation (cm): 0 Baseline heart rate: 145 monitor accelerations: 15x15 monitor decelerations: None Routine Extremities Exam Extremities: Present full ROM Routine Skin Exam Skin: Present intact, dry and warm Routine Neurological Exam Neurological: Present alert, oriented X3 and CN II-XII intact Routine Psychiatric Exam Psychiatric: Present normal affect and normal thought process OB Results Labs 09/02/25 19:35 09/02/25 19:35 Labs: Short CBC 09/02/25 Range/Units 19:35 WBC 9.9 (3.6-11.0) Thou/mm3 Hgb 10.8 L (12.0-16.0) g/dL Hct 32.6 L (36.0-46.0) % Plt Count 207 (140-440) Thou/mm3 BMP 09/02/25 19:35 Sodium 137 Potassium 3.9 Chloride 107 Carbon Dioxide 20.4 BUN 8 L Creatinine 0.6 Glucose 193 H Calcium 8.4 Liver Function 09/02/25 Range/Units 19:35 Total Bilirubin 0.3 (0.3-1.2) mg/dL AST 15 (0-34) U/L ALT 9 L (10-49) U/L Alkaline Phosphatase 105 (46-116) U/L Albumin 3.3 L (3.5-5.0) gm/dL Urine 09/02/25 09/02/25 Range/Units 17:20 18:40 Urine Color Lt-Yellow Lt-Yellow (Lt Yel-Yel) Urine Clarity Hazy Turbid A (Clear/Hazy) Urine pH 6.5 6.5 (5.0-7.0) Ur Specific [place] 1.033 1.026 (1.001-1.035) Urine Protein Trace Negative (Neg - Trace) Urine Glucose (UA) 4+ A 4+ A (Negative) OB Assessment & Plan Assessment and Plan (1) Decreased movements: Status: Acute (2) Morbid obesity with BMI of 40.0-44.9, adult: Status: Acute Assessment and plan: Lovenox postoperatively for DVT prophylaxis (3) Previous delivery affecting : Status: Acute Assessment and plan: Admit to inpatient status for repeat low transverse IV access, CBC, type and screen, LR at 125, RPR, COVID-19 test GBS negative Ancef 2 g prior to surgery start Guan catheter to drainage SCDs for DVT prophylaxis Anesthesia to preop for spinal anesthesia Scheduled for surgery. (4) Insulin dependent type 2 diabetes mellitus: Status: Acute Assessment and plan: Poorly controlled/questionable compliance at home Will monitor blood glucose after delivery (5) Chronic hypertension: Status: Acute Assessment and plan: Patient received 2 doses of IV labetalol (1) Decreased movements Qualifiers: Fetus number: single or unspecified fetus Trimester: third trimester Qualified Code(s): O36.8130 - Decreased movements, third trimester, not applicable or unspecified
[2025-09-03] MEDS: FAMOTIDINE INJ 10 MG/ML VIAL 2 ML 20 MG IV (11:07)
[2025-09-03] MEDS: METOCLOPRAMIDE INJ 5 MG/ML VIAL 2 ML 10 MG IVP (11:08)
[2025-09-03 12:00] LABS: Amphetamine/Metham Scrn,Ur OB Negative (Negative); Benzoylecgonine Screen, Ur OB Negative (Negative); Opiate Screen,Urine OB Negative (Negative); THC Screen,Urine OB Negative (Negative)
--- NOTE | 2025-09-03 12:17 | ESOP_ITS ---
Operative Note - [facility] Procedure Date of procedure: 09/03/25 Procedure Performed: Repeat low-transverse section Bilateral salpingectomy Indication: 30-year-old at 35 weeks and 3 days with poorly controlled T2DM on insulin Chronic hypertension with superimposed preeclampsia with severe features based on headache and severe range blood pressures requiring IV labetalol Previous section Desired surgical sterilization Anesthesia type: Spinal Procedure description: Informed consent was obtained and the patient was brought to the operating room after identity verification with double identifiers. With the patient in the supine position under spinal anesthesia, the abdomen and perineum were prepped in standard sterile fashion and a Guan catheter was placed for continuous drainage. After applying sterile drapes and confirming anesthesia adequacy, a Pfannenstiel incision was made through the subcutaneous tissue to the rectus fascia. The fascia was incised bilaterally off the midline, and the rectus muscles were gently to expose and bluntly enter the peritoneum. The peritoneal opening was extended and an Bradford O-ring retractor was placed to improve visualization. A low transverse Gerald Rivera uterine incision was made in the lower segment, carefully avoiding the bladder. Uterine entry was achieved bluntly, and the opening was extended to allow rupture of the amniotic membranes and release of clear amniotic fluid. The fetus, in vertex position, was delivered after gently elevating the head and releasing a single nuchal cord loop; the remainder of the body was delivered with gentle fundal pressure. The umbilical cord was doubly clamped, divided, and the was transferred to the team, with cord gas samples obtained subsequently. The placenta was delivered by gentle traction, and the uterine cavity was thoroughly cleaned of blood, debris, and membranes. The hysterotomy was closed in two layers using 1 Monocryl suture. The first layer approximated the uterine muscle in a running locked fashion, while the second imbricated the myometrium and serosa. After confirming hemostasis at the hysterotomy site, attention was directed to bilateral salpingectomies. Each fallopian tube was elevated with a Panther clamp, the mesosalpinx exposed, and the salpingectomy was performed using the Enaseal vessel sealing device, with both specimens sent for pathological examination. Hemostasis at the salpingectomy sites was confirmed. The Bradford retractor was then removed, and the peritoneal edges and rectus muscles were reapproximated. The rectus fascia was closed in a running fashion using 0 Vicryl suture. Following copious irrigation of the subcutaneous tissue with warm normal saline and cauterization of bleeding points, the subcutaneous fat was closed with 3-0 Vicryl. The skin was closed using the 4-0 Monocryl in a subcuticular manner. The incision was subsequently cleaned and dressed with Dermabond Prenio followed by a pressure dressing. The patient was then undraped, her abdomen and back were cleaned, and she was transferred to the recovery room in stable and awake condition. The procedure was well tolerated without complications, and all instrument, sponge, and laparotomy counts were correct. Specimen: left tube and right tube Estimated blood loss (ml): 750 Complications: none Surgical staff Operation Date: 09/03/25 11:15 Case Staff RESERVATIONS MANAGER: Lexa Galeano RN First Assistant: Akash Brooks Diagnosis Discharge Diagnosis (1) Insulin dependent type 2 diabetes mellitus: Status: Acute (2) Previous delivery affecting : Status: Acute (3) Chronic hypertension: Status: Acute (4) delivery delivered: Status: Acute (5) Encounter for sterilization: Status: Acute Problem List Completed Was Problem List Reviewed/Reconciled?: Yes
--- NOTE | 2025-09-03 12:22 | PD.LDDELS ---
Data ([place]) Data Hx Section: Yes (x1 2020) : 3 Term: 0 : 2 Livin Abortions: Spontaneous & Theraputic: 0 Delivery Data ([place]) Labor Data Induction/Augmentation Agent: None ROM date: 09/03/25 ROM time: 11:44 Amniotic membrane rupture type: Artificial Amniotic fluid description: Clear Delivery Data delivery date: 09/03/25 Gower delivery time: 11:45 Placenta delivery date: 09/03/25 Placenta delivery time: 11:46 Delivered by: Rachel Delivery nurse: Lico Carlin nurse: Germán Joshi Timber Management Technician at delivery: Yes Delivery Method Delivery method: Low Transverse Presentation: Vertex Anesthesia Type Anesthesia Type: Spinal Anesthesia type: Spinal Placenta Placenta delivery description: Manual Removal Cord blood sent to lab: Yes cord blood collection: Cord Blood Type Episiotomy Episiotomy description: None Umbilical Cord cord description: 3 Vessels Data ([place]ghee) Gower Data Gower's gender: Female Identification band number: [id number] weight (gms): 3120 g Weight (pounds): 6 lbs and 14.1 ozs length: 48.26 cm 1 minute: 8 5 minutes: 9
[2025-09-03] MEDS: KETOROLAC INJ 30 MG/ML VIAL IVP ×2 (14:30→23:24)
[2025-09-03] MEDS: OXYTOCIN in NS 20 units 20 UNIT/1,000 ML BAG 125 UNIT IV (19:12)
[2025-09-04 01:09] VITALS: BP 137/79; PULSE 97; RESP 17; TEMP 36.8; O2SAT 97
[2025-09-04] MEDS: HYDROcodone/APAP 5/325 TABLET 1 TAB PO ×3 (04:29→16:46)
[2025-09-04 06:49] LABS: Basophils # (Auto) 0.0 Thou/mm3 (0.0-0.2); Basophils % (Auto) 0 % (0-2.5); Eosinophils # (Auto) 0.1 Thou/mm3 (0.0-0.5); Eosinophils % (Auto) 1 % (0-10); Hematocrit 30.0 % (36.0-46.0); Hemoglobin 9.8 g/dL (12.0-16.0); Immature Granulocytes Auto 0.05 Thou/mm3 (0.00-0.00); Lymphocytes # (Auto) 2.0 Thou/mm3 (1.0-4.8); Lymphocytes % (Auto) 21 % (10-50); Mean Corpuscular HGB Conc 32.7 g/dl (31.0-37.0); Mean Corpuscular Hemoglobin 26.2 pg (25.0-35.0); Mean Corpuscular Volume 80 fL (80-100); Monocytes # (Auto) 0.9 Thou/mm3 (0.0-0.8); Monocytes % (Auto) 9 % (0-12); Neutrophils # (Auto) 6.7 Thou/mm3 (1.8-7.7); Neutrophils % (Auto) 69 % (37-80); Nucleated Red Blood Cell # 0.00 Thou/mm3 (0.00-0.00); Nucleated Red Blood Cell % 0 /100 WBC (0); Platelet Count 180 Thou/mm3 (140-440); RDW Standard Deviation 44.0 fL (36.4-46.3); Red Blood Count 3.74 Miln/mm3 (4.00-5.20); White Blood Count 9.7 Thou/mm3 (3.6-11.0)
[2025-09-04 07:24] LABS: Alanine Aminotransferase 10 U/L (10-49); Albumin, Serum 3.1 gm/dL (3.5-5.0); Albumin/Globulin Ratio 1.4 (1.2-2.2); Alkaline Phosphatase 97 U/L (46-116); Anion Gap 8 (7-16); Aspartate Amino Transferase 17 U/L (0-34); BUN/Creatinine Ratio 17 Ratio (12-20); Bilirubin,Total 0.3 mg/dL (0.3-1.2); Blood Urea Nitrogen 12 mg/dL (9-23); Calcium 8.5 mg/dL (8.3-10.6); Calcium (Corrected) 9.2 mg/dL (8.5-10.1); Carbon Dioxide 23.7 mMol/L (20.0-31.0); Chloride 108 mMol/L (98-107); Creatinine (Component) 0.7 mg/dL (0.6-1.3); Estimated Creatinine Clearance 170.0 mL/min (>60); Globulin 2.2 gm/dL (2.3-3.5); Glucose 144 mg/dL (74-106); Osmolality,Calculated 282 (275-295); Potassium 4.1 mMol/L (3.4-5.1); Sodium 140 mMol/L (136-145); Total Protein 5.3 gm/dL (5.7-8.2); eGFR > 60 See Note
[2025-09-04 08:00] VITALS: BP 129/87; PULSE 93; RESP 18; TEMP 36.6; O2SAT 98
[2025-09-04] MEDS: DOCUSATE SOD 100 MG CAPSULE PO (09:32)
[2025-09-04] MEDS: Milk Of Magnesia Susp 30 ML UDC PO (09:33)
[2025-09-04] MEDS: SIMETHICONE 80 MG CHEW PO (09:33)
[2025-09-04] MEDS: INSULIN DEGLUDEC 5 UNIT/0.05 ML (PER 5 UNITS) 40 UNIT SC (09:34)
[2025-09-04] MEDS: IBUPROFEN TAB 400 MG TABLET 800 MG PO (09:48)
--- NOTE | 2025-09-04 14:59 | PC.SS ---
MANPOWER DEVELOPMENT MANAGER conducted bedside contact with the patient to address nursing referral indicating patient possessed a history of THC.? Toxicology screening at admission negative.? MANPOWER DEVELOPMENT MANAGER introduced self and role.? MANPOWER DEVELOPMENT MANAGER discussed basis of referral.? Patient denied recreational use of THC during .? Patient stated past history of use but reiterated not during current .? MANPOWER DEVELOPMENT MANAGER not provided timeline from nursing staff on reported history.? is was delivered pre term via .? is the patient?s third child.? Other children are ages 8 and 4.? FOB, Jose Osman; will be involved in the rearing of the infant.? OB services provided by Dr. Ramos.? Patient plans on combo feeding . ?Patient confirms consistency with OB appointments.? Patient is aligned with TANF, SNAP and WIC.? Patient denies history of alcohol/drug abuse.? Patient denies CWS intervention.? Patient denies episodes of domestic violence.? Patient reports history of PTSD.? Patient currently participating with talk therapy.? Patient discontinued medication due to .? Describes no impairment with daily functioning.? ??Patient has access to appropriate supplies and equipment; to include a car seat.? FOB will provide transportation upon discharge.? Patient describes possessing support system consisting of FOB, parents and extended family.? MANPOWER DEVELOPMENT MANAGER provided the patient with community resources to include Parenting Network and Warm Line.? No further intervention required at this time, addiction social worker will be available to address any further concerns.? MANPOWER DEVELOPMENT MANAGER updated bedside nurse.?
[2025-09-04 16:00] VITALS: BP 134/86; PULSE 94; RESP 18; TEMP 36.8; O2SAT 97
[2025-09-04 19:40] VITALS: BP 129/82; PULSE 99; RESP 20; TEMP 36.9; O2SAT 97
[2025-09-04] MEDS: HYDROcodone/APAP 5/325 TABLET 2 TAB PO (22:03)
--- NOTE | 2025-09-04 22:03 | ESPR_ITS ---
Subjective Subjective Interval history: The patient is a 30-year-old G3 now P3003 postop day 1 status post repeat C- section with bilateral salpingectomies for elevated blood pressures requiring IV labetalol. She was an insulin requiring gestational diabetic requiring large amounts of insulin during her . She was delivered at [address] Ramos. This evening, she was resting comfortably in bed in her pajamas. She states the nurse just posted on her fundus and now the area around her umbilicus is sore. She was requesting pain medication. The baby is in the nursery with some blood sugar issues. She had a little girl that she named Lorraine who weighed 6 pounds 14 ounces at . The patient states her bleeding is minimal ,she is ambulating ,passing flatus, and tolerating a general diet. She is on 40 U of long-acting insulin in the morning and a sliding scale of regular insulin but her blood sugars have been under good control, the highest has been 178 post op. Exam Vital Signs Temp Pulse Resp BP Pulse Ox O2 Del Method 98.3 F 94 18 134/86 H 97 Room Air 09/04/25 16:00 09/04/25 16:00 09/04/25 16:00 09/04/25 16:00 09/04/25 16:00 09/04/25 16:00 Narrative Exam Patient is alert and orient x 3 reporting some pain around her umbilicus. Abdomen is soft Abdomen is obese Fundus is firm around umbilicus. Incision is clean dry and intact with Dermabond dressing in place Objective Labs 09/04/25 06:35 09/04/25 06:35 Labs: Laboratory Results - last 24 hr 09/04/25 06:35 WBC 9.7 RBC 3.74 L Hgb 9.8 L Hct 30.0 L MCV 80 MCH 26.2 MCHC 32.7 RDW Std Deviation 44.0 Plt Count 180 Neut % (Auto) 69 Lymph % (Auto) 21 [place] % (Auto) 9 Eos % (Auto) 1 Baso % (Auto) 0 Neut # (Auto) 6.7 Lymph # (Auto) 2.0 [place] # (Auto) 0.9 H Eos # (Auto) 0.1 Baso # (Auto) 0.0 Immature Gran # (Auto) 0.05 H Absolute Nucleated RBC 0.00 Immature Gran % 1 H Nucleated RBC % 0 Sodium 140 Potassium 4.1 Chloride 108 H Carbon Dioxide 23.7 Anion Gap 8 BUN 12 Creatinine 0.7 Estim Creat Clear Calc 170.0 eGFR > 60 BUN/Creatinine Ratio 17 Glucose 144 H Calculated Osmolality 282 Calcium 8.5 Corrected Calcium 9.2 Total Bilirubin 0.3 AST 17 ALT 10 Alkaline Phosphatase 97 Total Protein 5.3 L Albumin 3.1 L Globulin 2.2 L Albumin/Globulin Ratio 1.4 Assessment & Plan Problem List (1) Insulin dependent type 2 diabetes mellitus: Problem details: Continue long-acting insulin 40 units in the morning. Continue regular sliding scale as needed Status: Acute (2) Previous delivery affecting : Problem details: Patient was encouraged to take up to 2 [place] every 6 hours and ibuprofen in between. Her BMI is 46. Will start Lovenox Status: Acute (3) Chronic hypertension: Problem details: Blood pressures in the 130s to 140s over 70. Continue to monitor. Status: Acute (4) delivery delivered: Problem details: Routine post op orders Status: Acute (5) Encounter for sterilization: Status: Acute Time Spent With Patient Time: Total time spent is greater than 50% in coordination of care (as documented) at patient's floor/unit and/or counseling patient:
[2025-09-05 03:26] VITALS: BP 126/85; PULSE 94; RESP 20; TEMP 36.8; O2SAT 98
[2025-09-05] MEDS: HYDROcodone/APAP 5/325 TABLET 2 TAB PO (04:12)
[2025-09-05 06:07] LABS: Basophils # (Auto) 0.0 Thou/mm3 (0.0-0.2); Basophils % (Auto) 0 % (0-2.5); Eosinophils # (Auto) 0.1 Thou/mm3 (0.0-0.5); Eosinophils % (Auto) 1 % (0-10); Hematocrit 31.3 % (36.0-46.0); Hemoglobin 10.3 g/dL (12.0-16.0); Immature Granulocytes Auto 0.04 Thou/mm3 (0.00-0.00); Lymphocytes # (Auto) 2.1 Thou/mm3 (1.0-4.8); Lymphocytes % (Auto) 23 % (10-50); Mean Corpuscular HGB Conc 32.9 g/dl (31.0-37.0); Mean Corpuscular Hemoglobin 26.6 pg (25.0-35.0); Mean Corpuscular Volume 81 fL (80-100); Monocytes # (Auto) 0.8 Thou/mm3 (0.0-0.8); Monocytes % (Auto) 9 % (0-12); Neutrophils # (Auto) 6.1 Thou/mm3 (1.8-7.7); Neutrophils % (Auto) 67 % (37-80); Nucleated Red Blood Cell # 0.00 Thou/mm3 (0.00-0.00); Nucleated Red Blood Cell % 0 /100 WBC (0); Platelet Count 202 Thou/mm3 (140-440); RDW Standard Deviation 44.8 fL (36.4-46.3); Red Blood Count 3.87 Miln/mm3 (4.00-5.20); White Blood Count 9.2 Thou/mm3 (3.6-11.0)
[2025-09-05 08:08] VITALS: BP 138/87; PULSE 89; RESP 19; TEMP 36.7; O2SAT 98
[2025-09-05] MEDS: DOCUSATE SOD 100 MG CAPSULE PO (08:25)
[2025-09-05] MEDS: ENOXAPARIN SOD INJ 40 MG/0.4 ML SYRINGE SC (08:25)
[2025-09-05] MEDS: INSULIN DEGLUDEC 5 UNIT/0.05 ML (PER 5 UNITS) 40 UNIT SC (08:25)
[2025-09-05 09:20] VITALS: BP 146/87; PULSE 92
--- NOTE | 2025-09-05 10:43 | ESPR_ITS ---
Subjective Subjective Interval history: Delivery type: , history of poorly controlled GDM, patient is currently on long-acting insulin with sliding scale coverage. Patient doing well this morning. No acute complaints. Ambulating, tolerating p.o., and voiding without difficulty. HTN/Pre-E screen negative: No CP, SOB, WHALEN, visual changes, RUQ pain. : Yes Lochia: diminishing Bowel: Flatus + / BM + UOP: Voiding freely Exam Vital Signs Temp Pulse Resp BP Pulse Ox O2 Del Method 98.1 F 92 19 146/87 H 98 Room Air 09/05/25 08:08 09/05/25 09:20 09/05/25 08:08 09/05/25 09:20 09/05/25 08:08 09/05/25 08:08 Constitutional Constitutional: no acute distress Routine HEENT Exam Head: Present normocephalic and atraumatic Eye: Present EOMI and PERRL ENT: Present mucous membranes moist Routine Neck Exam Neck: Present supple and trachea midline Routine Respiratory Exam Respiratory: Present chest non-tender, lungs clear, normal breath sounds and no resp distress Routine Cardiovascular Exam Cardiovascular: Present RRR Routine Abdominal Exam Abdominal: Present soft and normoactive bowel sounds Routine Extremities Exam Extremities: Present full ROM Routine Skin Exam Skin: Present intact, dry and warm Routine Neurological Exam Neurological: Present alert, oriented X3 and CN II-XII intact Routine Psychiatric Exam Psychiatric: Present normal affect and normal thought process Objective Labs 09/05/25 04:25 09/04/25 06:35 Labs: Laboratory Results - last 24 hr 09/05/25 04:25 WBC 9.2 RBC 3.87 L Hgb 10.3 L Hct 31.3 L MCV 81 MCH 26.6 MCHC 32.9 RDW Std Deviation 44.8 Plt Count 202 Neut % (Auto) 67 Lymph % (Auto) 23 Isabella % (Auto) 9 Eos % (Auto) 1 Baso % (Auto) 0 Neut # (Auto) 6.1 Lymph # (Auto) 2.1 Isabella # (Auto) 0.8 Eos # (Auto) 0.1 Baso # (Auto) 0.0 Immature Gran # (Auto) 0.04 H Absolute Nucleated RBC 0.00 Immature Gran % 0 Nucleated RBC % 0 Assessment & Plan Problem List (1) Insulin dependent type 2 diabetes mellitus: Status: Acute (2) Previous delivery affecting : Status: Acute (3) Chronic hypertension: Status: Acute (4) delivery delivered: Status: Acute Assessment and plan: PPD/POD#2 1. Continue routine care 2. Transition to PO meds. 3. Encourage to ambulate/ breast-feed 4. Anticipate discharge home today. 5. Will send home on a combination of long-acting insulin along with mealtime coverage. Will initiate patient on Ozempic that will help both with her diabetes as well as weight management (5) Encounter for sterilization: Status: Acute Time Spent With Patient Time: Total time spent is greater than 50% in coordination of care (as documented) at patient's floor/unit and/or counseling patient:
--- NOTE | 2025-09-05 10:46 | ESDS_ITS ---
DS: Providers Provider Date of admission: 09/03/25 08:24 Primary care physician: Physician No Primary/Family Admitting Provider: Sabra Adan MD Attending Provider on Admission: Fabian Ramos MD Consults: 09/03/25 13:02 Referral Routine Comment: Attending Provider on DC: Fabian Ramos MD Discharging Provider: Fabian Ramos MD DS: Diagnosis Discharge Diagnosis (1) Encounter for sterilization: Status: Acute (2) delivery delivered: Status: Acute (3) Morbid obesity with BMI of 40.0-44.9, adult: Status: Acute (4) Previous delivery affecting : Status: Acute (5) Insulin dependent type 2 diabetes mellitus: Status: Acute (6) Chronic hypertension: Status: Acute Problem List Completed Was Problem List Reviewed/Reconciled?: Yes Summary/Hosp Course Brief History: Patient was admitted by the overnight on-call physician for headache and elevated blood pressures requiring IV labetalol. 30 years old at 36 weeks admitted for 23 hour observation due to poor glycemic sugar control on high doses of insulin. Patient also needed iv labetalol due to elevated BP x 2 and since then her BP has been contrlled . PIH labs were done and reviewed. Patient states she has been on antibiotics for a UTI . urine protein/ creatinine ratio is 18/49 and is equal to 0.36 She is on high doses of insulin and is taking lantus 70 units am and 55 units pm and 48 regular with meals H/o chronic hypertension but not on meds . Her glycemic control has been a challenge / Plan to monitor Blood sugars and adjust / change insulin accordingly / BPP is 8/8 Peripartum Data Delivery Method: Low Transverse Episiotomy Description: None Procedures: Procedures Operation Date: 09/03/25 11:15 Actual Procedure Side Surgeon p w/tubal OB Not Applicable Fabian Ramos MD Time Spent with Patient Time attestation: Total time spent providing and/or coordinating discharge services: Exam Vital Signs Temp Pulse Resp BP Pulse Ox O2 Del Method 98.1 F 92 19 146/87 H 98 Room Air 09/05/25 08:08 09/05/25 09:20 09/05/25 08:08 09/05/25 09:20 09/05/25 08:08 12/20/25 08:08 Discharge Plan Plan Patient Disposition: HOME (Self Care) Patient condition on transfer: Stable Prescriptions/Referrals Prescriptions/Med Rec: New hydrocodone-acetaminophen 5-325 mg tablet 1 tab PO Q6H MDD 4 PRN (Reason: pain) 5 Days Qty: 20 0RF docusate sodium [Stool Softener] 100 mg capsule 100 mg PO QDAY 30 Days Qty: 30 0RF ibuprofen 600 mg tablet 600 mg PO Q6H MDD 4 PRN (Reason: fever or pain) 10 Days Qty: 40 0RF insulin glargine [Lantus Solostar U-100 Insulin] 100 unit/mL (3 mL) insulin pen 25 unit subcut BID 30 Days Qty: 15 1RF insulin lispro [Humalog KwikPen Insulin] 100 unit/mL insulin pen 10 unit subcut TID 30 Days Qty: 9 2RF Ozempic 0.25 mg or 0.5 mg (2 mg/3 mL) pen injector 0.5 mg subcut QWEEK 30 Days Qty: 3 2RF hydralazine 10 mg tablet 10 mg PO BID 30 Days Qty: 60 1RF Continued (DME) pen needle, diabetic 29 gauge x 1/2 needle See Rx Instructions .MEDSUPPLY Qty: 100 2RF Rx Instructions: As directed, four times a day Vitamin Plus Low Iron 27 mg iron- 1 mg tablet 1 tab PO QDAY 90 Days Qty: 90 6RF (DME) Blood Glucose Test Strip See Rx Instructions .MEDSUPPLY Qty: 100 0RF Rx Instructions: As directed, 4 times a day (DME) lancets 21 gauge misc See Rx Instructions .MEDSUPPLY Qty: 100 0RF Rx Instructions: As directed, 4 times a day sumatriptan succinate [Imitrex] 50 mg tablet See Rx Instructions PO .COMPLEX 7 Days Qty: 20 1RF Rx Instructions: take 1 tab at onset of headache; if no relief may repeat 1 tab after at least 2 hrs; max = 4 tabs/24 hr PO Discontinued folic acid 1 mg tablet 4 mg PO QDAY 90 Days Qty: 360 8RF cephalexin 500 mg capsule 500 mg PO TID Patient Comments: TAKE ONE CAPSULE BY MOUTH THREE TIMES DAILY FOR INFECTION amoxicillin 500 mg capsule 500 mg PO TID 7 Days Qty: 21 3RF insulin lispro [Humalog KwikPen Insulin] 100 unit/mL insulin pen 55 unit subcut .pm Rx Instructions: 48 units BF 48 units lunch 48 units dinner subcutaneously three times a day; insulin glargine [Lantus Solostar U-100 Insulin] 100 unit/mL (3 mL) insulin pen 70 unit subcut .am Rx Instructions: 70 units AM and 55 units PM subcutaneously twice a day; insulin glargine-yfgn 100 unit/mL (3 mL) insulin pen 55 unit SUBCUT HS Patient Comments: INJECT SUBCUTANEOUSLY TWICE A DAY: 48 UNITS IN MORNING AND 50 UNITS IN EVENING Referrals: Fabian Ramos MD [Physician, ACCOUNTING ASSISTANT] No Primary/Family,Physician [Primary Care Provider] Patient/Caregiver Discharge Instructions Discharge Activity: activity as tolerated Other Discharge Activity Instructions:: Follow up with OB in 1 week Education Materials: Controlling High Blood Pressure, Diabetes and Heart Disease, Managing Type 2 Diabetes, After Delivery Concerns, Breast Care After , After a , Nutrition While , Understanding Depression, : Caring for Yourself, C Section Dc, Feel Healthy After, Blood Pressure Check Steps, Diabetes and High Blood Pressure Print Language: Vietnamese Stand Alone Forms: Lynn Award Info., Patient Portal Info Letter, DC from Surgery Discharge Order Discharge Orders: Discharge (Routine); Ordered 09/05/25 Ordered By: Fabian Ramos Planned Discharge Date 09/05/25
== END 2025-09-05 11:05 | disposition home or self-care (01) | DRG 539 ==
LOC: S4SX 09-03 11:48 → S4NX 09-03 11:48
PROVIDERS: Obstetrics & Gynecology; Admitting Provider Obstetrics & Gynecology; Visit Provider Obstetrics & Gynecology
PROC: 0UL70ZZ Occlusion of Bilateral Fallopian Tubes, Open Approach (ICD-10-PCS; CPT 59514; principal; 2025-09-03 11:00)
DX: O34.211 Maternal care for low transverse scar from previous cesarean delivery (principal); O99.214 Obesity complicating childbirth; E66.01 Morbid (severe) obesity due to excess calories; O24.113 Pre-existing type 2 diabetes mellitus, in pregnancy, third trimester; Z30.2 Encounter for sterilization; Z37.0 Single live birth; O69.81X0 Labor and delivery complicated by cord around neck, without compression, not applicable or unspecified; O23.43 Unspecified infection of urinary tract in pregnancy, third trimester; O36.8130 Decreased fetal movements, third trimester, not applicable or unspecified; Z3A.36 36 weeks gestation of pregnancy; Z88.2 Allergy status to sulfonamides
CPT/HCPCS: 36415; 59025; 59409; 59899; 76819; 80053; 80307; 81001; 82570; 84156; 84550; 85025; 85384; 85610; 85730; 86780; 86850; 86900; 86901; 94762; A4217; A4649; J0689; J1200; J1650; J1815; J1885; J1920; J2274; J2371; J2590; J2765; J3010; J3290; J3490; J7030; J7120; A9270; J2270